=== PATIENT | male | born 1955 | race Caucasian/White ===

== ENCOUNTER 2020-06-02 14:42 | Emergency (ER) | payer OTHER, SELFPAY ==
[2020-06-02 15:36] VITALS: BP 141/82; PULSE 79; RESP 18; TEMP 37.2; O2SAT 98; BMI 33.6
--- NOTE | 2020-06-02 17:12 | XR_ITS ---
EXAMINATION: 1. RADIOGRAPHS LEFT SHOULDER 2. RADIOGRAPHS LEFT HUMERUS CLINICAL INFORMATION: Pain after fall COMPARISON: None TECHNIQUE: 3 views of the left shoulder and 2 views of left humerus were obtained. FINDINGS: No fracture of the left humerus. The humeral head demonstrates good articulation with the glenoid fossa. Small osteophyte of the humeral head/neck junction. Mild hypertrophy changes of the acromioclavicular joint. Visualized ribs and lung parenchyma are unremarkable. IMPRESSION: Mild degenerative changes of the left shoulder.
--- NOTE | 2020-06-02 17:12 | CT_ITS ---
EXAMINATION: CT HEAD WITHOUT CONTRAST CT CERVICAL SPINE WITHOUT CONTRAST CLINICAL INFORMATION: Status post fall. Head injury. Neck injury. COMPARISON: CT head from 03/22/2017. TECHNIQUE: Contiguous axial imaging was performed from the skull base to vertex without intravenous administration of contrast. Contiguous axial imaging was performed from the upper chest through the skull base without intravenous administration of contrast. Coronal and sagittal reformats were obtained at the acquisition workstation. This CT examination was performed using dose optimization techniques as appropriate, variously including the following: *Automated exposure control. *Adjustment of mA and/or kV according to patient size (this includes techniques or standardized protocols for targeted exams where dose is matched to indication/reason for exam; i.e. extremities or head). *Use of iterative reconstruction technique. DLP: 1390 mGy-cm FINDINGS: Head: There is no evidence of acute intracranial hemorrhage or edematous territorial infarction. Scattered hypoattenuation in the periventricular and deep white matter are consistent with mild to moderate microangiopathy. Wilhelm-white matter differentiation is preserved. Proportional prominence of the ventricles and sulcal spaces. No evidence for obstructive hydrocephalus. No abnormal mass effect or midline shift. No extra-axial fluid collections. No acute soft tissue or osseous abnormalities. Moderate mucosal thickening of the paranasal sinuses. The mastoid air cells and middle ear cavities are clear. Cervical Spine: The atlantooccipital and atlantoaxial articulations remain well aligned. Instrumented anterior fusion of C4-C5 with interbody device in place. Straightening of the normal cervical lordosis. Otherwise, there is anatomic alignment of the vertebral bodies and posterior elements. No evidence of acute fracture or subluxation. The vertebral body are maintained. Moderate degenerative disc disease at C5-C6 and C6-C7. Moderate multilevel facet and uncovertebral joint arthropathy with osseous encroachment on the C3-C4 and C4-C5 facets. There is no prevertebral soft tissue swelling. Fatty replacement of the parotid glands. Atrophy of the right submandibular gland. Subcentimeter nodules within the right thyroid lobe. No demonstrated cervical lymphadenopathy. The lung apices demonstrate no abnormalities. IMPRESSION: 1. No evidence of acute intracranial hemorrhage or edematous territorial infarction. 2. No evidence of acute fracture or traumatic subluxation of the cervical spine. 3. Mild to moderate underlying microangiopathy and generalized cerebral volume loss. Degenerative spondylosis arthropathy of the cervical spine.
--- NOTE | 2020-06-02 17:46 | ED.FALL ---
HPI - Fall General Chief Complaint: Fall Stated Complaint: fall Time Seen by Provider: 06/02/20 17:09 Source: patient Mode of arrival: ambulatory Limitations: no limitations History of Present Illness HPI Narrative: 65yoM c a PMHx of Asthma, DM, HTN and HLD presenting to the ED with complaints of left neck pain /shoulder pain / left upper arm pain after a mechanical fall on Monday after he woke up from bed and his leg got caught in the blanket. Denies LOC or being on blood thinner's. denies any additional complaints or concerns at this time. Related Data Previous Rx's Medication Instructions Recorded empagliflozin 25 mg tablet 25 mg PO DAILY 30 Days #30 tab 05/20/20 Allergies Allergy/AdvReac Type Severity Reaction Status Date / Time Penicillins Allergy Mild DIZZY/DIAPHORESIS, Verified 06/02/20 15:35 N/V penicillin V Allergy Unknown Unknown Verified 06/02/20 15:35 Review of Systems Review of Systems: Eyes: No Eye Pain, No Swelling, No Foreign Body Cardiovascular : No Chest Pain, No SOB, No Dyspnea on Exertion, No Orthopnea, No Edema, No Palpitations Gastrointestinal : No Nausea, No Vomiting, No Diarrhea, No Constipation, No abdominal Pain Musculoskeletal : No Myalgias, No Joint Swelling Skin : No Skin Lesions, No rash Neuro : No Weakness, No Numbness, No Paresthesias, No Loss of Consciousness, No Dizziness, No Headache Psych : No Anxiety/Panic, No Depression, No SI/HI/AH/VH, No Social Issues, Heme/Lymph: No Bruising, No Bleeding,No Lymphadenopathy Endocrine : No Polyuria, No Polydipsia, No Temperature Intolerance Yes all other systems are reviewed and are negative [facility] Past Medical History Attestation statement: The following information was validated with the patient. Medical History Asthma Cervical spine pain Diabetes High cholesterol HTN (hypertension) Social History Social History Alcohol intake: never Smoked in Last 30 Days: No Use of substances other than those prescribed or required for medical reasons: No Advance Directives: No Advance Directives Information Provided: No Physical Exam Vital Signs: Vital Signs: Vital Signs Temp Pulse Resp BP Pulse Ox 06/02/20 15:36 98.9 F 79 18 141/82 H 98 Body Mass Index 33.6 vital signs have been reviewed as normal and appeared to be correct. Blood pressure normal. Heart rate normal. Respiration rate normal. Temperature normal. Oxygen saturation normal. Appearance: Alert. Oriented X3. No acute distress. Head: Normal external exam. Normocephalic. Atraumatic. No Graf signs noted. No raccoon eyes noted Eyes: PERRLA. EOMI. Conjunctiva and sclera normal. Eyelids normal. ENT: EAC normal. TM's Normal. Pharynx normal. Uvula midline. Moist mucous membranes. No trismus noted. No drooling noted. No muffled voice noted. Neck: Normal inspection. Neck supple. FROM. No adenopathy. Thyroid Normal. No meningeal signs. No neck mass noted. Tender to palpation of bilateral paracervical musculature. No mid cervical tenderness step-offs or deformities noted. Patient neuro intact bilaterally and distally on all 4 extremities. Reflexes intact bilaterally and distally on all 4 extremities. Patient has full range of motion. No rashes/lesion / induration/ fluctuance or signs of infection noted. CVS: Normal heart rate and rhythm. Heart sound normal. No murmurs noted. Pulses normal throughout. Respiratory: No respiratory distress. Painless inspiration. Breath sounds normal. No wheezes/rales/rhonchi noted. Chest nontender. No accessory muscle usage noted or decreased air movement noted. Abdomen: Soft and nontender. Bowel sounds normal in all 4 quadrants. No distention noted. No organomegaly noted. No visible injury noted. Back: No CVA tenderness. Full range of motion noted. Skin: Skin warm and dry. Normal skin color. Normal skin turgor. No rashes/lesions/lacerations noted. Extremities: Left shoulder c TTP at AC joint c limited ROM due to pain For abduction/adduction/ external and internal rotation. No obvious deformities. No rashes/lesion / induration/fluctuance or signs infection noted. No lower extremity edema. All other Extremities exhibit normal range of motion and Extremities nontender. Neuro: Oriented X 3. No motor deficit. No sensory deficit. Reflexes normal. Course Course Course Narrative: 17:12PM 65yoM c a PMHx of Asthma, DM, HTN and HLD presenting to the ED with complaints of left neck pain /shoulder pain / left upper arm pain after a mechanical fall on Monday after he woke up from bed and his leg got caught in the blanket. Denies LOC or being on blood thinner's. denies any additional complaints or concerns at this time. - Plan: Xray of R shoulder/humerus and CT scan of brain/cervical spine. Then re-evaluate. Reevaluation(s) Reevaluation #1: CT scan of brain and cervical spine within normal limits no acute processes noted. Only chronic changes noted. Sign out to neck is DEVIKA at this time pending x-rays. Time: 18:08 MDM - Fall Medical Records Attestation: I reviewed the patient's medical records. Imaging Data CT scan - head: Attestation: I personally reviewed and interpreted this imaging study as follows: Radiologist's impression: IMPRESSION: 1. No evidence of acute intracranial hemorrhage or edematous territorial infarction. 2. No evidence of acute fracture or traumatic subluxation of the cervical spine. 3. Mild to moderate underlying microangiopathy and generalized cerebral volume loss. Degenerative spondylosis arthropathy of the cervical spine. Discharge Plan Discharge Prescriptions: No Action Jardiance 25 mg tablet 25 mg PO DAILY 30 Days Qty: 30 RF: 3
[2020-06-02] MEDS: oxyCODONE HCl Immed Release 5 MG TABLET PO (18:16)
[2020-06-02] MEDS: Cyclobenzaprine HCl 5 MG TABLET PO (18:16)
== END 2020-06-02 19:22 | disposition home or self-care (01) ==
PROVIDERS: Emergency Provider Emergency Medicine Emergency Medical Services; PCP Internal Medicine Geriatric Medicine
DX: S09.90XA Unspecified injury of head, initial encounter (principal); S16.1XXA Strain of muscle, fascia and tendon at neck level, initial encounter; W06.XXXA Fall from bed, initial encounter; E11.9 Type 2 diabetes mellitus without complications; I10 Essential (primary) hypertension; Y93.9 Activity, unspecified; Y92.013 Bedroom of single-family (private) house as the place of occurrence of the external cause; Y99.9 Unspecified external cause status; Z79.4 Long term (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 of insulin; Z79.899 Other long term (current) drug therapy
CPT/HCPCS: 70450; 72125; 73030; 73060; 99284

== ENCOUNTER → 2020-06-16 10:48 | Outpatient (BNVA) | payer OTHER, SELFPAY | PROVIDERS: PCP Internal Medicine Geriatric Medicine; Referring Provider Internal Medicine Geriatric Medicine; Visit Provider Internal Medicine Endocrinology, Diabetes & Metabolism | DX: E11.65 Type 2 diabetes mellitus with hyperglycemia (principal); E11.42 Type 2 diabetes mellitus with diabetic 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; E11.21 Type 2 diabetes mellitus with diabetic nephropathy; K21.9 Gastro-esophageal reflux disease without esophagitis; E66.9 Obesity, unspecified; E78.5 Hyperlipidemia, unspecified; D50.9 Iron deficiency anemia, unspecified; E78.00 Pure hypercholesterolemia, unspecified; I10 Essential (primary) hypertension; Z79.84 Long term (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 of oral hypoglycemic drugs | CPT/HCPCS: 99212 ==

== ENCOUNTER → 2020-06-18 13:23 | Outpatient (BNVA) | payer OTHER, SELFPAY | PROVIDERS: PCP Internal Medicine Geriatric Medicine; Referring Provider Internal Medicine Geriatric Medicine; Visit Provider Dietitian, Registered | DX: Z76.89 Persons encountering health services in other specified circumstances (principal) ==

== ENCOUNTER 2020-07-22 09:52 | Outpatient (REF) | payer OTHER, SELFPAY ==
[2020-07-22 11:34] LABS: Estimated Average Glucose 154 mg/dL
[2020-07-22 11:44] LABS: Alanine Aminotransferase 35 U/L (0-40); Albumin Level 4.4 g/dL (3.5-5.0); Alkaline Phosphatase 101 U/L (39-117); Anion Gap 19 (12-20); Aspartate Amino Transferase 23 U/L (5-37); Blood Urea Nitrogen 19 mg/dL (9-16); Calcium 8.9 mg/dL (8.4-10.2); Carbon Dioxide 23 mmol/L (22-29); Chloride 101 mmol/L (96-108); Cholesterol 157 mg/dL; Estimated Glomerular Filt Rate 47; Glucose Fasting 136 mg/dL (60-99); HDL Cholesterol 43 mg/dL; LDL Cholesterol Calculated 67 mg/dl; Potassium 4.7 mmol/l (3.3-5.1); Sodium 138 mmol/L (135-145); Total Protein 7.2 g/dL (6.5-8.0); Triglycerides 238 mg/dL
[2020-07-22 11:56] LABS: Vitamin B12 648 pg/mL (200-900)
[2020-07-22 11:59] LABS: Bilirubin Total 0.2 mg/dL (0.0-1.0)
[2020-07-22 12:16] LABS: Creatinine Urine 82.27 mg/dL; Microalbum/Creatinine Ratio Ur 8.5 ug/mg cr
[2020-07-23 07:02] LABS: LDL Cholesterol Direct 89 mg/dL (<100)
== END 2020-07-22 09:53 | disposition home or self-care (01) ==
LOC: HO.LAB 09:52
PROVIDERS: PCP Internal Medicine Geriatric Medicine; Visit Provider Internal Medicine Endocrinology, Diabetes & Metabolism
DX: E11.65 Type 2 diabetes mellitus with hyperglycemia (principal); E11.21 Type 2 diabetes mellitus with diabetic nephropathy
CPT/HCPCS: 80053; 80061; 82043; 82607; 83036; 83721

== ENCOUNTER → 2020-07-28 13:48 | Outpatient (BNVA) | payer OTHER, SELFPAY | PROVIDERS: PCP Internal Medicine Geriatric Medicine; Referring Provider Internal Medicine Geriatric Medicine; Visit Provider Dietitian, Registered | DX: Z76.89 Persons encountering health services in other specified circumstances (principal) ==

== ENCOUNTER → 2020-09-17 13:03 | Outpatient (BNVA) | payer OTHER, SELFPAY | PROVIDERS: PCP Internal Medicine Geriatric Medicine; Visit Provider Internal Medicine Endocrinology, Diabetes & Metabolism | DX: Z13.89 Encounter for screening for other disorder (principal) | CPT/HCPCS: Q3014 ==

== ENCOUNTER 2020-09-29 13:17 | Outpatient (REF) | payer OTHER, SELFPAY | END 2020-09-29 13:18 | disposition home or self-care (01) | LOC: HO.HAP 13:17 | PROVIDERS: Visit Provider Internal Medicine Geriatric Medicine | DX: Z13.89 Encounter for screening for other disorder (principal) ==

== ENCOUNTER 2020-10-12 14:01 | Outpatient (REF) | payer OTHER, SELFPAY | END 2020-10-12 14:02 | disposition home or self-care (01) | LOC: HO.HAP 14:01 | PROVIDERS: Visit Provider Internal Medicine Geriatric Medicine | DX: Z46.1 Encounter for fitting and adjustment of hearing aid (principal) | CPT/HCPCS: V5014; V5266 ==

== ENCOUNTER → 2020-10-27 13:27 | Outpatient (BNVA) | payer OTHER, SELFPAY | PROVIDERS: PCP Internal Medicine Geriatric Medicine; Visit Provider Dietitian, Registered ==

== ENCOUNTER 2020-10-28 10:58 | Outpatient (REF) | payer OTHER, SELFPAY ==
--- NOTE | 2020-10-28 14:46 | MHC.AU.AHA ---
Adult Audiological Evaluation Date of Visit: 10/28/20 Sanitarian Used: Israeli- By Video Reason for Appointment: History of hearing loss. Patient arrives to determine if there has been a change in hearing. Previous Hearing Test Results: At this clinic on 10/09/2019- Moderately-severe to profound sensorineural hearing loss bilaterally Ear History: Recent Ear Drainage: None Reported Recent Ear Pain: None Reported Family History of Hearing Loss?: Yes Recent Ear Infections: None Reported Medical History: Medical History: Type 2 Diabetes, Hypertension, Asthma, Osteoarthritis, Schizoaffective Disorder Hearing Instrument History- Right Ear: Facing Machine Operator: Phonak Model: Virto V50-312 Serial Number: [id number] Battery Size: 312 Dispensed By: [facility] Date of Fittin09/22/2015 Hearing Instrument History- Left Ear: Facing Machine Operator: Phonak Model: Virto V50-312 Serial Number: [id number] Battery Size: 312 Dispensed By: [facility] Date of Fittin09/22/2015 Otoscopy: Right Ear: Unremarkable Left Ear: Unremarkable Tympanometry: Tympanometry performed due to: To assess integrity of the middle ear system Right Ear: Hypercompliant Middle Ear System (Type Ad) Left Ear: Normal Middle Ear System (Type A) Hearing Evaluation: Transducer(s) Used: Insert Earphones Method: Conventional Audiometry Stimuli Used: Pure Tones Right Ear: Description of Hearing: Moderately-severe to profound sensorineural hearing loss Left Ear: Description of Hearing: Moderately-severe to profound sensorineural hearing loss Speech Recognition Threshold (SRT): Method Used: Recorded Lists Stimuli Used: Right Ear: 90 dBHL Left Ear: 80 dBHL Word Discrimination: Method: Recorded Lists Word Lists Used: Lista Bisil?bica (Israeli) Right Ear: 72% at 100 dBHL Left Ear: 80% at 100 dBHL Comparison: Compared to the most recent evaluation: Thresholds have decreased bilaterally. Recommendations: Audiological re-evaluation in one year. Hearing aid maintenance performed today. See Hearing Aid Evaluation report for more information. Diagnosis: Primary Diagnosis: H90.3 Bilateral Sensorineural Hearing Loss Secondary Diagnosis: Services Performed: Comprehensive Audiological Evaluation (CPT 42555), Tympanometry (CPT 62187) Signature: Student/Clinical Fellow: No I have reviewed/agreed with student/fellow documentation: N/A Provider: Georgi Roberson, [facility]3]-A
--- NOTE | 2020-10-28 14:48 | MHC.AU.HAS ---
Hearing Aid Evaluation Date of Visit: 10/28/20 Commercial Real Estate Sales Manager Used: Lithuanian- By Video Historical Information: Description of Hearing: Moderately-severe to profound sensorineural hearing loss bilaterally Current personal amplification information, if applicable: Phonak Virto V50-312 ITC, obtained 09/22/2015 Summary: Patient arrived for audiological evaluation (see separate note for details). Patient's hearing slightly decreased bilaterally. Hearing aid options were discussed. Patient would like to stay with the ITC style. He says if Bluetooth (wireless) compatibility will make the hearing aids too large, it is fine to go with the Non-Wireless version. We will try the Wireless version first, as only the Wireless comes in a UP power level. If patient feels it is too large, he may be able to get away with an SP power level (though there would be little room for adjusting up). Impressions were taken bilaterally without incident. Hearing Aid Prescription: Based on the individual?s shared listening needs, communication environments, dexterity, desire for connectivity, and personal preferences, the following prescription for amplification has been made: Right ear: Mexican Food Maker: Phonak Model: Virto M50-312 UP Battery Size: 312 Color: Sawyer Left ear: Mexican Food Maker: Phonak Model: Virto M50-312 UP Battery Size: 312 Color: Sawyer Action Taken/Action Needed: Earmold Impressions Taken Prior authorization to be requested Medical Clearance to be requested from PCP/ENT Hearing Fitting to be scheduled when materials arrive Comments: Request honing machine operator production for fitting. Primary Diagnosis: H90.3 Bilateral Sensorineural Hearing Loss Signature: Provider: Georgi Roberson, CCC-A
--- NOTE | 2020-10-28 15:27 | MHC.AU.MED ---
Medical Clearance for Hearing Instrumentation Date: 10/28/20 Patient Name: Alonzo Yuan Date of : 1955 Referring Provider: Chan Holley MD We have seen your patient on 10/28/20 and have determined that they are a candidate for amplification (See accompanying report). Specifically, they would benefit from: Hearing aid use in both ears There is a statute that addresses Medical Evaluation Requirements prior to fitting a patient with a hearing aid. According to [place] statute [facility] CMR:6.03(1), (a) General. Except as provided in 265 CMR 6.03(1)(b), a rand tacker shall not sell a hearing aid unless the prospective user has presented to the rand tacker a written statement signed by a licensed physician that states that the patient's hearing loss has been medically evaluated and the patient may be considered a candidate for a hearing aid. The medical evaluation must have taken place within the preceding six months. Please note: Due to the [place] Statute referenced above, we cannot accept a signature other than that of a licensed physician. BEACH LIFEGUARD and PA signatures cannot be accepted. I am in agreement with the above recommendation. There is no medical contraindication for hearing instrumentation. Physician Signature Date Physician Name (Printed)
== END 2020-10-28 10:59 | disposition home or self-care (01) ==
LOC: HO.SH 10:58
PROVIDERS: Visit Provider Internal Medicine Geriatric Medicine
DX: Z46.1 Encounter for fitting and adjustment of hearing aid (principal); H90.3 Sensorineural hearing loss, bilateral
CPT/HCPCS: 92557; 92567; 92591; V5275

== ENCOUNTER 2020-12-11 14:40 | Outpatient (REF) | payer OTHER, SELFPAY ==
--- NOTE | 2020-12-11 15:16 | MHC.AU.HFA ---
Hearing Instrument Fitting- Adult- Binaural Date of Visit: 12/11/20 Fern Gatherer Used: Romansh- In Person Hearing Instruments Dispensed: Right Ear: Stem Crusher: Phonak Model: Virto M70-312 UP Serial Number: [id number] Repair Warranty: 12/20/2023 Loss and Damage Warranty: 12/20/2023 Battery Size: 312 Color: Sawyer Type of Wax Guard: CeruStop Left Ear: Stem Crusher: Phonak Model: Virto M70-312 UP Serial Number: [id number] Repair Warranty: 12/20/2023 Loss and Damage Warranty: 12/20/2023 Battery Size: 312 Color: Sawyer Type of Wax Guard: CeruStop Summary of Fitting: Feedback healthcare consulting manager run. Verifit performed and levels adjusted. Patient felt 100% was too loud- lowered to 90% for comfort. Patient was pleased with the sound of the instruments and did not feel additional adjustments were necessary. Paired the hearing aids to his phone. Hearing aid care and use were discussed. Recommendations: Recommendations:Patient is an experienced hearing aid user. He will call if follow-up is needed. Diagnosis Code(s): Primary Diagnosis: H90.3 Bilateral Sensorineural Hearing Loss Signature: Provider: Georgi Roberson, JOSSELIN-A
== END 2020-12-11 14:41 | disposition home or self-care (01) ==
LOC: HO.HAP 14:40
PROVIDERS: Visit Provider Internal Medicine Geriatric Medicine
DX: Z46.1 Encounter for fitting and adjustment of hearing aid (principal); H90.3 Sensorineural hearing loss, bilateral
CPT/HCPCS: V5011; V5020; V5160; V5260; V5266

== ENCOUNTER → 2020-12-16 08:56 | Outpatient (BNVA) | payer OTHER, SELFPAY | PROVIDERS: PCP Internal Medicine Geriatric Medicine; Visit Provider Internal Medicine Endocrinology, Diabetes & Metabolism | CPT/HCPCS: Q3014 ==

== ENCOUNTER → 2021-03-09 13:56 | Outpatient (BNVA) | payer OTHER, SELFPAY | PROVIDERS: Visit Provider Nurse Practitioner | DX: Z13.89 Encounter for screening for other disorder (principal) | CPT/HCPCS: Q3014 ==

== ENCOUNTER 2021-03-22 10:45 | Outpatient (REF) | payer OTHER, SELFPAY | END 2021-03-22 10:46 | disposition home or self-care (01) | LOC: HO.HAP 10:45 | PROVIDERS: Visit Provider Internal Medicine Geriatric Medicine | DX: Z46.1 Encounter for fitting and adjustment of hearing aid (principal); H90.3 Sensorineural hearing loss, bilateral | CPT/HCPCS: V5266 ==

== ENCOUNTER → 2021-06-15 10:11 | Outpatient (BNVA) | payer OTHER, SELFPAY | PROVIDERS: PCP Internal Medicine Geriatric Medicine; Referring Provider Internal Medicine Geriatric Medicine; Visit Provider Nurse Practitioner Family | DX: G47.33 Obstructive sleep apnea (adult) (pediatric) (principal) | CPT/HCPCS: Q3014 ==

== ENCOUNTER 2021-06-22 | Outpatient (REF) | payer OTHER, SELFPAY | END 2021-06-22 00:01 | disposition home or self-care (01) | LOC: CF | PROVIDERS: Visit Provider Urology | DX: E11.69 Type 2 diabetes mellitus with other specified complication (principal); E11.42 Type 2 diabetes mellitus with diabetic 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; R32 Unspecified urinary incontinence; R39.12 Poor urinary stream; N13.8 Other obstructive and reflux uropathy; N40.1 Benign prostatic hyperplasia with lower urinary tract symptoms; N52.1 Erectile dysfunction due to diseases classified elsewhere | CPT/HCPCS: 99202 ==

== ENCOUNTER 2021-06-22 13:37 | Outpatient (REF) | payer OTHER, SELFPAY | END 2021-06-22 13:38 | disposition home or self-care (01) | LOC: HO.HAP 13:37 | PROVIDERS: Visit Provider Internal Medicine Geriatric Medicine | DX: Z46.1 Encounter for fitting and adjustment of hearing aid (principal); H90.3 Sensorineural hearing loss, bilateral | CPT/HCPCS: 99202; V5266 ==

== ENCOUNTER → 2021-06-29 10:41 | Outpatient (BNVA) | payer OTHER, SELFPAY | PROVIDERS: PCP Internal Medicine Geriatric Medicine; Visit Provider Nurse Practitioner Gerontology | DX: E11.65 Type 2 diabetes mellitus with hyperglycemia (principal); E11.42 Type 2 diabetes mellitus with diabetic 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; E11.21 Type 2 diabetes mellitus with diabetic nephropathy; E78.00 Pure hypercholesterolemia, unspecified; E66.9 Obesity, unspecified; I10 Essential (primary) hypertension; Z79.4 Long term (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 of insulin | CPT/HCPCS: 82947; 83036; 99212 ==

== ENCOUNTER → 2021-07-13 11:57 | Outpatient (BNVA) | payer OTHER, SELFPAY | PROVIDERS: PCP Internal Medicine Geriatric Medicine; Visit Provider Dietitian, Registered | DX: E11.42 Type 2 diabetes mellitus with diabetic 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 (principal); E66.9 Obesity, unspecified; Z87.891 Personal history of nicotine dependence | CPT/HCPCS: 97803 ==

== ENCOUNTER → 2021-09-06 15:27 | Outpatient (BNVA) | payer OTHER, SELFPAY | PROVIDERS: PCP Internal Medicine Geriatric Medicine; Referring Provider Internal Medicine Geriatric Medicine; Visit Provider Nurse Practitioner | DX: K21.9 Gastro-esophageal reflux disease without esophagitis (principal); K59.00 Constipation, unspecified | CPT/HCPCS: 99212 ==

== ENCOUNTER → 2021-09-16 11:09 | Outpatient (BNVA) | payer OTHER, SELFPAY | PROVIDERS: PCP Internal Medicine Geriatric Medicine; Visit Provider Dietitian, Registered | DX: E66.9 Obesity, unspecified (principal); E11.42 Type 2 diabetes mellitus with diabetic 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; Z71.3 Dietary counseling and surveillance | CPT/HCPCS: 97803 ==

== ENCOUNTER → 2021-10-12 09:37 | Outpatient (BNVA) | payer OTHER, SELFPAY | PROVIDERS: PCP Internal Medicine Geriatric Medicine; Referring Provider Internal Medicine Geriatric Medicine; Visit Provider Nurse Practitioner | DX: K21.9 Gastro-esophageal reflux disease without esophagitis (principal); K59.00 Constipation, unspecified | CPT/HCPCS: 99212 ==

== ENCOUNTER → 2021-11-16 11:18 | Outpatient (BNVA) | payer OTHER, SELFPAY | PROVIDERS: PCP Internal Medicine Geriatric Medicine; Referring Provider Internal Medicine Geriatric Medicine; Visit Provider Nurse Practitioner Family | DX: G47.33 Obstructive sleep apnea (adult) (pediatric) (principal) | CPT/HCPCS: 99212 ==

== ENCOUNTER → 2021-12-23 09:57 | Outpatient (BNVA) | payer OTHER, SELFPAY | PROVIDERS: PCP Internal Medicine Geriatric Medicine; Referring Provider Internal Medicine Geriatric Medicine; Visit Provider Nurse Practitioner | DX: K21.9 Gastro-esophageal reflux disease without esophagitis (principal); K59.04 Chronic idiopathic constipation; R10.10 Upper abdominal pain, unspecified | CPT/HCPCS: 99212 ==

== ENCOUNTER → 2022-01-20 10:16 | Outpatient (BNVA) | payer OTHER, SELFPAY | PROVIDERS: PCP Internal Medicine Geriatric Medicine; Visit Provider Nurse Practitioner | DX: K59.04 Chronic idiopathic constipation (principal); K21.9 Gastro-esophageal reflux disease without esophagitis | CPT/HCPCS: 99212 ==

== ENCOUNTER → 2022-02-24 08:45 | Outpatient (BNVA) | payer OTHER, SELFPAY | PROVIDERS: PCP Internal Medicine Geriatric Medicine; Visit Provider Urology | DX: N40.1 Benign prostatic hyperplasia with lower urinary tract symptoms (principal); N13.8 Other obstructive and reflux uropathy; R35.0 Frequency of micturition; R39.15 Urgency of urination; R39.12 Poor urinary stream; E11.69 Type 2 diabetes mellitus with other specified complication; N52.1 Erectile dysfunction due to diseases classified elsewhere; Z79.899 Other long term (current) drug therapy | CPT/HCPCS: 51798; 99212 ==

== ENCOUNTER → 2022-06-23 12:51 | Outpatient (BNVA) | payer OTHER, SELFPAY | PROVIDERS: PCP Internal Medicine Geriatric Medicine; Visit Provider Urology | DX: R39.12 Poor urinary stream (principal); E11.69 Type 2 diabetes mellitus with other specified complication; N52.1 Erectile dysfunction due to diseases classified elsewhere | CPT/HCPCS: 51798; 99212 ==

== ENCOUNTER → 2022-07-28 10:17 | Outpatient (BNVA) | payer OTHER, SELFPAY | PROVIDERS: PCP Internal Medicine Geriatric Medicine; Visit Provider Nurse Practitioner | DX: Z01.818 Encounter for other preprocedural examination (principal); K59.04 Chronic idiopathic constipation; K21.9 Gastro-esophageal reflux disease without esophagitis; E11.65 Type 2 diabetes mellitus with hyperglycemia; Z79.899 Other long term (current) drug therapy | CPT/HCPCS: 99212 ==

== ENCOUNTER → 2022-12-01 10:13 | Outpatient (BNVA) | payer OTHER, SELFPAY | PROVIDERS: PCP Internal Medicine Geriatric Medicine; Visit Provider Nurse Practitioner | DX: K59.04 Chronic idiopathic constipation (principal); R63.4 Abnormal weight loss; R11.2 Nausea with vomiting, unspecified | CPT/HCPCS: 99212 ==

== ENCOUNTER 2022-12-12 12:16 | Day surgery (SDC) | payer OTHER, SELFPAY ==
--- NOTE | 2022-12-09 12:09 | P.CONAN_ITS ---
Documented by User: Noelle Strickland NP 12/09/22 12:10 HPI - Anesthesia Eval Consult details Narrative: 67yo M for Colonoscopy PMFSH Active Problems Active Problems: All Active Problems (Updated 12/01/22 @ 10:57 by BROOKLYN Lara) Weight loss, abnormal (Acute) Nausea and vomiting (Acute) Pre-op examination (Acute) Chronic idiopathic constipation (Acute) Weak urinary stream (Acute) Urinary urgency (Acute) Erectile dysfunction associated with type 2 diabetes mellitus (Acute) Moderate obstructive sleep apnea (Acute) Upper abdominal pain (Acute) GERD (gastroesophageal reflux disease) (Acute) Obesity (BMI 30-39.9) (Acute) Diabetes type 2, uncontrolled (Acute) Diabetic nephropathy associated with type 2 diabetes mellitus (Acute) Diabetic 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 associated with type 2 diabetes mellitus (Acute) 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 of 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 (Acute) Asthma (Acute) Cervical spine pain (Acute) Diabetes (Acute) High cholesterol (Acute) HTN (hypertension) (Acute) Past Medical History Medical History Asthma Cervical spine pain Constipation Diabetes Diabetes type 2, uncontrolled Diabetic nephropathy associated with type 2 diabetes mellitus Diabetic 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 associated with type 2 diabetes mellitus GERD (gastroesophageal reflux disease) High cholesterol HTN (hypertension) skilled nursing (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 of insulin Obesity (BMI 30-39.9) Family History Family History Father Heart disease Mother Arthritis Diabetes Surgical History Surgical History History of back surgery Hx of colonoscopy Hx of esophagogastroduodenoscopy Hx of hand surgery Social History Social History Household Members: Spouse Alcohol intake: never Patient Tobacco Use Status: Former Tobacco user Use of substances other than those prescribed or required for medical reasons: No Are you DNR?: No Advance Directives: No Advance Directives Information Provided: Yes Recently lost weight without trying: Yes How much weight loss: 14-23 pounds Nutrition Risks: No Nutritional Risk Current occupational status: retired and disabled Meds Allergies Allergy/AdvReac Type Severity Reaction Status Date / Time Penicillins Allergy Mild DIZZY/DIAPHORESIS, Verified 12/01/22 10:21 N/V penicillin V Allergy Unknown Unknown Verified 12/01/22 10:21 Home Medications Medication Instructions Recorded Confirmed Last Taken Type aspirin 81 mg tablet,delayed 81 mg PO DAILY 06/16/20 06/23/22 Unknown History release bupropion HCl 150 mg tablet,12 hr 150 mg PO BID 06/16/20 06/23/22 Unknown History sustained-release lisinopril 10 1 tab PO DAILY 06/16/20 06/23/22 Unknown History mg-hydrochlorothiazide 12.5 mg tablet albuterol sulfate 2.5 mg/3 mL mg inhalation 12/16/20 06/23/22 Unknown History (0.083 %) solution for nebulization albuterol sulfate 90 mcg/actuation 0 mcg inhalation 12/16/20 06/23/22 Unknown History aerosol inhaler fluoxetine 20 mg capsule 60 mg PO QAM 12/16/20 06/23/22 Unknown History fluticasone 250 mcg-salmeterol 50 1 ea inhalation BID 12/16/20 06/23/22 Unknown History mcg/dose blistr powdr for inhalation naproxen 500 mg tablet 500 mg PO BID 12/16/20 06/23/22 Unknown History tramadol 37.5 mg-acetaminophen 325 1 - 2 tab PO TID 06/29/21 06/23/22 Unknown History mg tablet ziprasidone HCl 40 mg capsule 40 mg PO 06/29/21 06/23/22 Unknown History amitriptyline 50 mg tablet 50 mg PO BEDTIME 02/24/22 06/23/22 Unknown History clonazepam 0.5 mg tablet 0.5 mg PO DAILY PRN 02/24/22 06/23/22 Unknown History metformin 500 mg tablet 500 mg PO BID 06/20/22 06/23/22 Unknown History econazole 1 % topical cream appl topical BID 07/28/22 Unknown History ketorolac 0.5 % eye drops 1 drp ophthalmic (eye) TID 07/28/22 Unknown History tamsulosin 0.4 mg capsule 0.4 mg PO QPM 07/28/22 Unknown History dulaglutide 0.75 mg/0.5 mL mg subcut 12/01/22 Unknown History subcutaneous pen injector (Trulicity) insulin glargine 100 unit/mL (3 20 unit subcut QPM 12/01/22 Unknown History mL) subcutaneous pen (Lantus Solostar U-100 Insulin) tolterodine 2 mg capsule,extended 2 mg PO DAILY 12/01/22 Unknown History release 24 hr Exam Exam Date and Time: December 09, 2022 120 Assessment and Plan Assessment Anesthesia Assessment: Chart Reviewed Documented by User: Federico Alvarez MD 12/12/22 16:27 HPI - Anesthesia Eval Consult details Narrative: 67yo M for Colonoscopy no CP , uses walker to walk [facility] to back pain with radiation to b/l LE . neck pain s/p surgery PMFSH Past Medical History Medical History Asthma Cervical spine pain Constipation Diabetes Diabetes type 2, uncontrolled Diabetic nephropathy associated with type 2 diabetes mellitus Diabetic 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 associated with type 2 diabetes mellitus GERD (gastroesophageal reflux disease) High cholesterol HTN (hypertension) skilled nursing (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 of insulin Obesity (BMI 30-39.9) Functional capacity: uses cane/walker Family History Family History Father Heart disease Mother Arthritis Diabetes Family history of problems with anesthesia: No Surgical History Surgical History History of back surgery Hx of colonoscopy Hx of esophagogastroduodenoscopy Hx of hand surgery History of Problems with Anesthesia: No Social History Social History Household Members: Spouse Alcohol intake: never Patient Tobacco Use Status: Former Tobacco user Use of substances other than those prescribed or required for medical reasons: No Are you DNR?: No Advance Directives: No Advance Directives Information Provided: Yes Recently lost weight without trying: Yes How much weight loss: 14-23 pounds Nutrition Risks: No Nutritional Risk Current occupational status: retired and disabled Meds Allergies Allergy/AdvReac Type Severity Reaction Status Date / Time Penicillins Allergy Mild DIZZY/DIAPHORESIS, Verified 12/01/22 10:21 N/V penicillin V Allergy Unknown Unknown Verified 12/01/22 10:21 Home Medications Medication Instructions Recorded Confirmed Last Taken Type aspirin 81 mg tablet,delayed 81 mg PO DAILY 06/16/20 06/23/22 Unknown History release bupropion HCl 150 mg tablet,12 hr 150 mg PO BID 06/16/20 06/23/22 Unknown History sustained-release lisinopril 10 1 tab PO DAILY 06/16/20 06/23/22 Unknown History mg-hydrochlorothiazide 12.5 mg tablet albuterol sulfate 2.5 mg/3 mL mg inhalation 12/16/20 06/23/22 Unknown History (0.083 %) solution for nebulization albuterol sulfate 90 mcg/actuation 0 mcg inhalation 12/16/20 06/23/22 Unknown History aerosol inhaler fluoxetine 20 mg capsule 60 mg PO QAM 12/16/20 06/23/22 Unknown History fluticasone 250 mcg-salmeterol 50 1 ea inhalation BID 12/16/20 06/23/22 Unknown History mcg/dose blistr powdr for inhalation naproxen 500 mg tablet 500 mg PO BID 12/16/20 06/23/22 Unknown History tramadol 37.5 mg-acetaminophen 325 1 - 2 tab PO TID 06/29/21 06/23/22 Unknown History mg tablet ziprasidone HCl 40 mg capsule 40 mg PO 06/29/21 06/23/22 Unknown History amitriptyline 50 mg tablet 50 mg PO BEDTIME 02/24/22 06/23/22 Unknown History clonazepam 0.5 mg tablet 0.5 mg PO DAILY PRN 02/24/22 06/23/22 Unknown History metformin 500 mg tablet 500 mg PO BID 06/20/22 06/23/22 Unknown History econazole 1 % topical cream appl topical BID 07/28/22 Unknown History ketorolac 0.5 % eye drops 1 drp ophthalmic (eye) TID 07/28/22 Unknown History tamsulosin 0.4 mg capsule 0.4 mg PO QPM 07/28/22 Unknown History dulaglutide 0.75 mg/0.5 mL mg subcut 12/01/22 Unknown History subcutaneous pen injector (Trulicity) insulin glargine 100 unit/mL (3 20 unit subcut QPM 12/01/22 Unknown History mL) subcutaneous pen (Lantus Solostar U-100 Insulin) tolterodine 2 mg capsule,extended 2 mg PO DAILY 12/01/22 Unknown History release 24 hr Exam Airway Mallampati Class: IV Partial: Upper Loose/Missing/Broken Teeth: Yes Assessment and Plan Final Anesthetic Review Family History of Problems with Anesthesia: No History of Problems with Anesthesia: No Procedure Risk: Intermediate Anesthetic Plan Anesthetic Plan: Agree w/ Assess. and Plan Documented by User: Lona Nieto MD 12/12/22 14:46 [facility] Active Problems Active Problems: All Active Problems (Updated 12/12/22 @ 14:00 by Lona Nieto MD) Weight loss, abnormal (Acute) Nausea and vomiting (Acute) Pre-op examination (Acute) Chronic idiopathic constipation (Acute) Weak urinary stream (Acute) Urinary urgency (Acute) Erectile dysfunction associated with type 2 diabetes mellitus (Acute) Moderate obstructive sleep apnea (Acute) Upper abdominal pain (Acute) GERD (gastroesophageal reflux disease) (Acute) Obesity (BMI 30-39.9) (Acute) Diabetes type 2, uncontrolled (Acute) Diabetic nephropathy associated with type 2 diabetes mellitus (Acute) Diabetic 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 associated with type 2 diabetes mellitus (Acute) skilled nursing (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 of insulin (Acute) Asthma (Acute). Inhaler prn Cervical spine pain (Acute) Diabetes (Acute) High cholesterol (Acute) HTN (hypertension) (Acute) Past Medical History Medical History Asthma Cervical spine pain Constipation Diabetes Diabetes type 2, uncontrolled Diabetic nephropathy associated with type 2 diabetes mellitus Diabetic 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 associated with type 2 diabetes mellitus GERD (gastroesophageal reflux disease) High cholesterol HTN (hypertension) 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 of insulin Obesity (BMI 30-39.9) Family History Family History Father Heart disease Mother Arthritis Diabetes Surgical History Surgical History History of back surgery Hx of colonoscopy Hx of esophagogastroduodenoscopy Hx of hand surgery Social History Social History Household Members: Spouse Alcohol intake: never Patient Tobacco Use Status: Former Tobacco user Use of substances other than those prescribed or required for medical reasons: No Are you DNR?: No Advance Directives: No Advance Directives Information Provided: Yes Recently lost weight without trying: Yes How much weight loss: 14-23 pounds Nutrition Risks: No Nutritional Risk Current occupational status: retired and disabled Meds Allergies Allergy/AdvReac Type Severity Reaction Status Date / Time Penicillins Allergy Mild DIZZY/DIAPHORESIS, Verified 12/01/22 10:21 N/V penicillin V Allergy Unknown Unknown Verified 12/01/22 10:21 Home Medications Medication Instructions Recorded Confirmed Last Taken Type aspirin 81 mg tablet,delayed 81 mg PO DAILY 06/16/20 06/23/22 Unknown History release bupropion HCl 150 mg tablet,12 hr 150 mg PO BID 06/16/20 06/23/22 Unknown History sustained-release lisinopril 10 1 tab PO DAILY 06/16/20 06/23/22 Unknown History mg-hydrochlorothiazide 12.5 mg tablet albuterol sulfate 2.5 mg/3 mL mg inhalation 12/16/20 06/23/22 Unknown History (0.083 %) solution for nebulization albuterol sulfate 90 mcg/actuation 0 mcg inhalation 12/16/20 06/23/22 Unknown History aerosol inhaler fluoxetine 20 mg capsule 60 mg PO QAM 12/16/20 06/23/22 Unknown History fluticasone 250 mcg-salmeterol 50 1 ea inhalation BID 12/16/20 06/23/22 Unknown History mcg/dose blistr powdr for inhalation naproxen 500 mg tablet 500 mg PO BID 12/16/20 06/23/22 Unknown History tramadol 37.5 mg-acetaminophen 325 1 - 2 tab PO TID 06/29/21 06/23/22 Unknown History mg tablet ziprasidone HCl 40 mg capsule 40 mg PO 06/29/21 06/23/22 Unknown History amitriptyline 50 mg tablet 50 mg PO BEDTIME 02/24/22 06/23/22 Unknown History clonazepam 0.5 mg tablet 0.5 mg PO DAILY PRN 02/24/22 06/23/22 Unknown History metformin 500 mg tablet 500 mg PO BID 06/20/22 06/23/22 Unknown History econazole 1 % topical cream appl topical BID 07/28/22 Unknown History ketorolac 0.5 % eye drops 1 drp ophthalmic (eye) TID 07/28/22 Unknown History tamsulosin 0.4 mg capsule 0.4 mg PO QPM 07/28/22 Unknown History dulaglutide 0.75 mg/0.5 mL mg subcut 12/01/22 Unknown History subcutaneous pen injector (Trulicity) insulin glargine 100 unit/mL (3 20 unit subcut QPM 12/01/22 Unknown History mL) subcutaneous pen (Lantus Solostar U-100 Insulin) tolterodine 2 mg capsule,extended 2 mg PO DAILY 12/01/22 Unknown History release 24 hr Exam Height,Weight and Vital Signs: Height 5 ft 4 in Weight 79.379 kg Vital Signs Temp Pulse Resp BP Pulse Ox O2 Del Method 12/12/22 12:51 97.5 F 92 16 112/64 98 Room Air Airway TM Dist: >3cm Neck ROM: Full Heart: RRR Lungs: CTAB Assessment and Plan Assessment Anesthesia Assessment: Anesthesia Plan Discussed Final Anesthetic Review NPO: Yes ASA Class: III Final Preanesthetic Review: No Changes in Pt Med Stat, Meds/Allgs Chart Reviewed, Consent Obtained/Reviewed and Anes Risks/Benef Reviewed Patient Risk: Intermediate Procedure Risk: Low Assessment/Block/Sedation in SS: Assess/Block/Sedation-SS Anesthetic Plan Anesthetic Plan: MAC: Disposition: Standard PACU
[2022-12-12 12:51] VITALS: BP 112/64; PULSE 92; RESP 16; TEMP 36.4; O2SAT 98
[2022-12-12] MEDS: Lactated Ringers 1,000 ML 100 ML IVCONT (12:59)
--- NOTE | 2022-12-12 14:43 | W.PM.OPN ---
Operative Note Operative Note Date of Service: 12/12/22 Narrative: COLONOSCOPY TILL CECUM WITH BIOPSIES AND SNARE POLYPECTOMY Pre-op diagnosis: COLON CANCER SCREENING, CHRONIC CONSTIPATION Post-op diagnosis:? COLON POLYP, DIVERTICULOSIS, HEMORRHOIDS Endoscopist:? Mary Phillip MD Anesthesia:?MAC Consent: Indications for the procedure and potential complications of bleeding, perforation, reaction to medications and missed diagnosis were discussed with the patient and informed consent was obtained. Instrument: Olympus PCF H 190 L variable stiffness pediatric colonoscope Monitoring: Vital signs and clinical assessment, intermittent blood pressure monitoring, continuous EKG monitoring, Pulse oximetry and Carbon Dioxide monitoring were done throughout the procedure. Please see anesthesia flowsheet. Colon withdrawl time was 17 minutes. Procedure: The patient was placed in the left lateral decubitis position and pre-procedure medications were administered. After a digital rectal examination of the ano-rectum, the video colonoscope was inserted into the rectum and advanced through the colon to the cecum. The colonoscope was slowly withdrawn in a retrograde panoramic fashion and the colon mucosa was carefully examined including a retroflexed view of the rectum. Findings and interventions are described below. Procedure Difficulty: Without difficulty - colon was long and tortuous with some loop formation Findings: Terminal Ileum: Not evaluated Cecum: Normal Ascending Colon: Normal Transverse Colon: A 10 mm sessile polyp removed partially with a cold snare and remaining polyp was removed with a cold biopsy Descending Colon: Normal Sigmoid Colon: Moderate diverticulosis Rectum: Normal Ano-rectum: Small internal hemorrhoids Colon preparation: Good after some irrigation Impression and Post Procedure Diagnosis: Colonoscopy Findings: One medium sized polyps removed Moderate diverticulosis seen in the sigmoid colon Small hemorrhoids on retroflexed exam. Plan: Await pathology results Patient has an appointment on 01/04/23 in the [facility] with Petra Holley NP. Repeat Colonoscopy interval based on path results - in 5 years if polyps are adenomatous and 10 years if polyps are hyperplastic. Above findings were reviewed with the patient and colon polyps and diverticulosis handouts were given in the discharge area
[2022-12-12 14:46] VITALS: BP 93/58; PULSE 85; RESP 20; TEMP 36.2; O2SAT 95
[2022-12-12 15:02] VITALS: BP 109/61; PULSE 80; RESP 20; O2SAT 100
[2022-12-12 15:17] VITALS: BP 109/66; PULSE 78; RESP 20; TEMP 36.2; O2SAT 99
== END 2022-12-12 16:03 | disposition home or self-care (01) ==
PROVIDERS: PCP Internal Medicine Geriatric Medicine; Visit Provider Internal Medicine Gastroenterology
PROC: 0DJD8ZZ Inspection of Lower Intestinal Tract, Via Natural or Artificial Opening Endoscopic (ICD-10-PCS; CPT 45378; principal; 2022-12-12 12:20)
DX: Z12.11 Encounter for screening for malignant neoplasm of colon (principal); D12.3 Benign neoplasm of transverse colon; K57.30 Diverticulosis of large intestine without perforation or abscess without bleeding; K56.2 Volvulus; K64.8 Other hemorrhoids; R63.4 Abnormal weight loss; K59.04 Chronic idiopathic constipation; K21.9 Gastro-esophageal reflux disease without esophagitis; E11.9 Type 2 diabetes mellitus without complications; J45.909 Unspecified asthma, uncomplicated; I10 Essential (primary) hypertension; Z79.4 Long term (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 of insulin
CPT/HCPCS: 45385; 88305

== ENCOUNTER 2022-12-30 11:40 | Outpatient (REF) | payer OTHER, SELFPAY ==
[2022-12-30 11:54] LABS: MANUAL DIFF FLAG NO
[2022-12-30 12:07] LABS: Basophils Absolute Auto 0.1 X10*3/uL (0.0-0.2); Basophils Percent Auto 0.6 % (0-2); Eosinophils Absolute Auto 0.4 X10*3/uL (0.0-0.4); Eosinophils Percent Auto 4.8 % (0-4); Hematocrit 40.4 % (42.0-52.0); Hemoglobin 12.8 g/dl (14.0-18.0); Imm Gran Abs Auto 0.03 X10*3/uL (0.00-0.03); Imm Gran Pct Auto 0.3 % (0.0-0.4); Lymphocytes Absolute Auto 1.7 X10*3/uL (1.2-4.9); Lymphocytes Percent Auto 19.8 % (20-40); Mean Corpuscular HGB Conc 31.7 g/dl (31.0-36.0); Mean Corpuscular Hemoglobin 25.3 pg (27.0-33.0); Mean Corpuscular Volume 79.8 fL (80.0-98.0); Mean Platelet Volume 9.5 fL (9.4-12.4); Monocytes Absolute Auto 0.6 X10*3/uL (0.1-1.2); Monocytes Percent Auto 6.7 % (2-11); Neutrophils Percent Auto 67.8 % (45-73); Platelet Count 349 X10*3/uL (160-400); Red Blood Count 5.06 X10*6/uL (4.60-5.80); Red Cell Distribution Width 15.9 % (11.0-16.0); White Blood Count 8.8 X10*3/uL (4.8-10.8)
[2022-12-30 12:55] LABS: Alanine Aminotransferase 26 U/L (0-40); Albumin Level 4.4 g/dL (3.5-5.0); Alkaline Phosphatase 119 U/L (39-117); Anion Gap 12 (12-20); Aspartate Amino Transferase 17 U/L (5-37); Bilirubin Total 0.3 mg/dL (0.0-1.0); Blood Urea Nitrogen 20 mg/dL (9-16); Calcium 9.6 mg/dL (8.4-10.2); Carbon Dioxide 26 mmol/L (22-29); Chloride 104 mmol/L (96-108); Estimated Glomerular Filt Rate 58; Glucose Random 176 mg/dL (60-115); Potassium 4.2 mmol/L (3.3-5.1); Sodium 138 mmol/L (135-145); Total Protein 7.2 g/dL (6.5-8.0)
[2022-12-30 13:16] LABS: Prostate Specific Antigen 0.36 ng/mL (<0.05-4.0)
[2023-01-05 13:14] LABS: Testosterone, Total 363 ng/dL (250-1100)
== END 2022-12-30 11:41 | disposition home or self-care (01) ==
LOC: HO.LAB 11:40
PROVIDERS: Nurse Practitioner; Urology; PCP Internal Medicine Medical Oncology; Visit Provider Internal Medicine Medical Oncology
DX: Z01.818 Encounter for other preprocedural examination (principal); E11.69 Type 2 diabetes mellitus with other specified complication; N52.1 Erectile dysfunction due to diseases classified elsewhere; Z12.5 Encounter for screening for malignant neoplasm of prostate
CPT/HCPCS: 36415; 80053; 84153; 84403; 85025

== ENCOUNTER → 2023-01-06 11:44 | Outpatient (BNVA) | payer OTHER, SELFPAY | PROVIDERS: PCP Internal Medicine Geriatric Medicine; Visit Provider Nurse Practitioner | DX: K59.04 Chronic idiopathic constipation (principal); K21.9 Gastro-esophageal reflux disease without esophagitis; R11.2 Nausea with vomiting, unspecified; R63.4 Abnormal weight loss | CPT/HCPCS: 99212 ==

== ENCOUNTER → 2023-01-31 08:24 | Outpatient (REF) | payer OTHER, SELFPAY ==
--- NOTE | ~2023-01-31 | NM_ITS ---
EXAMINATION: NM RADIONUCLIDE SOLID FOOD GASTRIC EMPTYING 4-HOUR STUDY CLINICAL INFORMATION: Nausea and vomiting, unspecified. COMPARISON: None available. TECHNIQUE: A standard meal consisting of 4 oz of Egg Beaters brand tagged with 637 microcuries Tc-99m Sulfur Colloid, 8 oz water and 2 slices of toast with jelly was administered orally to the patient. Images were obtained using a dual head gamma camera in the anterior and posterior projections over of the stomach immediately post ingestion and at hourly intervals up to 4 hours post ingestion. The anterior and posterior counts at each time interval were averaged using the geometric mean and expressed as percentage of the immediate post ingestion counts. FINDINGS: There is good visualization of activity in the stomach immediately post ingestion. As the study progresses, there is good clearance of activity from the stomach and visualization of progressively increasing small bowel activity. By the end of the study, there is almost no retention noted in the stomach. Retention in the stomach at each time interval was: 1 hour 61% (normal 37%-90%) 2 hours 21% (normal 30%-60%) 3 hours 6% 4 hours 2% (normal 0%-10%) OK/OK gastric emptying study IMPRESSION: Normal 4-hour solid food gastric emptying study.
== END ==
LOC: HO.NUCMED 08:24
PROVIDERS: PCP Internal Medicine Geriatric Medicine; Visit Provider Nurse Practitioner
DX: R11.2 Nausea with vomiting, unspecified (principal); R63.4 Abnormal weight loss
CPT/HCPCS: 78264; A9541

== ENCOUNTER → 2023-02-01 11:20 | Outpatient (BNVA) | payer OTHER, SELFPAY | PROVIDERS: PCP Internal Medicine Geriatric Medicine; Visit Provider Urology | DX: E11.69 Type 2 diabetes mellitus with other specified complication (principal); N52.1 Erectile dysfunction due to diseases classified elsewhere | CPT/HCPCS: 51798; 99212 ==

== ENCOUNTER → 2023-02-03 12:23 | Outpatient (BNVA) | payer OTHER, SELFPAY | PROVIDERS: Visit Provider Nurse Practitioner | DX: K59.04 Chronic idiopathic constipation (principal); K21.9 Gastro-esophageal reflux disease without esophagitis; R11.2 Nausea with vomiting, unspecified; R63.4 Abnormal weight loss | CPT/HCPCS: 99212 ==

== ENCOUNTER 2023-02-28 19:39 | Outpatient (REF) | payer OTHER, SELFPAY ==
[2023-02-28 20:53] LABS: Influenza A PCR NEGATIVE (Negative); Influenza B PCR NEGATIVE (Negative); Resp Syncy Virus RNA Qual PCR NEGATIVE (Negative); SARS COV2 PCR INHOUSE NEGATIVE (Negative)
== END 2023-02-28 19:40 | disposition home or self-care (01) ==
LOC: HO.LNP 19:39
PROVIDERS: Visit Provider Registered Nurse
DX: R52 Pain, unspecified (principal); Z20.822 Contact with and (suspected) exposure to COVID-19
CPT/HCPCS: 0241U; 87070

== ENCOUNTER 2023-07-05 09:07 | Outpatient (REF) | payer OTHER, SELFPAY ==
[2023-07-05 12:22] LABS: Cholesterol 145 mg/dL (<200); HDL Cholesterol 43 mg/dL (>40); LDL Cholesterol Calculated 69 mg/dL (<100); Triglycerides 167 mg/dL (<150)
[2023-07-05 12:33] LABS: Creatinine Urine 78.43 mg/dL; Microalbum/Creatinine Ratio Ur 7.6 ug/mg cr (<30)
[2023-07-05 12:39] LABS: Prostate Specific Antigen 0.42 ng/mL (<0.05-4.0)
[2023-07-11 13:19] LABS: Testosterone, Free 39.7 pg/mL (35.0-155.0); Testosterone, Total 258 ng/dL (250-1100)
== END 2023-07-05 09:08 | disposition home or self-care (01) ==
LOC: HO.HHCL 09:07
PROVIDERS: PCP Internal Medicine Geriatric Medicine; Visit Provider Urology
DX: Z12.5 Encounter for screening for malignant neoplasm of prostate (principal); E11.65 Type 2 diabetes mellitus with hyperglycemia; M54.50 Low back pain, unspecified; G89.29 Other chronic pain; R39.15 Urgency of urination; N52.1 Erectile dysfunction due to diseases classified elsewhere; Z79.4 Long term (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 of insulin
CPT/HCPCS: 36415; 80061; 82043; 82570; 84153; 84402; 84403

== ENCOUNTER 2023-07-23 10:15 | Emergency (ER) | payer OTHER, SELFPAY ==
--- NOTE | ~2023-07-23 | XR_ITS ---
EXAMINATION: XR HIP, RIGHT CLINICAL INFORMATION: Fall. Pain. COMPARISON: None available. TECHNIQUE: Two views of the right hip and one view of the pelvis. FINDINGS: Bone alignment is normal. No fracture or dislocation. Normal hip joints. Normal pelvis. Degenerative changes of the lower lumbar spine. Atherosclerotic disease. XR/XR hip RT w PEL1V IMPRESSION: No fracture or dislocation. Degenerative changes of the lower lumbar spine.
[2023-07-23 10:52] VITALS: BP 114/60; PULSE 99; RESP 16; TEMP 36.4; O2SAT 95; BMI 32.8
--- NOTE | 2023-07-23 10:56 | ED.LOWEXIN ---
HPI - Extremity Injury (Lower) General Chief Complaint: General Medical Stated Complaint: R leg pain Time Seen by Provider: 07/23/23 11:50 Source: patient and marble coper Mode of arrival: ambulatory Limitations: language barrier History of Present Illness HPI Narrative: Patient is a 68-year-old Citizen [place]-speaking male with history of T2DM, GERD, HTN, high cholesterol, asthma presenting to the emergency department with complaint of right hip pain since Monday. Patient states that he is ambulating with his walker on Monday when his right knee gave out, causing him to fall on to his right knee. He denies head strike or loss of consciousness. Reports he has had ongoing right hip pain since that time. Has taken tramadol and naproxen with little relief. Denies any numbness or tingling. MD complaint: hip injury Injury: Right: hip Place: home Severity: severe Relieving factors: nothing Exacerbating factors: movement and palpation Context: fall Other symptoms: none Treatments prior to arrival: NSAIDS Related Data Home Medications Medication Instructions Recorded Confirmed aspirin 81 mg tablet,delayed 81 mg PO DAILY 06/16/20 02/01/23 release bupropion HCl 150 mg tablet,12 hr 150 mg PO BID 06/16/20 02/01/23 sustained-release lisinopril 10 1 tab PO DAILY 06/16/20 02/01/23 mg-hydrochlorothiazide 12.5 mg tablet albuterol sulfate 2.5 mg/3 mL mg inhalation 12/16/20 02/01/23 (0.083 %) solution for nebulization albuterol sulfate 90 mcg/actuation 0 mcg inhalation 12/16/20 02/01/23 aerosol inhaler fluoxetine 20 mg capsule 60 mg PO QAM 12/16/20 02/01/23 fluticasone 250 mcg-salmeterol 50 1 ea inhalation BID 12/16/20 02/01/23 mcg/dose blistr powdr for inhalation naproxen 500 mg tablet 500 mg PO BID 12/16/20 02/01/23 tramadol 37.5 mg-acetaminophen 325 1 - 2 tab PO TID 06/29/21 02/01/23 mg tablet ziprasidone HCl 40 mg capsule 40 mg PO 06/29/21 02/01/23 amitriptyline 50 mg tablet 50 mg PO BEDTIME 02/24/22 02/01/23 clonazepam 0.5 mg tablet 0.5 mg PO DAILY PRN 02/24/22 02/01/23 metformin 500 mg tablet 500 mg PO BID 06/20/22 02/01/23 econazole 1 % topical cream appl topical BID 07/28/22 02/01/23 ketorolac 0.5 % eye drops 1 drp ophthalmic (eye) TID 07/28/22 02/01/23 tamsulosin 0.4 mg capsule 0.4 mg PO QPM 07/28/22 02/01/23 dulaglutide 0.75 mg/0.5 mL mg subcut 12/01/22 02/01/23 subcutaneous pen injector (Trulicity) insulin glargine 100 unit/mL (3 20 unit subcut QPM 12/01/22 02/01/23 mL) subcutaneous pen (Lantus Solostar U-100 Insulin) Previous Rx's Medication Instructions Recorded cyclobenzaprine 10 mg tablet 10 mg PO TID PRN muscle spasm #14 06/02/20 tabs aluminum-mag hydroxide-simethicone 5 ml PO QID PRN constipation 07/17/20 400 mg-400 mg-40 mg/5 mL oral susp #3,000 mL (Mylanta Maximum Strength) lancets 33 gauge #120 ea 12/16/20 FreeStyle Lite Strips (blood sugar 1 strip miscellaneous .3 times a 11/01/21 diagnostic) day for diabetes mellitus 30 days #100 ea pen needle, diabetic 32 gauge x #150 ea 12/10/21 empagliflozin 25 mg tablet 25 mg PO DAILY 90 days #90 tabs 12/15/21 (Jardiance) pravastatin 80 mg tablet 80 mg PO BEDTIME 90 days #90 tabs 12/15/21 cholecalciferol (vitamin D3) 25 25 mcg PO QAM #90 caps 12/16/21 mcg (1,000 unit) capsule (Vitamin D3) alcohol swabs 1 pad topical QID 30 days #200 ea 01/18/22 lancets 33 gauge (TRUEplus Lancets) #120 ea 05/16/22 cimetidine 300 mg tablet 600 mg (2 x 300 mg) PO BEDTIME #60 12/01/22 tabs linaclotide 145 mcg capsule 145 mcg PO QAM #30 caps 01/06/23 (Linzess) metoclopramide HCl 5 mg tablet 5 mg PO QIDACHS #120 tabs 01/06/23 (Reglan) tadalafil 10 mg tablet 10 mg PO DAILY protate obstuction 02/01/23 90 days #90 tabs tadalafil 20 mg tablet 20 mg PO ONCE PRN sexual activity 02/01/23 30 days #30 tabs magnesium oxide 500 mg tablet 500 mg PO QPM #30 tabs 02/09/23 terazosin 5 mg capsule 5 mg PO BEDTIME 90 days #90 caps 02/20/23 omeprazole 40 mg capsule,delayed 40 mg PO DAILY #90 caps 07/17/23 release lidocaine 5 % topical patch 1 patch topical DAILY #15 ea 07/23/23 Allergies Allergy/AdvReac Type Severity Reaction Status Date / Time Penicillins Allergy Mild DIZZY/DIAPHORESIS, Verified 07/23/23 10:58 N/V penicillin V Allergy Unknown Unknown Verified 07/23/23 10:58 Review of Systems Review of Systems: As per HPI. 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 Obesity (BMI 30-39.9) Surgical History History of back surgery Hx of colonoscopy Hx of esophagogastroduodenoscopy Hx of hand surgery Family History Family History Father Heart disease Mother Arthritis Diabetes Social History Social History Household Members: Spouse Alcohol intake: never Patient Tobacco Use Status: Former Tobacco user Advance Directives: Yes Advance Directives Information Provided: Yes Advance Directives on File: No Current occupational status: retired and disabled Physical Exam Vital Signs: Vital Signs: Last Vital Signs Temp 97.6 F 07/23/23 10:52 Pulse 99 07/23/23 10:52 Resp 16 07/23/23 10:52 BP 114/60 07/23/23 10:52 Pulse Ox 95 07/23/23 10:52 O2 Del Method Room Air 07/23/23 10:52 BMI result Body Mass Index 32.8 Vital signs have been reviewed and appear to be correct. Blood pressure normal. Heart rate normal. Respiratory rate normal. Temperature normal. Oxygen saturation normal. Const: General: cooperative, healthy appearing and no acute distress Orientation/consciousness: oriented to person, oriented to place, oriented to time and patient oriented x3 Limitations: no limitations HEENT: Head: Yes normocephalic and Yes atraumatic Ears: external ears normal General nose exam: Normal external nose present Face and sinus: Yes face symmetric Mouth: oropharynx normal and moist mucous membranes Throat: Yes uvula midline Eyes: Pupils: Equal, round and reactive pupils present Neck: Neck: Yes normal visual inspection and Yes supple Resp: Effort & Inspection: normal respiratory effort and able to speak in complete sentences Auscultation: clear to auscultation bilaterally Cardio: Rate: regular rate Rhythm: regular rhythm Heart sounds: S1 normal heart sound present and S2 normal heart sound present GI: Palpation (GI): Soft to palpation and nontender Auscultation: normoactive bowel sounds : General: Yes no CVA tenderness Back/Spine/Pelvis: Back: no CVA tenderness Skin: General skin exam: elasticity normal and turgor normal Neuro: General: oriented to person, oriented to place, oriented to time, patient oriented x3, moves all extremities, no focal motor deficits and CN's II-XI intact bilaterally Cranial nerves: Yes Equal, round and reactive pupils present Cognition (Neuro): normal cognition Extrem: General: Yes full ROM, Yes no pedal edema and Yes no calf tenderness Right lower extremity: hip/thigh Details: normal to inspection, tenderness Location: of the hip Location: laterally and normal ROM; no ecchymosis and no crepitus and foot Details: vascular exam Details: dorsalis pedis pulse present and posterior tibial pulse present Psych: Mental Status: mental status grossly normal Affect: normal affect Thought process: Normal thought process present Course Course Course Narrative: This is a rapid medical exam. Deferred additional HPI, ROS, PE to primary provider. 68 yo male with history of DM, asthma, chronic back pain here with right hip pain after a mechanical fall 3 days ago. NO head strike or LOC. Will obtain x-rays VSS Medical Decision Making Medical Decision Making MDM Narrative: Patient is a 68-year-old Citizen [place]-speaking male with history of T2DM, GERD, HTN, high cholesterol, asthma presenting to the emergency department with complaint of right hip pain since Monday. On exam patient is awake, A+Ox3, VS WNL, afebrile, normal neurological exam without focal deficits, physical exam findings as above. Given reported symptoms and physical exam findings, initial differential includes right hip strain, sprain, fracture. X-ray notable for no acute fracture. My interpretation is in agreement with the radiologist's interpretation. Feel patient is stable for discharge home as he is able to ambulate. Will prescribe topical lidocaine patches and advised patient to continue taking his tramadol and naproxen as he has been doing at home. Apply ice for 10-15 mins at a time several times daily. Instructed patient to follow-up with primary care provider this week. Return precautions discussed at bedside. Patient verbalized understanding of and agreement with plan. Differential Diagnosis Differential Diagnoses: The differential diagnosis associated with the presentation includes As per MDM. Independent Interpretation I performed an independent interpretation of an: Plain X-Ray Interpretation: No evidence of acute fracture Radiology Impression Discussion of test interpretation with radiology: I have reviewed the radiologist's reading. External Record Review External record reviewed: Inpatient record, Office record and Outpatient record Prescription Management I considered prescription management with: Pain Medication Discharge Plan Discharge Clinical Impression: Strain of right hip Patient Disposition: Home, Self-Care Instructions: Muscle Strain (DC) Additional Instructions: Usted fue evaluado hoy en el departamento de emergencias por dolor en la cadera derecha. Julieta radiograf?as no mostraron ninguna evidencia de fractura. Contin?e usando Ultram y naproxeno. Le recetan parches de lidoca?na t?pica que puede usar hasta por 12 horas en un per?odo de 24 horas. Tambi?n puede aplicar hielo en el ?julieta afectada magdiel 10 a 15 minutos seguidos varias veces al d?a, teniendo cuidado de no aplicar hielo directamente sobre la piel. Juan un seguimiento con camara proveedor de atenci?n primaria esta semana. Regrese al departamento de emergencias si presenta un dolor que empeora, dificultad para caminar, fiebre, nueva debilidad, entumecimiento, hormigueo o cualquier otro s?ntoma preocupante. Prescriptions: New lidocaine 5 % adhesive patch,medicated 1 patch topical DAILY Qty: 15 0RF Rx Instructions: leave on most painful area for up to 12 hrs No Action FreeStyle Lite Strips Strip 1 strip miscellaneous .3 times a day 30 Days Qty: 100 10RF (DME) pen needle, diabetic 32 gauge x 5/32 needle See Rx Instructions .ROUTE QID Qty: 150 10RF Rx Instructions: 5 times a day Jardiance 25 mg tablet 25 mg PO DAILY 90 Days Qty: 90 3RF pravastatin 80 mg tablet 80 mg PO BEDTIME 90 Days Qty: 90 4RF cholecalciferol (vitamin D3) [Vitamin D3] 25 mcg (1,000 unit) capsule 25 mcg PO QAM Qty: 90 0RF Rx Instructions: Please do labs prior to next visit alcohol swabs Pads, Medicated 1 pad topical QID 30 Days Qty: 200 5RF (DME) lancets [TRUEplus Lancets] 33 gauge misc See Rx Instructions .Route Qty: 120 3RF Rx Instructions: As directed four times a day magnesium oxide 500 mg tablet 500 mg PO QPM Qty: 30 6RF terazosin 5 mg capsule 5 mg PO BEDTIME 90 Days Qty: 90 1RF omeprazole 40 mg capsule,delayed release(DR/EC) 40 mg PO DAILY Qty: 90 0RF cyclobenzaprine 10 mg tablet 10 mg PO TID PRN (Reason: muscle spasm) Qty: 14 0RF aspirin 81 mg tablet,delayed release (DR/EC) 81 mg PO DAILY bupropion HCl 150 mg tablet sustained-release 12 hr 150 mg PO BID lisinopril-hydrochlorothiazide 10-12.5 mg tablet 1 tab PO DAILY albuterol sulfate 2.5 mg /3 mL (0.083 %) solution for nebulization inhalation albuterol sulfate 90 mcg/actuation HFA aerosol inhaler 0 mcg inhalation naproxen 500 mg tablet 500 mg PO BID fluticasone propion-salmeterol 250-50 mcg/dose blister with device 1 ea inhalation BID fluoxetine 20 mg capsule 60 mg PO QAM (DME) lancets 33 gauge misc See Rx Instructions Not Applicable QID Qty: 120 5RF Rx Instructions: 4 times a day tramadol-acetaminophen 37.5-325 mg tablet 1 - 2 tab PO TID ziprasidone HCl 40 mg capsule 40 mg PO alum-mag hydroxide-simeth [Mylanta Maximum Strength] 400-400-40 mg/5 mL suspension 5 ml PO QID PRN (Reason: constipation) Qty: 3000 6RF ketorolac 0.5 % drops 1 drp ophthalmic (eye) TID tamsulosin 0.4 mg capsule 0.4 mg PO QPM econazole 1 % cream topical BID amitriptyline 50 mg tablet 50 mg PO BEDTIME clonazepam 0.5 mg tablet 0.5 mg PO DAILY PRN metformin 500 mg tablet 500 mg PO BID Trulicity 0.75 mg/0.5 mL pen injector subcut Lantus Solostar U-100 Insulin 100 unit/mL (3 mL) insulin pen 20 unit subcut QPM cimetidine 300 mg tablet 600 mg PO BEDTIME Qty: 60 6RF Linzess 145 mcg capsule 145 mcg PO QAM Qty: 30 6RF metoclopramide HCl [Reglan] 5 mg tablet 5 mg PO QIDACHS Qty: 120 6RF Rx Instructions: provider aware of possible interactions and is monitoring tadalafil 20 mg tablet 20 mg PO ONCE PRN (Reason: sexual activity) 30 Days Qty: 30 0RF Rx Instructions: On demand medication take 60 minutes before intended activity tadalafil 10 mg tablet 10 mg PO DAILY 90 Days Qty: 90 0RF Rx Instructions: daily tablet Print Language: Citizen [place]
== END 2023-07-23 15:39 | disposition home or self-care (01) ==
PROVIDERS: Emergency Provider Emergency Medicine Emergency Medical Services; PCP Internal Medicine Geriatric Medicine
DX: S76.011A Strain of muscle, fascia and tendon of right hip, initial encounter (principal); W18.39XA Other fall on same level, initial encounter; Y93.9 Activity, unspecified; Y92.9 Unspecified place or not applicable; Y99.9 Unspecified external cause status
CPT/HCPCS: 73502; 99282; 99283

== ENCOUNTER 2023-07-28 11:36 | Outpatient (AMB) | payer OTHER, SELFPAY ==
--- NOTE | 2023-07-28 11:42 | A.OFFVIS_ITS ---
Intake Intake Visit Reasons: follow up/ PSA/ Testo(set) Intake Note: Patient is Present for Follow Up Urology Medication: Tadalafil, Terazosin, Antibiotic Allergies: Penicillin Blood Thinners: Aspirin Allergies Penicillins Allergy (Mild, Verified 07/28/23 11:44) DIZZY/DIAPHORESIS, N/V penicillin V Allergy (Unknown, Verified 07/28/23 11:44) Unknown HPI HPI Comments History of Present Illness Details Alonzo is a pleasant male. He is seen for the following urologic conditions - lower urinary tract symptoms - erectile dysfunction Occitan translation provided in office by qualified medical office receptionist assistant Follow-up for daily tadalafil with 20 mg on demand Good response for bladder emptying And sufficient erections Lower urinary tract symptoms Persistent urgency and frequency Weakness of stream Nocturia x2 Consistent with diabetic cystopathy - diabetic nephropathy Concurrent sleep apnea with diabetes Trial of alpha-alicia with overactive bladder medication - tamsulosin and low- dose tolterodine Erectile dysfunction secondary to diabetes Minimal activity Good biochemical response to 10 mg daily tadalafil T 258 F 40 Concurrent diagnosis includes sleep apnea, insulin-dependent diabetes, dyslipidemia Medications include amitriptyline, clonazepam, Trulicity, Jardiance, metformin, pravastatin PFSH Medical History Asthma Cervical spine pain Constipation Diabetes Diabetes type 2, uncontrolled Diabetic nephropathy associated with type 2 diabetes mellitus Diabetic 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 associated with type 2 diabetes mellitus GERD (gastroesophageal reflux disease) High cholesterol 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 (hypertension) 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 Obesity (BMI 30-39.9) Surgical History History of back surgery Hx of colonoscopy Hx of esophagogastroduodenoscopy Hx of hand surgery Family History Father Heart disease Mother Arthritis Diabetes Social History Household Members: Spouse Alcohol intake: never Patient Tobacco Use Status: Former Tobacco user Current occupational status: retired and disabled Review of Systems Const Denies chills and Denies fever(s) Card Reports no additional complaints and Denies syncope Resp Denies cough GI Denies abdominal pain and Denies heartburn Reports as per HPI and Denies change in libido Neuro Denies syncope Psych Denies change in libido Endo Denies change in libido Physical Exam Const General: cooperative, healthy appearing, comfortable and no acute distress Orientation/consciousness: patient oriented x3 HEENT Face and sinus: Yes normal facial exam Mouth: moist mucous membranes Neck Neck: Yes normal visual inspection, Yes full ROM and Yes trachea midline Chest Chest palpation & inspection: normal inspection of the chest Resp Effort & Inspection: normal respiratory effort, able to speak in complete sentences and no respiratory distress GI Inspection: Yes normal to inspection Back/Spine/Pelvis Cervical Spine: normal cervical lordosis Thoracic/Lumbar Spine: thoracic and lumbar spine normal to inspection Skin General skin exam: no rashes or lesions noted Neuro General: patient oriented x3, gait normal, tone normal and moves all extremities Extrem General: Yes normal to inspection and Yes capillary refill normal Assessment & Plan Assessment & Plan (1) Erectile dysfunction associated with type 2 diabetes mellitus: Code(s): E11.69 - Type 2 diabetes mellitus with other specified complication; N52.1 - Erectile dysfunction due to diseases classified elsewhere (2) Weak urinary stream: Code(s): R39.12 - Poor urinary stream Plan Six month follow-up Medications: Refilled tadalafil On demand medication take 60 minutes before intended activity 20 mg PO ONCE PRN 30 tabs 0RF sexual activity 30 days E11.69 - Type 2 diabetes mellitus with other specified complication, N52.1 - Erectile dysfunction due to diseases classified elsewhere tadalafil daily tablet 10 mg PO DAILY 90 tabs 1RF protate obstuction 90 days E11.69 - Type 2 diabetes mellitus with other specified complication, N52.1 - Erectile dysfunction due to diseases classified elsewhere Patient Instructions: Imaging studies, laboratory and physical exam results were discussed and reviewed in detail. No major barriers to patient understanding were identified. An opportunity to ask questions regarding the treatment plan was provided. All questions were answered. The patient expressed understanding and agreement with the above treatment plan. The patient is aware they should contact our office by phone for worsening of their current condition or the appearance of new urologic symptoms. Compliance is encouraged with any medications and followup testing that is ordered. It is a privilege to participate in the urologic care of your patient. If you have any questions or concerns regarding treatment for the above conditions, or other urologic issues, please do not hesitate to contact me. The office telephone contact is [phone]. This note is constructed using voice recognition software. While every effort has been made to ensure accuracy energy conservation engineer errors may have been included. Yours sincerely, Dr Francisco J Ham MD, [facility] - Urology Providers of Expert, Compassionate Care for the Genitourinary System Coding Level of Care Code Est Pt Level 3 (45640) Diagnoses Erectile dysfunction associated with type 2 diabetes mellitus E11.69; N52.1 Weak urinary stream R39.12
== END 2023-07-28 12:01 | disposition home or self-care (01) ==
PROVIDERS: PCP Internal Medicine Geriatric Medicine; Visit Provider Urology
DX: E11.69 Type 2 diabetes mellitus with other specified complication (principal); N52.1 Erectile dysfunction due to diseases classified elsewhere; R39.12 Poor urinary stream
CPT/HCPCS: 99213

== ENCOUNTER → 2023-07-28 11:36 | Outpatient (BNVA) | payer OTHER, SELFPAY | PROVIDERS: PCP Internal Medicine Geriatric Medicine; Visit Provider Urology | DX: E11.69 Type 2 diabetes mellitus with other specified complication (principal); N52.1 Erectile dysfunction due to diseases classified elsewhere; R39.12 Poor urinary stream | CPT/HCPCS: 99212 ==

== ENCOUNTER 2023-08-17 09:57 | Outpatient (AMB) | payer OTHER, SELFPAY ==
--- NOTE | 2023-08-17 10:00 | MHC.OFFVIS ---
Intake Vital Signs 08/17/23 10:01 Height 5 ft 2 in Weight 175 lb 14.862 oz BMI 32.2 BP 105/56 L Blood Pressure Location Lt brachial Position Sitting Pulse 88 Intake Visit Reasons: Follow up GERD Intake Note: Alonzo presents in office today in follow up of GERD. CC: Patient reports doing well and denies having GI concerns today. Power Plant Supervisor Required: Yes Power Plant Supervisor Language: Chiropractic Teacher Name: [id number] Fly Accompanied by: Self / Same As Patient Allergies Penicillins Allergy (Mild, Verified 07/28/23 11:44) DIZZY/DIAPHORESIS, N/V penicillin V Allergy (Unknown, Verified 07/28/23 11:44) Unknown HPI Follow up GERD HPI Details Assessment & Plan (1) Chronic idiopathic constipation: Code(s): K59.04 - Chronic idiopathic constipation Plan: German #Jono He says that he now is moving his bowels well and consistently on the higher dose of the Linzess. The 145 micro g dose is much better for him. He also is continuing to do well with his nausea on the metoclopramide 5 mg 4 times a day and his omeprazole. At this point he is quite satisfied with his GI regimen. We reviewed the gastric emptying study which was normal but the patient for got to stop taking his Reglan for the study. ROV 3 mos (2) Nausea and vomiting: Code(s): R11.2 - Nausea with vomiting, unspecified (3) Weight loss, abnormal: Code(s): R63.4 - Abnormal weight loss Plan: Weight was 206 lb in 2021 any went down to 174 lb and now seems to be stable. (4) GERD (gastroesophageal reflux disease): Code(s): K21.9 - Gastro-esophageal reflux disease without esophagitis Medications: Discontinued linaclotide Dis continued Reason: Doctor's Order 72 mcg PO QAM 30 caps 3RF K59.04 - Chronic i diopathic constipa tion GASTRIC EMPTYING STUDY 01/31/23 FINDINGS: There is good visualization of activity in the stomach immediately post ingestion. As the study progresses, there is good clearance of activity from the stomach and visualization of progressively increasing small bowel activity. By the end of the study, there is almost no retention noted in the stomach. Retention in the stomach at each time interval was: 1 hour 61% (normal 37%-90%) 2 hours 21% (normal 30%-60%) 3 hours 6% 4 hours 2% (normal 0%-10%) NM/NM gastric emptying study IMPRESSION: Normal 4-hour solid food gastric emptying study. TODAY'S VISIT German #[id number] He continues to do well. He will occasionally have nausea but no vomiting. He continues on his Reglan, and his Linzess and omeprazole. He is also on Trulicity which was started about a year ago but they have been regularly increasing the dose and this could be contributing both to his transient nausea and to his transient episodes of weight loss. He is down about 4 lb. Since the last visit but this is also consistent with a prior weight and he states he goes back and forth in a 5 lb range. He has never gotten as high as he was in the past which was over 200 lb which is likely benefiting his diabetes anyway. He remains satisfied with his GI regimen. Return office visit in 6 months. [facility] Medical History Constipation Obesity (BMI 30-39.9) Diabetes type 2, uncontrolled Diabetic nephropathy associated with type 2 diabetes mellitus Diabetic 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 associated with type 2 diabetes mellitus residential (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 of insulin GERD (gastroesophageal reflux disease) Cervical spine pain HTN (hypertension) Diabetes High cholesterol Asthma Surgical History Hx of hand surgery History of back surgery Hx of esophagogastroduodenoscopy Hx of colonoscopy Family History Father Heart disease Mother Arthritis Diabetes Social History Household Members: Spouse Alcohol intake: never Patient Tobacco Use Status: Former Tobacco user Current occupational status: retired and disabled Review of Systems Const Denies fatigue, Denies fever(s), Denies night sweats, Denies poor appetite and Reports weight loss Eyes Details: glasses Reports requires corrective lenses ENT Reports Normal hearing present, Denies dental pain, Denies dysphagia, Denies hearing loss, Denies mouth pain, Denies odynophagia, Denies throat swelling, Denies tongue swelling and Reports other (Dentition adequate) Card Reports no additional complaints Resp Reports no additional complaints GI Denies abdominal pain, Denies melena, Denies bloating, Denies hematochezia, Reports constipation, Denies GI cramping, Denies dysphagia, Denies excessive flatus, Denies early satiety, Reports heartburn, Denies diarrhea, Reports nausea, Denies odynophagia, Denies vomiting and Denies hematemesis Skin/Breast Denies pruritus, Denies lesions, Denies rash and Denies jaundice Neuro Reports Normal hearing present and Denies Abnormal speech present Endo Denies fatigue Aller/Immun Denies throat swelling and Denies tongue swelling Physical Exam Vital Signs: Last Vital Signs Pulse 88 08/17/23 10:01 BP 105/56 L 08/17/23 10:01 BMI result Body Mass Index 32.2 Const General: cooperative, no acute distress, well developed and well groomed Nutritional Appearance: well nourished and obese Orientation/consciousness: oriented to person, oriented to place and oriented to time Limitations: language barrier HEENT Head: Yes normocephalic and Yes atraumatic Eyes General: appearance normal, both eyes and all related structures Pupils: Equal, round and reactive pupils present Neck Neck: Yes normal visual inspection and Yes no lymphadenopathy Thyroid: Thyroid normal Resp Effort & Inspection: normal respiratory effort and able to speak in complete sentences Auscultation: clear to auscultation bilaterally Cardio Rate: regular rate Rhythm: regular rhythm Heart sounds: Normal, physiologic split S2 sound present Peripheral pulses: radial pulses present and posterior tibial pulses present GI Inspection: No distended, No Abdominal panniculus present and Yes obesity Palpation (GI): Soft to palpation, nontender, no guarding, not rigid and No hepatosplenomegaly present Percussion: Yes normal to percussion Auscultation: normal bowel sounds Rectal Exam - Male: Yes deferred Skin General skin exam: no rashes or lesions noted, turgor normal, skin not dry, no jaundice, No spider nevi and no striae Rashes: no rashes Nails: normal Neuro General: oriented to person, oriented to place and oriented to time Cranial nerves: Yes Equal, round and reactive pupils present and Yes Normal hearing present Speech: No Abnormal speech present Extrem General: Yes normal to inspection, No clubbing, No cyanosis and No edema Psych Appearance: grossly normal and well kempt Mental Status: mental status grossly normal Speech and movement: Normal speech and movement present Affect: normal affect Attitude: cooperative Thought process: Normal thought process present and not confabulating Thought content: Normal thought content present Insight: Fair insight present (Psych) Judgement: Fair judgement present (Psych) Assessment & Plan Assessment & Plan (1) Chronic idiopathic constipation: Code(s): K59.04 - Chronic idiopathic constipation (2) GERD (gastroesophageal reflux disease): Code(s): K21.9 - Gastro-esophageal reflux disease without esophagitis (3) Nausea and vomiting: Code(s): R11.2 - Nausea with vomiting, unspecified (4) Weight loss, abnormal: Code(s): R63.4 - Abnormal weight loss Plan German #[id number] He continues to do well. He will occasionally have nausea but no vomiting. He continues on his Reglan, and his Linzess and omeprazole. He is also on Trulicity which was started about a year ago but they have been regularly increasing the dose and this could be contributing both to his transient nausea and to his transient episodes of weight loss. He is down about 4 lb. Since the last visit but this is also consistent with a prior weight and he states he goes back and forth in a 5 lb range. He has never gotten as high as he was in the past which was over 200 lb which is likely benefiting his diabetes anyway. He remains satisfied with his GI regimen. Return office visit in 6 months. Medications: Refilled omeprazole 40 mg PO DAILY 90 caps 1RF K21.9 - Gastro-esophageal reflux disease without esophagitis, R11.2 - Nausea with vomiting, unspecified linaclotide (Linzess) 145 mcg PO QAM 30 caps 6RF K59.04 - Chronic idiopathic constipation cimetidine 600 mg (2 x 300 mg) PO BEDTIME 60 tabs 6RF K21.9 - Gastro-esophageal reflux disease without esophagitis metoclopramide HCl 5 mg PO Q4-6H 120 tabs 6RF R11.2 - Nausea with vomiting, unspecified Coding Level of Care Code Est Pt Level 3 (69390) Diagnoses Chronic idiopathic constipation K59.04 GERD (gastroesophageal reflux disease) K21.9 Nausea and vomiting R11.2 Weight loss, abnormal R63.4
[2023-08-17 10:01] VITALS: BP 105/56; PULSE 88; BMI 32.2
== END 2023-08-17 10:30 | disposition home or self-care (01) ==
PROVIDERS: PCP Internal Medicine Geriatric Medicine; Visit Provider Nurse Practitioner
DX: K59.04 Chronic idiopathic constipation (principal); K21.9 Gastro-esophageal reflux disease without esophagitis; R11.2 Nausea with vomiting, unspecified; R63.4 Abnormal weight loss
CPT/HCPCS: 99213

== ENCOUNTER → 2023-08-17 09:57 | Outpatient (BNVA) | payer OTHER, SELFPAY | PROVIDERS: PCP Internal Medicine Geriatric Medicine; Visit Provider Nurse Practitioner | DX: K59.04 Chronic idiopathic constipation (principal); K21.9 Gastro-esophageal reflux disease without esophagitis; R11.2 Nausea with vomiting, unspecified; R63.4 Abnormal weight loss | CPT/HCPCS: 99212 ==

== ENCOUNTER 2023-10-11 10:49 | Outpatient (REF) | payer OTHER, SELFPAY ==
[2023-10-11 12:28] LABS: Anion Gap 12 (12-20); Blood Urea Nitrogen 12 mg/dL (9-16); Carbon Dioxide 28 mmol/L (22-29); Chloride 98 mmol/L (96-108); Estimated Glomerular Filt Rate > 60; Glucose Random 153 mg/dL (60-115); Sodium 134 mmol/L (135-145); T4 Thyroxine 5.7 ug/dL (4.5-12.0); Thyroid Stimulating Hormone 1.24 uIU/mL (0.32-4.0); Vitamin D 25-OH Total 26.7 ng/mL (>30)
[2023-10-11 15:22] LABS: Folate 13.4 ng/mL (> or = 4.0); Vitamin B12 390 pg/mL (200-900)
== END 2023-10-11 10:50 | disposition home or self-care (01) ==
LOC: HO.LAB 10:49
PROVIDERS: PCP Internal Medicine Geriatric Medicine; Visit Provider Psychiatry & Neurology Neurology
DX: G31.84 Mild cognitive impairment of uncertain or unknown etiology (principal)
CPT/HCPCS: 36415; 80048; 82306; 82607; 82746; 84436; 84443

== ENCOUNTER 2023-11-09 11:31 | Outpatient (REF) | payer OTHER, SELFPAY ==
[2023-11-09 13:19] LABS: MANUAL DIFF FLAG NO
[2023-11-09 13:27] LABS: Basophils Absolute Auto 0.1 X10*3/uL (0.0-0.2); Basophils Percent Auto 1.2 % (0-2); Eosinophils Absolute Auto 0.5 X10*3/uL (0.0-0.4); Eosinophils Percent Auto 5.4 % (0-4); Hemoglobin 13.4 g/dl (14.0-18.0); Imm Gran Abs Auto 0.04 X10*3/uL (0.00-0.03); Imm Gran Pct Auto 0.5 % (0.0-0.4); Lymphocytes Absolute Auto 2.1 X10*3/uL (1.2-4.9); Mean Corpuscular HGB Conc 32.7 g/dl (31.0-36.0); Mean Corpuscular Hemoglobin 26.9 pg (27.0-33.0); Mean Corpuscular Volume 82.2 fL (80.0-98.0); Mean Platelet Volume 9.9 fL (9.4-12.4); Monocytes Absolute Auto 0.7 X10*3/uL (0.1-1.2); Monocytes Percent Auto 8.7 % (2-11); Neutrophils Percent Auto 59.2 % (45-73); Platelet Count 341 X10*3/uL (160-400); Red Blood Count 4.99 X10*6/uL (4.60-5.80); Red Cell Distribution Width 14.5 % (11.0-16.0); White Blood Count 8.5 X10*3/uL (4.8-10.8)
[2023-11-09 13:48] LABS: Alanine Aminotransferase 25 U/L (0-40); Albumin Level 4.5 g/dL (3.5-5.0); Alkaline Phosphatase 102 U/L (39-117); Anion Gap 14 (12-20); Aspartate Amino Transferase 18 U/L (5-37); Bilirubin Total 0.3 mg/dL (0.0-1.0); Blood Urea Nitrogen 14 mg/dL (9-16); Calcium 9.5 mg/dL (8.4-10.2); Carbon Dioxide 26 mmol/L (22-29); Chloride 100 mmol/L (96-108); Estimated Glomerular Filt Rate > 60; Glucose Random 98 mg/dL (60-115); Potassium 4.1 mmol/L (3.3-5.1); Sodium 136 mmol/L (135-145); Total Protein 7.8 g/dL (6.5-8.0)
[2023-11-09 14:37] LABS: Creatinine Urine 47.61 mg/dL; Microalbum/Creatinine Ratio Ur 25.2 ug/mg cr (<30)
== END 2023-11-09 11:32 | disposition home or self-care (01) ==
LOC: HO.HHCL 11:31
PROVIDERS: Visit Provider Internal Medicine Geriatric Medicine
DX: E11.65 Type 2 diabetes mellitus with hyperglycemia (principal); Z79.4 Long term (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 of insulin
CPT/HCPCS: 36415; 80053; 82043; 82570; 85025

== ENCOUNTER 2023-11-14 09:07 | Outpatient (REF) | payer OTHER, SELFPAY ==
--- NOTE | ~2023-11-14 | CT_ITS ---
EXAMINATION: CT HEAD WITHOUT CONTRAST CLINICAL INFORMATION: Mild cognitive impairment. COMPARISON: CT head from 06/02/2020. TECHNIQUE: Contiguous axial imaging was performed from the skull base to vertex without intravenous administration of contrast. This CT examination was performed using dose optimization techniques as appropriate, variously including the following: *Automated exposure control. *Adjustment of mA and/or kV according to patient size (this includes techniques or standardized protocols for targeted exams where dose is matched to indication/reason for exam; i.e. extremities or head). *Use of iterative reconstruction technique. DLP: 826 mGy-cm FINDINGS: There is no evidence of acute intracranial hemorrhage or edematous territorial infarction. Wilhelm-white matter differentiation is preserved. A few foci of hypoattenuation in the periventricular and deep white matter are consistent with mild to moderate microangiopathy. The ventricles are normal in morphology and size. No evidence for obstructive hydrocephalus. Small arachnoid cyst in the anterior aspect of the right middle cranial fossa, measuring 3.2 x 1.6 cm. No additional abnormal mass effect or midline shift. No extra-axial fluid collections. No acute soft tissue or osseous abnormalities. Moderate mucosal thickening of the paranasal sinuses. The mastoid air cells and middle ear cavities are clear. Bilateral lens extractions. CT/CT head/brain wo IV con IMPRESSION: 1. No evidence of acute intracranial hemorrhage or edematous territorial infarction. 2. Mild to moderate underlying microangiopathy.
== END 2023-11-14 09:08 | disposition home or self-care (01) ==
LOC: HO.CT 09:07
PROVIDERS: PCP Internal Medicine Geriatric Medicine; Visit Provider Psychiatry & Neurology Neurology
DX: G31.84 Mild cognitive impairment of uncertain or unknown etiology (principal)
CPT/HCPCS: 70450

== ENCOUNTER 2024-01-30 10:59 | Outpatient (AMB) | payer OTHER, SELFPAY ==
--- NOTE | 2024-01-30 10:59 | A.OFFVIS_ITS ---
Intake Visit Reasons: 6m follow up Intake Note: Patient is Present today via phone for Follow Up Urology Medication: Tadalafil, Terazosin, Antibiotic Allergies: Penicillin Blood Thinners: Aspirin Pharmacy: [facility] Fire Ranger Required: Yes Fire Ranger Language: Irish Accompanied by: Self / Same As Patient Allergies Penicillins Allergy (Mild, Verified 03/28/24 10:48) DIZZY/DIAPHORESIS, N/V penicillin V Allergy (Unknown, Verified 03/28/24 10:48) Unknown HPI Comments Details: Alonzo is a pleasant male. He is seen for the following urologic conditions - lower urinary tract symptoms - erectile dysfunction Telemedicine Evaluation 15 min Consultation [employer] Candice Video attempted Irish translation provided in office by qualified medical file clerk Follow-up for daily tadalafil with 20 mg on demand Good response for bladder emptying And sufficient erections Lower urinary tract symptoms Persistent urgency and frequency Weakness of stream Nocturia x2 Consistent with diabetic cystopathy - diabetic nephropathy Concurrent sleep apnea with diabetes Trial of alpha-alicia with overactive bladder medication - tamsulosin and low- dose tolterodine Erectile dysfunction secondary to diabetes Minimal activity Good biochemical response to 10 mg daily tadalafil T 258 F 40 Concurrent diagnosis includes sleep apnea, insulin-dependent diabetes, dyslipidemia Medications include amitriptyline, clonazepam, Trulicity, Jardiance, metformin, pravastatin [facility] Medical History (Updated 03/28/24 @ 15:26 by BROOKLYN Lara) Weight loss, abnormal Nausea and vomiting Constipation Obesity (BMI 30-39.9) Diabetes type 2, uncontrolled Diabetic nephropathy associated with type 2 diabetes mellitus Diabetic 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 associated with type 2 diabetes mellitus 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 GERD (gastroesophageal reflux disease) Cervical spine pain HTN (hypertension) Diabetes High cholesterol Asthma Surgical History Hx of hand surgery History of back surgery Hx of esophagogastroduodenoscopy Hx of colonoscopy Family History Father Heart disease Mother Arthritis Diabetes Social History Household Members: Spouse Alcohol intake: never Patient Tobacco Use Status: Former Tobacco user Current occupational status: retired and disabled Review of Systems Const All systems reviewed & are unremarkable except as noted in HPI and below Reports no additional complaints Resp Reports no additional complaints GI Reports no additional complaints Reports as per HPI Musc Reports no additional complaints Physical Exam Telemedicine evaluation Appropriate responses Regular breathing rate and rhythm HEENT Head: Yes normal to inspection Ears: hearing grossly normal bilaterally Eyes General: appearance normal, both eyes and all related structures Neck Neck: Yes normal visual inspection Chest Chest palpation & inspection: normal inspection of the chest Resp Effort & Inspection: normal respiratory effort and able to speak in complete sentences Telehealth Telehealth Location of provider rendering services: practice address Location of patient: address on file Patient Identification confirmed using: Name, : Yes Telehealth method: voice only Patient verbally consented to treatment: Yes Patient verbally consented to billing insurance company: Yes Patient informed of any privacy concerns related to visit: Yes Assessment & Plan Assessment & Plan (1) Weak urinary stream: Code(s): R39.12 - Poor urinary stream Category: Medical (2) Urinary urgency: Code(s): R39.15 - Urgency of urination Category: Medical (3) Erectile dysfunction associated with type 2 diabetes mellitus: Code(s): E11.69 - Type 2 diabetes mellitus with other specified complication; N52.1 - Erectile dysfunction due to diseases classified elsewhere Category: Medical Plan Six-month follow-up Patient Instructions: Imaging studies, laboratory and physical exam results were discussed and reviewed in detail. No major barriers to patient understanding were identified. An opportunity to ask questions regarding the treatment plan was provided. All questions were answered. The patient expressed understanding and agreement with the above treatment plan. The patient is aware they should contact our office by phone for worsening of their current condition or the appearance of new urologic symptoms. Compliance is encouraged with any medications and followup testing that is ordered. It is a privilege to participate in the urologic care of your patient. If you have any questions or concerns regarding treatment for the above conditions, or other urologic issues, please do not hesitate to contact me. The office telephone contact is [phone]. This note is constructed using voice recognition software. While every effort has been made to ensure accuracy windows server engineer errors may have been included. Yours sincerely, Dr Francisco J Ham MD, [facility] - Urology Providers of Expert, Compassionate Care for the Genitourinary System Coding Level of Care Code Tele Est Pt Level 3 (24725) Diagnoses Weak urinary stream R39.12 Urinary urgency R39.15 Erectile dysfunction associated with type 2 diabetes mellitus E11.69; N52.1
== END 2024-01-30 13:00 | disposition left against medical advice (07) ==
LOC: HO.HUSH 10:59
PROVIDERS: PCP Internal Medicine Geriatric Medicine; Visit Provider Urology
DX: R39.12 Poor urinary stream (principal); R39.15 Urgency of urination; E11.69 Type 2 diabetes mellitus with other specified complication; N52.1 Erectile dysfunction due to diseases classified elsewhere
CPT/HCPCS: 99442

== ENCOUNTER → 2024-01-30 10:59 | Outpatient (BNVA) | payer OTHER, SELFPAY | PROVIDERS: PCP Internal Medicine Geriatric Medicine; Visit Provider Urology ==

== ENCOUNTER 2024-02-29 08:46 | Outpatient (REF) | payer OTHER, SELFPAY ==
--- NOTE | ~2024-02-29 | FL_ITS ---
EXAMINATION: XR FLUOROSCOPY UPPER GI WITH AIR CLINICAL INFORMATION: Dysphagia COMPARISON: None TECHNIQUE: Fluoroscopic air contrast upper GI examination was performed utilizing standard techniques with thin and thick barium and effervescent granules. Numerous spot images were obtained. FINDINGS: Status post ACDF at the C4-C5. No obvious complication. There is bony fusion through the C4-C5 interspace. Lateral cine images of the oropharynx and hypopharynx demonstrate normal swallow mechanism with normal epiglottic inversion and soft palate elevation. No tracheal penetration, glottic or subglottic aspiration identified. No nasopharyngeal reflux present. Hypopharyngeal structures appear normal without evidence of mass or diverticulum. Mild cricopharyngeal achalasia is present. Dual and single contrast images of the esophagus demonstrate normal caliber, contour, and mucosal pattern. No evidence of stricture, mass, or ulcerations identified. Esophageal peristalsis is mildly disorganized. A small type I hiatal hernia is present. Gastroesophageal reflux is seen up the thoracic inlet. Dual contrast and single contrast images of the stomach demonstrated a normal contour. There are multiple foci of contrast pooling in the fundus and body the stomach that may represent small superficial ulcers. No masses are seen. Contrast freely passed into the gastric antrum and duodenal bulb without delay. Single and air-contrast images of the duodenal bulb demonstrate no abnormality. The duodenal sweep has a normal appearance, course, and mucosal fold appearance. The imaged proximal jejunum has a normal fold pattern and caliber. FLUOROSCOPY TIME: 3 minutes 41 second Number of Spot Images: 11 Number of Cine: 14 DOSE AREA PRODUCT: 2731 uGy-m2 (microgray-meter squared) FL/FL barium swallow IMPRESSION: 1. Mild cricopharyngeal achalasia 2. Moderate type I hiatal hernia 3. Significant gastroesophageal reflux 4. Multiple foci of contrast pooling in the fundus and body the stomach that may represent small superficial aphthous ulcers. 5. Mildly disorganized esophageal peristalsis. This procedure was performed by Serge Martin PA-C, and supervised by Dr. Nielson
== END 2024-02-29 08:47 | disposition home or self-care (01) ==
LOC: HO.XRAY 08:46
PROVIDERS: Visit Provider Internal Medicine
DX: R13.19 Other dysphagia (principal)
CPT/HCPCS: 74220

== ENCOUNTER → 2024-02-29 08:47 | Outpatient (BNV) | payer OTHER, SELFPAY | PROVIDERS: Visit Provider Physician Assistant Surgical | DX: R13.19 Other dysphagia (principal) | CPT/HCPCS: 74246 ==

== ENCOUNTER 2024-03-07 13:47 | Outpatient (AMB) | payer OTHER, SELFPAY ==
--- NOTE | 2024-03-07 13:48 | A.OFFVIS_ITS ---
Intake Visit Reasons: 6m follow up Intake Note: Patient is Present for Telephone Follow Up For Urology Med: Tadalafil, Terazosin,Tamsulosin Antibiotic Allergy: Pencillins Blood Thinner:Aspirin Patient is on Trulicity,Jardiance Hot Tar Roofer Required: Yes Hot Tar Roofer Language: Cook Islander Allergies Penicillins Allergy (Mild, Verified 03/07/24 13:49) DIZZY/DIAPHORESIS, N/V penicillin V Allergy (Unknown, Verified 03/07/24 13:49) Unknown Medication List - Last Reconciled 03/07/24 by Francisco J Ham MD albuterol sulfate mg inhalation albuterol sulfate 90 mcg/actuation 2 inhalations inhalation Q6-8H PRN alcohol swabs 1 pad topical QID 30 days amitriptyline 50 mg PO BEDTIME aspirin 81 mg PO DAILY bupropion HCl SR 150 mg PO BID cholecalciferol (vitamin D3) (Vitamin D3) 25 mcg PO QAM cimetidine 600 mg (2 x 300 mg) PO BEDTIME clonazepam 0.5 mg PO DAILY PRN cyclobenzaprine 10 mg PO TID PRN dulaglutide (Trulicity) mg subcut econazole 1% appl topical BID empagliflozin (Jardiance) 25 mg PO DAILY 90 days fluoxetine 60 mg PO QAM fluticasone propion-salmeterol 250-50 mcg/dose 1 ea inhalation BID FreeStyle Lite Strips (blood sugar diagnostic) 1 strip miscellaneous .3 times a day 30 days NS insulin glargine (Lantus Solostar U-100 Insulin) 20 units subcut QPM ketorolac 0.5% 1 drp ophthalmic (eye) TID lancets 4 times a day lancets (TRUEplus Lancets) As directed four times a day lidocaine 5% 1 patch topical DAILY linaclotide (Linzess) 145 mcg PO QAM lisinopril-hydrochlorothiazide 10-12.5 mg 1 tab PO DAILY magnesium oxide 500 mg PO QPM metformin 500 mg PO BID metoclopramide HCl 5 mg PO Q4-6H naproxen 500 mg PO BID omeprazole 40 mg PO DAILY pen needle, diabetic 5 times a day pravastatin 80 mg PO BEDTIME 90 days tadalafil 10 mg PO DAILY 90 days tadalafil 20 mg PO ONCE PRN 30 days terazosin 5 mg PO BEDTIME 90 days tramadol-acetaminophen 37.5-325 mg 1 - 2 tabs PO TID ziprasidone HCl 40 mg PO HPI Comments Details: Alonzo is a pleasant male. He is seen for the following urologic conditions - lower urinary tract symptoms - erectile dysfunction Telemedicine Evaluation 15 min Consultation [employer] Candice Video attempted Cook Islander translation provided by qualified medical hospital sales 6m f/u - daily tadalafil with 20 mg on demand Lower urinary tract symptoms Persistent urgency and frequency Weakness of stream Nocturia x2 Consistent with diabetic cystopathy - diabetic nephropathy Concurrent sleep apnea with diabetes Prior medication - alpha-alicia with overactive bladder medication - tamsulosin and low-dose tolterodine Erectile dysfunction secondary to diabetes Minimal activity Good biochemical response to 10 mg daily tadalafil T 258 F 40 Concurrent diagnosis includes sleep apnea, insulin-dependent diabetes, dyslipidemia Medications include amitriptyline, clonazepam, Trulicity, Jardiance, metformin, pravastatin PFSH Medical History Constipation Obesity (BMI 30-39.9) Diabetes type 2, uncontrolled Diabetic nephropathy associated with type 2 diabetes mellitus Diabetic 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 associated with type 2 diabetes mellitus 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 GERD (gastroesophageal reflux disease) Cervical spine pain HTN (hypertension) Diabetes High cholesterol Asthma Surgical History Hx of hand surgery History of back surgery Hx of esophagogastroduodenoscopy Hx of colonoscopy Family History Father Heart disease Mother Arthritis Diabetes Social History Household Members: Spouse Alcohol intake: never Patient Tobacco Use Status: Former Tobacco user Current occupational status: retired and disabled Telehealth Telehealth Telehealth Platform: [employer] Location of provider rendering services: practice address Location of patient: address on file Patient Identification confirmed using: Name, : Yes Telehealth method: video Patient verbally consented to treatment: Yes Patient verbally consented to billing insurance company: Yes Patient informed of any privacy concerns related to visit: Yes Minutes spent on Phone/Video with Pt.: 15 Assessment & Plan Assessment & Plan (1) Urinary urgency: Code(s): R39.15 - Urgency of urination Category: Medical (2) Erectile dysfunction associated with type 2 diabetes mellitus: Code(s): E11.69 - Type 2 diabetes mellitus with other specified complication; N52.1 - Erectile dysfunction due to diseases classified elsewhere Category: Medical Plan Six-month follow-up office Medications: Refilled tadalafil daily tablet 10 mg PO DAILY 90 days 90 tabs 1RF protate obstuction E11.69 - Type 2 diabetes mellitus with other specified complication, N52.1 - Erectile dysfunction due to diseases classified elsewhere tadalafil On demand medication take 60 minutes before intended activity 20 mg PO ONCE 30 days PRN 30 tabs 0RF sexual activity E11.69 - Type 2 diabetes mellitus with other specified complication, N52.1 - Erectile dysfunction due to diseases classified elsewhere Patient Instructions: Imaging studies, laboratory and physical exam results were discussed and reviewed in detail. No major barriers to patient understanding were identified. An opportunity to ask questions regarding the treatment plan was provided. All questions were answered. The patient expressed understanding and agreement with the above treatment plan. The patient is aware they should contact our office by phone for worsening of their current condition or the appearance of new urologic symptoms. Compliance is encouraged with any medications and followup testing that is ordered. It is a privilege to participate in the urologic care of your patient. If you have any questions or concerns regarding treatment for the above conditions, or other urologic issues, please do not hesitate to contact me. The office telephone contact is [phone]. This note is constructed using voice recognition software. While every effort has been made to ensure accuracy bandsaw operator errors may have been included. Yours sincerely, Dr Francisco J Ham MD, [facility] - Urology Providers of Expert, Compassionate Care for the Genitourinary System Coding Level of Care Code Tele Est Pt Level 3 (69536) Diagnoses Urinary urgency R39.15 Erectile dysfunction associated with type 2 diabetes mellitus E11.69; N52.1
== END 2024-03-07 14:14 | disposition home or self-care (01) ==
LOC: HO.HUSH 13:47
PROVIDERS: Visit Provider Urology
DX: R39.15 Urgency of urination (principal); E11.69 Type 2 diabetes mellitus with other specified complication; N52.1 Erectile dysfunction due to diseases classified elsewhere
CPT/HCPCS: 99213

== ENCOUNTER → 2024-03-07 13:47 | Outpatient (BNVA) | payer OTHER, SELFPAY | PROVIDERS: Visit Provider Urology ==

== ENCOUNTER 2024-03-28 10:33 | Outpatient (AMB) | payer OTHER, SELFPAY ==
[2024-03-28 10:43] VITALS: BMI 31.5
--- NOTE | 2024-03-28 10:43 | A.OFFVIS_ITS ---
Vital Signs 03/28/24 10:43 Height 5 ft 2 in Weight 172 lb 6.424 oz BMI 31.5 Intake Visit Reasons: Follow Up GERD Intake Note: Alonzo presents to in office today in follow up of GERD and dysphagia. CC: Patient c/o chocking with solids. He had a barium swallow done last month and he was advised to come in to request an EGD. Patient was also told that he has a hiatal hernia. He c/o abdominal pain and dark stools. 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 He will occasionally have nausea but no vomiting. He continues on his Reglan, and his Linzess and omeprazole. He is also on Trulicity which was started about a year ago but they have been regularly increasing the dose and this could be contributing both to his transient nausea and to his transient episodes of weight loss. He is down about 4 lb. Since the last visit but this is also consistent with a prior weight and he states he goes back and forth in a 5 lb range. He has never gotten as high as he was in the past which was over 200 lb which is likely benefiting his diabetes anyway. He remains satisfied with his GI regimen. Return office visit in 6 months. Medications: Refilled omeprazole 40 mg PO DAILY 90 caps 1RF K21.9 - Gastro-esophageal reflux disease without esophagitis, R11.2 - Nausea with vomiting, unspecified linaclotide (Linzess) 145 mcg PO QAM 30 caps 6RF K59.04 - Chronic idiopathic constipation cimetidine 600 mg (2 x 300 mg) PO BEDTIME 60 tabs 6RF K21.9 - Gastro-esophageal reflux disease without esophagitis metoclopramide HCl 5 mg PO Q4-6H 120 tabs 6RF R11.2 - Nausea with vomiting, unspecified BARIUM SWALLOW 03/04/24 FINDINGS: Status post ACDF at the C4-C5. No obvious complication. There is bony fusion through the C4-C5 interspace. Lateral cine images of the oropharynx and hypopharynx demonstrate normal swallow mechanism with normal epiglottic inversion and soft palate elevation. No tracheal penetration, glottic or subglottic aspiration identified. No nasopharyngeal reflux present. Hypopharyngeal structures appear normal without evidence of mass or diverticulum. Mild cricopharyngeal achalasia is present. Dual and single contrast images of the esophagus demonstrate normal caliber, contour, and mucosal pattern. No evidence of stricture, mass, or ulcerations identified. Esophageal peristalsis is mildly disorganized. A small type I hiatal hernia is present. Gastroesophageal reflux is seen up the thoracic inlet. Dual contrast and single contrast images of the stomach demonstrated a normal contour. There are multiple foci of contrast pooling in the fundus and body the stomach that may represent small superficial ulcers. No masses are seen. Contrast freely passed into the gastric antrum and duodenal bulb without delay. Single and air-contrast images of the duodenal bulb demonstrate no abnormality. The duodenal sweep has a normal appearance, course, and mucosal fold appearance. The imaged proximal jejunum has a normal fold pattern and caliber. FLUOROSCOPY TIME: 3 minutes 41 second Number of Spot Images: 11 Number of Cine: 14 DOSE AREA PRODUCT: 2731 uGy-m2 (microgray-meter squared) FL/FL barium swallow IMPRESSION: 1. Mild cricopharyngeal achalasia 2. Moderate type I hiatal hernia 3. Significant gastroesophageal reflux 4. Multiple foci of contrast pooling in the fundus and body the stomach that may represent small superficial aphthous ulcers. 5. Mildly disorganized esophageal peristalsis. TODAY'S VISIT [place] #Nicole Kristofer He is here with a female family member who is helpful. They say he is not doing well, he has been losing weight and choking with eating. He saw his PCP and the recommended EGD. He had a barium swallow. This started about 2 mos ago. Both food and liquids get stuck around the sternal notch or just below. With further discussion seems that he has not been getting his Reglan or his and it is likely that this exacerbated his reflux and heartburn and may have caused some scarring of the esophagus. I list at all the medications he should be taking and it seems they changed the pharmacy several times and they are all going to different places. We got them all to the same pharmacy that they wish she use and I have resend. Hopefully this will give him some relief but will also of course get an endoscopy to see if he needs be dilated. Currently, he should be on omeprazole in the morning, cimetidine at night, Linzess, and Reglan. He has ZEV and asthma well controlled and denies any cardiac problems. There are no prior problems with anesthesia or sedation. There are no infectious disease problems. Return office visit in 6 weeks to evaluate his response to having all these. [facility] Medical History (Updated 03/28/24 @ 15:26 by BROOKLYN Lara) Weight loss, abnormal Nausea and vomiting Constipation Obesity (BMI 30-39.9) Diabetes type 2, uncontrolled Diabetic nephropathy associated with type 2 diabetes mellitus Diabetic 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 associated with type 2 diabetes mellitus correction (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 of insulin GERD (gastroesophageal reflux disease) Cervical spine pain HTN (hypertension) Diabetes High cholesterol Asthma Surgical History Hx of hand surgery History of back surgery Hx of esophagogastroduodenoscopy Hx of colonoscopy Family History Father Heart disease Mother Arthritis Diabetes Social History Household Members: Spouse Alcohol intake: never Patient Tobacco Use Status: Former Tobacco user Current occupational status: retired and disabled Review of Systems Const Denies fatigue, Denies fever(s), Denies night sweats, Reports poor appetite and Reports weight loss Eyes Details: glasses Reports requires corrective lenses ENT Reports Normal hearing present, Denies dental pain, Reports dysphagia, Denies hearing loss, Denies mouth pain, Denies odynophagia, Denies throat swelling, Denies tongue swelling and Reports other (Dentition adequate) Card Reports no additional complaints Resp Reports no additional complaints GI Details: Denies abdominal pain, Denies melena, Denies bloating, Denies hematochezia, Reports constipation, Denies GI cramping, Reports dysphagia, Denies excessive flatus, Denies early satiety, Reports heartburn, Denies diarrhea, Reports nausea, Denies odynophagia, Denies vomiting and Denies hematemesis Skin/Breast Denies pruritus, Denies lesions, Denies rash and Denies jaundice Neuro Reports Normal hearing present and Denies Abnormal speech present Endo Denies fatigue Aller/Immun Denies throat swelling and Denies tongue swelling Physical Exam Vital Signs: BMI result Body Mass Index 31.5 Const General: cooperative, no acute distress, well developed and well groomed Nutritional Appearance: well nourished and obese Orientation/consciousness: oriented to person, oriented to place and oriented to time Limitations: language barrier HEENT Head: Yes normocephalic and Yes atraumatic Eyes General: appearance normal, both eyes and all related structures Pupils: Equal, round and reactive pupils present Neck Neck: Yes normal visual inspection and Yes no lymphadenopathy Thyroid: Thyroid normal Resp Effort & Inspection: normal respiratory effort and able to speak in complete sentences Auscultation: clear to auscultation bilaterally Cardio Rate: regular rate Rhythm: regular rhythm Heart sounds: Normal, physiologic split S2 sound present Peripheral pulses: radial pulses present and posterior tibial pulses present GI Inspection: No distended, No Abdominal panniculus present and Yes obesity Palpation (GI): Soft to palpation, nontender, no guarding, not rigid and No hepatosplenomegaly present Percussion: Yes normal to percussion Auscultation: normal bowel sounds Rectal Exam - Male: Yes deferred Skin General skin exam: no rashes or lesions noted, turgor normal, skin not dry, no jaundice, No spider nevi and no striae Rashes: no rashes Nails: normal Neuro General: oriented to person, oriented to place and oriented to time Cranial nerves: Yes Equal, round and reactive pupils present and Yes Normal hearing present Speech: No Abnormal speech present Extrem General: Yes normal to inspection, No clubbing, No cyanosis and No edema Psych Appearance: grossly normal and well kempt Mental Status: mental status grossly normal Speech and movement: Normal speech and movement present Affect: normal affect Attitude: cooperative Thought process: Normal thought process present and not confabulating Thought content: Normal thought content present Insight: Limited insight present (Psych) Judgement: Limited judgement present (Psych) Results Reviewed Results Reviewed: BARIUM SWALLOW 03/04/24 FINDINGS: Status post ACDF at the C4-C5. No obvious complication. There is bony fusion through the C4-C5 interspace. Lateral cine images of the oropharynx and hypopharynx demonstrate normal swallow mechanism with normal epiglottic inversion and soft palate elevation. No tracheal penetration, glottic or subglottic aspiration identified. No nasopharyngeal reflux present. Hypopharyngeal structures appear normal without evidence of mass or diverticulum. Mild cricopharyngeal achalasia is present. Dual and single contrast images of the esophagus demonstrate normal caliber, contour, and mucosal pattern. No evidence of stricture, mass, or ulcerations identified. Esophageal peristalsis is mildly disorganized. A small type I hiatal hernia is present. Gastroesophageal reflux is seen up the thoracic inlet. Dual contrast and single contrast images of the stomach demonstrated a normal contour. There are multiple foci of contrast pooling in the fundus and body the stomach that may represent small superficial ulcers. No masses are seen. Contrast freely passed into the gastric antrum and duodenal bulb without delay. Single and air-contrast images of the duodenal bulb demonstrate no abnormality. The duodenal sweep has a normal appearance, course, and mucosal fold appearance. The imaged proximal jejunum has a normal fold pattern and caliber. FLUOROSCOPY TIME: 3 minutes 41 second Number of Spot Images: 11 Number of Cine: 14 DOSE AREA PRODUCT: 2731 uGy-m2 (microgray-meter squared) FL/FL barium swallow IMPRESSION: 1. Mild cricopharyngeal achalasia 2. Moderate type I hiatal hernia 3. Significant gastroesophageal reflux 4. Multiple foci of contrast pooling in the fundus and body the stomach that may represent small superficial aphthous ulcers. 5. Mildly disorganized esophageal peristalsis Assessment & Plan Assessment & Plan (1) Dysphagia: Code(s): R13.10 - Dysphagia, unspecified Category: Medical (2) Chronic idiopathic constipation: Code(s): K59.04 - Chronic idiopathic constipation Category: Medical (3) Pre-op examination: Code(s): Z01.818 - Encounter for other preprocedural examination Category: Medical (4) GERD (gastroesophageal reflux disease): Code(s): K21.9 - Gastro-esophageal reflux disease without esophagitis Category: Medical Plan [place] #Nicole Miner He is here with a female family member who is helpful. They say he is not doing well, he has been losing weight and choking with eating. He saw his PCP and the recommended EGD. He had a barium swallow. This started about 2 mos ago. Both food and liquids get stuck around the sternal notch or just below. With further discussion seems that he has not been getting his Reglan or his and it is likely that this exacerbated his reflux and heartburn and may have caused some scarring of the esophagus. I list at all the medications he should be taking and it seems they changed the pharmacy several times and they are all going to different places. We got them all to the same pharmacy that they wish she use and I have resend. Hopefully this will give him some relief but will also of course get an endoscopy to see if he needs be dilated. Currently, he should be on omeprazole in the morning, cimetidine at night, Linzess, and Reglan. He has ZEV and asthma well controlled and denies any cardiac problems. There are no prior problems with anesthesia or sedation. There are no infectious disease problems. Return office visit in 6 weeks to evaluate his response to having all these. Orders: Orders EGD - GI Use Only Today R13.10 - Dysphagia, unspecified Medications: Refilled magnesium oxide 500 mg PO QPM 30 tabs 6RF E11.65 - Type 2 diabetes mellitus with hyperglycemia cimetidine 600 mg (2 x 300 mg) PO BEDTIME 60 tabs 6RF K21.9 - Gastro-esophageal reflux disease without esophagitis linaclotide (Linzess) 145 mcg PO QAM 30 caps 6RF K59.04 - Chronic idiopathic constipation metoclopramide HCl 5 mg PO Q4-6H 120 tabs 6RF R11.2 - Nausea with vomiting, unspecified omeprazole 40 mg PO DAILY 90 caps 1RF K21.9 - Gastro-esophageal reflux disease without esophagitis, R11.2 - Nausea with vomiting, unspecified Coding Level of Care Code Est Pt Level 4 (55686) Diagnoses Dysphagia R13.10 Chronic idiopathic constipation K59.04 Pre-op examination Z01.818 GERD (gastroesophageal reflux disease) K21.9 Time Spent (min) 32
== END 2024-03-28 11:11 | disposition home or self-care (01) ==
PROVIDERS: Visit Provider Nurse Practitioner
DX: R13.10 Dysphagia, unspecified (principal); K59.04 Chronic idiopathic constipation; Z01.818 Encounter for other preprocedural examination; K21.9 Gastro-esophageal reflux disease without esophagitis
CPT/HCPCS: 99214

== ENCOUNTER → 2024-03-28 10:33 | Outpatient (BNVA) | payer OTHER, SELFPAY | PROVIDERS: Visit Provider Nurse Practitioner | DX: K21.9 Gastro-esophageal reflux disease without esophagitis (principal); R13.10 Dysphagia, unspecified; K59.04 Chronic idiopathic constipation | CPT/HCPCS: 99212 ==

== ENCOUNTER 2024-07-08 09:07 | Outpatient (REF) | payer OTHER, SELFPAY ==
[2024-07-08 09:50] LABS: Appearance Urine Clear; Color Urine Yellow; Glucose Urine UA >=1000 mg/dL (Negative); Leukocyte Esterase Urine Negative (Negative); Nitrite Urine Negative (Negative); PH 7.5 (5.0-9.0); Specific Gravity - Urine 1.025 (1.005-1.025); UMIC TRIGGER UA YES; Urine Blood Negative (Negative); Urine Ketones Negative (Negative); Urine Protein Negative (Neg-Trace)
[2024-07-08 09:55] LABS: Bacteria Urine None Seen (None Seen); Hyaline Casts Urine 0-2 /LPF (0-2); RBC Urine 0-2 /HPF (0-2); Squamous Epithelial Cell Urine 0-2 /HPF (0-2); WBC Urine 0-5 /HPF (0-5)
== END 2024-07-08 09:08 | disposition home or self-care (01) ==
LOC: HO.LAB 09:07
PROVIDERS: PCP Internal Medicine Geriatric Medicine; Visit Provider Urology
DX: R39.12 Poor urinary stream (principal); R39.15 Urgency of urination
CPT/HCPCS: 81001; 87086

== ENCOUNTER 2024-08-08 08:41 | Day surgery (SDC) | payer OTHER, SELFPAY ==
[2024-08-05 16:38] VITALS: BMI 31.5
[2024-08-08 09:11] VITALS: BP 123/66; PULSE 81; RESP 16; TEMP 36.8; O2SAT 98
--- NOTE | 2024-08-08 09:30 | HO.ANESPROP2 ---
HPI - Anesthesia Eval Consult details Narrative: 69 yo M presenting for EGD with dilation PMFSH Active Problems Active Problems: All Active Problems Dysphagia (Acute) Pre-op examination (Acute) Chronic idiopathic constipation (Acute) Weak urinary stream (Acute) Urinary urgency (Acute) Erectile dysfunction associated with type 2 diabetes mellitus (Acute) Moderate obstructive sleep apnea (Acute) Upper abdominal pain (Acute) GERD (gastroesophageal reflux disease) (Acute) Obesity (BMI 30-39.9) (Acute) Diabetes type 2, uncontrolled (Acute) Diabetic nephropathy associated with type 2 diabetes mellitus (Acute) Diabetic 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 associated with type 2 diabetes mellitus (Acute) senior care (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 of insulin (Acute) Asthma (Acute) Cervical spine pain (Acute) Diabetes (Acute) High cholesterol (Acute) HTN (hypertension) (Acute) Past Medical History Medical History (Updated 03/28/24 @ 15:26 by BROOKLYN Lara) Weight loss, abnormal Nausea and vomiting Constipation Obesity (BMI 30-39.9) Diabetes type 2, uncontrolled Diabetic nephropathy associated with type 2 diabetes mellitus Diabetic 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 associated with type 2 diabetes mellitus 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 GERD (gastroesophageal reflux disease) Cervical spine pain HTN (hypertension) Diabetes High cholesterol Asthma Family History Family History Father Heart disease Mother Arthritis Diabetes Family history of problems with anesthesia: No Surgical History Surgical History Hx of hand surgery History of back surgery Hx of esophagogastroduodenoscopy Hx of colonoscopy History of Problems with Anesthesia: No Social History Social History Household Members: Spouse Alcohol intake: never Patient Tobacco Use Status: Former Tobacco user Use of substances other than those prescribed or required for medical reasons: No Are you DNR?: No Advance Directives: No Advance Directives Information Provided: Yes Current occupational status: retired and disabled Meds Allergies Allergy/AdvReac Type Severity Reaction Status Date / Time Penicillins Allergy Mild DIZZY/DIAPHORESIS, Verified 03/28/24 10:48 N/V penicillin V Allergy Unknown Unknown Verified 03/28/24 10:48 Active Medications: Current Medications Lactated Ringer's (Lr) 1,000 mls @ 50 mls/hr IVCONT .Q20H MARIA G Home Medications ?Medication ?Instructions ?Recorded ?Confirmed ?Last Taken ?Type aspirin 81 mg tablet,delayed 81 mg PO DAILY 06/16/20 03/07/24 Unknown History release bupropion HCl 150 mg tablet,12 hr 150 mg PO BID 06/16/20 03/07/24 Unknown History sustained-release lisinopril 10 1 tab PO DAILY 06/16/20 03/07/24 Unknown History mg-hydrochlorothiazide 12.5 mg tablet albuterol sulfate 2.5 mg/3 mL mg inhalation 12/16/20 03/07/24 Unknown History (0.083 %) solution for nebulization fluoxetine 20 mg capsule 60 mg PO QAM 12/16/20 03/07/24 Unknown History fluticasone 250 mcg-salmeterol 50 1 ea inhalation BID 12/16/20 03/07/24 Unknown History mcg/dose blistr powdr for inhalation naproxen 500 mg tablet 500 mg PO BID 12/16/20 03/07/24 Unknown History tramadol 37.5 mg-acetaminophen 325 1 - 2 tab PO TID 06/29/21 03/07/24 Unknown History mg tablet ziprasidone HCl 40 mg capsule 40 mg PO 06/29/21 03/07/24 Unknown History amitriptyline 50 mg tablet 50 mg PO BEDTIME 02/24/22 03/07/24 Unknown History clonazepam 0.5 mg tablet 0.5 mg PO DAILY PRN 02/24/22 03/07/24 Unknown History econazole 1 % topical cream appl topical BID 07/28/22 03/07/24 Unknown History ketorolac 0.5 % eye drops 1 drp ophthalmic (eye) TID 07/28/22 03/07/24 Unknown History insulin glargine 100 unit/mL (3 20 unit subcut QPM 12/01/22 03/07/24 Unknown History mL) subcutaneous pen (Lantus Solostar U-100 Insulin) albuterol sulfate 90 mcg/actuation 2 inh inhalation Q6-8H PRN 08/17/23 03/07/24 Unknown History aerosol inhaler donepezil 10 mg tablet 10 mg PO DAILY 03/28/24 Unknown History dulaglutide 1.5 mg/0.5 mL mg subcut 03/28/24 Unknown History subcutaneous pen injector (Trulicity) dulaglutide 3 mg/0.5 mL 3 mg subcut QWEEK 03/28/24 Unknown History subcutaneous pen injector (Trulicity) empagliflozin 12.5 mg-metformin tab PO 03/28/24 Unknown History 500 mg tablet (Synjardy) Exam Exam Date and Time: 08/08/24 0930 Height,Weight and Vital Signs: Height 5 ft 2 in Weight 78.199 kg Last Vital Signs Temp 98.2 F 08/08/24 09:11 Pulse 81 08/08/24 09:11 Resp 16 08/08/24 09:11 BP 123/66 08/08/24 09:11 Pulse Ox 98 08/08/24 09:11 O2 Del Method Room Air 08/08/24 09:11 Airway Mallampati Class: II TM Dist: >3cm Neck ROM: Full Partial: Upper Heart: S1S2 Lungs: CTAB Assessment and Plan Assessment Anesthesia Assessment: Anesthesia Plan Discussed and Chart Reviewed Final Anesthetic Review Family History of Problems with Anesthesia: No History of Problems with Anesthesia: No NPO: Yes ASA Class: III Final Preanesthetic Review: No Changes in Pt Med Stat, Meds/Allgs Chart Reviewed, Consent Obtained/Reviewed (school bus driver/custodian at bedside for translation) and Anes Risks/Benef Reviewed Patient Risk: Intermediate Procedure Risk: Low Anesthetic Plan Anesthetic Plan: MAC: and Agree w/ Assess. and Plan Disposition: Standard PACU
[2024-08-08] MEDS: Lactated Ringers 1,000 ML 50 ML IVCONT (09:31)
--- NOTE | 2024-08-08 09:33 | MHC.SHP ---
Pre-Procedural Eval Section A - 24 Hr Update-Section A only Date of Service: 08/08/24 Section B - Complete if H&P > 30 days Chief Complaint: Dysphagia, Relevant Family History (Specify if Yes): No Relevant Social History: None Present Medications: see Short Stay Collaborative assessment Medical History: Significant History (Asthma Cervical spine pain Constipation Diabetes Diabetes type 2, uncontrolled Diabetic nephropathy associated with type 2 diabetes mellitus Diabetic 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 associated with type 2 diabetes mellitus GERD (gastroesophageal reflux disease) High cholesterol HTN (hypertension) senior living (current)) History of Previous Operations: Relevant previous surgery/procedure and date(s) (History of back surgery Hx of colonoscopy Hx of esophagogastroduodenoscopy Hx of hand surgery) Allergies: Allergies Allergy/AdvReac Type Severity Reaction Status Date / Time Penicillins Allergy Mild DIZZY/DIAPHORESIS, Verified 03/28/24 10:48 N/V penicillin V Allergy Unknown Unknown Verified 03/28/24 10:48 Review of Systems Sugical H&P ROS: Negative: Constitution, Cardiovascular, Respiratory, Neurological, Psychiatric, Hem-Onc, Allergic/Immunologic, Gastrointestinal, Genitourinary, Musculoskeletal, Integumentary, Endocrine and Eyes/Ears/Nose/Throat Exam Surgical H&P Exam: Normal: HEENT, Normal: Heart, Normal: Lungs, Normal: Extremities, Normal: Abdomen, Normal: Skin and Normal: Neurological Plan Diagnosis/Plan: Unchanged I have reviewed the history and physical and performed a pertinent physical examination on my patient. No changes have occurred unless specified. Time Spent With Patient Time: Total time managing care of this patient today ____ minutes.
[2024-08-08 09:36] LABS: Glucose, Whole Blood 171 mg/dL (60-115)
--- NOTE | 2024-08-08 09:49 | W.PM.OPN ---
Operative Note Operative Note Date of Service: 08/08/24 Narrative: Procedure Description: EGD Indication: dysphagia Anesthesia: MAC FLEXIBLE TRANSORAL UPPER GASTROINTESTINAL ENDOSCOPY UPPER ENDOSCOPY Consent: Indications for the procedure and potential complications of bleeding, perforation, reaction to medications and missed diagnosis were discussed with the patient and informed consent was obtained. Instrument: Olympus GIF H 190 J mid size upper endoscope Monitoring: Vital signs and clinical assessment, continuous EKG monitoring, Pulse oximetry, Carbon Dioxide monitoring and blood pressure monitoring were done throughout the procedure. Procedure: The patient was placed in the left lateral decubitis position and pre-procedure medications were administered and a bite block was placed. The endoscope was inserted into the mouth and advanced under direct vision to the third part of duodenum. A careful inspection was made as the upper endoscope was withdrawn including a retroflexed examination of the proximal stomach; Findings and interventions are described below. Findings: Larynx:normal Esophagus: GE junction at 38 cm, diaphragm hiatus at 83 cm, normal mucosa- bx taken from distal and proximal esophagus, balloon dilation to 20 mm at UES and LES, no tears seen Stomach: patchy erythema and few erosions, possible metaplasia at the pyloric outlet . Biopsies were obtained. Grade 2 flap valve on retroflexed examination of the cardia. Duodenum: Normal bulb and descending duodenum, Intervention: Biopsies as noted above, balloon dilation Impression/Findings: gastritis PLAN: if h pylori pos then treat GERD precautions
[2024-08-08 09:51] VITALS: BP 118/63; PULSE 90; RESP 24; TEMP 36.3; O2SAT 97
[2024-08-08 10:04] VITALS: BP 114/63; PULSE 87; RESP 20; O2SAT 98
[2024-08-08 10:17] VITALS: BP 111/66; PULSE 74; RESP 20; TEMP 36.2; O2SAT 98
== END 2024-08-08 10:44 | disposition home or self-care (01) ==
PROVIDERS: PCP Internal Medicine Geriatric Medicine; Visit Provider Internal Medicine Gastroenterology
PROC: 0DJ08ZZ Inspection of Upper Intestinal Tract, Via Natural or Artificial Opening Endoscopic (ICD-10-PCS; CPT 43235; principal; 2024-08-08 10:50)
DX: K29.70 Gastritis, unspecified, without bleeding (principal); K21.9 Gastro-esophageal reflux disease without esophagitis; R13.10 Dysphagia, unspecified; E11.9 Type 2 diabetes mellitus without complications; I10 Essential (primary) hypertension; E78.00 Pure hypercholesterolemia, unspecified; J45.909 Unspecified asthma, uncomplicated; K59.04 Chronic idiopathic constipation; G47.33 Obstructive sleep apnea (adult) (pediatric); Z99.89 Dependence on other enabling machines and devices; Z79.4 Long term (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 of insulin; Z87.891 Personal history of nicotine dependence
CPT/HCPCS: 43249; 43239; 82947; 88305; 88313; 88342; C1726; J2003; J2704

== ENCOUNTER → 2024-08-08 08:41 | Outpatient (BNV) | payer OTHER, SELFPAY | PROVIDERS: PCP Internal Medicine Geriatric Medicine; Visit Provider Internal Medicine Gastroenterology | DX: R13.10 Dysphagia, unspecified (principal); K29.70 Gastritis, unspecified, without bleeding | CPT/HCPCS: 43239; 43249 ==

== ENCOUNTER 2024-08-27 09:08 | Outpatient (AMB) | payer OTHER, SELFPAY ==
[2024-08-27 09:10] VITALS: BP 126/62; PULSE 93; BMI 31.4
--- NOTE | 2024-08-27 09:10 | A.OFFVIS_ITS ---
Vital Signs 08/27/24 09:10 Height 5 ft 2 in Weight 171 lb 8.314 oz BMI 31.4 BP 126/62 Blood Pressure Location Lt brachial Position Sitting Pulse 93 Intake Visit Reasons: s/P EGD Intake Note: Patient in office today in follow up s/p EGD. CC: Patient c/o stomach pain and nausea sometimes. He states that he is not chocking as much but he is eating foods that are not too hard. Patient states that he would like to know about the ulcers he had. Pitching Coach Required: Yes Pitching Coach Language: Grain Trimmer Services: Pitching Coach Present (Beverley, Language Director Of Financial Planning) Pitching Coach Name: Beverley LIT Allergies Penicillins Allergy (Mild, Verified 08/27/24 09:20) DIZZY/DIAPHORESIS, N/V penicillin V Allergy (Unknown, Verified 08/27/24 09:20) Unknown HPI HPI s/P EGD: Details: Assessment & Plan (1) Dysphagia: Code(s): R13.10 - Dysphagia, unspecified Category: Medical (2) Chronic idiopathic constipation: Code(s): K59.04 - Chronic idiopathic constipation Category: Medical (3) Pre-op examination: Code(s): Z01.818 - Encounter for other preprocedural examination Category: Medical (4) GERD (gastroesophageal reflux disease): Code(s): K21.9 - Gastro-esophageal reflux disease without esophagitis Category: Medical Plan [place] #Nicole Live He is here with a female family member who is helpful. They say he is not doing well, he has been losing weight and choking with e ating. He saw his PCP and the recommended EGD. He had a barium swallow. This started about 2 mos ago. Both food and liquids get stuck around the sternal notch or just below. With further discussion seems that he has not been getting his Reglan or his and it is likely that this exacerbated his reflux and heartburn and may have caused some scarring of the esophagus. I list at all the medications he should be taking and it seems they changed the pharmacy several times and they are all going to different places. We got them all to the same pharmacy that they wish she use and I have resend. Hopefully this will give him some relief but will also of course get an endoscopy to see if he needs be dilated. Currently, he should be on omeprazole in the morning, cimetidine at night, Linzess, and Reglan. He has ZEV and asthma well controlled and denies any cardiac problems. There are no prior problems with anesthesia or sedation. There are no infectious disease problems. Return office visit in 6 weeks to evaluate his response to having all these. Orders: Orders EGD - GI Use Only Today R13.10 - Dysphagia, unspecified Medications: Refilled magnesium oxide 500 mg PO QPM 30 tabs 6RF E11.65 - Type 2 diabetes mellitus with hyperglycemia cimetidine 600 mg (2 x 300 mg) PO BEDTIME 60 tabs 6RF K21.9 - Gastro-esophageal reflux disease without esophagitis linaclotide (Linzess) 145 mcg PO QAM 30 caps 6RF K59.04 - Chronic idiopathic constipation metoclopramide HCl 5 mg PO Q4-6H 120 tabs 6RF R11.2 - Nausea with vomiting, unspecified omeprazole 40 mg PO DAILY 90 caps 1RF K21.9 - Gastro-esophageal reflux disease without esophagitis, R11.2 - Nausea with vomiting, unspecified EGD 08/08/24 Findings: Larynx:normal Esophagus: GE junction at 38 cm, diaphragm hiatus at 83 cm, normal mucosa- bx taken from distal and proximal esophagus, balloon dilation to 20 mm at UES and LES, no tears seen Stomach: patchy erythema and few erosions, possible metaplasia at the pyloric outlet . Biopsies were obtained. Grade 2 flap valve on retroflexed examination of the cardia. Duodenum: Normal bulb and descending duodenum, Intervention: Biopsies as noted above, balloon dilation Impression/Findings: gastritis PLAN: if h pylori pos then treat GERD precautions BISOPSY Received: 08/08/24 Diagnosis A. Stomach, biopsy: Gastric body mucosa with mild reactive changes and focal minimal chronic inactive gastritis, and gastric antral mucosa with moderate reactive changes and focal minimal chronic gastritis with active erosion; negative for H. pylori, intestinal metaplasia and dysplasia. B. Esophagus, distal, biopsy: Squamocolumnar mucosa with focal minimal chronic inactive inflammation; negative for intestinal metaplasia and dysplasia. C. Esophagus, proximal, biopsy: Squamous mucosa with no specific change; no columnar mucosa present TODAYS VISIT [place]ian #V His dysphagia has improved with the dilation. The pain and the stomach is still there he has better and worse days. I am going to increase him to omeprazole 40 mg twice a day which he really needs for the erosive gastritis. I am uncertain if he was only on once a day related to insurance limitations but will find out and I did let him know to call me if he does not receive an adequate supply. I do not want to put him on sucralfate just now because of his severe constipation. However this is something we can consider going forward. He continues on omeprazole in the morning, cimetidine at night, Linzess, magnesi um and Reglan. His constipation appears to be well controlled. Return office visit in 6 weeks to evaluate his response to b.i.d. dosing. [facility] Medical History Weight loss, abnormal Nausea and vomiting Constipation Obesity (BMI 30-39.9) Diabetes type 2, uncontrolled Diabetic nephropathy associated with type 2 diabetes mellitus Diabetic 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 associated with type 2 diabetes mellitus longterm (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 of insulin GERD (gastroesophageal reflux disease) Cervical spine pain HTN (hypertension) Diabetes High cholesterol Asthma Surgical History Hx of hand surgery History of back surgery Hx of esophagogastroduodenoscopy Hx of colonoscopy Family History Father Heart disease Mother Arthritis Diabetes Social History Household Members: Spouse Alcohol intake: never Patient Tobacco Use Status: Former Tobacco user Current occupational status: retired and disabled Review of Systems Const Denies fatigue, Denies fever(s), Denies night sweats, Denies poor appetite and Denies weight loss Eyes Details: glasses Reports requires corrective lenses ENT Reports Normal hearing present, Denies dental pain, Denies dysphagia, Denies hearing loss, Denies mouth pain, Denies odynophagia, Denies throat swelling, Denies tongue swelling and Reports other (Dentition adequate) Card Reports no additional complaints Resp Reports no additional complaints GI Details: Reports abdominal pain, Denies melena, Denies bloating, Denies hematochezia, Reports constipation, Denies GI cramping, Denies dysphagia, Denies excessive flatus, Denies early satiety, Reports heartburn, Denies diarrhea, Reports nausea, Denies odynophagia, Denies vomiting and Denies hematemesis Musc Reports abnormal gait Skin/Breast Denies pruritus, Denies lesions, Denies rash and Denies jaundice Neuro Reports Normal hearing present, Denies Abnormal speech present and Reports abnormal gait Endo Denies fatigue Aller/Immun Denies throat swelling and Denies tongue swelling Physical Exam Vital Signs: Last Vital Signs Pulse 93 08/27/24 09:10 BP 126/62 08/27/24 09:10 BMI result Body Mass Index 31.4 Const General: cooperative, no acute distress, well developed and well groomed Nutritional Appearance: well nourished and obese Orientation/consciousness: oriented to person, oriented to place and oriented to time Limitations: language barrier and ambulation with walker HEENT Head: Yes normocephalic and Yes atraumatic Eyes General: appearance normal, both eyes and all related structures Pupils: Equal, round and reactive pupils present Neck Neck: Yes normal visual inspection and Yes no lymphadenopathy Thyroid: Thyroid normal Resp Effort & Inspection: normal respiratory effort and able to speak in complete sentences Auscultation: clear to auscultation bilaterally Cardio Rate: regular rate Rhythm: regular rhythm Heart sounds: Normal, physiologic split S2 sound present Peripheral pulses: radial pulses present and posterior tibial pulses present GI Inspection: No distended, No Abdominal panniculus present and Yes obesity Palpation (GI): Soft to palpation, Tenderness to palpation present (GI) in the epigastrum, no guarding, not rigid and No hepatosplenomegaly present Percussion: Yes normal to percussion Auscultation: normal bowel sounds Rectal Exam - Male: Yes deferred Skin General skin exam: no rashes or lesions noted, turgor normal, skin not dry, no jaundice, No spider nevi and no striae Rashes: no rashes Nails: normal Neuro General: oriented to person, oriented to place and oriented to time Cranial nerves: Yes Equal, round and reactive pupils present and Yes Normal hearing present Speech: No Abnormal speech present Extrem General: Yes normal to inspection, No clubbing, No cyanosis and No edema Psych Appearance: grossly normal and well kempt Mental Status: mental status grossly normal Speech and movement: Normal speech and movement present Affect: normal affect Attitude: cooperative Thought process: Normal thought process present and not confabulating Thought content: Normal thought content present Insight: Limited insight present (Psych) Judgement: Limited judgement present (Psych) Results Reviewed Results Reviewed: EGD 08/08/24 Findings: Larynx:normal Esophagus: GE junction at 38 cm, diaphragm hiatus at 83 cm, normal mucosa- bx taken from distal and proximal esophagus, balloon dilation to 20 mm at UES and LES, no tears seen Stomach: patchy erythema and few erosions, possible metaplasia at the pyloric outlet . Biopsies were obtained. Grade 2 flap valve on retroflexed examination of the cardia. Duodenum: Normal bulb and descending duodenum, Intervention: Biopsies as noted above, balloon dilation Impression/Findings: gastritis PLAN: if h pylori pos then treat GERD precautions BISOPSY Received: 08/08/24 Diagnosis A. Stomach, biopsy: Gastric body mucosa with mild reactive changes and focal minimal chronic inactive gastritis, and gastric antral mucosa with moderate reactive changes and focal minimal chronic gastritis with active erosion; negative for H. pylori, intestinal metaplasia and dysplasi a. B. Esophagus, distal, biopsy: Squamocolumnar mucosa with focal minimal chronic inactive inflammation; negative for intestinal metaplasia and dysplasia. C. Esophagus, proximal, biopsy: Squamous mucosa with no specific change; no columnar mucosa present Assessment & Plan Assessment & Plan (1) Erosive gastritis: Code(s): K29.60 - Other gastritis without bleeding Category: Medical (2) Upper abdominal pain: Code(s): R10.10 - Upper abdominal pain, unspecified Category: Medical (3) Dysphagia: Code(s): R13.10 - Dysphagia, unspecified Category: Medical (4) Chronic idiopathic constipation: Code(s): K59.04 - Chronic idiopathic constipation Category: Medical (5) GERD (gastroesophageal reflux disease): Code(s): K21.9 - Gastro-esophageal reflux disease without esophagitis Category: Medical Plan [place] #V His dysphagia has improved with the dilation. The pain and the stomach is still there he has better and worse days. I am going to increase him to omeprazole 40 mg twice a day which he really needs for the erosive gastritis. I am uncertain if he was only on once a day related to insurance limitations but will find out and I did let him know to call me if he does not receive an adequate supply. I do not want to put him on sucralfate just now because of his severe constipation. However this is something we can consider going forward. He continues on omeprazole in the morning, cimetidine at night, Linzess, magnesium and Reglan. His constipation appears to be well controlled. Return office visit in 6 weeks to evaluate his response to b.i.d. dosing. Medications: Changed From magnesium oxide 500 mg PO QPM 30 tabs 6RF E11.65 - Type 2 diabetes mellitus with hyperglycemia To magnesium oxide 500 mg PO QPM 90 tabs 1RF 90 days E11.65 - Type 2 diabetes mellitus with hyperglycemia From omeprazole 40 mg PO DAILY 90 days 90 caps 1RF K29.60 - Other gastritis without bleeding, R11.2 - Nausea with vomiting, unspecified To omeprazole 40 mg PO BID 180 caps 1RF 90 days K29.60 - Other gastritis without bleeding, R11.2 - Nausea with vomiting, unspecified From metoclopramide HCl 5 mg PO Q4-6H 120 tabs 6RF R11.2 - Nausea with vomiting, unspecified To metoclopramide HCl 5 mg PO QID 360 tabs 1RF R11.2 - Nausea with vomiting, unspecified From linaclotide (Linzess) 145 mcg PO QAM 30 caps 6RF K59.04 - Chronic idiopathic constipation To linaclotide (Linzess) 145 mcg PO QAM 90 caps 1RF 90 days K59.04 - Chronic idiopathic constipation Coding Level of Care Code Est Pt Level 3 (86446) Diagnoses Erosive gastritis K29.60 Upper abdominal pain R10.10 Dysphagia R13.10 Chronic idiopathic constipation K59.04 GERD (gastroesophageal reflux disease) K21.9
== END 2024-08-27 10:06 | disposition home or self-care (01) ==
PROVIDERS: Visit Provider Nurse Practitioner
DX: K29.60 Other gastritis without bleeding (principal); R10.10 Upper abdominal pain, unspecified; R13.10 Dysphagia, unspecified; K59.04 Chronic idiopathic constipation; K21.9 Gastro-esophageal reflux disease without esophagitis
CPT/HCPCS: 99213

== ENCOUNTER → 2024-08-27 09:08 | Outpatient (BNVA) | payer OTHER, SELFPAY | PROVIDERS: Visit Provider Nurse Practitioner | DX: K29.60 Other gastritis without bleeding (principal); K59.04 Chronic idiopathic constipation; K21.9 Gastro-esophageal reflux disease without esophagitis; R10.10 Upper abdominal pain, unspecified; R13.10 Dysphagia, unspecified | CPT/HCPCS: 99212 ==

== ENCOUNTER 2024-09-04 10:03 | Outpatient (AMB) | payer OTHER, SELFPAY ==
--- NOTE | 2024-09-04 10:31 | MHC.OFFVIS ---
Intake Visit Reasons: 6M PVR Follow Up Intake Note: Patient is present for 6M PVR F/U Urology Medication:NONE Antibiotic Allergy:PENICILLINS Blood Thinner:ASPIRIN TODAY'S PVR:24ML'S Hot [place] Man Required: No Allergies Penicillins Allergy (Mild, Verified 09/04/24 10:32) DIZZY/DIAPHORESIS, N/V penicillin V Allergy (Unknown, Verified 09/04/24 10:32) Unknown HPI Comments Details: Alonzo is a pleasant male. He is seen for the following urologic conditions - lower urinary tract symptoms - erectile dysfunction Pashto translation provided by qualified medical front desk specialist 6m f/u - daily tadalafil with 20 mg on demand Lower urinary tract symptoms Persistent urgency and frequency Weakness of stream Nocturia x2 Consistent with diabetic cystopathy - diabetic nephropathy Concurrent sleep apnea with diabetes Prior medication - alpha-alicia with overactive bladder medication - tamsulosin and low-dose tolterodine Erectile dysfunction secondary to diabetes Minimal activity Good biochemical response to 10 mg daily tadalafil T 258 F 40 Concurrent diagnosis includes sleep apnea, insulin-dependent diabetes, dyslipidemia Medications include amitriptyline, clonazepam, Trulicity, Jardiance, metformin, pravastatin PFSH Medical History Weight loss, abnormal Nausea and vomiting Constipation Obesity (BMI 30-39.9) Diabetes type 2, uncontrolled Diabetic nephropathy associated with type 2 diabetes mellitus Diabetic 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 associated with type 2 diabetes mellitus intermediate designer (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 of insulin GERD (gastroesophageal reflux disease) Cervical spine pain HTN (hypertension) Diabetes High cholesterol Asthma Surgical History Hx of hand surgery History of back surgery Hx of esophagogastroduodenoscopy Hx of colonoscopy Family History Father Heart disease Mother Arthritis Diabetes Social History Household Members: Spouse Alcohol intake: never Patient Tobacco Use Status: Former Tobacco user Current occupational status: retired and disabled Office Procedures Post Void Residual Post Residual Void Post Void Residual (PVR): 24 [id number] Void Residual by ultrasound Results AMB Urinalysis, Automated UA Leukoctes 0 Ramesh/uL Last Edit by WILFRED Kelley on 09/04/24 10:45 UA Nitrite Negative Last Edit by Maura Poon [facility] on 09/04/24 10:45 UA Urobilinogen 0.2 mg/dL Last Edit by Maur[facility] on 09/04/24 10:45 UA Protein 0 mg/dL Last Edit by Maura Poon [facility] on 09/04/24 10:45 UA pH 5.5 Last Edit by Maura Poon, [facility] on 09/04/24 10:45 UA Blood 0 Romaine/uL Last Edit by Maura Poon, [facility] on 09/04/24 10:45 UA Specific [place] 1.015 Last Edit by Maura Poon [facility] on 09/04/24 10:45 UA Ketone Negative Last Edit by Maura Poon [facility] on 09/04/24 10:45 UA Bilirubin 0 mg/dL Last Edit by Maura Poon [facility] on 09/04/24 10:45 UA Glucose 1000 mg/dL Last Edit by Maura Poon [facility] on 09/04/24 10:45 Results Reviewed Results Reviewed: Laboratory Last Values Urine pH (Auto) 5.5 09/04/24 10:44 Specific [place] (Auto) 1.015 09/04/24 10:44 Urine Protein (Auto) 0 mg/dL 09/04/24 10:44 Glucose (UA)(Auto) 1000 mg/dL 09/04/24 10:44 Urine Ketones (Auto) Negative 09/04/24 10:44 Urine Blood (Auto) 0 Romaine/uL 09/04/24 10:44 Urine Nitrite (Auto) Negative 09/04/24 10:44 Urine Bilirubin (Auto) 0 mg/dL 09/04/24 10:44 Urine Urobilinogen (Auto) 0.2 mg/dL 09/04/24 10:44 Leukocyte Esterase (Auto) 0 Ramesh/uL 09/04/24 10:44 Assessment & Plan Assessment & Plan Orders: Orders AMB Urinalysis Automated Today Z13.9 - Encounter for screening, unspecified Coding CPT Codes Post Residual Void - PVR CPT Code: 56810-[id number] Void Residual by ultrasound ([id number])
--- OUTSIDE RECORDS SUMMARY | 2024-09-04 11:00 | XMS_ITS | Encounter Summary ---
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 (HCC) (Primary Dx);Pain in toes of both feet;Ingrowing right great toenail;Arthritis of both feet;Dermatophytosis, nail Encounter Details Date Type Department Care Team (Late st Contact Info) Description 08/19/2024 9:30 AM EST Office Visit Orthopedic Surgery - [place] [phone] [phone] Gene Blankenship DPM [address] [address] Controlled type 2 diabetes with neuropathy (CMS/HCC) (Primary Dx); Pain in toes of both feet; Ingrown right big toenail; Arthritis of both feet; Dermatophytosis, nail Social History Tobacco Use Types Packs/Day Years Used Date Smoking Tobacco: Never Assessed Sex and Gender Information Value Date Recorded Sex Assigned at Not on file Gender Identity Not on file Sexual Orientation Not on file documented as of this encounter Last Filed Vital Signs Vital Sign Reading Time Taken Comments Blood Pressure - - Pulse - - Temperature - - Respiratory Rate - - Oxygen Saturation - - Inhaled Oxygen Concentration - - Weight 78.5 kg (173 lb) 08/19/2024 9:38 AM EST Height 157.5 cm (5' 2.01 ) 08/19/2024 9:38 AM ES T Body Mass Index 31.63 08/19/2024 9:38 AM EST documented in this encounter Progress Notes * Gene Blankenship DPM - 08/19/2024 9:30 AM EST Referring MD: Javed Last PCP visit: 06/05/2024 IDENTIFIER: @TITLE@ Kwabena Batista is a 69 y.o. year old male who presents for consultation. CC: Bilateral foot pain HPI: Returns for multiple forefoot deformities bilateral feet Patient states that they have been diabetic for the past few years and has continued tingling numbness to the feet bilaterally Denies any history of ulceration, or infection. His nails are thickened and misshapened. Patient had return of pain to the right great toenail at the medial border Patient is wearing good supportive shoes at this time. Patient reports mild calluses that are becoming bothersome. Patient with minimal other pedal complaints at this time. Patient's FBS this AM was 145 Recent A1C is %. 7.0 ROS: GENERAL: Pt denies nausea, fever, vomiting, chills, or shortness of breath. Pt in NAD. CARDIOLOGY: pt denies chest pain, palpitations LUNGS: pt denies shortness of breath MUSCULOSKELETAL: See HPI, otherwise no joint pain or swelling, back pain, or muscle pain. SKIN: see HPI, otherwise no lesions, rash or itching NEURO: No persistent headache, weakness or numbness The remainder of the review of systems is noncontributory PAST MEDICAL HISTORY: There is no problem list on file for this patient. SOCIAL HISTORY: Social History Tobacco Use Smoking status: Not on file Smokeless tobacco: Not on file Substance Use Topics Alcohol use: Not on file ACTIVE MEDICATIONS: Outpatient Medications Marked as Taking for the 08/19/24 encounter (Office Visit) with Gene Blankenship DPM Medication Sig Dispense Refill Mounjaro 2.5 mg/0.5 mL injection Inject 0.5 mL (2.5 mg total) under the skin. pravastatin (PRAVACHOL) 80 mg tablet Take 1 tablet (80 mg total) by mouth daily. sulfamethoxazole-trimethoprim (BACTRIM DS,SEPTRA DS) 800-160 mg per tablet Take 1 tablet by mouth 2(two) times a day. for 5 days tadalafiL (CIALIS) 10 mg tablet TAKE ONE TABLET BY MOUTH EVERY DAY FOR PROSTATE OBSTRUCTION tadalafiL (CIALIS) 20 mg tablet TAKE ONE TABLET BY MOUTH EVERY DAY NEEDED 60 MINUTES BEFORE INTENDED ACTIVITY terazosin (HYTRIN) 5 mg capsule Take 1 capsule (5 mg total) by mouth. at bedtime tirzepatide (Mounjaro) 5 mg/0.5 mL injection Inject 0.5 mL (5 mg total) under the skin. ALLERGIES: @ALL@ PHYSICAL EXAM: Height 1.575 m (62.01 ), weight 78.5 kg (173 lb). PODIATRIC EXAMINATION: GENERAL: Patient appears well nourished, with NAD. VASCULAR: Dorsalis pedis pulses are 2/4 bilaterally and Posterior tibial pulses are 2/4 bilaterally. Capillary filling time within normal limits the digits. No pallor on elevation or rubor on dependency. Positive hair growth. No varicosities. Denies rest pain or claudication pain. NEUROLOGICAL: Sharp/dull sensation intact, protective sensation intact on [place]. Multiple peripheral neuropathies bilateral lower extremity ORTHOPEDIC: Good muscle strength 5/5 of all flexors and extensors. Dorsi flexion of ankle ,10 degrees, plantar flexion WNL. No muscle atrophy. Palpable arthritic changes to the feet bilaterally. Continued rigid contracture of digits 2 through 5. Flexible flatfoot deformity bilaterally. DERMATOLOGICAL:.No masses or skin lesions noted. Normal skin temperature, normal skin turgor. Nailsare elongated dystrophic discolored x 10 with subungual debris. Return of ingrowth of the nail to the right medial hallux BIOMECHANICS: STJ ROM wnl, MTJ ROM wnl, 1st MPJ ROM wnl. IMPRESSION: 1. Controlled type 2 diabetes with neuropathy (CMS/HCC) 2. Pain in toes of both feet 3. Ingrown right big toenail 4. Arthritis of both feet 5. Dermatophytosis, nail PLAN: Pt was seen and examined, history reviewed. Patient was educated on importance of keeping close and tight glucose control in order to limit chances for nonhealing wounds and amputations in the future Patient educated that his arthritic changes and the flareups that will occur from time to time to the midfoot. Patient instructed to wear more supportive shoe in order to limit strain to the midtarsal joint Patient was reeducated on the importance of using offloading pads to the sulcus area of the hammered digits bilaterally in order to limit preulcerative lesions Patient with symptoms of ingrowing toenail without infection Patients conditioned explained, both conservatively and surgically. Patient opted for conservative treatment. Site irrigated and cleansed today. Nail debridement performed to nails 1-5 bilateral as nails were described to be causing pain and difficulty for walking while in shoegear at their previous length. They were debrided in thickness andlength, with no incident. Clinical evidence of mycosis is documented which required active treatment. Patient expressed immediate relief. Patient is to RTC in 9 weeks Gene Blankenship DPM documented in this encounter Plan of Treatment Upcoming Encounters Date Type Department Care Team (Late st Contact Info) Description 10/21/2024 9:00 AM EDT Office Visit Orthopedic Surgery - [place] [address] [phone] Gene Blankenship DPM [address] [address] documented as of this encounter Visit Diagnoses Diagnosis Controlled type 2 diabetes with neuropathy (CMS/HCC)- Primary Type II or unspecified type diabetes mellitus with neurological manifestations, not stated as uncontrolled Pain in toes of both feet Ingrown right big toenail Ingrowing nail Arthritis of both feet Dermatophytosis, nail Dermatophytosis of nail documented in this encounter Historical Medications * This list may reflect changes made after this encounter. Medication Sig Dispensed Refills Start Date End Date pravastatin (PRAVACHOL) 80 mg tablet Take 1 tablet (80 mg total) by mouth daily. 12/07/2023 sulfamethoxazole-trimet hoprim (BACTRIM DS,SEPTRA DS) 800-160 mg per tablet Take 1 tablet by mouth 2 (two) times a day. for 5 days 07/10/2024 tadalafiL (CIALIS) 10 mg tablet TAKE ONE TABLET BY MOUTH EVERY DAY FOR PROSTATE OBSTRUCTION 02/09/2024 tadalafiL (CIALIS) 20 mg tablet TAKE ONE TABLET BY MOUTH EVERY DAY NEEDED 60 MINUTES BEFORE INTENDED ACTIVITY 02/09/2024 terazosin (HYTRIN) 5 mg capsule Take 1 capsule (5 mg total) by mouth. at bedtime 11/02/2023 Mounjaro 2.5 mg/0.5 mL injection Inject 0.5 mL (2.5 mg total) under the skin. 07/23/2024 tirzepatide (Mounjaro) 5 mg/0.5 mL injection Inject 0.5 mL (5 mg total) under the skin. 07/23/2024 traMADol-acetaminophen (ULTRACET) 37.5-325 mg per tablet TAKE 1 TO 2 TABLETS BY MOUTH THREE TIMES DAILY NEEDED added in this encounter Care Teams Yarn Finisher Relationship Specialty Start Date End Date Name, MD Chan [address] [place], [place] PCP - General Internal Medicine 06/25/19 documented as of this encounter
--- OUTSIDE RECORDS SUMMARY | 2024-09-04 11:00 | XMS_ITS | Clinical Summary ---
Author Organization 175 [facility] Address [address] [place] [address] Phone Care Team Providers Care Warp Knitter Helper Name Role Phone Name, Chan TOLLIVER Primary Care Provider [phone] Allergies No known active allergies Medications Medication Sig Dispensed Refills Start Date End Date Status traMADol-acetaminoph en (ULTRACET) 37.5-325 mg per tablet TAKE 1 TO 2 TABLETS BY MOUTH THREE TIMES DAILY NEEDED Active tirzepatide (Mounjaro) 5 mg/0.5 mL injection Inject 0.5 mL (5 mg total) under the skin. 07/23/2024 Active Mounjaro 2.5 mg/0.5 mL injection Inject 0.5 mL (2.5 mg total) under the skin. 07/23/2024 Active terazosin (HYTRIN) 5 mg capsule Take 1 capsule (5 mg total) by mouth. at bedtime 11/02/2023 Active tadalafiL (CIALIS) 20 mg tablet TAKE ONE TABLET BY MOUTH EVERY DAY NEEDED 60 MINUTES BEFORE INTENDED ACTIVITY 02/09/2024 Active tadalafiL (CIALIS) 10 mg tablet TAKE ONE TABLET BY MOUTH EVERY DAY FOR PROSTATE OBSTRUCTION 02/09/2024 Active sulfamethoxazole-tri methoprim (BACTRIM DS,SEPTRA DS) 800-160 mg per tablet Take 1 tablet by mouth 2 (two) times a day. for 5 days 07/10/2024 Active pravastatin (PRAVACHOL) 80 mg tablet Take 1 tablet (80 mg total) by mouth daily. 12/07/2023 Active Encounters Date Type Department Care Team Description 08/19/2024 9:30 AM EST Office Visit Orthopedic Surgery [facility] [address] [facility] [address] [place] [address] Gene Blankenship DPM Controlled type 2 diabetes with neuropathy (CMS/HCC) (Primary Dx); Pain in toes of both feet; Ingrown right big toenail; Arthritis of both feet; Dermatophytosis, nail from Last 3 Months Social History Tobacco Use Types Packs/Day Years Used Date Smoking Tobacco: Never Assessed Sex and Gender Information Value Date Recorded Sex Assigned at Not on file Gender Identity Not on file Sexual Orientation Not on file Last Filed Vital Signs Vital Sign Reading Time Taken Comments Blood Pressure - - Pulse - - Temperature - - Respiratory Rate - - Oxygen Saturation - - Inhaled Oxygen Concentration - - Weight 78.5 kg (173 lb) 08/19/2024 9:38 AM EST Height 157.5 cm (5' 2.01 ) 08/19/2024 9:38 AM ES T Body Mass Index 31.63 08/19/2024 9:38 AM EST Plan of Treatment Upcoming Encounters Date Type Department Care Team ([facility] st Contact Info) Description 10/21/2024 9:00 AM EDT Office Visit Orthopedic Surgery - [place] [address] [phone] Gene Blankenship, MILAN [address] [address] Health Maintenance Due Date Last Done Comments Diabetes: Annual Foot Exam 1966 Diabetes: Annual Retina Eye Exam 1966 Zoster Vaccines (1 of 2) 2006 RSV Immunization Patients 60+ Years Old (1 - Risk 60-74 years 1-dose series) 2016 Abdominal Aortic Aneurysm (AAA) Screen 03/12/2024 Colorectal Cancer Screening: Colonoscopy 03/12/2024 Falls Risk Assessment 03/12/2024 Social Influencers of Health Screening 03/12/2024 COVID-19 Vaccine ( season) 2024 Influenza Vaccine (#1) 2024 , 04/29/2020, 05/07/2019, Additional history exists Depression Screening 11/08/2024 11/09/2023 Diabetes: Annual Urine Albumin-Creatinine Ratio (uACR) 11/08/2024 11/09/2023 Diabetes: Annual GFR (Glomerular Filtration Rate) 11/08/2024 11/09/2023 Hypertension/CHF/CAD Annual BMP Blood Test 11/08/2024 11/09/2023 Diabetes: Blood Sugar Control Test (HGBA1C) 12/18/2024 06/20/2024, 07/22/2020 DTaP,Tdap,and Td Vaccines (4 - Td or Tdap) 12/09/2025 12/10/2015, 07/11/2012, 09/11/2006 Cholesterol Screening (Lipid Panel) 07/05/2028 07/05/2023, 07/05/2023 Hepatitis C Screening Completed 04/05/2022 Pneumococcal Vaccine: 65+ Years Completed 07/11/2023, 03/03/2004 HIB Vaccines Aged Out No longer eligi ble based on patient's age to complete this topic HPV Vaccines Aged Out No longer eligi ble based on patient's age to complete this topic Hepatitis A Vaccines Aged Out No long er eligible based on patient's age to complete this topic Hepatitis B Vaccines Aged Out No long er eligible based on patient's age to complete this topic IPV Vaccines Aged Out No longer eligi ble based on patient's age to complete this topic MMR Vaccines Aged Out No longer eligi ble based on patient's age to complete this topic Meningococcal ACWY Vaccine Aged Out N o longer eligible based on patient's age to complete this topic RSV Immunization Patients Under 20 months Aged Out No longer eligible based on patient's age to complete this topic Varicella Vaccines Aged Out No longer eligible based on patient's age to complete this topic Procedures Procedure Name Priority Date/Time Associated Diagnosis Comments URINE ALBUMIN CREATININE RATIO Routine 11/09/2023 ANNUAL BMP BLOOD TEST Routine 11/09/2023 LIPID PANEL Routine 07/05/2023 HEPATITIS C SCREENING Routine 04/05/2022 HEMOGLOBIN A1C Routine 07/22/2020 from Last 3 Months or Most Recently Relevant to Health Maintenance Results * Urine Albumin Creatinine Ratio (11/09/2023) Urine Albumin Creatinine Ratio abstracted Historical Provider MD TOMMY MARTEL E * Annual BMP Blood Test (11/09/2023) Pathologist [facility] Annual BMP Blood Test abstracted Historical Provider MD TOMMY Bartlett Lipid panel (07/05/2023) [facility] LDL/HDL Ratio 0 Comment:no interpretation, a bstracted Triglycerides 0 mg/dL Comment:no interpretation, a bstracted Cholesterol 0 mg/dL Comment:no interpretation, a bstracted HDL 0 mg/dL Comment:no interpretation, a bstracted LDL Cholesterol 0 mg/dL Comment:no interpretation, a bstracted Blood Venous blood specimen / Unknown Historical Provider LAB BLOOD ORDERAB LES * Hepatitis C Screening (04/05/2022) [facility] Hepatitis C Screening abstracted Historical Provider MD TOMMY Bartlett Hemoglobin A1c (07/22/2020) [facility] Hemoglobin A1C 0.0 % Comment:no interpretation, a bstracted Blood Venous blood specimen / Unknown Historical Provider LAB BLOOD ORDERAB LES from Last 3 Months or Most Recently Relevant to Health Maintenance Care Teams Warp Knitter Helper Relationship Specialty Start Date End Date Name, MD Chan [address] [place], [place] PCP - General Internal Medicine 06/25/19
--- OUTSIDE RECORDS SUMMARY | 2024-09-04 11:01 | XMS_ITS | Encounter Summary ---
Author Organization [employer] Address [address] [place] [address] Care Team Providers Care Electrician Helper Automotive Name Role Phone Name, Chan TOLLIVER Primary Care Provider [phone] Naya Malone PharmD Unavailable [phone] Reason for Visit * Reason Comments Med Refill Encounter Details Date Type Department Care Team (Late st Contact Info) Description 08/12/2024 Refill [facility] [address] [place], [place] [phone] Name, MD Chan [address] [place], [place] [phone] Diabetic 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 associated with type 2 diabetes mellitus (CMS/HCC) Social History Tobacco Use Types Packs/Day Years Used Date Smoking Tobacco: Former Cigarettes Passive Smoke Exposure: Never Smokeless Tobacco: Former Alcohol Use Standard Drinks/Week Comments Never 0 (1 standard drink = 0.6 oz pur e alcohol) Alcohol Answer Date Recorded Frequency of Alcohol Consumption Not on file 03/13/2024 Average Number of Drinks Not on file 024 Frequency of Binge Drinking Not on file 02/13 Score 0 03/13/2024 Depression Answer Date Recorded Patient Health Questionnaire-9 Score 0 11/09/2023 Patient Health Questionnaire-9 Score 0 11/09/2023 Last PHQ-9: Questionnaire Data Not on file 0 11/09/2023 Housing Stability Answer Date Recorded What is your housing situation today? I have sabine ko 03/13/[address] you li ve. Do you have problems with any of the following? None of the above 03/13/2024 Food Insecurity Answer Date Recorded Within the past 12 months, y ou worried that your food would run out before you got money to buy more: Never True 03/13/2024 Within the past 12 months,th e food you bought just didn't last and you didn't have enough money to get more: Never True Transportation Answer Date Recorded In the past 12 months, has l ack of transportation kept you from medical appts, meetings, work or from getting things needed for daily living? No 03/13/2024 Utilities Answer Date Recorded In the past 12 months, has t he electric, gas, oil or water company threatened to shut off services in your home? No 03/13/2024 Depression Answer Date Recorded Patient Health Questionnaire-2 Score 0 11/09/2023 Internet Access Answer Date Recorded Internet Access Q1 No 04/12/2024 Internet Access Q2 I do not want or need it 03/16 Sex and Gender Information Value Date Recorded Sex Assigned at Male 06/13/2022 10:17 AM EDT Legal Sex Male 10:17 AM EDT Gender Identity Male 06/13/2022 10:17 AM EDT Sexual Orientation Straight 06/13/2022 10 :17 AM EDT documented as of this encounter Plan of Treatment Upcoming Encounters Date Type Department Care Team (Late st Contact Info) Description 09/06/2024 10:30 AM EST Medication Management [address] [address] Naya Malone PharmD [address] [place] [address] 10/22/2024 10:00 AM EDT Office Visit [facility] [address] [place] [phone] Name, MD Chan [address] [place] [address] documented as of this encounter Goals Goal Patient Goal Type Associated Problems Recent Progress Patient-Stated? Author Work on dietary modification. Diet No Naya Malone, PharmD Note: - Drink less soda, juice, and other sugary beverages Patient will adhere to medication regimen General On track( 023 11:22 AM EST) No Naya Malone PharmD Hemoglobin A1c < 7 Result Component 7.8( 4 10:58 AM EST) No Naya Malone PharmD Record your blood sugar as directed Result Component On track( 023 11:22 AM EST) No Naya Malone PharmD Note: Use CGM, ensuring sensor is scanned at least once every 8 hours to capture 24H data. Check BG manually, as directed. documented as of this encounter Visit Diagnoses Diagnosis Diabetic 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 associated with type 2 diabetes mellitus ([facility]) documented in this encounter Additional Health Concerns Assessment Noted Time PHQ-9 Depression Total Score: 0 11/09/19 24 11:08 AM EDT documented as of this encounter Care Teams Electrician Helper Automotive Relationship Specialty Start Date End Date Name, MD Chan [address] [place] [address] PCP - General Family Medicine 08/01/16 Naya Malone PharmD [address] [place] [address] Pharmacist Internal Medicine 02/17/23 documented as of this encounter
--- OUTSIDE RECORDS SUMMARY | 2024-09-04 11:01 | XMS_ITS | Encounter Summary ---
Author Organization [employer] Address [address] [place] [address] Care Team Providers Care Well Flow Operator Name Role Phone Name, Chan TOLLIVER Primary Care Provider [phone] Naya Malone PharmD Unavailable [phone] Encounter Details Date Type Department Care Team (Late st Contact Info) Description 01/12/2024 Telephone [facility] [address] [place] [address] Priya Felix, BRANT Social History Tobacco Use Types Packs/Day Years Used Date Smoking Tobacco: Former Cigarettes Passive Smoke Exposure: Never Smokeless Tobacco: Former Alcohol Use Standard Drinks/Week Comments Never 0 (1 standard drink = 0.6 oz pur e alcohol) Depression Answer Date Recorded Patient Health Questionnaire-9 Score 0 11/09/2023 Patient Health Questionnaire-9 Score 0 11/09/2023 Last PHQ-9: Questionnaire Data Not on file 0 11/09/2023 Housing Stability Answer Date Recorded What is your housing situation today? I have sabine ko 05/29/[address] you li ve. Do you have problems with any of the following? None of the above 05/29/2023 Food Insecurity Answer Date Recorded Within the past 12 months, y ou worried that your food would run out before you got money to buy more: Never True 05/29/2023 Within the past 12 months,th e food you bought just didn't last and you didn't have enough money to get more: Never True Transportation Answer Date Recorded In the past 12 months, has l ack of transportation kept you from medical appts, meetings, work or from getting things needed for daily living? No 05/29/2023 Utilities Answer Date Recorded In the past 12 months, has t he electric, gas, oil or water company threatened to shut off services in your home? No 05/29/2023 Depression Answer Date Recorded Patient Health Questionnaire-2 Score 0 11/09/2023 Sex and Gender Information Value Date Recorded Sex Assigned at Male 06/13/2022 10:17 AM EDT Legal Sex Male 10:17 AM EDT Gender Identity Male 06/13/2022 10:17 AM EDT Sexual Orientation Straight 06/13/2022 10 :17 AM EDT documented as of this encounter Miscellaneous Notes * Telephone Encounter - Tammi Ramos - 01/12/2024 11:47 AM EDT [facility]ally lab called to let u know there making adjustment and will deliver today or Monday . documented in this encounter Plan of Treatment Upcoming Encounters Date Type Department Care Team (Late st Contact Info) Description 09/06/2024 10:30 AM EST Medication Management [facility] [address] [place] [phone] Naya Malone PharmD [address] [place] [address] 10/22/2024 10:00 AM EDT Office Visit [facility] [address] [place] [phone] Name, MD Chan [address] [place] [phone] documented as of this encounter Goals Goal Patient Goal Type Associated Problems Recent Progress Patient-Stated? Author Work on dietary modification. Diet No Naya Malone PharmD Note: - Drink less soda, juice, and other sugary beverages Patient will adhere to medication regimen General On track( 023 11:22 AM EST) No Naya Malone, PharmSophie Hemoglobin A1c < 7 Result Component 7.8(11/07/202 4 10:58 AM EST) No Naya Malone PharmD Record your blood sugar as directed Result Component On track( 023 11:22 AM EST) No Naya Malone PharmD Note: Use CGM, ensuring sensor is scanned at least once every 8 hours to capture 24H data. Check BG manually, as directed. documented as of this encounter Visit Diagnoses Not on filedocumented in this encounter Additional Health Concerns Assessment Noted Time PHQ-9 Depression Total Score: 0 11/09/19 24 11:08 AM EDT documented as of this encounter Care Teams Well Flow Operator Relationship Specialty Start Date End Date Name, MD Chan [address] [place] [address] PCP - General Family Medicine 08/01/16 Naya Malone PharmD [address] [place] [address] Pharmacist Internal Medicine 02/17/23 documented as of this encounter
--- OUTSIDE RECORDS SUMMARY | 2024-09-04 11:01 | XMS_ITS | Encounter Summary ---
Author Organization [employer] Address [address] [facility] [address] [place] [address] Care Team Providers Care Mft Name Role Phone Name, Chan TOLLIVER Primary Care Provider PuNaya anna PharmD Unavailable [phone] Reason for Visit * Reason Comments Med Refill Encounter Details Date Type Department Care Team (Late st Contact Info) Description 08/14/[address] [facility] MEDICINE [address] [place], [place] [phone] Puia, Naya, PharmD [address] [place], [place] [phone] Type 2 diabetes mellitus with hyperglycemia, with long-term current use of insulin ([facility]) Social History Tobacco Use Types Packs/Day Years [...] is your housing situation today? I have asbine ko 03/13/[address] you [...] encounter Miscellaneous Notes * Telephone Encounter - Naya Malone PharmD - 08/15/2024 9:50 AM EST Continue per CDTM plan 07/2024. Renal function adequate at that time. Has upcoming CDTM 08/2024. documented in this encounter Plan of Treatment Upcoming Encounters Date Type Department Care Team (Late st Contact Info) Description 09/06/2024 10:30 AM EST Medication Management [facility] MEDICINE [address] [place] [phone] Naya Malone PharmD [address] [place] [address] 10/22/2024 10:00 AM EDT Office Visit [facility] [address] [place] [phone] Name, MD Chan [address] [place] [address] documented as of this encounter Goals Goal Patient Goal Type Associated Problems Recent Progress Patient-Stated? Author Work on dietary modification. Diet No Naya Malone, PharmD Note: - Drink less soda, juice, and other sugary beverages Patient will adhere to medication regimen General On track( 023 11:22 AM EST) No Naya Malone, PharmD Hemoglobin A1c < 7 Result Component 7.8( 4 10:58 AM EST) No Naya Malone, PharmD Record your blood sugar as directed Result Component On track( 023 11:22 AM EST) No Naya Malone, PharmD Note: Use CGM, ensuring sensor is scanned at least once every 8 hours to capture 24H data. Check BG manually, as directed. documented as of this encounter Visit Diagnoses Diagnosis Type 2 diabetes mellitus with hyperglycemia, with long-term current use of insulin ([facility]) documented in this encounter Additional Health Concerns Assessment Noted Time PHQ-9 Depression Total Score: 0 11/09/19 24 11:08 AM EDT documented as of this encounter Care Teams Mft Relationship Specialty Start Date End Date [place], [place] [address] PCP - General Family Medicine 08/01/16 Naya Malone, PharmD [address] [place] [address] Pharmacist Internal Medicine 02/17/23 documented as of this encounter
--- OUTSIDE RECORDS SUMMARY | 2024-09-04 11:01 | XMS_ITS | Encounter Summary ---
Author Organization [employer] Address [address] [facility] [place] [address] Care Team Providers Care Merchandise Execution Leader Name Role Phone Name, Chan TOLLIVER Primary Care Provider [phone] Naya Malone PharmD Unavailable [phone] Reason for Visit * Reason Comments Med Refill Encounter Details Date Type Department Care Team (Late st Contact Info) Description 08/22/2022 Refill [facility] MEDICINE [address] [place], [place] [phone] Name, MD Chan [address] [place], [place] [phone] Diabetic 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 associated with type 2 diabetes mellitus (CMS/HCC) (Primary Dx) Social History Tobacco Use Types Packs/Day Years Used Date Smoking Tobacco: Former Cigarettes Smokeless Tobacco: Former Depression Answer Date Recorded Patient Health Questionnaire-9 Score 24 07/26/2022 Depression Answer Date Recorded Patient Health Questionnaire-2 Score 6 07/26/2022 Sex and Gender Information Value Date Recorded Sex Assigned at Male 06/13/2022 10:17 AM EDT Legal Sex Male 10:17 AM EDT Gender Identity Male 06/13/2022 10:17 AM EDT Sexual Orientation Straight 06/13/2022 10 :17 AM EDT COVID-19 Exposure Response Date Recorded In the last 10 days, have carlos morrison been in contact with someone who was confirmed or suspected to have Coronavirus/COVID-19? No / Unsure 07/26/2022 9:49 AM EST documented as of this encounter Plan of Treatment Upcoming Encounters Date Type Department Care Team (Late st Contact Info) Description 09/06/2024 10:30 AM EST Medication Management [facility] MEDICINE [address] [place] [phone] Naya Malone PharmD [address] [place] [address] 10/22/2024 10:00 AM EDT Office Visit [facility] MEDICINE [address] [place] [phone] Name, MD Chan [address] [place] [address] documented as of this encounter Visit Diagnoses Diagnosis Diabetic 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 associated with type 2 diabetes mellitus (CMS/HCC)- Primary documented in this encounter Additional Health Concerns Assessment Noted Time PHQ-9 Depression Total Score: 24 12/2 022 10:06 AM EST documented as of this encounter Care Teams Merchandise Execution Leader Relationship Specialty Start Date End Date NameChan MD [address] [place] [address] PCP - General Family Medicine 08/01/16 Naya Malone PharmD [address] [place] [address] Pharmacist Internal Medicine 02/17/23 documented as of this encounter
--- OUTSIDE RECORDS SUMMARY | 2024-09-04 11:01 | XMS_ITS | Encounter Summary ---
Author Organization [employer] Address [address] [facility] [address] [place] [address] Care Team Providers Care Hydrogen Cell Tender Name Role Phone Name, Chan TOLLIVER Primary Care Provider [phone] Naya Malone PharmD Unavailable Reason for Visit * Reason Comments Med Refill Encounter Details Date Type Department Care Team (Late st Contact Info) Description 08/14/2024 Refill [facility] MEDICINE [address] [place], [place] [phone] Name, MD Chan [address] [place], [place] [phone] Asthma, unspecified asthma severity, unspecified whether complicated, unspecified whether persistent Social History Tobacco Use Types Packs/Day Years [...] Description 09/06/2024 10:30 AM EST Medication Management [address] [phone] Naya Malone, PharmD [address] [place] [address] 10/22/2024 10:00 AM EDT Office Visit [address] [address] Name, MD Chan [address] [place] [address] documented as of this encounter Goals Goal [...] as of this encounter Visit Diagnoses Diagnosis Asthma, unspecified asthma severity, unspecified whether complicated, unspecified whether persistent documented in this encounter Additional Health Concerns Assessment Noted Time PHQ-9 Depression Total Score: 0 11/09/19 24 11:08 AM EDT documented as of this encounter Care Teams Hydrogen Cell Tender Relationship Specialty Start Date End Date Name, MD Chan [address] [place] [address] PCP - General Family Medicine 08/01/16 Naya Malone PharmD [address] [place] [address] Pharmacist Internal Medicine 02/17/23 documented as of this encounter
--- OUTSIDE RECORDS SUMMARY | 2024-09-04 11:01 | XMS_ITS | Encounter Summary ---
Author Organization [employer] Address [address] [facility] [address] [place] [address] Care Team Providers Care Car Greaser Name Role Phone Name, Chan TOLLIVER Primary Care Provider [phone] Naya Malone PharmD Unavailable Encounter Details Date Type Department Care Team (Late st Contact Info) Description 01/12/2023 Abstract [facility] MEDICINE [address] [place], [place] [phone] Name, MD Chan [address] [place] [address] Social History Tobacco Use Types Packs/Day Years [...] suspected to have Coronavirus/COVID-19? No / Unsure 01/02/2023 10:10 AM EDT documented as of this encounter Plan of Treatment Upcoming Encounters Date Type Department Care Team (Late st Contact Info) Description 09/06/2024 10:30 AM EST Medication Management [facility] [place] [place] [address] Naya Malone [place] [address] 10/22/2024 10:00 AM EDT Office Visit [facility] [address] [place] [phone] Name, MD [place] [address] documented as of this encounter Visit Diagnoses Not on filedocumented in this encounter Additional Health Concerns Assessment Noted Time PHQ-9 Depression Total Score: 24 022 10:06 AM EST documented as of this encounter Care Teams Car Greaser Relationship Specialty Start Date End Date Name, MD Chan [address] [place] [phone] PCP - General Family Medicine 08/01/16 Naya Malone PharmD [address] [place] [address] Pharmacist Internal Medicine 02/17/23 documented as of this encounter
--- OUTSIDE RECORDS SUMMARY | 2024-09-04 11:01 | XMS_ITS | Encounter Summary ---
Author Organization [employer] Address [address] [facility] 7t [place] [address] Care Team Providers Care Family Living Educator Name Role Phone Name, Chan TOLLIVER Primary Care Provider [phone] Naya Malone PharmD Unavailable Encounter Details Date Type Department Care Team (Latest Contact Info) Description 03/05/2019 Abstract [facility] Dental, Provider, DDS Social History Tobacco Use Types Packs/Day Years [...] Description 09/06/2024 10:30 AM EST Medication Management [facility] [address] [place] [phone] Naya Malone, PharmD [address] [place] [address] 10/22/2024 10:00 AM EDT Office Visit [facility] [address] [place] [address] [phone] Name, MD Chan [address] [place] [phone] documented as of this encounter Visit Diagnoses Not on filedocumented in this encounter Care Teams Family Living Educator Relationship Specialty Start Date End Date Name, MD Chan [address] [place] [address] PCP - General Family Medicine 08/01/16 Naya Malone PharmD [address] [place] [address] Pharmacist Internal Medicine 02/17/23 documented as of this encounter
--- OUTSIDE RECORDS SUMMARY | 2024-09-04 11:01 | XMS_ITS | Clinical Summary ---
Author Organization [employer] Address [address] [place] [address] Care Team Providers Care Rotoprinter Name Role Phone Name, Chan TOLLIVER Primary Care Provider [phone] Naya Malone PharmD Unavailable [phone] Allergies Active Allergy Reactions Criticality Noted Date Comments Penicillin G 03/12/2024 Other Reaction(s): Unknown Penicillin V Unknown 10/13/2010 Penicillins Low 12/01/2022 Other reaction(s): DIZZY/DIAPHORESIS, N/V Medications albuterol 108 (90 Base) MCG/ACT inhaler Inhale 2 puffs every 4 (four) hours. 019 Active buPROPion SR (Wellbutrin SR) 150 MG 12 hr tablet Take 1 tablet by mouth every 12 (twelve) hours. Active clonazePAM (KlonoPIN) 0.5 MG tablet Take 1 tablet by mouth in the morning. 016 Active FLUoxetine (PROzac) 20 MG capsule Take 2 capsules by mouth 1 (one) time each day. Active traMADol-acetamin ophen (UltraCET) 37.5-325 MG tablet Take 1 tablet by mouth if needed in the morning, at noon, and at bedtime. Active magnesium oxide 500 MG tablet Take 1 tablet by mouth at bedtime. 022 Active cimetidine (Tagamet) 300 MG tablet Take 2 tablets by mouth at bedtime. 023 Active Linzess 145 MCG capsule TOME 1 C PSULA POR V A ORAL CADA MA YAIMA 023 Active metoclopramide (Reglan) 5 MG tablet Take 1 tablet by mouth 4 times daily. Before meals & bedtime 023 Active glucagon (Baqsimi Two Pack) 3 MG/DOSE nasal powderIndications :Type 2 diabetes mellitus with hyperglycemia, with long-term current use of insulin (CMS/[facility]) Administer 3 mg via 1 device into the nostril for hypoglycemia with loss of consciousness. If no response after 15 minutes administer an additional dose via 2nd device into other nostril. 2 each 1 023 Active Continuous Blood Gluc Inside Sales Coordinator (FreeStyle Mata 2 Henning) deviceIndications :Type 2 diabetes mellitus with hyperglycemia, with long-term current use of insulin (CMS/HCC) USE DIRECTED EVERY 8 HOURS DIRECTED 1 each 023 Active omeprazole (PriLOSEC) [address] lindy JULIEN TODOS LOS D 023 Active insulin glargine (Lantus SoloStar) 100 UNIT/ML penIndications:Ty pe 2 diabetes mellitus with hyperglycemia, with long-term current use of insulin (CMS/[facility]) Inject 28 Units under the skin at bedtime. 15 mL 5 024 Active pravastatin (Pravachol) 80 MG tabletIndications :Type 2 diabetes mellitus with hyperglycemia, with long-term current use of insulin (CMS/[facility]) Take 1 tablet (80 mg) by mouth Once per day. 90 tablet 3 024 Active Alcohol Swabs (SM Alcohol Prep) 70 % padsIndications:T ype 2 diabetes mellitus with hyperglycemia, with long-term current use of insulin (CMS/HCC) Use up to four times daily as directed 100 each 11 024 Active insulin pen needle (Pentips) 32G x 4 mm miscIndications:T ype 2 diabetes mellitus with hyperglycemia, with long-term current use of insulin ([facility]) USE 1 DAILY FOR INSULIN INJECTION 100 each 3 024 Active Continuous Glucose Sensor (FreeStyle Mata 2 Sensor) miscIndications:T ype 2 diabetes mellitus with hyperglycemia, with long-term current use of insulin (CMS/HCC) APPLY DIRECTED EVERY 14 DAYS 2 each 024 Active glucose blood (FreeStyle Precision Anthony Test) test stripIndications: Type 2 diabetes mellitus with hyperglycemia, with long-term current use of insulin ([facility]) Use to test blood sugar up to 3 times daily, as directed 100 each Active TRUEplus Lancets 33G miscIndications:T ype 2 diabetes mellitus with diabetic 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 ([facility]) Use to test blood sugar up to 3 times daily as directed 100 each Active econazole nitrate 1 % cream APPLY TO AFFECTED AREA(S) AND SURROUNDING AREA(S) TWICE DAILY IN THE MORNING AND EVENING 85 g 5 Active donepezil (Aricept) 10 MG tablet Take 10 mg by mouth at bedtime. Active tadalafil (Cialis) 10 MG tablet TAKE ONE TABLET BY MOUTH EVERY DAY FOR PROSTATE OBSTRUCTION Active amitriptyline (Elavil) 50 MG tabletIndications :Diabetic 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 associated with type 2 diabetes mellitus ([facility]) TAKE 1 TABLET BY MOUTH AT BEDTIME 30 tablet 3 024 Active lisinopril-hydroC HLOROthiazide 10-12.5 MG tabletIndications :Essential hypertension TAKE 1 TABLET BY MOUTH EVERY MORNING 90 tablet 1 Active Tirzepatide (Mounjaro) 2.5 MG/0.5ML solution auto-injectorIndi cations:Type 2 diabetes mellitus with hyperglycemia, with long-term current use of insulin ([facility]) Inject 2.5 mg under the skin 1 (one) time per week. 2 mL 024 Active Tirzepatide (Mounjaro) 5 MG/0.5ML solution auto-injectorIndi cations:Type 2 diabetes mellitus with hyperglycemia, with long-term current use of insulin ([facility]) Inject 5 mg under the skin 1 (one) time per week. 2 mL 11 024 Active Aspirin Low Dose 81 MG EC tabletIndications :Diabetic 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 associated with type 2 diabetes mellitus ([facility]) TAKE 1 TABLET BY MOUTH EVERY MORNING 90 tablet 1 024 Active Synjardy 12.5-500 MGIndications:Typ e 2 diabetes mellitus with hyperglycemia, with long-term current use of insulin ([facility]) TAKE 1 TABLET BY MOUTH TWICE DAILY IN THE MORNING AND IN THE EVENING WITH MEALS 60 tablet 11 025 Active Fluticasone-Salme terol 250-50 MCG/ACT aerosol powderIndications :Asthma, unspecified asthma severity, unspecified whether complicated, unspecified whether persistent INHALE 1 PUFF BY MOUTH TWICE DAILY IN THE MORNING AND IN THE EVENING RINSE MOUTH AFTER USING. 60 each 5 025 Active empagliflozin-met FORMIN (Synjardy) 12.5-500 MGIndications:Typ e 2 diabetes mellitus with hyperglycemia, with long-term current use of insulin ([facility]) Take 1 tablet by mouth with breakfast and with evening meal. 60 tablet 11 024 2024 Discontinued Fluticasone-Salme terol 250-50 MCG/ACT aerosol powderIndications :Asthma, unspecified asthma severity, unspecified whether complicated, unspecified whether persistent INHALE 1 PUFF BY MOUTH TWICE DAILY IN THE MORNING AND IN THE EVENING RINSE MOUTH AFTER USING. 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 05/11/2023 Uncontrolled type 2 diabetes mellitus 05/11/2023 Diabetic 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 asso ciated with type 2 diabetes mellitus 05/11/2023 Erectile dysfunction associa lukas with type 2 diabetes mellitus ([facility]/HCC) 05/11/2023 Obesity (BMI 30-39.9) 05/11/2023 Bilateral hearing loss 07/16/2022 Trigger ring finger of left hand 07/16/2022 Family history of lupus erythematosus 07/16/2022 Chronic neck pain 11/19/2018 Moderate obstructive sleep apnea 09/01/2017 Anemia 11/14/2016 Chronic low back pain 08/01/2016 Diabetic 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 08/01/2016 Essential hypertension 08/01/2016 Osteoarthritis of knee 08/01/2016 Asthma 03/19/2012 Degeneration of cervical intervertebral disc 01/2012 Dyslipidemia 02/16/2012 Resolved Problems Problem Noted Date Diagnosed Date Resolved Date Nausea and vomiting 05/11/2023 05/11/20 23 Pre-op examination 05/11/2023 Upper abdominal pain 05/11/2023 023 Urinary urgency 05/11/2023 07/12/2023 Weak urinary stream 05/11/2023 07/12/20 23 Weight loss, abnormal 05/11/20232022 Cervical spine pain 05/11/2023 05/11/20 23 HTN (hypertension) 05/11/2023 3 Diabetes 05/11/2023 05/11/2023 COVID-19 07/16/2022 05/11/2023 History of skin disorder 07/16/2022 Knee pain 11/19/2018 05/11/2023 Snoring 07/20/2017 05/11/2023 Morning headache 07/20/2017 05/11/2023 Erectile disorder due to med ical condition in male patient 11/23/2016 05/11/2023 Iron deficiency anemia 11/21/201605/11 Schizoaffective disorder 08/01/2016 Obesity 03/19/2012 05/11/2023 Type 2 diabetes mellitus 02/16/2012 Hypertension 02/16/2012 05/11/2023 Encounters Date Type Department Care Team Description 08/15/2024 Telephone [facility] [address] [place] [address] Jarad Burt [place] Puma recalls 08/14/2024 Refill [facility] [address] [place], [place] [phone] Name, MD Chan Asthma, unspecified asthma severity, unspecified whether complicated, unspecified whether persistent 08/14/2024 Refill [facility] [address] [place], [place] [phone] Naya Malone, Gabriela Type 2 diabetes mellitus with hyperglycemia, with long-term current use of insulin ([facility]) 08/12/2024 Refill [facility] [address] [place] [address] Chan Holley MD Diabetic 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 associated with type 2 diabetes mellitus ([facility]) 08/08/2024 Orders Only GENERIC EXTERNAL DATA DEPARTMENT Provider, Generic External Data 07/22/2024 Refill [facility] [address] [place] [phone] Kelly Martines MD Diabetic 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 associated with type 2 diabetes mellitus ([facility]); Essential hypertension 07/22/2024 Refill [facility] [address] [place] [address] Chan Holley MD Essential hypertension 07/08/2024 Orders Only GENERIC EXTERNAL DATA DEPARTMENT Provider, Generic External Data 06/25/2024 Refill [facility] [address] [place] [phone] Chan Holley MD Diabetic 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 associated with type 2 diabetes mellitus ([facility]) 06/10/2024 Telephone [facility] [address] [place] [phone] Jarad Burt [place] Durable Medical Equipment 06/05/2024 10:30 AM EDT Office Visit [address] [phone] Chan Holley MD Type 2 diabetes mellitus with hyperglycemia, with long-term current use of insulin ([facility]) (Primary Dx); Memory problem; Achalasia; Vaccination refused by patient 06/05/2024 Travel from Last 3 Months Immunizations Name Administration Dates Next Due Hep B, adult 04/07/2023(Deferred: Patient Ref used) Influenza High-dose Quadriva lent Preservative Free 05/27/2021 Influenza injectable quadriv alent IIV4 with preservative 06/12/2018,07/20/2017 Influenza injectable quadriv alent preservative free 04/29/2020,05/07/2019,08/01/2016 Influenza, IIV3, injectable 09/03/2015,1 08/19/2013,06/08/2011,04/14,05/08/2009,06/10/2008,06/27/2006 ,09/06/2005,08/09/2004 Influenza, Split (incl. arti fied surface antigen) 09/11/2015,07/11/2012 Pfizer Covid-19 Vaccine 12+ 02/17/2023(Deferred: Patient Refused) Pneumococcal Conjugate PCV 20 07/11/2023 Pneumococcal Polysaccharide PPSV23 03/03/2004 RSV Bivalent 09/07/2023(Deferred: Patient Ref used) TD (adult), 2 Lf tetanus tox oid, preservative free, adsorbed 09/11/2006 Td (adult), 5 Lf tetanus tox oid, preservative free, adsorbed 12/10/2015 Tdap 07/11/2012 Family History Medical History Relation Name Comments Lupus Sister Relation Name Status Comments Sister Social History Tobacco Use Types Packs/Day Years Used Date Smoking Tobacco: Former Cigarettes Passive Smoke Exposure: Never Smokeless Tobacco: Former Tobacco Cessation:Counseling Given: Not Answered Alcohol Use Standard Drinks/Week Comments Never 0 [...] Orientation Straight 06/13/2022 10 :17 AM EDT Last Filed Vital Signs Vital Sign Reading Time Taken Comments Blood Pressure 127/70 06/05/2024 10:34 AM EDT Pulse 93 06/05/2024 10:34 AM EDT Temperature 36.3 ??C (97.3 ??F) 03/13/2024 9:42 AM ED T Respiratory Rate 14 06/05/2024 10:34 AM EDT Oxygen Saturation 99% 06/05/2024 10:34 AM EDT Inhaled Oxygen Concentration - - Weight 78.7 kg (173 lb 9.6 oz) 06/05/2024 10:34 AM EDT Height 160 cm (5' 3 ) 06/05/2024 10:34 AM EDT Body Mass Index 30.75 06/05/2024 10:34 AM EDT Plan of Treatment Upcoming Encounters Date Type Department Care Team (Late st Contact Info) Description 09/06/2024 10:30 AM EST Medication Management [facility] [address] [place] [phone] Naya Malone, PharmD [address] [place] [phone] 10/22/2024 10:00 AM EDT Office Visit [facility] [address] [place] [phone] Name, MD Chan [address] [place] [phone] Health Maintenance Due Date Last Done Comments CT Colonography 1955 FIT DNA/Cologuard 1955 FIT 1955 FOBT 1955 Sigmoidoscopy 1955 Zoster Vaccines (1 of 2) 2006 RSV Patients and Patients Aged 60 years or older (1 - Risk 60-74 years 1-dose series) 2016 Dental Prophylaxis 05/24/2023 11/21/2022 COVID-19 Vaccine (1 - season) 2024 Influenza Vaccine (#1) 2024 , 04/29/2020, 05/07/2019, Additional history exists Dental Oral Exam 04/27/2024 10/25/2023, 11/21/2022 Lipid Panel 07/05/2024 07/05/2023, 06/0 02/2022, 07/22/2020, Additional history exists Diabetes: Foot Exam 07/11/2024 07/11/2023, 07/11/2023, 07/11/2023, Additional history exists Diabetes: Hemoglobin A1C 09/20/2024 024, 03/13/2024, 12/07/2023, Additional history exists Dental X-Ray: Bitewings 10/25/2024 10/25/2023, 11/21 Depression Screening 11/08/2024 11/09/2023, 11/09/19 24 Alcohol/Substance Use Screening 03/13/2025 03/13/2024 SDOH Screening 03/13/2025 03/13/2024 Tobacco Screening 06/05/2025 06/05/2024 Eye Exam 09/18/2025 09/18/2023, 02/0 12/2023, 09/18/2023, Additional history exists DTaP/Tdap/Td Vaccines (3 - Td or Tdap) 12/09/2025 12/10/2015, 07/11/2012, 09/11/2006 Colonoscopy 12/12/2025 12/12/2022 Colorectal Cancer Screening 12/12/2025 Dental X-Ray: Full Mouth 10/25/2026 10/25/2023, 11/12 Hepatitis C Screening Completed 04/05/2022 Pneumococcal Vaccine: [...] patient's age to complete this topic Meningococcal Vaccine Aged Out No colby ana lilia eligible based on patient's age to complete this topic RSV under 20 months Aged Out No longe r eligible based on patient's age to complete this topic Rotavirus Vaccines Aged Out No longer eligible based on patient's age to complete this topic Goals Goal Patient Goal Type Associated Problems Recent Progress Patient-Stated? Author Work on dietary modification. Diet No Naya Malone PharmD Note: - Drink less soda, juice, and other sugary beverages Patient will adhere to medication regimen General On track( 023 11:22 AM EST) No Naya Malone PharmD Hemoglobin A1c < 7 Result Component 7.8( 10:58 AM EST) No Naya Malone PharmD Record your blood sugar as directed Result Component On track( 023 11:22 AM EST) No Naya Malone PharmD Note: Use CGM, ensuring sensor is scanned at least once every 8 hours to capture 24H data. Check BG manually, as directed. Procedures Procedure Name Priority Date/Time Associated Diagnosis Comments HEMATOXYLIN AND EOSIN STAIN Routine 08/08/2024 9:45 AM EST GLUCOSE, WHOLE BLOOD Routine 08/08/2024 9:28 AM EST URINALYSIS, COMPLETE Routine 07/08/2024 9:27 AM EST CULTURE, URINE, ROUTINE Routine 07/08/2024 9:27 AM EST POCT GLYCATED HEMOGLOBIN, TOTAL Routine 06/20/2024 10:58 AM EST Type 2 diabetes mellitus with hyperglycemia, with long-term current use of insulin ([facility]) POCT GLUCOSE Routine 06/05/2024 10:37 AM EDT Type 2 diabetes mellitus with hyperglycemia, with long-term current use of insulin (CMS/HCC) DIAGNOSTIC - DIAGNOSTIC IMAGING - INTRAORAL - COMPREHENSIVE SERIES OF RADIOGRAPHIC IMAGES Routine 10/25/2023 1:00 PM EDT PERIODIC ORAL EVALUATION - ESTABLISHED PATIENT Routine 10/25/2023 1:00 PM EDT LIPID PANEL, STANDARD Routine 07/05/2023 9:12 AM EST Type 2 diabetes mellitus with hyperglycemia, with long-term current use of insulin (CMS/HCC) Chronic low back pain, unspecified back pain laterality, unspecified whether sciatica present HM COLONOSCOPY Routine 12/12/2022 PROPHYLAXIS - ADULT Routine 11/21/2022 1 1:00 AM EDT ZZZ HISTORICAL HEPATITIS C AB W/REFL TO HCV RNA, QN, PCR Routine 04/05/2022 10:35 AM EDT from Last 3 Months or Most Recently Relevant to Health Maintenance Results * Hematoxylin and Eosin Stain (08/08/2024 9:45 AM EST) 08/08/2024 9:45 AM EST 08/08/2024 10:45 AM EST [facility] - 08/12/2024 12:47 PM EST ----- ------- Name: Alonzo Dotson ?Age/Sex: 69/M ? : 1955 Unit#: [id number] ?? Attend Dr: Abhay Andrade MD ?Re08/08/24 ?Status: DEP SDC ? Location: HO.SSS ?Disch: ? ----- ------- SPEC : [id number] ? RECD: 08/08/24 ? STATUS: ??SOUT ? REQ NUM: [id number] ? GREG: 08/08/24 ? SUBM DR: Abhay Andrdae MD ? ENTERED: ??08/08/24 ?SP TYPE: Surgical ? OTHR DR: Chan Holley MD ? ORDERED: ??HE Stain/9, Gross Micro L4/3, IHC, Special st. 2/2, H. pylori, AB/PAS/2 ? Diagnosis ?? A. ??Stomach, biopsy: ??Gastric body mucosa with mild reactive changes and focal minimal ?? chronic inactive gastritis, and gastric antral mucosa with moderate reactive changes and ?? focal minimal chronic gastritis with active erosion; negative for H. pylori, intestinal ?? metaplasia and dysplasia. ? B. ??Esophagus, distal, biopsy: ??Squamocolumnar mucosa with focal minimal chronic inactive ?? inflammation; negative for intestinal metaplasia and dysplasia. ? C. ??Esophagus, proximal, biopsy: ??Squamous mucosa with no specific change; no columnar ?? mucosa present. ?Clinical History Pre-Op Dx: ??Dysphagia Post-Op Dx: Gastritis ?Microscopic Description Microscopic sections reviewed. ??Immunostain for H. pylori on A is negative. ??AB/PAS on A and B are negative for intestinal metaplasia. ??Controls stain appropriately. ? Material Received ?? A. Stomach bx's ?? B. Distal esophagus bx's ?? C. Proximal esophagus bx's ? Gross Description Received in 3 parts. A. ??Received in formalin labeled ?stomach biopsies? are 5 fragments of translucent, cameron- white soft tissue measuring 0.2-0.3 cm in greatest dimension which are wrapped in lens paper and entirely submitted for microscopic examination, 5 pieces in cassette A. B. Received in formalin labeled ?distal esophagus biopsies? are 2 fragments of translucent, cameron-white soft tissue measuring 0.3 and 0.3 cm in greatest dimension which are wrapped in lens paper and entirely submitted for microscopic examination, 2 pieces in cassette B. C. Received in formalin labeled ?proximal esophagus biopsies? are 2 fragments of translucent, white soft tissue measuring 0.2 and 0.3 cm in greatest dimension which are wrapped in lens paper and entirely submitted for microscopic examination, 2 pieces in ? CONTINUED ON NEXT PAGE ----- ------- Name: Alonzo Dotson ?Age/Sex: 69/M ? : 1955 Unit#: [id number] ?? Attend Dr: Abhay Andrade MD ?Re08/08/24 ?Status: DEP SDC ? Location: HO.SSS ?Disch: ? ----- ------- SPEC : [id number] ? RECD: 08/08/24 ? STATUS: ??SOUT ? REQ NUM: [id number] ? GREG: 08/08/24 ? SUBM DR: Abhay Andrade MD ? ENTERED: ??08/08/24 ?SP TYPE: Surgical ? OTHR DR: Chan Holley MD ? ORDERED: ??HE Stain/9, Gross Micro L4/3, IHC, Special st. 2/2, H. pylori, AB/PAS/2 ? Gross Description ?(Continued) cassette [facility] Special studies ordered and performed: Immunostain for H. pylori on A1; AB/PAS stains on A1 and B1. Copies To: ?? Abhay Andrade MD ?? [facility] ?? [address] ?? [place] [address] ?? [phone] ?? Betzaida Holleyas MD ?? [address] ?? [place] [address] ?? [phone] ----- ------- Signed (signature on file) Kandi [place] 08/12/24 1247 ? ----- ------- ? END OF REPORT ? us Generic External Data Provider LAB BLOOD ORDERAB LES Final Result Performing Organization Address [facility] de Phone Number [facility] [address] [place] [place] [address] [phone] * (ABNORMAL) Glucose, Whole Blood (08/08/2024 9:28 AM EST) [facility] Glucose, Whole Blood 171(H) 60 - 115 mg/dL [facility] Comment:METER #: [id number] 08/08/2024 9:28 AM EST 08/08/2024 9:35 AM EST us Generic External Data Provider LAB BLOOD ORDERAB LES Final Result [facility] [address] [place] [phone] * (ABNORMAL) Urinalysis Complete (07/08/2024 9:27 AM EST) Color Urine Yellow [facility] Appearance Urine Clear [facility] PH 7.5 5.0 - 9.0 [facility] Glucose Urine UA >=1000(A) Negative mg/dL [facility] Urine Blood Negative Negative [facility] Specific [place] - Urine 1.025 1.005 - 1.025 [facility] Urine Protein Negative Neg-Trace mg/dL [facility] Urine Ketones Negative Negative mg/dL [facility] Nitrite Urine Negative Negative [facility] Leukocyte Esterase Urine Negative Negative [facility] RBC Urine 0-2 0 - 2 /HPF [facility] Urine WBC 0-5 0 - 5 /HPF [facility] Urine Squamous Epithelial Cell 0-2 0 - 2 /HPF [facility] Urine Bacteria None Seen None Seen [facility] Hyaline Casts, Urine 0-2 0 - 2 /LPF [facility] 07/08/2024 9:27 AM EST 07/08/2024 9:43 AM EST us Generic External Data Provider LAB URINE ORDERAB LES Final Result Performing Organization Address [facility]/State/[facility] Co de Phone Number [facility] [address] [place] [phone] * Culture, Urine, Routine (07/08/2024 9:27 AM EST) Urine Urine specimen obtained by clean catch procedure / Unknown 07/08/2024 9:27 AM EST 07/08/2024 9:43 AM EST Comment:UACC Narrative [facility] - 07/09/2024 7:29 AM EST Urine Culture Report Result Urine Culture 50,000 to 100,000 cfu/ml Urine Culture Mixed bacterial cinthya characteristic of Urine Culture urogenital contamination. Specimen Source: Urine clean catch us Generic External Data Provider LAB MICROBIOLOGY - GENERAL ORDERABLES Final Result [facility] [address] [place] [address] [phone] * (ABNORMAL) POCT HGB A1C (06/20/2024 10:58 AM EST) Hemoglobin A1C 7.8(A) 4.0 - 6.0 % QC Media Lot # [id number] Blood 06/20/2024 10:5 8 AM EST us Chan Name POINT OF CARE TEST ENTER/EDIT OR DERABLES Final Result * POCT Glucose (06/05/2024 10:37 AM EDT) Glucose Blood, POC 181 60 - 200 mg/dL QC Media Lot # [id number] Lot# Expiration Date Blood Capillary blood specimen / Unknown 06/05/2024 10:37 AM EDT us Chan Name POINT OF CARE TEST ENTER/EDIT OR DERABLES Final Result * (ABNORMAL) Lipid Panel, Standard (07/05/2023 9:12 AM EST) Triglycerides 167(H) <150 mg/dL [facility] Comment:Desirable Triglyceri de: less than 150 mg/dLBorderline High Triglyceride 150-199 mg/dLHigh Triglyceride: 200-499 mg/dLVery High Triglyceride: greater than or equal to 5OO mg/dL Cholesterol 145 <200 mg/dL [facility] Comment:Desirable Cholestero l: less than 200 mg/dLBorderline High Cholesterol: 200-239 mg/dLHigh Cholesterol: greater than 239 mg/dL LDL Cholesterol Calculated 69 <100 mg/dL [facility] Comment:Desirable LDL: less than 100 mg/dLNear Optimal/Above Optimal LDL: 110- 129 mg/dLBorderline High LDL: 130-159 mg/dLHigh LDL: 160-189 mg/dLVery High LDL: greater than or equal to 190 mg/dL HDL Cholesterol 43 >40 mg/dL [facility] Comment:Desirable HDL: great er than 40 mg/dL Note: This HDL assay may give artificially low results in patients with liver disease. Blood Venous blood specimen / Unknown 07/05/2023 9:12 AM EST 07/05/2023 11:59 AM EST Chan Holley MD LAB BLOOD ORDERABLES Final Resul t [facility] [address] [place] [address] [phone] * (ABNORMAL) Colonoscopy (12/12/2022) Colonoscopy Abnormal( A) Normal Comment:Repeat in 3 yrs Historical Provider HEALTH MAINTENANCE Final Result * HEPATITIS C AB W/REFL TO HCV RNA, QN, PCR (04/05/2022 10:35 AM EDT) HEPATITIS C ANTIBODY NON-REACT [facility] NON-REACT [facility] INDEX 0.04 <1.00 [facility] Comment: ?? HCV antibody was non-reactive. There is no laboratory ?? evidence of HCV infection. ?? In most cases, no further action is required. However, if recent HCV exposure is suspected, a test for HCV RNA (test code 63852) is suggested. ?? For additional information please refer to http://education.Computerlogy/faq/UHQ17j8 (This link is being provided for informational/ educational purposes only.) ?? 04/05/2022 10:3 5 AM EDT Vaishali LANGLEY HISTORICAL/NON ORDERABLE LABS Final Result [facility] [address] [place] [address], from Last 3 Months or Most Recently Relevant to Health Maintenance Insurance [facility] - [facility] Care Teams Rotoprinter Relationship Specialty Start Date End Date Name, MD Chan [address] [place] [phone] PCP - General Family Medicine 08/01/16 Naya Malone, ElverD [address] [place] [phone] Pharmacist Internal Medicine 02/17/23
--- OUTSIDE RECORDS SUMMARY | 2024-09-04 11:01 | XMS_ITS | Encounter Summary ---
Author Organization [employer] Address [address] [place] [address] Care Team Providers Care Eradicator Name Role Phone Name, Chan TOLLIVER Primary Care Provider [phone] Naya Malone PharmD Unavailable Reason for Visit * Reason Comments Med Refill Encounter Details Date Type Department Care Team ([facility] st Contact Info) Description 09/02/2023 Refill [facility] [address] [place], [place] [phone] Name, MD Chan [address] [place], [place] [phone] Asthma, unspecified asthma severity, unspecified whether complicated, unspecified whether persistent Social History Tobacco Use Types Packs/Day Years Used Date Smoking Tobacco: Former Cigarettes Passive Smoke Exposure: Never Smokeless Tobacco: Former Alcohol Use Standard Drinks/Week Comments Never 0 (1 standard drink = 0.6 oz pur e alcohol) Depression Answer Date Recorded Patient Health Questionnaire-9 Score 24 07/26/2022 Housing Stability Answer Date Recorded What is [...] Description 09/06/2024 10:30 AM EST Medication Management [facility] [address] [place] [phone] PuiaGriffinNaya, PharmD [address] [place] [address] 10/22/2024 10:00 AM EDT Office Visit [facility] [address] [place] [phone] Name, MD Chan [address] [place] [address] documented as of this encounter Goals Goal Patient Goal Type Associated Problems Recent Progress Patient-Stated? Author Patient will adhere to medication regimen General On track( 023 11:22 AM EST) No Puia, Naya, PharmD Hemoglobin A1c < 7 Result Component 7.8( 4 10:58 AM EST) No Puia, Naya, PharmD Record your blood sugar as directed Result Component On track( 023 11:22 AM EST) No Puia, Naay, PharmD Note: Use CGM, ensuring sensor is [...] documented as of this encounter Care Teams Eradicator Relationship Specialty Start Date End Date Name, MD Chan [address] [place] [address] PCP - General Family Medicine 08/01/16 Naya Malone PharmD [address] [place] [address] Pharmacist Internal Medicine 02/17/23 documented as of this encounter
--- OUTSIDE RECORDS SUMMARY | 2024-09-04 11:01 | XMS_ITS | Encounter Summary ---
Author Organization [employer] Address [address] [place] [address] Care Team Providers Care General Practitioner Name Role Phone Name, Chan TOLLIVER Primary Care Provider [phone] Naya Malone PharmD Unavailable Reason for Visit * Reason Comments Med Refill Encounter Details Date Type Department Care Team (Late st Contact Info) Description 02/17/2023 Refill [facility] [address] [place], [place] [phone] Name, MD Chan [address] [place], [place] [phone] Type 2 diabetes mellitus with hyperglycemia, with long-term current use of insulin ([facility]) Social History Tobacco Use Types Packs/Day Years [...] Recorded In the last 10 days, have yo tamiko been in contact with someone who was confirmed or suspected to have Coronavirus/COVID-19? No / Unsure 02/16/2023 8:27 AM EDT documented as of this encounter Plan of Treatment Upcoming Encounters Date Type Department Care Team (Late st Contact Info) Description 09/06/2024 10:30 AM EST Medication Management [facility] [place] [address] Naya Malone PharmD [address] [place] [address] 10/22/2024 10:00 AM EDT Office Visit [facility] [place], [place] [phone] Name, MD Chan [place], [place] [phone] documented as of this encounter Goals Goal Patient Goal Type Associated Problems Recent Progress Patient-Stated? Author Hemoglobin A1c < 7 Result Component 7.8( [...] hyperglycemia, with long-term current use of insulin ([facility]) documented in this encounter Additional Health Concerns Assessment Noted Time PHQ-9 Depression Total Score: 24 022 10:06 AM EST documented as of this encounter Care Teams General Practitioner Relationship Specialty Start Date End Date Name, MD Chan [place], [place] [phone] PCP - General Family Medicine 08/01/16 Naya [place] [address] Pharmacist Internal Medicine 02/17/23 documented as of this encounter
--- OUTSIDE RECORDS SUMMARY | 2024-09-04 11:01 | XMS_ITS | Encounter Summary ---
Author Organization [email or web address] Address [address] [place] [address] Care Team Providers Care Branch Office Administrator Name Role Phone Name, Chan TOLLIVER Primary Care Provider [phone] Naya Malone PharmD Unavailable [phone] Reason for Visit * Reason Onset Date Comments Puma recalls 08/15/2024 Encounter Details Date Type Department Care Team (Late st Contact Info) Description 08/15/2024 Telephone [facility] [address] [place], [place] [phone] Jarad Burt MA Aug recalls Social History Tobacco Use Types Packs/Day Years [...] encounter Miscellaneous Notes * Telephone Encounter - Jarad Burt [place] - 08/15/2024 1:48 PM EST T/C placed to pt. Scheduled recall. Pt agrees with plan. Reminder letter sent . documented in this encounter Plan of Treatment Upcoming Encounters Date Type Department Care Team (Late st Contact Info) Description 09/06/2024 10:30 AM EST Medication Management [facility] [address] [place] [phone] Naya Malone, PharmD [address] [place] [address] 10/22/2024 10:00 AM EDT Office Visit [facility] [address] [place] [phone] Name, MD Chan [address] [place] [address] documented as of this encounter Goals Goal [...] documented as of this encounter Care Teams Branch Office Administrator Relationship Specialty Start Date End Date Name, MD Chan [address] [place] [address] PCP - General Family Medicine 08/01/16 Naya Malone PharmD [address] [place] [address] Pharmacist Internal Medicine 02/17/23 documented as of this encounter
--- OUTSIDE RECORDS SUMMARY | 2024-09-04 11:01 | XMS_ITS | Encounter Summary ---
Author Organization [employer] Address [address] [facility] [facility] 7[address] [place] [address] Care Team Providers Care Smearer Name Role Phone Name, Chan TOLLIVER Primary Care Provider [phone] Naya Malone PharmD Unavailable Encounter Details Date Type Department Care Team (Latest Contact Info) Description 03/24/2021 Abstract [facility] CONVERSIONS Dental, Provider, DDS Social History [...] Description 09/06/2024 10:30 AM EST Medication Management [facility] [address] [place] [phone] Naya Malone, PharmD [address] [place] [address] 10/22/2024 10:00 AM EDT Office Visit [facility] [address] [place] [address] [phone] Name, MD Chan [address] [place] [address] documented as of this encounter Visit Diagnoses Not on filedocumented in this encounter Care Teams Smearer Relationship Specialty Start Date End Date Name, MD Chan [address] [place] [address] PCP - General Family Medicine 08/01/16 Naya Malone, Gabriela [address] [place] [address] Pharmacist Internal Medicine 02/17/23 documented as of this encounter
--- OUTSIDE RECORDS SUMMARY | 2024-09-04 11:01 | XMS_ITS | Encounter Summary ---
Author Organization [employer] Address [address] [place] [address] Care Team Providers Care Aerial Crop Duster Name Role Phone Name, Chan TOLLIVER Primary Care Provider [phone] Naya Malone PharmD Unavailable [phone] Encounter Details Date Type Department Care Team ([facility] st Contact Info) Description 08/08/2024 Orders Only GENERIC EXTERNAL DATA DEPARTMENT Provider, Generic External Data Social History Tobacco Use Types Packs/Day Years [...] Description 09/06/2024 10:30 AM EST Medication Management [facility] [address] [place] [phone] Naya Malone, PharmD [address] [place] [address] 10/22/2024 10:00 AM EDT Office Visit [address] [address] Name, MD Chan [address] [place] [address] documented as of this encounter Goals Goal Patient Goal Type Associated Problems Recent Progress Patient-Stated? Author Work on dietary modification. Diet No Naya Malone, PharmD Note: - Drink less soda, juice, and other sugary beverages Patient will adhere to medication regimen General On track( 023 11:22 AM EST) No Naya Malone, PharmD Hemoglobin A1c < 7 Result Component 7.8( 10:58 AM EST) No Puia, Naya, PharmD Record your blood sugar as directed Result Component On track( 023 11:22 AM EST) No Naya Malone PharmD Note: Use CGM, ensuring sensor is scanned at least once every 8 hours to capture 24H data. Check BG manually, as directed. documented as of this encounter Procedures Procedure Name Priority Date/Time Associated Diagnosis Comments HEMATOXYLIN AND EOSIN STAIN Routine 08/08/2024 9:45 AM EST GLUCOSE, WHOLE BLOOD Routine 08/08/2024 9:28 AM EST documented in this encounter Results * Hematoxylin and Eosin Stain (08/08/2024 9:45 AM EST) 08/08/2024 9:45 AM EST 08/08/2024 10:45 AM EST [facility] - 08/12/2024 12:47 PM EST ----- ------- Name: Alonzo Dotson ?Age/Sex: 69/M ? : 1955 Unit#: [id number] ?? Attend Dr: Abhay Andrade MD ?Re08/08/24 ?Status: DEP SDC ? Location: HO.SSS ?Disch: ? ----- ------- SPEC : [id number] ? RECD: 08/08/24 ? STATUS: ??SOUT ? REQ NUM: [id number] ? GREG: 08/08/24 ? SUBM DR: Abhay [...] Dotson ?Age/Sex: 69/M ? : 1955 Unit#: [id number] ?? Attend Dr: Abhay Andrade MD ?Re08/08/24 ?Status: DEP SDC ? Location: HO.SSS ?Disch: ? ----- ------- SPEC : [id number] ? RECD: 08/08/24 ? STATUS: ??SOUT ? REQ NUM: [id number] ? GREG: 08/08/24 ? SUBM DR: Abhay Andrade MD ? ENTERED: ??08/08/24 ?SP TYPE: Surgical ? OTHR DR: Chan Holley MD ? ORDERED: ??HE Stain/9, Gross Micro L4/3, IHC, Special st. 2/2, H. pylori, AB/PAS/2 ? Gross Description ?(Continued) cassette [facility] Special studies ordered and performed: Immunostain for H. pylori on A1; AB/PAS stains on A1 and B1. Copies To: ?? Abhay Andrade MD ?? [facility] ?? [address] ?? [place] [address] ?? [phone] ?? Chan Holley MD ?? [address] [place] ?? [place] [address] ?? [phone] ----- ------- Signed (signature on file) Kandi Arnulfo 08/12/24 1247 ? ----- ------- ? END OF REPORT ? Generic External Data Provider LAB BLOOD ORDERAB LES Final Result Performing Organization Address [facility] Co de Phone Number [facility] [address] [place] [address] [phone] * (ABNORMAL) Glucose, Whole Blood (08/08/2024 9:28 AM EST) [facility] Glucose, Whole Blood 171(H) 60 - 115 mg/dL [facility] Comment:METER #: [id number] 08/08/2024 9:28 AM EST 08/08/2024 9:35 AM EST Generic External Data Provider LAB BLOOD ORDERAB LES Final Result Performing Organization Address [facility] de Phone Number [facility] [address] [place], [place] [phone] documented in this encounter Visit Diagnoses Not on filedocumented in this encounter Additional Health Concerns Assessment Noted Time PHQ-9 Depression Total Score: 0 11/09/19 24 11:08 AM EDT documented as of this encounter Care Teams Aerial Crop Duster Relationship Specialty Start Date End Date Name, MD Chan [address] [place] [address] PCP - General Family Medicine 08/01/16 Naya Malone PharmD [address] [place] [address] Pharmacist Internal Medicine 02/17/23 documented as of this encounter
== END 2024-09-04 11:32 | disposition home or self-care (01) ==
PROVIDERS: Visit Provider Urology
DX: Z13.9 Encounter for screening, unspecified (principal)

== ENCOUNTER → 2024-09-04 10:03 | Outpatient (BNVA) | payer OTHER, SELFPAY | PROVIDERS: Visit Provider Urology | DX: E11.69 Type 2 diabetes mellitus with other specified complication (principal); N52.1 Erectile dysfunction due to diseases classified elsewhere; R39.15 Urgency of urination; R35.0 Frequency of micturition; R39.12 Poor urinary stream; R35.1 Nocturia | CPT/HCPCS: 51798; 81003; 99212 ==

== ENCOUNTER 2024-11-06 08:24 | Outpatient (REF) | payer OTHER, SELFPAY ==
[2024-11-06 11:31] LABS: Alanine Aminotransferase 26 U/L (0-40); Albumin Level 4.1 g/dL (3.5-5.0); Alkaline Phosphatase 109 U/L (39-117); Anion Gap 12 (12-20); Aspartate Amino Transferase 25 U/L (5-37); Bilirubin Total 0.2 mg/dL (0.0-1.0); Blood Urea Nitrogen 18 mg/dL (9-16); Calcium 9.2 mg/dL (8.4-10.2); Carbon Dioxide 27 mmol/L (22-29); Chloride 103 mmol/L (96-108); Cholesterol 174 mg/dL (<200); Estimated Glomerular Filt Rate > 60; Glucose Random 132 mg/dL (60-115); HDL Cholesterol 47 mg/dL (>40); LDL Cholesterol Calculated 90 mg/dL (<100); Potassium 4.2 mmol/L (3.3-5.1); Sodium 138 mmol/L (135-145); Triglycerides 189 mg/dL (<150)
[2024-11-06 11:55] LABS: Creatinine Urine 67.03 mg/dL; Microalbum/Creatinine Ratio Ur 38.7 ug/mg cr (<30)
== END 2024-11-06 08:25 | disposition home or self-care (01) ==
LOC: HO.HHCL 08:24
PROVIDERS: Visit Provider Internal Medicine Geriatric Medicine
DX: E11.65 Type 2 diabetes mellitus with hyperglycemia (principal); Z79.4 Long term (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 of insulin
CPT/HCPCS: 36415; 80053; 80061; 82043; 82570

== ENCOUNTER 2024-12-06 11:20 | Outpatient (AMB) | payer OTHER, SELFPAY ==
--- NOTE | 2024-12-06 11:27 | A.OFFVIS_ITS ---
Vital Signs 12/06/24 11:35 Height 5 ft 2 in Weight 174 lb 2.643 oz BMI 31.9 BP 110/69 Blood Pressure Location Rt brachial Position Sitting Intake Visit Reasons: Follow up abd pain Intake Note: Alonzo returns to in office follow up of abdominal pain. CC: Patient reports doing pretty good and now has abdominal pain only some times. Per patient he is taking Linzess every day but sometimes has to wait up to 2 days to have a BM. Denies other GI symptoms or concerns. Fence Installer Foreman Required: Yes Allergies Penicillins Allergy (Mild, Verified 12/06/24 11:39) DIZZY/DIAPHORESIS, N/V penicillin V Allergy (Unknown, Verified 12/06/24 11:39) Unknown HPI HPI Follow up abd pain: Details: Assessment & Plan (1) Erosive gastritis: Code(s): K29.60 - Other gastritis without bleeding Category: Medical (2) Upper abdominal pain: Code(s): R10.10 - Upper abdominal pain, unspecified Category: Medical (3) Dysphagia: Code(s): R13.10 - Dysphagia, unspecified Category: Medical (4) Chronic idiopathic constipation: Code(s): K59.04 - Chronic idiopathic constipation Category: Medical (5) GERD (gastroesophageal reflux disease): Code(s): K21.9 - Gastro-esophageal reflux disease without esophagitis Category: Medical Plan [place]ian #V His dysphagia has improved with the dilation. The pain and the stomach is still there he has better and worse days. I am going to increase him to omeprazole 40 mg twice a day which he really needs for the erosive gastritis. I am uncertain if he was only on once a day related to insurance limitations but will find out and I did let him know to call me if he does not receive an adequate supply. I do not want to put him on sucralfate just now because of his severe constipation. However this is something we can consider going forward. He continues on omeprazole in the morning, cimetidine at night, Linzess, magnesium and Reglan. His constipation appears to be well controlled. Return office visit in 6 weeks to evaluate his response to b.i.d. dosing. Medications: Changed From magnesium oxide 500 mg PO QPM 30 tabs 6RF E11.65 - Type 2 diabetes mellitus with hyperglycemia To magnesium oxide 500 mg PO QPM 90 tabs 1RF 90 days E11.65 - Type 2 diabetes mellitus with hyperglycemia From omeprazole 40 mg PO DAILY 90 days 90 caps 1RF K29.60 - Other gastritis without bleeding, R11.2 - Nausea with vomiting, unspecified To omeprazole 40 mg PO BID 180 caps 1RF 90 days K29.60 - Other gastritis without bleeding, R11.2 - Nausea with vomiting, unspecified From metoclopramide HCl 5 mg PO Q4-6H 120 tabs 6RF R11.2 - Nausea with vomiting, unspecified To metoclopramide HCl 5 mg PO QID 360 tabs 1RF R11.2 - Nausea with vomiting, unspecified From linaclotide (Linzess) 145 mcg PO QAM 30 caps 6RF K59.04 - Chronic idiopathic constipation To linaclotide (Linzess) 145 mcg PO QAM 90 caps 1RF 90 days K59.04 - Chronic idiopathic constipation TODAY'S VISIT [place]udian #prior He is here today with a female family member who is supportive. He confirms that he received the omperazole bid and this has resolved his stomach complaints. He is also doing well moving his bowels on his current regimen. He continues on omeprazole in the morning, cimetidine at night, Linzess, magnesium and Reglan. He was recently switched from Trulicity to Mounjaro, but he seems to be tolerating it. ROV 6 mos. 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 of insulin GERD (gastroesophageal reflux disease) Cervical spine pain HTN (hypertension) High cholesterol Asthma Surgical History Hx of hand surgery History of back surgery Hx of esophagogastroduodenoscopy Hx of colonoscopy Family History Father Heart disease Mother Arthritis Diabetes Social History Household Members: Spouse Alcohol intake: never Patient Tobacco Use Status: Former Tobacco user Current occupational status: retired and disabled Review of Systems Const Denies fatigue, Denies fever(s), Denies night sweats, Denies poor appetite and Denies weight loss Eyes Details: glasses Reports requires corrective lenses ENT Reports Normal hearing present, Denies dental pain, Denies dysphagia, Denies hearing loss, Denies mouth pain, Denies odynophagia, Denies throat swelling, Denies tongue swelling and Reports other (Dentition adequate) Card Reports no additional complaints Resp Reports no additional complaints GI Details: Denies abdominal pain, Denies melena, Reports bloating, Denies hematochezia, Reports constipation, Denies GI cramping, Denies dysphagia, Denies excessive flatus, Denies early satiety, Reports heartburn, Denies diarrhea, Denies nausea, Denies odynophagia, Denies vomiting and Denies hematemesis Skin/Breast Denies pruritus, Denies lesions, Denies rash and Denies jaundice Neuro Reports Normal hearing present and Denies Abnormal speech present Endo Denies fatigue Aller/Immun Denies throat swelling and Denies tongue swelling Physical Exam Vital Signs: Last Vital Signs BP 110/69 12/06/24 11:35 BMI result Body Mass Index 31.9 Const General: cooperative, no acute distress, well developed and well groomed Nutritional Appearance: well nourished and obese Orientation/consciousness: oriented to person, oriented to place and oriented to time Limitations: language barrier and ambulation with walker HEENT Head: Yes normocephalic and Yes atraumatic Eyes General: appearance normal, both eyes and all related structures Pupils: Equal, round and reactive pupils present Neck Neck: Yes normal visual inspection and Yes no lymphadenopathy Thyroid: Thyroid normal Resp Effort & Inspection: normal respiratory effort and able to speak in complete sentences Auscultation: clear to auscultation bilaterally Cardio Rate: regular rate Rhythm: regular rhythm Heart sounds: Normal, physiologic split S2 sound present Peripheral pulses: radial pulses present and posterior tibial pulses present GI Inspection: No distended, No Abdominal panniculus present and Yes obesity Palpation (GI): Soft to palpation, nontender, no guarding, not rigid and No hepatosplenomegaly present Percussion: Yes normal to percussion Auscultation: normal bowel sounds Rectal Exam - Male: Yes deferred Skin General skin exam: no rashes or lesions noted, turgor normal, skin not dry, no jaundice, No spider nevi and no striae Rashes: no rashes Nails: normal Neuro General: oriented to person, oriented to place and oriented to time Cranial nerves: Yes Equal, round and reactive pupils present and Yes Normal hearing present Speech: No Abnormal speech present Extrem General: Yes normal to inspection, No clubbing, No cyanosis and No edema Psych Appearance: grossly normal and well kempt Mental Status: mental status grossly normal Speech and movement: Normal speech and movement present Affect: normal affect Attitude: cooperative Thought process: Normal thought process present and not confabulating Thought content: Normal thought content present Insight: Limited insight present (Psych) Judgement: Limited judgement present (Psych) Assessment & Plan Assessment & Plan (1) Erosive gastritis: Code(s): K29.60 - Other gastritis without bleeding Category: Medical (2) Dysphagia: Code(s): R13.10 - Dysphagia, unspecified Category: Medical (3) Chronic idiopathic constipation: Code(s): K59.04 - Chronic idiopathic constipation Category: Medical (4) GERD (gastroesophageal reflux disease): Code(s): K21.9 - Gastro-esophageal reflux disease without esophagitis Category: Medical Plan [place]ian #prior He is here today with a female family member who is supportive. He confirms that he received the omperazole bid and this has resolved his stomach complaints. He is also doing well moving his bowels on his current regimen. He continues on omeprazole in the morning, cimetidine at night, Linzess, magnesium and Reglan. He was recently switched from Trulicity to Mounjaro, but he seems to be tolerating it. ROV 6 mos. Medications: Refilled cimetidine 600 mg (2 x 300 mg) PO BEDTIME 180 tabs 2RF K21.9 - Gastro- esophageal reflux disease without esophagitis omeprazole 40 mg PO BID 180 caps 1RF 90 days K29.60 - Other gastritis without bleeding, R11.2 - Nausea with vomiting, unspecified linaclotide (Linzess) 145 mcg PO QAM 90 caps 1RF 90 days K59.04 - Chronic idiopathic constipation magnesium oxide 500 mg PO QPM 90 tabs 1RF 90 days E11.65 - Type 2 diabetes mellitus with hyperglycemia metoclopramide HCl 5 mg PO QID 360 tabs 1RF R11.2 - Nausea with vomiting, unspecified Coding Level of Care Code Est Pt Level 3 (88129) Diagnoses Erosive gastritis K29.60 Dysphagia R13.10 Chronic idiopathic constipation K59.04 GERD (gastroesophageal reflux disease) K21.9
[2024-12-06 11:35] VITALS: BP 110/69; BMI 31.9
--- OUTSIDE RECORDS SUMMARY | 2024-12-06 12:16 | XMS_ITS | Encounter Summary ---
Author Organization [employer] Address [address] [facility] [address] 7t [place] [address] Care Team Providers Care Accounting Manager Assistant Controller Name Role Phone Name, Chan TOLLIVER Primary Care Provider [phone] Naya Malone PharmD Unavailable [phone] Encounter Details Date Type Department Care Team (Late st Contact Info) Description 01/12/2024 Telephone [facility] ADULT DENTAL [address] [place] [address] Priya Felix, BRANT Social History Tobacco Use [...] Care Team (Late st Contact Info) Description 12/31/2024 10:30 AM EDT Medication Management [facility] MEDICINE [address] [place] [address] Naya Malone PharmD [address] [place] [address] 01/16/2025 11:15 AM EDT Office Visit [facility] MEDICINE [address] [place] [address] Name, MD Chan [address] [place] [address] documented as of this encounter Goals Goal Patient Goal Type Associated Problems Recent Progress Patient-Stated? Author Work on dietary modification. Diet No Naya Malone PharmD Note: - Drink less soda, juice, and other sugary beverages Patient will adhere to medication regimen General On track( 023 11:22 AM EST) No Naya Malone, PharmSophie Hemoglobin A1c < 7 Result Component 7.3( 5 9:56 AM EDT) No Naya Malone PharmD Record your blood [...] documented as of this encounter Care Teams Accounting Manager Assistant Controller Relationship Specialty Start Date End Date Name, MD Chan 230 [place] [address] PCP - General Family Medicine 08/01/16 Naya Malone PharmD 230 [place] [address] Pharmacist Internal Medicine 02/17/23 [facility] 11/08/24 documented as of this encounter
--- OUTSIDE RECORDS SUMMARY | 2024-12-06 12:16 | XMS_ITS | Encounter Summary ---
Author Organization [employer] Address 75 [facility] 7t [place] [address] Care Team Providers Care Ceramics Test Engineer Name Role Phone Name, Chan TOLLIVER Primary Care Provider [phone] Naya Malone PharmD Unavailable [phone] Encounter Details Date Type Department Care Team (Latest Contact Info) Description 03/24/2021 Abstract [facility] CONVERSIONS Dental, Provider, DDS Social History Tobacco [...] Description 12/31/2024 10:30 AM EDT Medication Management [facility] MEDICINE [address] [place] [address] Naya Malone, PharmD 230 [place] [address] 01/16/2025 11:15 AM EDT Office Visit [facility] MEDICINE [address] [place] [address] [phone] Name, MD Chan [address] [place] [address] documented as of this encounter Visit Diagnoses Not on filedocumented in this encounter Care Teams Ceramics Test Engineer Relationship Specialty Start Date End Date Name, MD Chan 230 [place] [address] PCP - General Family Medicine 08/01/16 Naya Malone, Gabriela 230 [place] [address] Pharmacist Internal Medicine 02/17/23 [facility] 11/08/24 documented as of this encounter
--- OUTSIDE RECORDS SUMMARY | 2024-12-06 12:16 | XMS_ITS | Encounter Summary ---
Author Organization [employer] Address [address] [facility] [facility] [address] 7[address] [place] [address] Care Team Providers Care Acid Filler Name Role Phone Name, Chan TOLLIVER Primary Care Provider [phone] Naya Malone PharmD Unavailable [phone] Reason for Visit * Reason Comments Med Refill Encounter Details Date Type Department Care Team ([facility] st Contact Info) Description 09/02/2023 Refill [facility] MEDICINE 230 [place], [place] [phone] Name, MD Chan 230 [place], [place] [phone] Asthma, unspecified asthma severity, unspecified whether complicated, [...] Description 12/31/2024 10:30 AM EDT Medication Management [facility] MEDICINE [address] [place] [address] Naya Malone, PharmD [address] [place] [address] 01/16/2025 11:15 AM EDT Office Visit [facility] MEDICINE [address] [place] [address] Name, MD Chan [address] [place] [address] documented as of this encounter Goals Goal Patient Goal Type Associated Problems Recent Progress Patient-Stated? Author Patient will adhere to medication regimen General On track( 023 11:22 AM EST) No Puia, Naya, PharmD Hemoglobin A1c < 7 Result Component 7.3( 9:56 AM EDT) No Puia, Nyaa, PharmD Record your blood sugar as directed Result Component On track( 023 11:22 AM EST) No Puia, Naya, PharmD Note: Use CGM, ensuring sensor is scanned at least once every 8 hours to capture 24H data. Check BG manually, as directed. documented as of this encounter Visit Diagnoses Diagnosis Asthma, unspecified asthma severity, unspecified whether complicated, unspecified whether persistent documented in this encounter Additional Health Concerns Assessment Noted Time PHQ-9 Depression Total Score: 24 07/26/ 022 10:06 AM EST documented as of this encounter Care Teams Acid Filler Relationship Specialty Start Date End Date Name, MD Chan 230 [place] [address] PCP - General Family Medicine 08/01/16 Naya Malone PharmD 230 [place] [address] Pharmacist Internal Medicine 02/17/23 [facility] 11/08/24 documented as of this encounter
--- OUTSIDE RECORDS SUMMARY | 2024-12-06 12:16 | XMS_ITS | Encounter Summary ---
Author Organization [employer] Address [address] [facility] [address] 7t [place] [address] Care Team Providers Care Demurrage Worker Name Role Phone Name, Chan TOLLIVER Primary Care Provider [phone] PuNaya anna PharmD Unavailable Reason for Visit * Reason Comments Med Refill Encounter Details Date Type Department Care Team (Late st Contact Info) Description 11/30/2024 Refill [facility] MEDICINE 230 [place], [place] [phone] Puia, Naya, PharmD 230 [place], [place] [phone] Type 2 diabetes mellitus with hyperglycemia, with long-term current use of insulin ([facility]) Social History Tobacco Use Types Packs/Day [...] Description 12/31/2024 10:30 AM EDT Medication Management [facility] MEDICINE [address] [place] [address] Naya Malone, PharmD [address] [place] [address] 01/16/2025 11:15 AM EDT Office Visit [facility] MEDICINE [address] [place] [address] Name, MD Chan [address] [place] [address] documented as of this encounter Goals Goal [...] hyperglycemia, with long-term current use of insulin ([facility]) documented in this encounter Additional Health Concerns Assessment Noted Time PHQ-9 Depression Total Score: 0 11/09/19 24 11:08 AM EDT documented as of this encounter Care Teams Demurrage Worker Relationship Specialty Start Date End Date Name, MD Chan [address] [place] [address] PCP - General Family Medicine 08/01/16 Naya Malone PharmD [address] [place] [address] Pharmacist Internal Medicine 02/17/23 [facility] 11/08/24 documented as of this encounter
--- OUTSIDE RECORDS SUMMARY | 2024-12-06 12:16 | XMS_ITS | Encounter Summary ---
Author Organization [employer] Address [address] [facility] [address] 7t [place] [address] Care Team Providers Care Electric Transfer Operator Name Role Phone Name, Chan TOLLIVER Primary Care Provider [phone] Naya Malone PharmD Unavailable Reason for Visit * Reason Comments Med Refill Encounter Details Date Type Department Care Team (Late st Contact Info) Description 02/17/2023 Refill [facility] MEDICINE 230 [place], [place] [phone] Name, MD Chan 230 [place], [place] [phone] Type 2 diabetes mellitus with hyperglycemia, with long-term current use of insulin ([facility]) Social History Tobacco Use Types Packs/Day Years [...] Description 12/31/2024 10:30 AM EDT Medication Management [facility] MEDICINE [address] [place] [address] [phone] Naya Malone PharmD [address] [place] [address] 01/16/2025 11:15 AM EDT Office Visit [facility] MEDICINE [address] [place] [address] [phone] Name, MD Chan [address] [place] [address] [phone] documented as of this encounter Goals Goal Patient Goal Type Associated Problems Recent Progress Patient-Stated? Author Hemoglobin A1c < 7 Result Component 7.3( 9:56 AM EDT) No Naya Malone PharmD [...] hyperglycemia, with long-term current use of insulin ([facility]) documented in this encounter Additional Health Concerns Assessment Noted Time PHQ-9 Depression Total Score: 24 022 10:06 AM EST documented as of this encounter Care Teams Electric Transfer Operator Relationship Specialty Start Date End Date Name, MD Chan [address] [place] [address] [phone] PCP - General Family Medicine 08/01/16 Naya Malone PharmD [address] [place] [address] [phone] Pharmacist Internal Medicine 02/17/23 [facility] 11/08/24 documented as of this encounter
--- OUTSIDE RECORDS SUMMARY | 2024-12-06 12:16 | XMS_ITS | Encounter Summary ---
Author Organization [employer] Address [address] [facility] [address] 7t [place] [address] Care Team Providers Care Accounting Generalist Name Role Phone Name, Chan TOLLIVER Primary Care Provider [phone] Naya Malone PharmD Unavailable [phone] Reason for Visit * Reason Comments Med Refill Encounter Details Date Type Department Care Team (Late st Contact Info) Description 12/05/2024 Refill [facility] MEDICINE 230 [place], [place] [phone] Name, MD Chan [address] [place], [place] [phone] Social History Tobacco Use Types Packs/Day Years [...] the past 12 months, has t he [employer] gas, oil or water iogyn threatened to shut off services in your [...] 12/31/2024 10:30 AM EDT Medication Management [facility] MEDICINE [address] [place] [phone] Naya Malone, PharmD [address] [place] [address] 01/16/2025 11:15 AM EDT Office Visit [facility] MEDICINE [address] [place] [address] Name, MD Chan [address] [place] [address] documented as of this encounter Goals Goal [...] as of this encounter Care Teams Accounting Generalist Relationship Specialty Start Date End Date Name, MD Chan [address] [place] [address] PCP - General Family Medicine 08/01/16 Naya Malone PharmD [address] [place] [address] Pharmacist Internal Medicine 02/17/23 [facility] 11/08/24 documented as of this encounter
--- OUTSIDE RECORDS SUMMARY | 2024-12-06 12:16 | XMS_ITS | Encounter Summary ---
Author Organization [employer] Address [address] [facility] [address] 7t [place] [address] Care Team Providers Care Electric Motor Analyst Name Role Phone Name, Chan TOLLIVER Primary Care Provider Naya Malone PharmD Unavailable Reason for Visit * Reason Comments Med Refill Encounter Details Date Type Department Care Team (Late st Contact Info) Description 08/22/2022 Refill [facility] MEDICINE 230 [place], [place] [phone] Name, MD Chan 230 [place], [place] [phone] Diabetic 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 associated with type 2 diabetes [...] Description 12/31/2024 10:30 AM EDT Medication Management [facility] MEDICINE [address] [place] [address] Naya Malone PharmD [address] [place] [address] 01/16/2025 11:15 AM EDT Office Visit [facility] MEDICINE [address] [place] [address] 98476 Name, MD Chan [address] [place] [address] documented as of this encounter Visit Diagnoses Diagnosis Diabetic 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 associated with type 2 diabetes mellitus ([facility])- Primary documented in this encounter Additional Health Concerns Assessment Noted Time PHQ-9 Depression Total Score: 24 12/2 022 10:06 AM EST documented as of this encounter Care Teams Electric Motor Analyst Relationship Specialty Start Date End Date NameChan MD [address] [place] [address] PCP - General Family Medicine 08/01/16 Naya Malone PharmD [address] [place] [address] Pharmacist Internal Medicine 02/17/23 [facility] 11/08/24 documented as of this encounter
--- OUTSIDE RECORDS SUMMARY | 2024-12-06 12:16 | XMS_ITS | Encounter Summary ---
Author Organization [employer] Address [address] [facility] 7t [place] [address] Care Team Providers Care Transfer Knitter Name Role Phone Name, Chan TOLLIVER Primary Care Provider [phone] Naya Malone PharmD Unavailable Encounter Details Date Type Department Care Team (Latest Contact Info) Description 03/05/[address] [facility] CONVERSIONS Dental, Provider, DDS Social History [...] Description 12/31/2024 10:30 AM EDT Medication Management [facility] MEDICINE [address] [place] [address] [phone] Naya Malone, PharmD 230 [place] [address] 01/16/2025 11:15 AM EDT Office Visit [facility] MEDICINE [address] [place] [address] [phone] Name, MD Chan [address] [place] [address] documented as of this encounter Visit Diagnoses Not on filedocumented in this encounter Care Teams Transfer Knitter Relationship Specialty Start Date End Date Name, MD Chan [address] [place] [address] PCP - General Family Medicine 08/01/16 Naya Malone PharmD 230 [place] [address] Pharmacist Internal Medicine 02/17/23 [facility] 11/08/24 documented as of this encounter
--- OUTSIDE RECORDS SUMMARY | 2024-12-06 12:16 | XMS_ITS | Clinical Summary ---
Author Organization [facility] Address 175 [place] [address] Phone Care Team Providers Care Land Acquisition Manager Name Role Phone Name, Chan TOLLIVER Primary Care Provider [phone] Allergies No known active allergies Medications traMADol-acetam inophen (ULTRACET) 37.5-325 mg per tablet TAKE 1 TO 2 TABLETS BY MOUTH THREE TIMES DAILY NEEDED Active tirzepatide (Mounjaro) 5 mg/0.5 mL injection Inject 0.5 mL (5 mg total) under the skin. 4 Active Mounjaro 2.5 mg/0.5 mL injection Inject 0.5 mL (2.5 mg total) under the skin. 4 Active terazosin (HYTRIN) 5 mg capsule Take 1 capsule (5 mg total) by mouth. at bedtime 4 Active tadalafiL (CIALIS) 20 mg tablet TAKE ONE TABLET BY MOUTH EVERY DAY NEEDED 60 MINUTES BEFORE INTENDED ACTIVITY 4 Active tadalafiL (CIALIS) 10 mg tablet TAKE ONE TABLET BY MOUTH EVERY DAY FOR PROSTATE OBSTRUCTION 4 Active sulfamethoxazol e-trimethoprim (BACTRIM DS,SEPTRA DS) 800-160 mg per tablet Take 1 tablet by mouth 2 (two) times a day. for 5 days 4 Active pravastatin (PRAVACHOL) 80 mg tablet Take 1 tablet (80 mg total) by mouth daily. 4 Active Encounters Date Type Department Care Team Description 10/21/2024 9:00 AM EDT Office Visit Orthopedic Surgery [facility] [address] [facility] [address] [place] [address] Gene Blankenship DPM Controlled type 2 diabetes with neuropathy ([facility] V24, [facility] V28) (Primary Dx); Pain in toes of both feet; Ingrown right big toenail; Hammertoes of both feet; Dermatophytosis, nail from Last 3 Months Social History Tobacco Use Types Packs/Day Years Used Date Smoking Tobacco: Never Assessed Sex and Gender Information Value Date Recorded Sex Assigned at Not on file Legal Sex Male 9:04 AM EST Gender Identity Not on file Sexual Orientation Not on file Last Filed Vital Signs Vital Sign Reading Time Taken Comments Blood Pressure - - Pulse - - Temperature - - Respiratory Rate - - Oxygen Saturation - - Inhaled Oxygen Concentration - - Weight 78.5 kg (173 lb) 10/21/2024 9:33 AM EDT Height 157.5 cm (5' 2.01 ) 10/21/2024 9:33 AM ED T Body Mass Index 31.63 10/21/2024 9:33 AM EDT Plan of Treatment Upcoming Encounters Date Type Department Care Team (Late st Contact Info) Description 12/23/2024 9:30 AM EDT Office Visit Orthopedic Surgery - [place] [phone] [address] Gene Blankenship DPM [address] [address] Health Maintenance Due Date Last Done Comments Diabetes: Annual Foot Exam 1966 Diabetes: Annual Retina Eye Exam 1966 Zoster Vaccines (1 of 2) 2006 RSV Immunization Adult Patients (1 - Risk 60-74 years 1-dose series) 2016 Abdominal Aortic Aneurysm (AAA) Screen 03/12/2024 Colorectal Cancer Screening: Colonoscopy 03/12/2024 Falls Risk Assessment 03/12/2024 Medicare Annual Wellness Visit 03/12/2024 Social Influencers of Health Screening 03/12/2024 COVID-19 Vaccine ( season) 2024 Depression Screening 11/08/2024 11/09/2023 Diabetes: Annual Urine Albumin-Creatinine Ratio (uACR) 11/08/2024 11/09/2023 Diabetes: Annual GFR (Glomerular Filtration Rate) 11/08/2024 11/09/2023 Hypertension/CHF/CAD Annual BMP Blood Test 11/08/2024 11/09/2023 Diabetes: Blood Sugar Control Test (HGBA1C) 03/31/2025 10/01/2024, 06/20/2024, 07/22/2020 Influenza Vaccine (Season Ended) 2025 05/27/2021, 04/29/2020, 05/07/2019, Additional history exists DTaP,Tdap,and Td Vaccines (4 - Td or Tdap) 12/09/2025 12/10/2015, 07/11/2012, 09/11/2006 Cholesterol Screening (Lipid Panel) 07/05/2028 07/05/2023, 07/05/2023 Hepatitis C Screening Completed 04/05/2022 Pneumococcal Vaccine: 50+ Years Completed 07/11/2023, 03/03/2004 HIB Vaccines Aged [...] patient's age to complete this topic Meningococcal B Vaccine Aged Out No l onger eligible based on patient's age to complete this topic RSV Immunization Patients Under 20 months Aged Out No longer eligible based on patient's age to complete this topic Varicella Vaccines Aged Out No longer eligible based on patient's age to complete this topic Procedures Procedure Name Priority Date/Time Associated Diagnosis Comments HM URINE ALBUMIN CREATININE RATIO Routine 11/09/2023 ANNUAL BMP BLOOD TEST Routine 11/09/2023 LIPID PANEL Routine 07/05/2023 HEPATITIS C SCREENING Routine 04/05/2022 HEMOGLOBIN A1C Routine 07/22/2020 from Last 3 Months or Most Recently Relevant to Health Maintenance Results * Urine Albumin Creatinine Ratio (11/09/2023) Pathologist [facility] Urine Albumin Creatinine Ratio abstracted Result [facility] Provider HEALTH MAINTENANCE Final Result * Annual BMP Blood Test (11/09/2023) [facility] Annual BMP Blood Test abstracted Result [facility] Provider HEALTH MAINTENANCE Final Result * Lipid panel (07/05/2023) [facility] LDL/HDL Ratio 0 Comment:no interpretation, a bstracted Triglycerides 0 mg/dL Comment:no interpretation, a bstracted Cholesterol 0 mg/dL Comment:no interpretation, a bstracted HDL 0 mg/dL Comment:no interpretation, a bstracted LDL Cholesterol 0 mg/dL Comment:no interpretation, a bstracted Blood Venous blood specimen / Unknown Result [facility] Provider LAB BLOOD ORDERABLES Sue l Result * Hepatitis C Screening (04/05/2022) [facility] Hepatitis C Screening abstracted Result [facility] Provider HEALTH [facility] Final Result * Hemoglobin A1c (07/22/2020) [facility] Hemoglobin A1C 0.0 % Comment:no interpretation, a bstracted Blood Venous blood specimen / Unknown Result [facility] Provider LAB BLOOD ORDERABLES Sue l Result from Last 3 Months or Most Recently Relevant to Health Maintenance Insurance [facility] MEDICARE Member Subscriber Plan / Payer (Ef fective 2024-Present) Name:Alonzo Dotson Relation to Subscriber:Self Name:Alonzo Dotson Payer ID:[id number] Group ID:[id number] Type:Not on file Address: [facility] [address] [id number] Care Teams Land Acquisition Manager Relationship Specialty Start Date End Date Name, MD Chan [address] [place], [place] PCP - General Internal Medicine 06/25/19
--- OUTSIDE RECORDS SUMMARY | 2024-12-06 12:16 | XMS_ITS | Encounter Summary ---
Author Organization [employer] Address [address] [facility] [address] 7t [place] [address] Care Team Providers Care Oil Well Fishing Tool Technician Name Role Phone Name, Chan TOLLIVER Primary Care Provider [phone] Naya Malone PharmD Unavailable [phone] Encounter Details Date Type Department Care Team (Late st Contact Info) Description 01/12/2023 Abstract [facility] MEDICINE [address] [place], [place] [phone] Name, MD Chan [address] [place] [address] Social History Tobacco Use Types Packs/Day Years [...] Description 12/31/2024 10:30 AM EDT Medication Management [facility] [place] [address] Naya Malone PharmD [place], [place] 01/16/2025 11:15 AM EDT Office Visit [facility] [place] [address] [place], [place] [address] documented as of this encounter Visit Diagnoses Not on filedocumented in this encounter Additional Health Concerns Assessment Noted Time PHQ-9 Depression Total Score: 24 022 10:06 AM EST documented as of this encounter Care Teams Oil Well Fishing Tool Technician Relationship Specialty Start Date End Date Name, MD Chan [address] [place] [address] PCP - General Family Medicine 08/01/16 Naya Malone PharmD [address] [place] [address] Pharmacist Internal Medicine 02/17/23 [facility] 11/08/24 documented as of this encounter
--- OUTSIDE RECORDS SUMMARY | 2024-12-06 12:16 | XMS_ITS | Clinical Summary ---
Author Organization [employer] Address [address] [facility] 7t [place] [address] Care Team Providers Care Motor Winder Name Role Phone Name, Chan TOLLIVER Primary Care Provider [phone] Naya Malone PharmD Unavailable [phone] Allergies Active Allergy Reactions Criticality Noted Date Comments Penicillin G 03/12/2024 Other Reaction(s): Unknown Penicillin V Unknown 10/13/2010 Penicillins Low 12/01/2022 Other reaction(s): DIZZY/DIAPHORESIS, N/V Medications buPROPion SR (Wellbutrin SR) 150 MG 12 [...] morning, at noon, and at bedtime. Active cimetidine (Tagamet) 300 MG tablet Take [...] hyperglycemia, with long-term current use of insulin ([facility]) Administer 3 mg via 1 device into the nostril for hypoglycemia with loss of consciousness. If no response after 15 minutes administer an additional dose via 2nd device into other nostril. 2 each 1 023 Active Continuous Blood Gluc Field Pipe Lines Supervisor (FreeStyle Mata 2 Dixon) deviceIndications :Type 2 diabetes mellitus with hyperglycemia, with long-term current use of insulin ([facility]) USE DIRECTED EVERY 8 HOURS DIRECTED 1 each 023 Active omeprazole (PriLOSEC) [address] capsule Take 40 mg by mouth before breakfast and before evening meal. 023 Active pravastatin (Pravachol) 80 MG tabletIndications :Type 2 diabetes mellitus with hyperglycemia, with long-term current use of insulin ([facility]) Take 1 tablet (80 mg) by mouth Once per day. 90 tablet 3 Active insulin pen needle (Pentips) 32G x 4 mm miscIndications:T ype 2 diabetes mellitus with hyperglycemia, with long-term current use of insulin ([facility]) USE 1 DAILY FOR INSULIN INJECTION 100 each 3 Active Continuous Glucose Sensor (FreeStyle Mata 2 Sensor) miscIndications:T ype 2 diabetes mellitus with hyperglycemia, with long-term current use of insulin ([facility]) APPLY DIRECTED EVERY 14 DAYS 2 each Active glucose blood (FreeStyle Precision Anthony Test) test stripIndications: Type 2 diabetes mellitus with hyperglycemia, with long-term current use of insulin ([facility]) Use to test blood sugar up to 3 times daily, as directed 100 each Active TRUEplus Lancets 33G miscIndications:T ype 2 diabetes mellitus with diabetic 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 ([facility]) Use to test blood sugar up to 3 times daily as directed 100 each Active donepezil (Aricept) 10 MG tablet Take 10 mg by mouth at bedtime. Active lisinopril-hydroC HLOROthiazide 10-12.5 MG tabletIndications :Essential hypertension TAKE 1 TABLET BY MOUTH EVERY MORNING 90 tablet 1 Active Aspirin Low Dose 81 MG EC tabletIndications :Diabetic 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 associated with type 2 diabetes mellitus ([facility]) TAKE 1 TABLET BY MOUTH EVERY MORNING 90 tablet 1 024 Active Synjardy 12.5-500 MGIndications:Typ e 2 diabetes mellitus with hyperglycemia, with long-term current use of insulin ([facility]) TAKE 1 TABLET BY MOUTH TWICE DAILY IN THE MORNING AND IN THE EVENING WITH MEALS 60 tablet 025 Active Fluticasone-Salme terol 250-50 MCG/ACT aerosol powderIndications :Asthma, unspecified asthma severity, unspecified whether complicated, unspecified whether persistent INHALE 1 PUFF BY MOUTH TWICE DAILY IN THE MORNING AND IN THE EVENING RINSE MOUTH AFTER USING. 60 each 025 Active magnesium oxide 500 MG tablet Take 1 tablet by mouth at bedtime. 025 Active Tirzepatide (Mounjaro) 5 MG/0.5ML solution auto-injectorIndi cations:Type 2 diabetes mellitus with hyperglycemia, with long-term current use of insulin ([facility]) Inject 5 mg under the skin 1 (one) time per week. 2 mL 025 Active insulin glargine (Lantus SoloStar) 100 UNIT/ML penIndications:Ty pe 2 diabetes mellitus with hyperglycemia, with long-term current use of insulin ([facility]) Inject 28 Units under the skin at bedtime. 15 mL 025 Active albuterol 108 (90 Base) MCG/ACT inhalerIndication s:Type 2 diabetes mellitus with diabetic 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, with long-term current use of insulin ([facility]) Inhale 2 puffs every 4 (four) hours. 18 g 025 Active amitriptyline (Elavil) 50 MG tabletIndications :Diabetic 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 associated with type 2 diabetes mellitus ([facility]) TAKE 1 TABLET BY MOUTH AT BEDTIME 30 tablet 3 025 Active Alcohol Swabs (Alcohol Prep) 70 % padsIndications:T ype 2 diabetes mellitus with hyperglycemia, with long-term current use of insulin ([facility]) USE UP TO FOUR TIMES DAILY DIRECTED 100 each 025 Active econazole nitrate 1 % cream APPLY TO AFFECTED AREA(S) AND SURROUNDING AREA(S) TWICE DAILY IN THE MORNING AND EVENING 85 g 5 025 Active Alcohol Swabs (SM Alcohol Prep) 70 % padsIndications:T ype 2 diabetes mellitus with hyperglycemia, with long-term current use of insulin ([facility]) Use up to four times daily as directed 100 each 11 024 2024 Discontinued econazole nitrate 1 % cream APPLY TO AFFECTED AREA(S) AND SURROUNDING AREA(S) TWICE DAILY IN THE MORNING AND EVENING 85 g 5 024 2024 Discontinued Active Problems Problem Noted Date Diagnosed Date Esophageal reflux 03/12/2024 Rectal bleeding 03/05/2024 Chronic idiopathic constipation 05/11/2023 Diabetic nephropathy associa lukas with type 2 diabetes mellitus 05/11/2023 GERD (gastroesophageal reflux disease) 3 High cholesterol 05/11/2023 correction (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 of insulin 05/11/2023 Uncontrolled type 2 diabetes mellitus 05/11/2023 Diabetic 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 asso ciated with type 2 diabetes mellitus 05/11/2023 Erectile dysfunction associa lukas with type 2 diabetes mellitus 05/11/2023 Obesity (BMI 30-39.9) 05/11/2023 Bilateral hearing [...] vomiting 05/11/2023 05/11/20 23 Pre-op examination 05/11/2023 3 Upper abdominal pain 05/11/2023 023 Urinary urgency [...] Encounters Date Type Department Care Team Description 12/05/2024 Refill [facility] [address] [facility] [place] [address] NameChan MD 11/30/2024 Refill [facility] [address] [facility] [place] [address] Naya Malone PharmD Type 2 diabetes mellitus with hyperglycemia, with long-term current use of insulin ([facility]) 11/06/2024 Refill [facility] [address] [facility] [place] [address] Chan Holley MD Diabetic 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 associated with type 2 diabetes mellitus ([facility]) 10/22/2024 10:00 AM EDT Office Visit [facility] [address] [facility] [place] [address] NameChan MD Type 2 diabetes mellitus with diabetic 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, with long-term current use of insulin ([facility]) (Primary Dx); Essential hypertension 09/28/2024 Refill [facility] [address] [facility] [place] [phone] Naya Malone PharmD Type 2 diabetes mellitus with hyperglycemia, with long-term current use of insulin ([facility]) from Last 3 Months Immunizations Name Administration [...] Sign Reading Time Taken Comments Blood Pressure 127/71 10/22/2024 9:53 AM EDT Pulse 87 10/22/2024 9:53 AM EDT Temperature 36.2 ??C (97.1 ??F) 10/22/2024 9:53 AM ED T Respiratory Rate 18 10/22/2024 9:53 AM EDT Oxygen Saturation 99% 10/22/2024 9:53 AM EDT Inhaled Oxygen Concentration - - Weight 78.1 kg (172 lb 3.2 oz) 10/22/2024 9:53 A M EDT Height 160 cm (5' 3 ) 06/05/2024 10:34 AM EDT Body Mass Index 30.5 06/05/2024 10:34 AM EDT Plan of Treatment Upcoming Encounters Date Type Department Care Team (Late st Contact Info) Description 12/31/2024 10:30 AM EDT Medication Management [facility] [address] [place] [address] Naya Malone, PharmD [address] [place] [address] 01/16/2025 11:15 AM EDT Office Visit [facility] [address] [facility] [place] [address] Name, [place] [address] Health Maintenance Due Date Last Done Comments CT Colonography 1956 FIT DNA/Cologuard 1955 FIT 1956 FOBT 1955 Sigmoidoscopy 1955 Zoster Vaccines (1 of 2) 2006 RSV Patients and Patients Aged 60 years or older (1 - Risk 60-74 years 1-dose series) 2016 Dental Prophylaxis 05/24/2023 11/21/2022 COVID-19 Vaccine ( season) 2024 Influenza Vaccine (#1) 2024 , 04/29/2020, 05/07/2019, Additional history exists Dental Oral Exam 04/27/2024 10/25/2023, 11/21/2022 Diabetes: Foot Exam 07/11/2024 07/11/2023, 07/11/2023, 07/11/2023, Additional history exists Dental X-Ray: Bitewings 10/25/2024 10/25/2023, 11/21 Depression Screening 11/08/2024 11/09/2023, 11/09/19 Diabetes: Hemoglobin A1C 01/22/2025 025, 10/01/2024, 06/20/2024, Additional history exists Alcohol/Substance Use Screening 03/13/2025 03/13/2024 SDOH Screening 03/13/2025 03/13/2024 Tobacco Screening 06/05/2025 06/05/2024 Eye Exam 09/18/2025 09/18/2023, 12/2023, 09/18/2023, Additional history exists Lipid Panel 11/06/2025 11/06/2024, 06/15, 01/18/2022, Additional history exists DTaP/Tdap/Td Vaccines (3 - [...] Component 7.3( 9:56 AM EDT) No Naya Malone, PharmD Record your blood sugar as directed Result Component On track( 023 11:22 AM EST) No Naya Malone, PharmD Note: Use CGM, ensuring sensor is scanned at least once every 8 hours to capture 24H data. Check BG manually, as directed. Procedures Procedure Name Priority Date/Time Associated Diagnosis Comments ALBUMIN, RANDOM URINE W/CREATININE Routine 11/06/2024 8:30 AM EDT Type 2 diabetes mellitus with diabetic 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, with long-term current use of insulin ([facility]) LIPID PANEL, STANDARD Routine 11/06/2024 8:30 AM EDT Type 2 diabetes mellitus with diabetic 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, with long-term current use of insulin (CMS/HCC) COMPREHENSIVE METABOLIC PANEL Routine 11/06/2024 8:30 AM EDT Type 2 diabetes mellitus with diabetic 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, with long-term current use of insulin (CMS/HCC) POCT GLYCATED HEMOGLOBIN, TOTAL Routine 10/22/2024 9:56 AM EDT Type 2 diabetes mellitus with diabetic 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, with long-term current use of insulin (CMS/HCC) POCT GLUCOSE Routine 10/22/2024 9:54 AM EDT Type 2 diabetes mellitus with diabetic 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, with long-term current use of insulin (CMS/[facility]) POCT GLYCATED HEMOGLOBIN, TOTAL Routine 10/01/2024 9:59 AM EST Type 2 diabetes mellitus with hyperglycemia, with long-term current use of insulin (CMS/[facility]) INTRAORAL - COMPLETE SERIES OF RADIOGRAPHIC IMAGES Routine 10/25/2023 1:00 PM EDT PERIODIC ORAL EVALUATION - ESTABLISHED PATIENT Routine 10/25/2023 1:00 PM EDT HM COLONOSCOPY Routine 12/12/2022 PROPHYLAXIS - ADULT Routine 11/21/2022 1 1:00 AM EDT ZZZ HISTORICAL HEPATITIS C AB W/REFL TO HCV RNA, QN, PCR Routine 04/05/2022 10:35 AM EDT from Last 3 Months or Most Recently Relevant to Health Maintenance Results * (ABNORMAL) Albumin, Random Urine W/Creatinine (11/06/2024 8:30 AM EDT) Creatinine, Urine 67.03 mg/dL [facility] Microalbumin Urine 26.0 mg/L [facility] Microalbum Creatinine Ratio Ur 38.7(H) <30 ug/mg cr [facility] Comment:Albumin/Creatinine R atio Reference Ranges: Normal: < 30 ug/mg creatinine Microalbuminuria: 30 - 300 ug/mg creatinineClinical Albuminuria: > 300 ug/mg creatinine Urine (Urine, Random) 11/06/2024 8:30 AM EDT 11/06/2024 11:09 AM EDT us Chan Holley MD LAB URINE ORDERABLES Final Resul t Performing Organization Address [facility] de Phone Number [facility] [address] [place] [phone] * (ABNORMAL) Lipid Panel, Standard (11/06/2024 8:30 AM EDT) Triglycerides 189(H) <150 mg/dL [facility] Comment:Desirable Triglyceri de: less than 150 mg/dLBorderline High Triglyceride 150-199 mg/dLHigh Triglyceride: 200-499 mg/dLVery High Triglyceride: greater than or equal to 5OO mg/dL Cholesterol 174 <200 mg/dL [facility] Comment:Desirable Cholestero l: less than 200 mg/dLBorderline High Cholesterol: 200-239 mg/dLHigh Cholesterol: greater than 239 mg/dL LDL Cholesterol Calculated 90 <100 mg/dL [facility] Comment:Desirable LDL: less than 100 mg/dLNear Optimal/Above Optimal LDL: 110- 129 mg/dLBorderline High LDL: 130-159 mg/dLHigh LDL: 160-189 mg/dLVery High LDL: greater than or equal to 190 mg/dL HDL Cholesterol 47 >40 mg/dL [facility] Comment:Desirable HDL: great er than 40 mg/dL Note: This HDL assay may give artificially low results in patients with liver disease. Blood Venous blood specimen / Unknown 11/06/2024 8:30 AM EDT 11/06/2024 11:05 AM EDT us Chan Holley MD LAB BLOOD ORDERABLES Final Resul t Performing Organization Address [facility] Co de Phone Number [facility] [address] [place] [phone] * (ABNORMAL) Comprehensive Metabolic Panel (11/06/2024 8:30 AM EDT) Pathologist [facility] Sodium 138 135 - 145 mmol/L [facility] Potassium 4.2 3.3 - 5.1 mmol/L [facility] Chloride 103 96 - 108 mmol/L [facility] Carbon Dioxide 27 22 - 29 mmol/L [facility] Anion Gap 12 12 - 20 [facility] Urea Nitrogen (BUN) 18(H) 9 - 16 mg/dL [facility] Creatinine, Serum 1.05 0.5 - 1.4 mg/dL [facility] Estimated Glomerular Filt Rate >60 [facility] Comment:Chronic Kidney Disea se: Estimated GFR < 60 mL/min/1.36z3Wgyaia Kidney Disease: Estimated GFR < 15 mL/min/1.73m2 Glucose 132(H) 60 - 115 mg/dL [facility] Calcium 9.2 8.4 - 10.2 mg/dL [facility] Bilirubin, Total 0.2 0.0 - 1.0 mg/dL [facility] Aspartate Amino Transferase 25 5 - 37 U/L [facility] Alanine Aminotransferase 26 0 - 40 U/L [facility] Total Protein 7.0 6.5 - 8.0 g/dL [facility] Albumin Level 4.1 3.5 - 5.0 g/dL [facility] Alkaline Phosphatase 109 39 - 117 U/L [facility] Blood Venous blood specimen / Unknown 11/06/2024 8:30 AM EDT 11/06/2024 11:05 AM EDT us Chan Name MD LAB BLOOD ORDERABLES Final Resul t [facility] [address] [place] [phone] * (ABNORMAL) POCT HGB A1C (10/22/2024 9:56 AM EDT) Only the most recent of2 resultswithin the time period is included. Hemoglobin A1C 7.3(A) 4.0 - 6.0 % QC Media Lot # [id number] Lot# Expiration Date Blood 10/22/2024 9:56 AM EDT Chan Holley MD POINT OF CARE TEST ENTER/EDIT OR DERABLES Final Result * POCT Glucose (10/22/2024 9:54 AM EDT) Pathologist [facility] Glucose Blood, POC 197 60 - 200 mg/dL QC Media Lot # [id number] Lot# Expiration Date Blood Capillary blood specimen / Unknown 10/22/2024 9:54 AM EDT Result [facility] Chan Holley MD POINT OF CARE TEST ENTER/EDIT OR DERABLES Final Result * (ABNORMAL) Hm Colonoscopy (12/12/2022) Pathologist [facility] Colonoscopy Abnormal( A) Normal Comment:Repeat in 3 yrs Historical Provider HEALTH MAINTENANCE Final Result * HEPATITIS C AB W/REFL TO HCV RNA, QN, PCR (04/05/2022 10:35 AM EDT) [facility] HEPATITIS C ANTIBODY NON-REACT ELEONORA NON-REACT ELEONORA [facility] INDEX 0.04 <1.00 [facility] Comment: ?? HCV antibody was non-reactive. There is no laboratory ?? evidence of HCV infection. ?? In most cases, no further action is required. However, if recent HCV exposure is suspected, a test for HCV RNA (test code 76997) is suggested. ?? For additional information please refer to http://education.[employer]/faq/GNO66v6 (This link is being provided for informational/ educational purposes only.) ?? 04/05/2022 10:3 5 AM EDT Vaishali Nieves WIRE THREADER HISTORICAL/NON ORDERABLE LABS Final Result [facility] [address] [place] [address], from Last 3 Months or Most Recently Relevant to Health Maintenance Insurance [facility] [place] [address] , [place] [address] Care Teams Motor Winder Relationship Specialty Start Date End Date Name, MD Chan [address] [place] [address] PCP - General Family Medicine 08/01/16 Naya Malone, ElverD [address] [place] [address] Pharmacist Internal Medicine 02/17/23 [facility] 11/08/24
== END 2024-12-06 12:02 | disposition home or self-care (01) ==
PROVIDERS: PCP Internal Medicine Geriatric Medicine; Visit Provider Nurse Practitioner
DX: K29.60 Other gastritis without bleeding (principal); R13.10 Dysphagia, unspecified; K59.04 Chronic idiopathic constipation; K21.9 Gastro-esophageal reflux disease without esophagitis
CPT/HCPCS: 99213

== ENCOUNTER → 2024-12-06 11:20 | Outpatient (BNVA) | payer OTHER, SELFPAY | PROVIDERS: Visit Provider Nurse Practitioner | DX: K29.60 Other gastritis without bleeding (principal); K21.9 Gastro-esophageal reflux disease without esophagitis; K59.04 Chronic idiopathic constipation; R13.10 Dysphagia, unspecified | CPT/HCPCS: 99212 ==

== ENCOUNTER 2025-03-05 10:00 | Outpatient (AMB) | payer OTHER, SELFPAY ==
--- OUTSIDE RECORDS SUMMARY | 2025-03-05 10:50 | XMS_ITS | Encounter Summary ---
Author Organization [employer] Address [address] [facility] [address] [place] [address] Care Team Providers Care Crew Boss Name Role Phone Name, Chan TOLLIVER Primary Care Provider [phone] Naya Malone PharmD Unavailable [phone] Encounter Details Date Type Department Care Team (Late st Contact Info) Description 01/12/2023 Abstract [facility] [address] [place], [place] [phone] Name, MD Chan [address] [place] [address] Social History Tobacco Use Types Packs/Day Years [...] Care Team (Late st Contact Info) Description 04/02/2025 10:00 AM EDT Office Visit [facility] [address] [place], [place] [phone] Anival, Mary, OD [address] [place] [address] 04/09/2025 10:30 AM EDT Medication Management [facility] [address] [place] [address] Naya Malone PharmD [address] [place] [address] documented as of this encounter Visit Diagnoses Not on filedocumented in this encounter Additional Health Concerns Assessment Noted Time PHQ-9 Depression Total Score: 24 07/26/ 022 10:06 AM EST documented as of this encounter Care Teams Crew Boss Relationship Specialty Start Date End Date Name, MD Chan [address] [place] [phone] PCP - General Family Medicine 08/01/16 Naya Malone PharmD [address] [place] [phone] Pharmacist Internal Medicine 02/17/23 [facility] 11/08/24 documented as of this encounter
--- OUTSIDE RECORDS SUMMARY | 2025-03-05 10:50 | XMS_ITS | Patient Health Record ---
Author Organization [facility] Address [address] [place] [address] Support Name Relationship Address Phone ALONSO LATHAM Emergency Contact [address] [place] [phone] TARI HARDWICK Guarantor Unknown Care Team Providers Care Correctional Officer Captain Name Role Phone Leny Diallo Primary Care Provider UnavailAlvin Elmore Jr Unavailable Allergies Allergen (clinical drug ingredient) Drug/Non Drug Allergy documented on EMR Reaction Allergy Type Onset Date Status Penicillin Unknown Drug Allergy Active Reason For Referral No Information Medications Medication SIG (Take, Route, Frequency, Duration) Notes Start Date End Date Status Lantus 100iu Active HumaLOG 100iu Active Albuterol 0.083% Act rosa Econazole Nitrate 1% Active Lisinopril 10-12.5mg Active Ranitidine HCl 150mg Active Senna Laxative 8-6mg Active Pravastatin Sodium 80mg Active metFORMIN HCl 500mg Active Butalbital-Acetaminophen 50-325-40mg Active Aspirin EC 81mg Acti ve ProAir HFA 90mcg Act rosa Omeprazole 20mg Acti ve Gabapentin 600mg Act rosa Advair Diskus 250/50 Active Anusol-HC 25 MG 1 suppository Rectal Once a day for 14 day(s) 06/20/2013 08/14/2024 Active Cyclobenzaprine HCl 10mg Active Colyte with Flavor Packs 240 GM As directed Orally Over the specified time. for 1 day(s) 06/20/2013 08/14/2024 Active traMADol HCl 50mg Ac tive FLUoxetine HCl 20mg Active Ziprasidone HCl 60mg Active diphenhydrAMINE HCl 50mg Active Perphenazine 4mg Act rosa clonazePAM 0.5mg Act rosa buPROPion HCl 150mg Active Problems Problem Type SNOMED Code ICD Code Onset Dates Problem Status W/U Status Risk Notes Problem Esophageal reflux (807970713) Esophageal reflux (530.81) Active confirmed Problem Rectal bleeding (569.3) Active confirmed Plan Of Treatment Future Test Test Name Order Date UPPER GI ENDOSCOPY 06/20/2013 COLONOSCOPY 06/20/2013 Insurance Providers Payer Name Payer Address Payer Phone Subscriber Number Group Number Insured Name Patient Relationship to Insured Coverage Start Date Coverage End Date MEDICARE OF [place] [address] [place] [address] [phone] [id number] TARI HERNANDEZ Self - patient is the insured MEDICAID OF [facility] [address] [place] [address] [id number] TARI HERNANDEZ Self - patient is the insured Medical (General) History Medical History History ICD Code type II diabetes asthma hypertension schizophrenia/depression elevated cholesterol esophageal reflux
--- OUTSIDE RECORDS SUMMARY | 2025-03-05 10:50 | XMS_ITS | Clinical Summary ---
Author Organization 175 [facility] Address [address] [place] [address] Phone Care Team Providers Care Stars Specialist Name Role Phone Name, Chan TOLLIVER Primary Care Provider [phone] Allergies No known active allergies Medications traMADol-acetam [...] Encounters Date Type Department Care Team Description 12/23/2024 9:30 AM EDT Office Visit Orthopedic Surgery [facility] [address] [facility] [address] [place] [address] Gene Blankenship DPM Controlled type 2 diabetes with neuropathy ([facility] V24, [facility] V28) (Primary Dx); Pain in toes of [...] - - Weight 78.5 kg (173 lb) 12/23/2024 9:28 AM EDT Height 157.5 cm (5' 2.01 ) 12/23/2024 9:28 AM ED T Body Mass Index 31.63 12/23/2024 9:28 AM EDT Plan of Treatment Upcoming Encounters Date Type Department Care Team (Late st Contact Info) Description 03/19/2025 10:30 AM EDT Office Visit Orthopedic Surgery - [place] [id number] [address] Gene Blankenship DPM [address] [address] Health Maintenance Due Date Last Done Comments [...] of Health Screening 03/12/2024 COVID-19 Vaccine ( - season) 2024 Depression Screening 08/14/2024 Diabetes: Annual Urine Albumin-Creatinine Ratio (uACR) 11/08/2024 11/09/2023 Influenza Vaccine (#1) 2025 1, 04/29/2020, 05/07/2019, Additional history exists Diabetes: Blood Sugar Control Test (HGBA1C) 2025 10/22/2024, 10/01/2024, 06/20/2024, Additional history exists Diabetes: Annual GFR (Glomerular Filtration Rate) 11/06/2025 11/06/2024, 11/09/2023 Hypertension/CHF/CAD Annual BMP Blood Test 11/06/2025 11/06/2024, 11/09/2023 DTaP,Tdap,and Td Vaccines (4 - Td or Tdap) 12/09/2025 12/10/2015, 07/11/2012, 09/11/2006 Cholesterol Screening (Lipid Panel) 11/06/2029 11/06/2024, 07/05/2023, 07/05/2023 Hepatitis C Screening Completed 04/05/2022 [...] TEST Routine 11/09/2023 LIPID PANEL Routine 07/05/2023 HM HEPATITIS C SCREENING Routine 04/05/2022 HEMOGLOBIN A1C Routine 07/22/2020 from Last 3 Months or Most Recently Relevant to Health Maintenance Results * Urine Albumin Creatinine Ratio (11/09/2023) Pathologist [facility] Urine Albumin Creatinine Ratio abstracted Result [facility] HEALTH MAINTENANCE Final Result * Annual BMP Blood Test (11/09/2023) [facility] Annual BMP Blood Test abstracted Result [facility] HEALTH MAINTENANCE Final Result * Lipid panel (07/05/2023) [facility] LDL/HDL Ratio 0 Comment:no interpretation, a bstracted Triglycerides 0 mg/dL Comment:no interpretation, a bstracted Cholesterol 0 mg/dL Comment:no interpretation, a bstracted HDL 0 mg/dL Comment:no interpretation, a bstracted LDL Cholesterol 0 mg/dL Comment:no interpretation, a bstracted Blood Venous blood specimen / Unknown Result [facility] Provider LAB BLOOD ORDERABLES Sue l Result * Hepatitis C Screening (04/05/2022) [facility] Hepatitis C Screening abstracted Result [facility] HEALTH MAINTENANCE Final Result * Hemoglobin A1c (07/22/2020) [facility] Hemoglobin A1C 0.0 % Comment:no interpretation, a bstracted Blood Venous blood specimen / Unknown Result [facility] Provider LAB BLOOD ORDERABLES Sue l Result from Last 3 Months or Most Recently Relevant to Health Maintenance Insurance [employer] MEDICARE Member Subscriber Plan / Payer (Ef fective 2024-Present) Name:ALONZO DOTSON Relation to Subscriber:Self Name:Alonzo Dotson Payer ID:[id number] Group ID:[id number] Type:Not on file Address: [place] [address] [address] [address] Care Teams Stars Specialist Relationship Specialty Start Date End Date Name, MD Chan [address] [place], [place] PCP - General Internal Medicine 06/25/19
[2025-03-05 11:19] VITALS: BMI 31.8
--- NOTE | 2025-03-05 11:19 | A.OFFVIS_ITS ---
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 Patient has a history of left ring finger trigger release. Patient reports locking and catching has been going on for about 1 month with no improvement. He reports he has pain when he does heavy lifting and making a full close fist. Patient would like to discuss treatment options. 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 He states the locking has been present for approximately a month and once it locks he has a difficult time opening up the hand. He does have a history of type 2 diabetes. Unsure of what his current A1c is. 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 GERD (gastroesophageal reflux disease) Cervical spine pain HTN (hypertension) High cholesterol Asthma Surgical History Hx of hand surgery History of back surgery Hx of esophagogastroduodenoscopy Hx of colonoscopy Family History Father Heart disease Mother Arthritis Diabetes Social History Household Members: Spouse Alcohol intake: never Patient Tobacco Use Status: Former Tobacco user Current occupational status: retired and disabled Review of Systems Const All systems reviewed & are unremarkable except as noted in HPI and below Physical Exam Vital Signs: BMI result Body Mass Index 31.8 Const General: cooperative, healthy appearing and no acute distress Orientation/consciousness: patient oriented x3 HEENT Head: Yes normocephalic and Yes atraumatic Eyes EOM: EOMs intact bilaterally Resp Effort & Inspection: normal respiratory effort and able to speak in complete sentences Cardio Jugular venous distension: no JVD Peripheral pulses: Peripheral pulses 2+ throughout Skin General skin exam: turgor normal Rashes: no rashes Neuro General: patient oriented x3 Extrem Other: Evaluation of Left Upper Extremity: The patient is alert, oriented, and in no acute distress Neuro: Median, Ulnar, Radial nerves motor and sensory intact and sensation is normal to the tips of all digits Vascular: Cap refill brisk ROM: He can make a fist and extend all his digits Visible & palpable locking & catching of the middle finger Tender over the middle finger a1 maureen Skin: No lacerations or abrasions. General: No Ecchymosis. No Erythema or evidence of infection. Psych Appearance: grossly normal Affect: normal affect Attitude: cooperative Assessment & Plan Assessment & Plan (1) Trigger finger, left middle finger: Code(s): M65.332 - Trigger finger, left middle finger Category: Medical Plan We discussed options which include conservative vs operative treatment. Since the patient has been symptomatic for several months and it is impacting their daily life, the decision was made to undergo Trigger release. We discussed risk, benefits and alternatives. Risk including but not limited to infection, stiffness, ongoing trigger or catching. He does understand all this and would like to proceed with left middle finger trigger release with Dr Burnett. He will be booked accordingly. Coding Level of Care Code New Pt Level 4 (51617) Complex EM visit Add On G2211 Diagnoses Trigger finger, left middle finger M65.332
== END 2025-03-05 12:32 | disposition home or self-care (01) ==
PROVIDERS: PCP Internal Medicine Geriatric Medicine; Visit Provider Physician Assistant
DX: M65.332 Trigger finger, left middle finger (principal)
CPT/HCPCS: 99204; G2211

== ENCOUNTER → 2025-03-05 10:00 | Outpatient (BNVA) | payer OTHER, SELFPAY | PROVIDERS: PCP Internal Medicine Geriatric Medicine; Visit Provider Orthopaedic Surgery | DX: M65.332 Trigger finger, left middle finger (principal) | CPT/HCPCS: 99202 ==

== ENCOUNTER 2025-03-20 10:40 | Outpatient (AMB) | payer OTHER, SELFPAY ==
--- NOTE | 2025-03-20 10:47 | MHC.OFFVIS ---
Intake Visit Reasons: 6 month follow up/PVR Intake Note: Patient is present for 6M follow up Urology Medication: Tadalafil,Tamsulosin Antibiotic Allergy:PENICILLINS Blood Thinner:ASPIRIN TODAY'S PVR: 43MLS Laborer General Required: Yes Laborer General Language: Chilean Accompanied by: Spouse Allergies Penicillins Allergy (Mild, Verified 03/20/25 10:48) DIZZY/DIAPHORESIS, N/V penicillin V Allergy (Unknown, Verified 03/20/25 10:48) Unknown HPI Comments Details: Alonzo is a pleasant male. He is seen for the following urologic conditions - lower urinary tract symptoms - erectile dysfunction Chilean translation provided by qualified chief medical director 6m f/u - Progressive urinary weakness Adequate bladder emptying Switch from tamsulosin to terazosin Continue tadalafil Three-month follow-up uroflow Lower urinary tract symptoms Persistent urgency and frequency Weakness of stream Nocturia x2 Consistent with diabetic cystopathy - diabetic nephropathy Concurrent sleep apnea with diabetes Prior medication - alpha-alicia with overactive bladder medication - tamsulosin and low-dose tolterodine Erectile dysfunction secondary to diabetes Minimal activity Good biochemical response to 10 mg daily tadalafil T 258 F 40 Concurrent diagnosis includes sleep apnea, insulin-dependent diabetes, dyslipidemia Medications include amitriptyline, clonazepam, Trulicity, Jardiance, metformin, pravastatin PFSH Medical History Diabetes Upper abdominal pain Pre-op examination Weight loss, abnormal Nausea and vomiting Constipation Obesity (BMI 30-39.9) Diabetes type 2, uncontrolled Diabetic nephropathy associated with type 2 diabetes mellitus Diabetic 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 associated with type 2 diabetes 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 GERD (gastroesophageal reflux disease) Cervical spine pain HTN (hypertension) High cholesterol Asthma Surgical History Hx of hand surgery History of back surgery Hx of esophagogastroduodenoscopy Hx of colonoscopy Family History Father Heart disease Mother Arthritis Diabetes Social History Household Members: Spouse Alcohol intake: never Patient Tobacco Use Status: Former Tobacco user Current occupational status: retired and disabled Review of Systems Const Denies chills and Denies fever(s) Card Reports no additional complaints and Denies syncope Resp Denies cough GI Denies abdominal pain and Denies heartburn Reports as per HPI and Denies change in libido Neuro Denies syncope Psych Denies change in libido Endo Denies change in libido Physical Exam Const General: cooperative, healthy appearing, comfortable and no acute distress Orientation/consciousness: patient oriented x3 HEENT Face and sinus: Yes normal facial exam Mouth: moist mucous membranes Neck Neck: Yes normal visual inspection, Yes full ROM and Yes trachea midline Chest Chest palpation & inspection: normal inspection of the chest Resp Effort & Inspection: normal respiratory effort, able to speak in complete sentences and no respiratory distress GI Inspection: Yes normal to inspection Back/Spine/Pelvis Cervical Spine: normal cervical lordosis Thoracic/Lumbar Spine: thoracic and lumbar spine normal to inspection Skin General skin exam: no rashes or lesions noted Neuro General: patient oriented x3, gait normal, tone normal and moves all extremities Extrem General: Yes normal to inspection and Yes capillary refill normal Assessment & Plan Assessment & Plan (1) Weak urinary stream: Code(s): R39.12 - Poor urinary stream Category: Medical (2) Erectile dysfunction associated with type 2 diabetes mellitus: Code(s): E11.69 - Type 2 diabetes mellitus with other specified complication; N52.1 - Erectile dysfunction due to diseases classified elsewhere Category: Medical Plan Trial terazosin with tadalafil Three-month follow-up uroflow Medications: New terazosin 5 mg PO BEDTIME 30 caps 2RF 30 days R39.12 - Poor urinary stream tadalafil 5 mg PO DAILY 90 tabs 0RF 90 days R39.12 - Poor urinary stream Patient Instructions: This note is constructed using voice recognition software. While every effort has been made to ensure accuracy operational intelligence analyst errors may have been included. Imaging studies, laboratory and physical exam results were discussed and reviewed in detail. No major barriers to patient understanding were identified. An opportunity to ask questions regarding the treatment plan was provided. All questions were answered. The patient expressed understanding and agreement with the above treatment plan. The patient is aware they should contact our office by phone for worsening of their current condition or the appearance of new urologic symptoms. Compliance is encouraged with any medications and followup testing that is ordered. It is a privilege to participate in the urologic care of your patient. If you have any questions or concerns regarding treatment for the above conditions, or other urologic issues, please do not hesitate to contact me. The office telephone contact is [phone]. Sincerely, Dr Francisco J Ham MD, P[facility] - Urology Compassionate Specialist Care for the Genitourinary System Coding Level of Care Code Est Pt Level 4 (68244) Diagnoses Weak urinary stream R39.12 Erectile dysfunction associated with type 2 diabetes mellitus E11.69; N52.1
--- OUTSIDE RECORDS SUMMARY | 2025-03-20 11:21 | XMS_ITS | Encounter Summary ---
Author Organization [employer] Address [address] [place] [address] Care Team Providers Care Publications Production Supervisor Name Role Phone Name, Chan TOLLIVER Primary Care Provider [phone] Naya Malone PharmD Unavailable Encounter Details Date Type Department Care Team (Late st Contact Info) Description 01/12/2023 Abstract [facility] [address] [place], [place] [id number] Name, MD [address] [place] [address] Social History Tobacco Use Types Packs/Day Years [...] Description 04/02/2025 10:00 AM EDT Office Visit [facility] [address] [place], [place] [id number] Anival, Mary, OD [address] [place] [address] 04/09/2025 10:30 AM EDT Medication Management [facility] [address] [place] [address] Naya Malone PharmD [address] [place] [address] documented as of this encounter Visit Diagnoses Not on filedocumented in this encounter Additional Health Concerns Assessment Noted Time PHQ-9 Depression Total Score: 24 07/26/ 022 10:06 AM EST documented as of this encounter Care Teams Publications Production Supervisor Relationship Specialty Start Date End Date Name, MD Chan [address] [place] [id number] PCP - General Family Medicine 08/01/16 Naya Malone PharmD [address] [place] [address] [phone] Pharmacist Internal Medicine 02/17/23 [facility] 11/08/24 documented as of this encounter
--- OUTSIDE RECORDS SUMMARY | 2025-03-20 11:21 | XMS_ITS | Patient Health Record ---
Author Organization [facility] Address [address] [place] [address] Support Name Relationship Address Phone ALONSO LATHAM Emergency Contact [address] [place] [phone] TARI HARDWICK Guarantor Unknown Care Team Providers Care Radiology Scheduler Name Role Phone Leny Diallo Primary Care Provider UnavailAlvin Elmore Jr Unavailable [phone] Allergies Allergen (clinical drug ingredient) Drug/Non Drug [...] W/U Status Risk Notes Problem Esophageal reflux (065421388) Esophageal reflux (530.81) Active confirmed Problem Rectal bleeding (569.3) Active confirmed Plan Of Treatment Future Test Test Name Order Date UPPER GI ENDOSCOPY 06/20/2013 COLONOSCOPY 06/20/2013 Insurance Providers Payer Name Payer Address Payer Phone Subscriber Number Group Number Insured Name Patient Relationship to Insured Coverage Start Date Coverage End Date MEDICARE OF [place] [address] [place] [id number] TARI HERNANDEZ Self - patient is the insured MEDICAID OF [facility] [address] [place] [address] [id number] TARI HERNANDEZ Self - patient is the insured Medical (General) History Medical History History ICD Code type II diabetes asthma hypertension schizophrenia/depression elevated cholesterol esophageal reflux
== END 2025-03-20 11:55 | disposition home or self-care (01) ==
LOC: HO.HUSH 10:41
PROVIDERS: Visit Provider Urology
DX: R39.12 Poor urinary stream (principal); E11.69 Type 2 diabetes mellitus with other specified complication; N52.1 Erectile dysfunction due to diseases classified elsewhere; R39.15 Urgency of urination
CPT/HCPCS: 99214

== ENCOUNTER → 2025-03-20 10:40 | Outpatient (BNVA) | payer OTHER, SELFPAY | PROVIDERS: Visit Provider Urology | DX: E11.69 Type 2 diabetes mellitus with other specified complication (principal); N52.1 Erectile dysfunction due to diseases classified elsewhere; R39.12 Poor urinary stream | CPT/HCPCS: 51798; 81003; 99212 ==

== ENCOUNTER 2025-05-06 10:12 | Outpatient (AMB) | payer OTHER, SELFPAY ==
--- NOTE | 2025-05-06 11:29 | A.OFFVIS_ITS ---
Intake Visit Reasons: OV- Discuss left middle finger trigger release Sx Intake Note: Alonzo is a 70 year old right hand dominant man, Libyan speaking, who presents today with his daughter for a follow up visit for his trigger finger, left middle finger. At last visit on 03/05/25 with Latonia Jaramillo it was advised to follow up with hand surgeon Dr Shabnam Burnett to discuss further treatment. Patient reports a burning pain and describes it as fire in the left hand 3rd digit. He is unable to extend this finger without forcefully doing so and if he does he says it is extremely painful. He is interested in surgery. Hx of Type 2DM. A1c last was ~6 he states. Hx of trigger release on [address] in [place] in the left hand 4th digit. 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 He is here with his daughter. He complains of painful locking & catching of his left middle finger. he says his finger is stuck often and he has to forcefully extend it at times. He describes the pain as burning. He would like to proceed with surgery. He has a Hx of a left ring finger trigger release in [place]. He is a Diabetic and says his most recent HgA1 as ~6.0% [facility] Medical History (Updated 05/06/25 @ 11:58 by Luis Garcia) Diabetes Upper abdominal pain Pre-op examination Weight loss, abnormal Nausea and vomiting Constipation Obesity (BMI 30-39.9) Diabetes type 2, uncontrolled Diabetic nephropathy associated with type 2 diabetes mellitus Diabetic 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 associated with type 2 diabetes mellitus [facility] (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 of insulin GERD (gastroesophageal reflux disease) Cervical spine pain HTN (hypertension) High cholesterol Asthma Surgical History (Reviewed 03/05/25 @ 11:20 by Kayla Pandya [facility]) Hx of hand surgery History of back surgery Hx of esophagogastroduodenoscopy Hx of colonoscopy Family History Father Heart disease Mother Arthritis Diabetes Social History Household Members: Spouse Alcohol intake: never Patient Tobacco Use Status: Former Tobacco user Current occupational status: retired and disabled Review of Systems Const All systems reviewed & are unremarkable except as noted in HPI and below Physical Exam Const General: cooperative, healthy appearing and no acute distress Orientation/consciousness: patient oriented x3 HEENT Head: Yes normocephalic and Yes atraumatic Eyes EOM: EOMs intact bilaterally Resp Effort & Inspection: normal respiratory effort and able to speak in complete sentences Cardio Jugular venous distension: no JVD Skin General skin exam: turgor normal Rashes: no rashes Neuro General: patient oriented x3 Extrem Other: Evaluation of Left Upper Extremity: The patient is alert, oriented, and in no acute distress Neuro: Median, Ulnar, Radial nerves motor and sensory intact and sensation is normal to the tips of all digits Vascular: Cap refill brisk ROM: He can make a fist and extend all his digits except for his middle finger Middle finger is locked down in flexion and cannot be actively extended I carefully unlocked his finger today in clinic Tender over the middle finger a1 maureen Skin: No lacerations or abrasions. General: No Ecchymosis. No Erythema or evidence of infection. Psych Appearance: grossly normal Affect: normal affect Attitude: cooperative Assessment & Plan Assessment & Plan (1) Trigger finger, left middle finger: Code(s): M65.332 - Trigger finger, left middle finger Category: Medical (2) Diabetic 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 associated with type 2 diabetes mellitus: Code(s): E11.42 - Type 2 diabetes mellitus with diabetic 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 Category: Medical (3) Diabetes: Code(s): E11.9 - Type 2 diabetes mellitus without complications Category: Medical Plan Assessment & Plan: 1. Left middle finger trigger finger I educated him about this condition I discussed operative and non-operative treatment options The patient would like to proceed with surgery The risks and benefits of operative treatment were discussed with the patient and the patient wishes to proceed with surgery. These risks include, but are no t limited to risk of damage to blood vessels, nerves, tendons, infection, recurrence, incomplete relief of preoperative symptoms, persistent pain, possible need for further surgery and the risks associated with regional blocks and anesthesia. The plan is to take the patient to the operating room sometime in the next few weeks for the following procedures: 1. Left middle finger trigger release, under local All of the preoperative paperwork including the consent was reviewed today. All the patient's questions were answered. The patient understands that they will be contacted by our recruiting scheduler soon to schedule this procedure He would be nice if we can get him in in the next 2-3 weeks since his fingers getting stuck down so badly. He denies blood thinners, asthma, heart, lung, kidney issues He is a Diabetic. He says his most recent HgA1c was ~6.0%. They will need an updated HgA1c that is <8.1% in order to proceed with surgery, and they expressed understanding Scribed for Shabnam Burnett MD by Luis Garcia, director of medical review, on 05/06/25 at 12:00 PM, EST. Coding Level of Care Code Est Pt Level 4 (39324) Diagnoses Trigger finger, left middle finger M65.332 Diabetic 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 associated with type 2 diabetes mellitus E11.42 Diabetes E11.9
--- OUTSIDE RECORDS SUMMARY | 2025-05-06 12:23 | XMS_ITS | Encounter Summary ---
Author Organization [employer] Address [facility] [address] [place] [address] Care Team Providers Care Camp Counselor Name Role Phone Name, Chan TOLLIVER Primary Care Provider [phone] Naya Malone PharmD Unavailable [phone] Encounter Details Date Type Department Care Team (Latest Contact Info) Description 05/05/2025 Travel Social History Tobacco Use Types Packs/Day Years Used Date Smoking Tobacco: Former Cigarettes Passive Smoke Exposure: Past Smokeless Tobacco: Former Alcohol Use Standard Drinks/Week Comments Never 0 (1 standard drink = 0.6 oz pur e alcohol) Alcohol Answer Date Recorded Frequency of Alcohol Consumption Not on file 03/13/2024 Average Number of Drinks Not on file 024 Frequency of Binge Drinking Not on file 02/13 Score 0 03/13/2024 Depression Answer Date Recorded Patient Health Questionnaire-9 Score 23 01/16/2025 Patient Health Questionnaire-9 Score 23 01/16/2025 Last PHQ-9: Questionnaire Data Not on file 0 01/16/2025 Housing Stability Answer Date Recorded What is [...] Date Recorded Patient Health Questionnaire-2 Score 6 01/16/2025 Internet Access Answer Date Recorded Internet Access Q1 Yes 03/15/2025 Internet Access Q2 Not on file 03/15/2025 Sex and Gender Information Value Date Recorded Sex Assigned at Male 06/13/2022 10:17 AM EDT Legal Sex Male 10:17 AM EDT Gender Identity Male 06/13/2022 10:17 AM EDT Sexual Orientation Straight 06/13/2022 10 :17 AM EDT documented as of this encounter Plan of Treatment Upcoming Encounters Date Type Department Care Team (Late st Contact Info) Description 06/02/2025 11:00 AM EDT Office Visit [facility] MED[facility]INE [address] [place] [address] Name, MD Chan [address] [place] [address] documented as of this encounter Goals Goal Patient Goal Type Associated Problems Recent Progress Patient-Stated? Author Work on dietary modification. Diet No Naya Malone, PharmD Note: - Drink less soda, juice, and other sugary beverages Patient will adhere to medication regimen General On track( 023 11:22 AM EST) No Enrikeia, Naya, PharmD Hemoglobin A1c < 7 Result Component 8.2( 9:04 AM EDT) No Naya Malone, PharmD Record your blood sugar as directed Result Component On track( 023 11:22 AM EST) No Faisal Naya, PharmD Note: Use CGM, ensuring sensor is scanned at least once every 8 hours to capture 24H data. Check BG manually, as directed. documented as of this encounter Visit Diagnoses Not on filedocumented in this encounter Additional Health Concerns Assessment Noted Time PHQ-9 Depression Total Score: 23 025 1:39 PM EDT documented as of this encounter Care Teams Camp Counselor Relationship Specialty Start Date End Date Name, MD Chan [address] [place] [address] PCP - General Family Medicine 08/01/16 Naya Malone PharmD [address] [place] [address] Pharmacist Internal Medicine 02/17/23 [facility] 11/08/24 documented as of this encounter
--- OUTSIDE RECORDS SUMMARY | 2025-05-06 12:23 | XMS_ITS | Clinical Summary ---
Author Organization [address] [facility] Address [address] [place] [address] Phone Care Team Providers Care Woodworker Helper Name Role Phone Name, Chan TOLLIVER Primary Care Provider [phone] Allergies No known active allergies Medications traMADol-acetam [...] Encounters Date Type Department Care Team Description 03/19/2025 10:30 AM EDT Office Visit Orthopedic [facility] [address] [facility] [address] [place] [address] Gene Blankenship DPM Controlled type 2 diabetes with neuropathy ([facility] V24, [facility] V28) (Primary Dx); Pain in toes of [...] Care Team (Late st Contact Info) Description 06/19/2025 9:45 AM EST Office Visit Orthopedic Surgery - [place] [address] [address] Gene Blankenship DPM [address] [address] Health Maintenance Due Date Last Done Comments Diabetes: Annual Foot Exam 1966 Diabetes: Annual Retina Eye Exam 1966 Zoster Vaccines (1 of 2) 2006 RSV Immunization Adult Patients (1 - Risk 60-74 years 1-dose series) 2016 Abdominal Aortic Aneurysm (AAA) Screen 03/12/2024 Colorectal Cancer Screening: Colonoscopy 03/12/2024 Falls Risk Assessment 03/12/2024 Medicare Annual Wellness Visit 03/12/2024 Social Influencers of Health Screening 03/12/2024 Depression Screening 08/14/2024 Diabetes: Annual Urine Albumin-Creatinine Ratio (uACR) 11/08/2024 11/09/2023 COVID-19 Vaccine ( season) 2025 Influenza Vaccine (#1) 2025 , 04/29/2020, 05/07/2019, Additional history exists Diabetes: Blood Sugar Control Test (HGBA1C) 07/03/2025 12/31/2024, 10/22/2024, 10/01/2024, Additional history exists Diabetes: Annual GFR (Glomerular [...] * Urine Albumin Creatinine Ratio (11/09/2023) Pathologist [facility] Urine Albumin Creatinine Ratio abstracted Result [facility] Provider HEALTH MAINTENANCE Final Result * Annual BMP Blood Test (11/09/2023) [facility] Annual BMP Blood Test abstracted Result [facility] Provider HEALTH MAINTENANCE Final Result * Lipid panel (07/05/2023) [facility] LDL/HDL Ratio 0 Comment:no interpretation, a bstracted Triglycerides 0 mg/dL Comment:no interpretation, a bstracted Cholesterol 0 mg/dL Comment:no interpretation, a bstracted HDL 0 mg/dL Comment:no interpretation, a bstracted LDL Cholesterol 0 mg/dL Comment:no interpretation, a bstracted Blood Venous blood specimen / Unknown Result [facility] Provider LAB BLOOD ORDERABLES Sue l Result * Hepatitis C Screening (04/05/2022) [facility] Hepatitis C Screening abstracted Result [facility] Provider HEALTH [facility] Final Result * Hemoglobin A1c (07/22/2020) [facility] Hemoglobin A1C 0.0 % Comment:no interpretation, a bstracted Blood Venous blood specimen / Unknown Result [facility] Provider LAB BLOOD ORDERABLES Sue l Result from Last 3 Months or Most Recently Relevant to Health Maintenance Insurance [employer] MEDICARE Member Subscriber Plan / Payer (Ef fective 2024-Present) Name:ALONZO DOTSON Relation to Subscriber:Self Name:Alonzo Dotson Payer ID:[id number] Group ID:[id number] Type:Not on file Address: [place] [address] [address] [id number] Care Teams Woodworker Helper Relationship Specialty Start Date End Date Name, MD Chan [address] [place], [place] PCP - General Internal Medicine 06/25/19
--- OUTSIDE RECORDS SUMMARY | 2025-05-06 12:23 | XMS_ITS | Encounter Summary ---
Author Organization [employer] Address [address] [facility] [address] [place] [address] Care Team Providers Care Collection Specialist Name Role Phone Name, Chan TOLLIVER Primary Care Provider [phone] Naya Malone PharmD Unavailable Reason for Visit * Reason Comments Med Refill Encounter Details Date Type Department Care Team (Late st Contact Info) Description 02/17/[address] [facility] MEDICINE [address] [place], [place] [phone] Name, MD Chan [address] [place], [place] [phone] Type 2 diabetes mellitus with hyperglycemia, with long-term current use of insulin ([facility]) Social History Tobacco Use Types [...] In the last 10 days, have yo u been in contact with someone who was confirmed or suspected to have Coronavirus/COVID-19? No / Unsure 02/16/2023 8:27 AM EDT documented as of this encounter Plan of Treatment Upcoming Encounters Date Type Department Care Team (Late st Contact Info) Description 06/02/2025 11:00 AM EDT Office Visit [facility] [address] [facility] [place] [address] Name, MD Chan [address] [place] [address] documented as of this encounter Goals Goal Patient Goal Type Associated Problems Recent Progress Patient-Stated? Author Hemoglobin A1c < 7 Result Component 8.2( 9:04 AM EDT) No Naya Malone PharmD Record [...] current use of insulin ([facility]) documented in this encounter Additional Health Concerns Assessment Noted Time PHQ-9 Depression Total Score: 24 022 10:06 AM EST documented as of this encounter Care Teams Collection Specialist Relationship Specialty Start Date End Date Name, MD Chan [address] [place] [address] PCP - General Family Medicine 08/01/16 Naya Malone PharmD [address] [place] [address] Pharmacist Internal Medicine 02/17/23 [facility] 11/08/24 documented as of this encounter
--- OUTSIDE RECORDS SUMMARY | 2025-05-06 12:23 | XMS_ITS | Encounter Summary ---
Author Organization [employer] Address [address] [facility] [address] [place] [address] Care Team Providers Care Work Counselor Name Role Phone Name, Chan TOLLIVER Primary Care Provider [phone] Naya Malone PharmD Unavailable [phone] Reason for Visit * Reason Comments Med Refill Encounter Details Date Type Department Care Team (Late st Contact Info) Description 08/22/2022 Refill [facility] MED[facility]INE [address] [place], [place] [phone] Name, MD Chan [address] [place], [place] [phone] Diabetic 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 associated with type 2 diabetes [...] Description 06/02/2025 11:00 AM EDT Office Visit [facility] MEDICINE [address] [place] [address] Name, [place] [address] documented as of this encounter Visit Diagnoses Diagnosis Diabetic 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 associated with type 2 diabetes mellitus (CMS/HCC)- Primary documented in this encounter Additional Health Concerns Assessment Noted Time PHQ-9 Depression Total Score: 24 022 10:06 AM EST documented as of this encounter Care Teams Work Counselor Relationship Specialty Start Date End Date Name, [place] [address] PCP - General Family Medicine 08/01/16 Naya Malone PharmD [address] [place] [address] Pharmacist Internal Medicine 02/17/23 [facility] 11/08/24 documented as of this encounter
--- OUTSIDE RECORDS SUMMARY | 2025-05-06 12:23 | XMS_ITS | Encounter Summary ---
Author Organization [employer] Address [address] [facility] [address] [address] Care Team Providers Care Pressroom Supervisor Name Role Phone Name, Chan TOLLIVER Primary Care Provider Naya Malone PharmD Unavailable Encounter Details Date Type Department Care Team (Latest Contact Info) Description 03/24/2021 Abstract [facility] CONVERSIONS Dental, Provider, DDS Social History [...] Description 06/02/2025 11:00 AM EDT Office Visit [facility] MEDICINE [address] [place] [address] NameChan MD [address] [place] [address] documented as of this encounter Visit Diagnoses Not on filedocumented in this encounter Care Teams Pressroom Supervisor Relationship Specialty Start Date End Date Chan Holley MD [address] [place] [address] PCP - General Family Medicine 08/01/16 Naya Malone, PharmD [address] [place] [address] Pharmacist Internal Medicine 02/17/23 [facility] 11/08/24 documented as of this encounter
--- OUTSIDE RECORDS SUMMARY | 2025-05-06 12:23 | XMS_ITS | Encounter Summary ---
Author Organization [employer] Address [address] [facility] [address] [place] [address] Care Team Providers Care Supervisor [employer]rection Shop Name Role Phone Name, Chan TOLLIVER Primary Care Provider [phone] Naya Malone PharmD Unavailable [phone] Encounter Details Date Type Department Care Team (Late st Contact Info) Description 01/12/2024 Telephone [facility] [address] [place] [address] Priya Felix, BRANT Social History Tobacco Use [...] Description 06/02/2025 11:00 AM EDT Office Visit [facility] MED[facility] [address] [place] [address] Name, MD Chan [address] [place] [address] documented as of this encounter Goals Goal Patient Goal Type Associated Problems Recent Progress Patient-Stated? Author Work on dietary modification. Diet No Enrikeia, Naya, PharmD Note: - Drink less soda, juice, and other sugary beverages Patient will adhere to medication regimen General On track( 023 11:22 AM EST) No Enrikeia, Naya, PharmD Hemoglobin A1c < 7 Result Component 8.2( 9:04 AM EDT) No Pushoshana, Naya, PharmD Record your blood sugar as directed Result Component On track( 023 11:22 AM EST) No Faisal, Naya, PharmD Note: Use CGM, ensuring sensor is scanned at least once every 8 hours to capture 24H data. Check BG manually, as directed. documented as of this encounter Visit Diagnoses Not on filedocumented in this encounter Additional Health Concerns Assessment Noted Time PHQ-9 Depression Total Score: 0 11/09/19 24 11:08 AM EDT documented as of this encounter Care Teams Supervisor Erection Shop Relationship Specialty Start Date End Date Name, MD Chan [address] [place] [address] PCP - General Family Medicine 08/01/16 Naya Malone PharmD [address] [place] [address] Pharmacist Internal Medicine 02/17/23 [facility] 11/08/24 documented as of this encounter
--- OUTSIDE RECORDS SUMMARY | 2025-05-06 12:23 | XMS_ITS | Clinical Summary ---
Author Organization [employer] Address [address] [place] [address] Care Team Providers Care Assistant Oceanographer Name Role Phone Name, Chan TOLLIVER Primary Care Provider [phone] Naya Malone PharmD Unavailable [phone] Allergies Active Allergy Reactions Criticality Noted [...] daily. Before meals & bedtime 023 Active omeprazole (PriLOSEC) [address] capsule Take 40 mg by mouth before breakfast and before evening meal. 023 Active TRUEplus Lancets 33G miscIndications:T ype 2 diabetes mellitus with diabetic 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 (CMS/HCC) Use to test blood sugar up to 3 times daily as directed 100 each 024 Active donepezil (Aricept) 10 MG tablet Take 10 mg by mouth at bedtime. 024 Active Synjardy 12.5-500 MGIndications:Typ e 2 diabetes mellitus with hyperglycemia, with long-term current use of insulin (CMS/HCC) TAKE 1 TABLET BY MOUTH TWICE DAILY IN THE MORNING AND IN THE EVENING WITH MEALS 60 tablet 025 Active magnesium oxide 500 MG tablet Take 1 tablet by mouth at bedtime. 025 Active insulin glargine (Lantus SoloStar) 100 UNIT/ML penIndications:Ty pe 2 diabetes mellitus with hyperglycemia, with long-term current use of insulin (CMS/[facility]) Inject 28 Units under the skin at bedtime. 15 mL 025 Active albuterol 108 (90 Base) MCG/ACT inhalerIndication s:Type 2 diabetes mellitus with diabetic 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, with long-term current use of insulin (CMS/[facility]) Inhale 2 puffs every 4 (four) hours. 18 g 025 Active Alcohol Swabs (Alcohol Prep) 70 % padsIndications:T ype 2 diabetes mellitus with hyperglycemia, with long-term current use of insulin (CMS/HCC) USE UP TO FOUR TIMES DAILY DIRECTED 100 each 025 Active econazole nitrate 1 % cream APPLY TO AFFECTED AREA(S) AND SURROUNDING AREA(S) TWICE DAILY IN THE MORNING AND EVENING 85 g 025 Active cyclobenzaprine (Flexeril) 10 MG tablet Take 10 mg by mouth if needed at bedtime for muscle spasms. 025 Active gabapentin (Neurontin) 300 MG capsule Take 300 mg by mouth 2 times daily. 025 Active Continuous Glucose Anesthetic Assistant (FreeStyle Mata 3 Ceylon) deviceIndications :Type 2 diabetes mellitus with hyperglycemia, with long-term current use of insulin (CMS/HCC) 1 each Once per day. Use as directed for CGM 1 each 025 Active Continuous Glucose Sensor (FreeStyle Mata 3 Plus Sensor) miscIndications:T ype 2 diabetes mellitus with hyperglycemia, with long-term current use of insulin ([facility]) Apply 1 every 15 days as directed for CGM 2 each 025 Active glucose blood (FreeStyle Precision Anthony Test) test stripIndications: Type 2 diabetes mellitus with hyperglycemia, with long-term current use of insulin ([facility]) Use to test blood sugar up to 3 times daily, as directed 100 each 025 Active glucose 4 g chewable tabletIndications :Type 2 diabetes mellitus with hyperglycemia, with long-term current use of insulin ([facility]) Chew 4 tablets (16 g) if needed for low blood sugar. 40 tablet 025 2025 Active glucagon (Baqsimi Two Pack) 3 MG/DOSE nasal powderIndications :Type 2 diabetes mellitus with hyperglycemia, with long-term current use of insulin ([facility]) Administer 3 mg via 1 device into the nostril for hypoglycemia with loss of consciousness. If no response after 15 minutes administer an additional dose via 2nd device into other nostril. 2 each 025 Active pravastatin (Pravachol) 80 MG tabletIndications :Type 2 diabetes mellitus with hyperglycemia, with long-term current use of insulin ([facility]) TAKE 1 TABLET BY MOUTH EVERY MORNING 90 tablet 3 025 Active lisinopril-hydroC HLOROthiazide 10-12.5 MG tabletIndications :Essential hypertension TAKE 1 TABLET BY MOUTH EVERY MORNING 90 tablet 025 Active Aspirin Low Dose 81 MG EC tabletIndications :Diabetic 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 associated with type 2 diabetes mellitus ([facility]) TAKE 1 TABLET BY MOUTH EVERY MORNING 90 tablet 1 025 Active Fluticasone-Salme terol 250-50 MCG/ACT aerosol powderIndications :Asthma, unspecified asthma severity, unspecified whether complicated, unspecified whether persistent INHALE 1 PUFF BY MOUTH TWICE DAILY IN THE MORNING AND IN THE EVENING RINSE MOUTH AFTER USING. 60 each 025 Active amitriptyline (Elavil) 50 MG tabletIndications :Diabetic 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 associated with type 2 diabetes mellitus ([facility]) TAKE 1 TABLET BY MOUTH AT BEDTIME 30 tablet 025 Active BD Pen Needle Carmen Ultrafine 32G X 4 MM miscIndications:T ype 2 diabetes mellitus with hyperglycemia, with long-term current use of insulin (CMS/HCC) USE DIRECTED EVERY DAY FOR INSULIN INJECT 100 each 5 025 Active terazosin (Hytrin) 5 MG capsule TOME 1 C PSULA POR V A ORAL AL ACOSTARSE Active Tirzepatide (Mounjaro) 7.5 MG/0.5ML solution auto-injectorIndi cations:Type 2 diabetes mellitus with hyperglycemia, with long-term current use of insulin (CMS/HCC) Inject 7.5 mg under the skin 1 (one) time per week for 28 days. 2 mL 2 025 2024 Active insulin pen needle (Pentips) 32G x 4 mm miscIndications:T ype 2 diabetes mellitus with hyperglycemia, with long-term current use of insulin (CMS/HCC) USE 1 DAILY FOR INSULIN INJECTION 100 each 3 024 2024 Discontinued Tirzepatide (Mounjaro) 5 MG/0.5ML solution auto-injectorIndi cations:Type 2 diabetes mellitus with hyperglycemia, with long-term current use of insulin (CMS/HCC) Inject 5 mg under the skin 1 (one) time per week. 2 mL 11 025 2024 Discontinued Active Problems Problem Noted Date Diagnosed Date Type 2 diabetes mellitus wit h hyperglycemia, with long-term current use of insulin 04/11/2025 Assessment & Plan (04/11/2025 9:35 AM EDT): Pt with hyperglycemia, reviewed nutrition, encouraged hydration Will increase mounjaro 7.5 mg, though pt will administer 5 mg today, and adjust does next week If there are difficulties acquiring medication will revisit plan and adjust lantus dose. 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 05/11/2023 GERD (gastroesophageal reflux disease) High cholesterol 05/11/2023 long-term (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 of insulin 05/11/2023 Uncontrolled type [...] Encounters Date Type Department Care Team Description 05/05/2025 Travel 04/11/2025 9:00 AM EDT Office Visit [facility] [address] [place] [address] Nina Cardozo NP Type 2 diabetes mellitus with hyperglycemia, with long-term current use of insulin (CMS/[facility]) (Primary Dx) 04/11/2025 Travel 04/10/2025 Telephone [facility] [address] [place] [address] Jean Carlos Harrington MA CHARTPREP 04/10/2025 Telephone [facility] [address] [place] [address] Chan Holley MD Nurse Triage 04/09/2025 Telephone [facility] [address] [place] [address] Chan Holley MD 04/07/2025 Travel 04/07/2025 Refill [facility] [address] [place] [address] Naya Malone PharmD Type 2 diabetes mellitus with hyperglycemia, with long-term current use of insulin (CMS/HCC) 04/02/2025 10:00 AM EDT Office Visit [facility] [address] [place] [address] Anival, Mary, OD 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 diabetes mellitus (CMS/HCC) (Primary Dx); Asteroid hyalosis of left eye; Meibomian gland dysfunction (MGD) of upper and lower lids of both eyes; Pseudophakia of both eyes; Presbyopia of both eyes 04/02/2025 Travel 04/01/2025 Travel 03/21/2025 Telephone [facility] [address] [place] [address] Jarad Burt MA october recalls 03/05/2025 Refill [facility] [address] [place] [address] Naya Malone PharmD Type 2 diabetes mellitus with hyperglycemia, with long-term current use of insulin ([facility]) 02/28/2025 Refill [facility] [address] [place] [address] Letha Cooney MD Diabetic 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 associated with type 2 diabetes mellitus ([facility]) 02/28/2025 Refill [facility] [address] [place] [address] Chan Holley MD Asthma, unspecified asthma severity, unspecified whether complicated, unspecified whether persistent; Diabetic 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 associated with type 2 diabetes mellitus ([facility]) 02/03/2025 Refill [facility] [address] [place] [address] Chan Holley MD Diabetic 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 associated with type 2 diabetes mellitus ([facility]) from Last 3 Months Immunizations Immunization Administration Dates Next Due Hep B, adult [...] Passive Smoke Exposure: Past Smokeless Tobacco: Former Tobacco Cessation:Counseling Given: Not [...] Sign Reading Time Taken Comments Blood Pressure 132/74 04/11/2025 9:02 AM EDT Pulse 86 04/11/2025 9:02 AM EDT Temperature 36.6 C (97.9 F) 04/11/2025 9:02 AM EDT Respiratory Rate 12 04/11/2025 9:02 AM EDT Oxygen Saturation 98% 04/11/2025 9:02 AM EDT Inhaled Oxygen Concentration - - Weight 80.3 kg (177 lb 2 oz) 04/11/2025 9:02 AM EDT Height 161.4 cm (5' 3.54 ) 04/11/2025 9:02 AM ED T Body Mass Index 30.85 04/11/2025 9:02 AM EDT Plan of Treatment Upcoming Encounters Date Type Department Care Team (Late st Contact Info) Description 06/02/2025 11:00 AM EDT Office Visit [facility] [address] [place], [place] [phone] Name, MD Chan [address] [place] [address] Health Maintenance Due Date Last Done Comments CT Colonography 1956 FIT DNA/Cologuard 1956 FIT 1956 FOBT 1955 Sigmoidoscopy 1956 Zoster Vaccines (1 of 2) 2006 RSV Patients and Patients Aged 60 years or older (1 - Risk 60-74 years 1-dose series) 2016 Dental Prophylaxis 05/24/2023 11/21/2022 Dental Oral Exam 04/27/2024 10/25/2023, 11/21/2022 Diabetes: Foot Exam 07/11/2024 07/11/2023, 07/11/2023, 07/11/2023, Additional history exists Dental X-Ray: Bitewings 10/25/2024 10/25/2023, 11/21 COVID-19 Vaccine ( season) 2025 Influenza Vaccine (#1) 2025 , 04/29/2020, 05/07/2019, Additional history exists Diabetes: Hemoglobin A1C 07/12/2025 025, 12/31/2024, 10/22/2024, Additional history exists Depression Monitoring 07/18/2025 01/16/2025, 025 Lipid Panel 11/06/2025 11/06/2024, 06/15, 01/18/2022, Additional history exists DTaP/Tdap/Td Vaccines (3 - Td or Tdap) 12/09/2025 12/10/2015, 07/11/2012, 09/11/2006 Colonoscopy 12/12/2025 12/12/2022 Colorectal Cancer Screening 12/12/2025 Alcohol/Substance Use Screening 01/16/2026 01/16/2025 SDOH Screening 01/16/2026 01/16/2025 Eye Exam 04/02/2026 04/02/2025, 03/15, 04/02/2025, Additional history exists Tobacco Screening 04/23/2026 04/23/2025 Dental X-Ray: Full Mouth 10/25/2026 10/25/2023, 11/12 [...] Result Component 8.2( 9:04 AM EDT) No Puia, Naya, PharmD Record your blood sugar as directed Result Component On track( 023 11:22 AM EST) No Puia, Naya, PharmD Note: Use CGM, ensuring sensor is scanned at least once every 8 hours to capture 24H data. Check BG manually, as directed. Procedures Procedure Name Priority Date/Time Associated Diagnosis Comments POCT GLYCATED HEMOGLOBIN, TOTAL Routine 04/11/2025 9:04 AM EDT Type 2 diabetes mellitus with hyperglycemia, with long-term current use of insulin ([facility]) POCT GLUCOSE Routine 04/11/2025 9:04 AM EDT Type 2 diabetes mellitus with hyperglycemia, with long-term current use of insulin (CMS/[facility]) LIPID PANEL, STANDARD Routine 11/06/2024 8:30 AM EDT Type 2 diabetes mellitus with diabetic 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, with long-term current use of insulin ([facility]) INTRAORAL - COMPLETE SERIES OF RADIOGRAPHIC IMAGES [...] Relevant to Health Maintenance Results * (ABNORMAL) POCT HGB A1C (04/11/2025 9:04 AM EDT) Hemoglobin A1C 8.2(A) 4.0 - 5.7 % QC Media Lot # [id number] Lot# Expiration Date Blood 04/11/2025 9:04 AM EDT Nina Cardozo NP POINT OF CARE TEST ENTER/EDIT OR DERABLES Final Result * POCT Glucose (04/11/2025 9:04 AM EDT) Glucose Blood, POC 188 60 - 200 mg/dL QC Media Lot # [id number] Lot# Expiration Date [id number] Blood Capillary blood specimen / Unknown 04/11/2025 9:04 AM EDT Nina Cardozo SIGN PAINTER POINT OF CARE TEST ENTER/EDIT OR DERABLES Final Result * (ABNORMAL) Lipid Panel, Standard (11/06/2024 8:30 AM EDT) Triglycerides 189(H) <150 mg/dL [facility] Comment:Desirable Triglyceri de: less than 150 mg/dLBorderline High Triglyceride 150-199 mg/dLHigh Triglyceride: 200-499 mg/dLVery High Triglyceride: greater than or equal to 5OO mg/dL Cholesterol 174 <200 mg/dL [facility] Comment:Desirable Cholestero l: less than 200 mg/dLBorderline High Cholesterol: 200-239 mg/dLHigh Cholesterol: greater than 239 mg/dL LDL Cholesterol Calculated 90 <100 mg/dL [facility] Comment:Desirable LDL: less than 100 mg/dLNear Optimal/Above Optimal LDL: 110- 129 mg/dLBorderline High LDL: 130-159 mg/dLHigh LDL: 160-189 mg/dLVery High LDL: greater than or equal to 190 mg/dL HDL Cholesterol 47 >40 mg/dL [facility] Comment:Desirable HDL: great er than 40 mg/dL Note: This HDL assay may give artificially low results in patients with liver disease. Blood Venous blood specimen / Unknown 11/06/2024 8:30 AM EDT 11/06/2024 11:05 AM EDT Chan Holley MD LAB BLOOD ORDERABLES Final Resul t [facility] [address] [place] [address] [phone] * (ABNORMAL) Colonoscopy (12/12/2022) Colonoscopy Abnormal( A) Normal Comment:Repeat in 3 yrs Historical Provider MD HEALTH MAINTENANCE Final Result * HEPATITIS C AB W/REFL TO HCV RNA, QN, PCR (04/05/2022 10:35 AM EDT) HEPATITIS C ANTIBODY NON-REACT [facility] NON-REACT [facility] INDEX 0.04 <1.00 [facility] Comment: HCV antibody was non-reactive. There is no laboratory evidence of HCV infection. In most cases, no further action is required. However, if recent HCV exposure is suspected, a test for HCV RNA (test code 44867) is suggested. For additional information please refer to http://education.Dishcrawl/faq/XKR37y8 (This link is being provided for informational/ educational purposes only.) 04/05/2022 10:3 5 AM EDT Vaishali Nieves BR[facility] HISTORICAL/NON ORDERABLE LABS Final Result [facility] [address] from Last 3 Months or Most Recently Relevant to Health Maintenance Insurance [facility] [employer] OPTIONS (HMO D-SNP) [facility] - [facility] Care Teams Assistant Oceanographer Relationship Specialty Start Date End Date Name, MD Chan [address] [place] [address] PCP - General Family Medicine 08/01/16 Naya Malone, PharmD [address] [place] [address] Pharmacist Internal Medicine 02/17/23 [facility] 11/08/24
--- OUTSIDE RECORDS SUMMARY | 2025-05-06 12:23 | XMS_ITS | Encounter Summary ---
Author Organization [employer] Address [address] [place] [address] Care Team Providers Care Branch Retail Executive Name Role Phone Name, Chan TOLLIVER Primary Care Provider [phone] Naya Malone PharmD Unavailable Reason for Visit * Reason Comments Med Refill Encounter Details Date Type Department Care Team ([facility] st Contact Info) Description 09/02/2023 Refill [facility] [address] [place], [place] [phone] Name, MD Chan [address] [place], [place] [phone] Asthma, unspecified asthma severity, unspecified whether complicated, [...] Description 06/02/2025 11:00 AM EDT Office Visit [facility] [address] [place] [address] Name, MD Chan [address] [place] [address] documented as of this encounter Goals Goal Patient Goal Type Associated Problems Recent Progress Patient-Stated? Author Patient will adhere to medication regimen General On track( 023 11:22 AM EST) No PuiaNaya, PharmD Hemoglobin A1c < 7 Result Component 8.2( 9:04 AM EDT) No Aura Malonesa, PharmD Record your blood sugar as directed Result Component On track( 023 11:22 AM EST) No Enrikeia Naya, PharmD Note: Use CGM, ensuring sensor [...] as of this encounter Care Teams Branch Retail Executive Relationship Specialty Start Date End Date NameChan MD [address] [place] [address] PCP - General Family Medicine 08/01/16 Naya Malone PharmD [address] [place] [address] Pharmacist Internal Medicine 02/17/23 [facility] 11/08/24 documented as of this encounter
--- OUTSIDE RECORDS SUMMARY | 2025-05-06 12:23 | XMS_ITS | Encounter Summary ---
Author Organization [employer] Address [address] [place] [address] Care Team Providers Care Application Engineer Name Role Phone Name, Chan TOLLIVER Primary Care Provider Naya Malone PharmD Unavailable Encounter Details Date Type Department Care Team (Latest Contact Info) Description 03/05/2019 Abstract [facility] CONVERSIONS Dental, Provider, DDS Social [...] Description 06/02/2025 11:00 AM EDT Office Visit [facility] [address] [place] [address] NameChan MD [address] [place] [address] documented as of this encounter Visit Diagnoses Not on filedocumented in this encounter Care Teams Application Engineer Relationship Specialty Start Date End Date Chan Holley MD [address] [place] [address] PCP - General Family Medicine 08/01/16 Naya Malone, PharmD [address] [place] [address] Pharmacist Internal Medicine 02/17/23 [facility] 11/08/24 documented as of this encounter
--- OUTSIDE RECORDS SUMMARY | 2025-05-06 12:23 | XMS_ITS | Patient Health Record ---
Author Organization [facility] Address [address] [place] [address] Support Name Relationship Address Phone ALONSO LATHAM Emergency Contact [address] [place] [phone] TARI HARDWICK Guarantor Unknown Care Team Providers Care Route Vending Machine Servicer Name Role Phone Leny Diallo Primary Care [...] W/U Status Risk Notes Problem Esophageal reflux (330214617) Esophageal reflux (530.81) Active confirmed Problem Rectal bleeding (71426493) Rectal bleeding (569.3) Active confirmed Plan Of Treatment Future Test Test Name Order Date UPPER GI ENDOSCOPY 06/20/2013 COLONOSCOPY 06/20/2013 Insurance Providers Payer Name Payer Address Payer Phone Subscriber Number Group Number Insured Name Patient Relationship to Insured Coverage Start Date Coverage End Date MEDICARE OF [place] [address] [place] [address] [id number] TARI HERNANDEZ Self - patient is the insured MEDICAID OF [facility] [address] [place] [address] [id number] TARI HERNANDEZ Self - patient is the insured Medical (General) History Medical History History ICD Code type II diabetes asthma hypertension schizophrenia/depression elevated cholesterol esophageal reflux
--- OUTSIDE RECORDS SUMMARY | 2025-05-06 12:23 | XMS_ITS | Encounter Summary ---
Author Organization [employer] Address [address] [place] [address] Care Team Providers Care Direct Marketing Specialist Name Role Phone Name, Chan TOLLIVER Primary Care Provider [phone] Naya Malone PharmD Unavailable [phone] Encounter Details Date Type Department Care Team (Late st Contact Info) Description 01/12/2023 Abstract [facility] [address] [place], [place] [phone] Name, MD hCan [address] [place] [address] Social History Tobacco Use Types Packs/Day Years [...] Description 06/02/2025 11:00 AM EDT Office Visit [facility] [address] [facility] [place] [address] Name, [place] [address] documented as of this encounter Visit Diagnoses Not on filedocumented in this encounter Additional Health Concerns Assessment Noted Time PHQ-9 Depression Total Score: 24 022 10:06 AM EST documented as of this encounter Care Teams Direct Marketing Specialist Relationship Specialty Start Date End Date Name, MD Chan [place] [facility] [place] [address] PCP - General Family Medicine 08/01/16 [place] [address] Pharmacist Internal Medicine 02/17/23 [facility] 11/08/24 documented as of this encounter
== END 2025-05-06 12:36 | disposition home or self-care (01) ==
LOC: HO.HOS 10:13
PROVIDERS: Visit Provider Orthopaedic Surgery
DX: M65.332 Trigger finger, left middle finger (principal); E11.42 Type 2 diabetes mellitus with diabetic 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
CPT/HCPCS: 99214

== ENCOUNTER → 2025-05-06 10:12 | Outpatient (BNVA) | payer OTHER, SELFPAY | PROVIDERS: Visit Provider Orthopaedic Surgery | DX: M65.332 Trigger finger, left middle finger (principal); E11.42 Type 2 diabetes mellitus with diabetic 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 | CPT/HCPCS: 99212 ==

== ENCOUNTER 2025-05-19 08:30 | Day surgery (SDC) | payer OTHER, SELFPAY ==
--- OUTSIDE RECORDS SUMMARY | 2025-05-08 18:59 | XMS_ITS | Encounter Summary ---
Author Organization [employer] Address [address] [place] [address] Care Team Providers Care Maint Mechanic Name Role Phone Name, Chan TOLLIVER Primary Care Provider [phone] Naya Malone PharmD Unavailable [phone] Encounter Details Date Type Department Care [...] Description 06/02/2025 11:00 AM EDT Office Visit [facility] [address] [place] [address] Name, MD Chan [address] [place] [address] 06/16/2025 10:00 AM EST Medication Management [facility] [address] [place] [address] Naya Malone, PharmD [address] [place] [address] documented as of this encounter Goals Goal Patient Goal Type Associated Problems Recent Progress Patient-Stated? Author Work on dietary modification. Diet No Puia, Naya, PharmD Note: - Drink less soda, [...] documented as of this encounter Care Teams Maint Mechanic Relationship Specialty Start Date End Date Name, MD Chan [address] [place] [address] PCP - General Family Medicine 08/01/16 Naya Malone PharmD [address] [place] [address] Pharmacist Internal Medicine 02/17/23 [facility] 11/08/24 documented as of this encounter
--- OUTSIDE RECORDS SUMMARY | 2025-05-08 18:59 | XMS_ITS | Encounter Summary ---
Author Organization [employer] Address [address] [facility] [address] [place] [address] Care Team Providers Care Veterinary Physiologist Name Role Phone Name, Chan TOLLIVER Primary Care Provider [phone] Naya Malone PharmD Unavailable [phone] Encounter Details Date Type Department Care Team ([facility] st Contact Info) Description 05/06/2025 Telephone [facility] MEDICINE [address] [place], [place] [phone] Name, MD Chan [address] [place] [address] Social History Tobacco Use Types Packs/Day Years [...] the past 12 months, has t he [employer] gas, oil or water company threatened to [...] encounter Miscellaneous Notes * Telephone Encounter - Sandi Batista - 05/06/2025 1:20 PM EDT Pharmacy is requesting an updated CDTM referral with a diagnosis of diabetes. This is to replace existing referral which will before next appointment Please send at your earliest convenience. Thank you! documented in this encounter Plan of Treatment Upcoming Encounters Date Type Department Care Team (Late st Contact Info) Description 06/02/2025 11:00 AM EDT Office Visit [facility] MEDICINE [address] [place] [address] Name, MD Chan [address] [place] [address] 06/16/2025 10:00 AM EST Medication Management [facility] [address] [place] [address] Naya Malone, PharmD [address] [place] [address] documented as of this encounter Goals Goal Patient Goal Type Associated Problems Recent Progress Patient-Stated? Author Work on dietary modification. Diet No Naya Malone PharmD Note: - Drink less soda, juice, and other sugary beverages Patient will adhere to medication regimen General On track( 023 11:22 AM EST) No Naya Malone PharmD Hemoglobin A1c < 7 Result Component 8.2( 5 9:04 AM EDT) No Naya Malone PharmD [...] documented as of this encounter Care Teams Veterinary Physiologist Relationship Specialty Start Date End Date Name, MD Chan [address] [place] [address] PCP - General Family Medicine 08/01/16 Naya Malone PharmD [address] [place] [address] Pharmacist Internal Medicine 02/17/23 [facility] 11/08/24 documented as of this encounter
--- OUTSIDE RECORDS SUMMARY | 2025-05-08 18:59 | XMS_ITS | Clinical Summary ---
Author Organization [employer] Address [address] 7[address] [place] [address] Care Team Providers Care Gasoline Power Shovel Operator Name Role Phone Name, Chan TOLLIVER Primary Care Provider [phone] Naya Malone PharmD Unavailable [phone] Allergies Active Allergy Reactions Criticality Noted [...] hyperglycemia, with long-term current use of insulin (CMS/[facility]) Inject 28 Units under the skin at bedtime. 15 mL 025 Active albuterol 108 (90 Base) MCG/ACT inhalerIndication s:Type 2 diabetes mellitus with diabetic 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, with long-term current use of insulin (CMS/[facility]) Inhale 2 puffs every 4 (four) hours. [...] 2 times daily. 025 Active Continuous Glucose Boiler Helper (FreeStyle Mata 3 [place]) deviceIndications :Type 2 diabetes mellitus with hyperglycemia, with long-term current use of insulin (CMS/HCC) 1 each Once per day. Use as directed for CGM 1 each 025 Active Continuous Glucose Sensor (FreeStyle Mata 3 Plus Sensor) miscIndications:T ype 2 diabetes mellitus with hyperglycemia, with long-term current use of insulin ([facility]) Apply 1 every 15 days as directed for CGM 2 each 025 Active glucose blood (FreeStyle Precision Anthony Test) test stripIndications: Type 2 diabetes mellitus with hyperglycemia, with long-term current use of insulin ([facility]) Use to test blood sugar up to 3 times daily, as directed 100 each 025 Active glucose 4 g chewable tabletIndications :Type 2 diabetes mellitus with hyperglycemia, with long-term current use of insulin ([facility]) Chew 4 tablets (16 g) if needed for low blood sugar. 40 tablet 025 2025 Active glucagon (Baqsimi Two Pack) 3 MG/DOSE nasal powderIndications :Type 2 diabetes mellitus with hyperglycemia, with long-term current use of insulin ([facility]) Administer 3 mg via 1 device into the nostril for hypoglycemia with loss of consciousness. If no response after 15 minutes administer an additional dose via 2nd device into other nostril. 2 each 025 Active pravastatin (Pravachol) 80 MG tabletIndications :Type 2 diabetes mellitus with hyperglycemia, with long-term current use of insulin ([facility]) TAKE 1 TABLET BY MOUTH EVERY MORNING 90 tablet 3 025 Active lisinopril-hydroC HLOROthiazide 10-12.5 MG tabletIndications :Essential hypertension TAKE 1 TABLET BY MOUTH EVERY MORNING 90 tablet 025 Active Aspirin Low Dose 81 MG EC tabletIndications :Diabetic 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 associated with type 2 diabetes mellitus ([facility]) TAKE 1 TABLET BY MOUTH EVERY MORNING 90 tablet 1 025 Active Fluticasone-Salme terol 250-50 MCG/ACT aerosol powderIndications :Asthma, unspecified asthma severity, unspecified whether complicated, unspecified whether persistent INHALE 1 PUFF BY MOUTH TWICE DAILY IN THE MORNING AND IN THE EVENING RINSE MOUTH AFTER USING. 60 each 025 Active amitriptyline (Elavil) 50 MG tabletIndications :Diabetic 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 associated with type 2 diabetes mellitus ([facility]) TAKE 1 TABLET BY MOUTH AT BEDTIME 30 tablet 3 Active BD Pen Needle Carmen Ultrafine 32G X 4 MM miscIndications:T ype 2 diabetes mellitus with hyperglycemia, with long-term current use of insulin (CMS/HCC) USE DIRECTED EVERY DAY FOR INSULIN INJECT 100 each 5 Active terazosin (Hytrin) 5 MG capsule TOME 1 C PSULA POR V A ORAL AL ACOSTARSE Active Tirzepatide (Mounjaro) 7.5 MG/0.5ML solution auto-injectorIndi cations:Type 2 diabetes mellitus with hyperglycemia, with long-term current use of insulin (CMS/HCC) Inject 7.5 mg under the skin 1 (one) time per week for 28 days. 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 11/23/2016 05/11/2023 Iron deficiency anemia 11/21/201605/11 Schizoaffective disorder 08/01/2016 Obesity 03/19/2012 05/11/2023 Type 2 diabetes mellitus 02/16/2012 Hypertension 02/16/2012 05/11/2023 Encounters Date Type Department Care Team Description 05/06/2025 Telephone [facility] MEDICINE [address] [place] [address] NameChan MD 05/05/2025 Travel 04/11/2025 9:00 AM EDT Office Visit [facility] MEDICINE [address] [place] [address] Nina Cardozo NP Type 2 diabetes mellitus with hyperglycemia, with long-term current use of insulin (CMS/[facility]) (Primary Dx) 04/11/2025 Travel 04/10/2025 Telephone [facility] MEDICINE [address] [place] [address] Jean Carlos Harrington MA CHARTPREP 04/10/[address] [address] Chan Holley MD Nurse Triage 04/09/[address] [address] Chan Holley MD 04/07/2025 Travel 04/07/2025 Refill [facility] MEDICINE [address] [place] [address] Naya Malone PharmD Type 2 diabetes mellitus with hyperglycemia, with long-term current use of insulin (CMS/HCC) 04/02/2025 10:00 AM EDT Office Visit [facility] OPTOMETRY [address] [place] [address] Anival, Mary, OD 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 diabetes mellitus (CMS/HCC) (Primary Dx); Asteroid hyalosis of left eye; Meibomian gland dysfunction (MGD) of upper and lower lids of both eyes; Pseudophakia of both eyes; Presbyopia of both eyes 04/02/2025 Travel 04/01/2025 Travel 03/21/2025 Telephone [facility] MEDICINE [address] [place] [address] Jarad Burt MA october recalls 03/05/2025 Refill [facility] MEDICINE [address] [place] [address] Naya Malone PharmD Type 2 diabetes mellitus with hyperglycemia, with long-term current use of insulin (CMS/HCC) 02/28/2025 Refill [facility] MEDICINE [address] [place] [address] Letha Cooney MD Diabetic 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 associated with type 2 diabetes mellitus ([facility]) 02/28/2025 Refill [facility] MEDICINE [address] [place] [address] Name, MD Chan Asthma, unspecified asthma severity, unspecified whether complicated, unspecified whether persistent; Diabetic 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 associated with type 2 diabetes mellitus ([facility]) from Last 3 Months Immunizations Immunization Administration [...] Description 06/02/2025 11:00 AM EDT Office Visit [facility] MEDICINE [address] [place] [address] Name, MD Chan [address] [place] [address] 06/16/2025 10:00 AM EST Medication Management [address] [phone] Naya Malone, PharmD [address] [place] [address] Health Maintenance Due Date Last Done Comments [...] Result Component 8.2( 9:04 AM EDT) No Puia Naya, PharmD Record your blood sugar as directed Result Component On track( 023 11:22 AM EST) No Puia Naya, PharmD Note: Use CGM, ensuring sensor is scanned at least once every 8 hours to capture 24H data. Check BG manually, as directed. Procedures Procedure Name Priority Date/Time Associated Diagnosis Comments POCT GLYCATED HEMOGLOBIN, TOTAL Routine 04/11/2025 9:04 AM EDT Type 2 diabetes mellitus with hyperglycemia, with long-term current use of insulin (CMS/[facility]) POCT GLUCOSE Routine 04/11/2025 9:04 AM EDT Type 2 diabetes mellitus with hyperglycemia, with long-term current use of insulin (CMS/[facility]) LIPID PANEL, STANDARD Routine 11/06/2024 8:30 AM EDT Type 2 diabetes mellitus with diabetic 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, with long-term current use of insulin ([facility]) INTRAORAL - COMPLETE SERIES OF RADIOGRAPHIC IMAGES [...] Media Lot # [id number] Lot# Expiration Date 970 Blood Capillary blood specimen / Unknown 04/11/2025 9:04 AM EDT Nina Cardozo SIGNALS INTELLIGENCE SUPERINTENDENT POINT OF CARE TEST ENTER/EDIT OR DERABLES Final Result * (ABNORMAL) Lipid Panel, Standard (11/06/2024 8:30 AM EDT) Triglycerides 189(H) <150 mg/dL [facility] Comment:Desirable Triglyceri de: less than 150 mg/dLBorderline High Triglyceride 150-199 mg/dLHigh Triglyceride: 200-499 mg/dLVery High Triglyceride: greater than or equal to 5OO mg/dL Cholesterol 174 <200 mg/dL [facility] Comment:Desirable Cholestero l: less than 200 mg/dLBorderline High Cholesterol: 200-239 mg/dLHigh Cholesterol: greater than 239 mg/dL LDL Cholesterol Calculated 90 <100 mg/dL [facility] Comment:Desirable LDL: less than 100 mg/dLNear Optimal/Above Optimal LDL: 110- 129 mg/dLBorderline High LDL: 130-159 mg/dLHigh LDL: 160-189 mg/dLVery High LDL: greater than or equal to 190 mg/dL HDL Cholesterol 47 >40 mg/dL [facility] Comment:Desirable HDL: great er than 40 mg/dL Note: This HDL assay may give artificially low results in patients with liver disease. Blood Venous blood specimen / Unknown 11/06/2024 8:30 AM EDT 11/06/2024 11:05 AM EDT Chan Holley MD LAB BLOOD ORDERABLES Final Resul t [facility] [address] [place] [address] [phone] * (ABNORMAL) Colonoscopy (12/12/2022) Colonoscopy Abnormal( A) Normal Comment:Repeat in 3 yrs us Historical Provider MD HEALTH MAINTENANCE Final Result [...] a test for HCV RNA (test code 34549) is suggested. For additional information please refer to http://education.[employer]/faq/HGI78p4 (This link is being provided for informational/ educational purposes only.) 04/05/2022 10:3 5 AM EDT Vaishali LANGLEY HISTORICAL/NON ORDERABLE LABS Final Result [facility] [address] [place] [address], from Last 3 Months or Most Recently Relevant to Health Maintenance Insurance [facility] RETIREMENT OPTIONS (HMO D-SNP) SARAH HAGER [id number] [facility] Care Teams Gasoline Power Shovel Operator Relationship Specialty Start Date End Date Name, MD Chan [address] [place] [address] PCP - General Family Medicine 08/01/16 Naya Malone, ElverD [address] [place] [address] Pharmacist Internal Medicine 02/17/23 [facility] 11/08/24
--- OUTSIDE RECORDS SUMMARY | 2025-05-08 18:59 | XMS_ITS | Patient Health Record ---
Author Organization [facility] Address [address] [place] [address] Support Name Relationship Address Phone ALONSO LATHAM Emergency Contact [address] [place] [phone] TARI HARDWICK Guarantor Unknown Care Team Providers Care Slusher Operator Name Role Phone Leny Diallo Primary Care [...] W/U Status Risk Notes Problem Esophageal reflux (857293736) Esophageal reflux (530.81) Active confirmed Problem Rectal bleeding (54546746) Rectal bleeding (569.3) Active confirmed Plan Of Treatment Future Test Test Name Order Date UPPER GI ENDOSCOPY 06/20/2013 COLONOSCOPY 06/20/2013 Insurance Providers Payer Name Payer Address Payer Phone Subscriber Number Group Number Insured Name Patient Relationship to Insured Coverage Start Date Coverage End Date MEDICARE OF [place] [address] [place] [address] [id number] TARI HERNANDEZ Self - patient is the insured MEDICAID OF [facility] [address] [place] [address] [phone] [id number] TARI HERNANDEZ Self - patient is the insured Medical (General) History Medical History History ICD Code type II diabetes asthma hypertension schizophrenia/depression elevated cholesterol esophageal reflux
--- OUTSIDE RECORDS SUMMARY | 2025-05-08 18:59 | XMS_ITS | Encounter Summary ---
Author Organization [employer] [facility] Address [address] [place] [address] Care Team Providers Care Tear Down Matcher Name Role Phone Name, Chan TOLLIVER Primary Care Provider [phone] Naya Malone PharmD Unavailable [phone] Encounter Details Date Type Department Care Team (Latest Contact Info) Description 03/24/2021 Abstract [facility] CONVERSION[facility] Dental, Provider, DDS Social History Tobacco [...] Description 06/02/2025 11:00 AM EDT Office Visit [facility] MEDICINE [address] [place] [address] Name, MD Chan [address] [place] [address] 06/16/2025 10:00 AM EST Medication Management [facility] MEDICINE [address] [place] [address] [phone] Naya Malone, PharmD [address] [place] [address] documented as of this encounter Visit Diagnoses Not on filedocumented in this encounter Care Teams Tear Down Matcher Relationship Specialty Start Date End Date Name, MD Chan [address] [place] [address] PCP - General Family Medicine 08/01/16 Naya Malone PharmD [address] [place] [address] Pharmacist Internal Medicine 02/17/23 [facility] 11/08/24 documented as of this encounter
--- OUTSIDE RECORDS SUMMARY | 2025-05-08 18:59 | XMS_ITS | Encounter Summary ---
Author Organization [employer] Address [address] [facility] [address] 7[address] [place] [address] Care Team Providers Care Maintenance Superintendent Name Role Phone Name, Chan TOLLIVER Primary Care Provider [phone] Naya Malone PharmD Unavailable Reason for Visit * Reason Comments Med Refill Encounter Details Date Type Department Care Team (Late st Contact Info) Description 08/22/2022 Refill [facility] [address] [place], [place] [phone] Name, MD Chan [address] [place], [place] [phone] Diabetic 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 associated with type 2 diabetes [...] Description 06/02/2025 11:00 AM EDT Office Visit [facility] [address] [place] [address] Name, [place] [address] 06/16/2025 10:00 AM EST Medication Management [facility] [address] [place] [address] Naya Malone PharmD [address] [place] [address] documented as of this encounter Visit Diagnoses Diagnosis Diabetic 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 associated with type 2 diabetes mellitus (CMS/HCC)- Primary documented in this encounter Additional Health Concerns Assessment Noted Time PHQ-9 Depression Total Score: 24 12/2 022 10:06 AM EST documented as of this encounter Care Teams Maintenance Superintendent Relationship Specialty Start Date End Date Name, MD Chan [address] [place] [address] PCP - General Family Medicine 08/01/16 Naya Malone PharmD [address] [place] [address] Pharmacist Internal Medicine 02/17/23 [facility] 11/08/24 documented as of this encounter
--- OUTSIDE RECORDS SUMMARY | 2025-05-08 18:59 | XMS_ITS | Encounter Summary ---
Author Organization [employer] Address [address] [facility] [address] [place] [address] Care Team Providers Care Bandoleer Packer Name Role Phone Name, Chan TOLLIVER Primary Care Provider [phone] Naya Malone PharmD Unavailable [phone] Reason for Visit * Reason Comments Med Refill Encounter Details Date Type Department Care Team (Late st Contact Info) Description 02/17/2023 Refill [facility] MEDICINE [address] [place], [place] [phone] Name, MD Chan [address] [place], [place] [phone] Type 2 diabetes mellitus with hyperglycemia, with long-term current use of insulin ([facility]) Social History Tobacco Use Types Packs/Day [...] Description 06/02/2025 11:00 AM EDT Office Visit [facility] [place], [place] [phone] Name, MD Chan [place], [place] [phone] 06/16/2025 10:00 AM EST Medication Management [facility] MEDICINE [place], [place] [phone] Naya Malone PharmD [place], [place] [phone] documented as of this encounter Goals Goal [...] hyperglycemia, with long-term current use of insulin ([facility]) documented in this encounter Additional Health Concerns Assessment Noted Time PHQ-9 Depression Total Score: 24 022 10:06 AM EST documented as of this encounter Care Teams Bandoleer Packer Relationship Specialty Start Date End Date Name, MD Chan [place], [place] [phone] PCP - General Family Medicine 08/01/16 Naya Malone PharmD [place], [place] [phone] Pharmacist Internal Medicine 02/17/23 [facility] 11/08/24 documented as of this encounter
--- OUTSIDE RECORDS SUMMARY | 2025-05-08 18:59 | XMS_ITS | Encounter Summary ---
Author Organization [employer] Address [address] [facility] [address] [place] [address] Care Team Providers Care Microsoft Dynamics Ax Developer Name Role Phone Name, Chan TOLLIVER Primary Care Provider [phone] Naya Malone PharmD Unavailable Reason for Visit * Reason Comments Med Refill Encounter Details Date Type Department Care Team ([facility] st Contact Info) Description 09/02/[address] [facility] MEDICINE [address] [place], [place] [phone] Name, MD Chan [address] [place], [place] [phone] Asthma, unspecified asthma severity, unspecified whether complicated, [...] Description 06/02/2025 11:00 AM EDT Office [address] [facility] MEDICINE [address] [place] [address] Name, MD Chan [address] [place] [address] 06/16/2025 10:00 AM EST Medication Management [facility] MED[facility]INE [address] [place] [address] PuiaNaya, PharmD [address] [place] [address] documented as of this encounter Goals Goal [...] documented as of this encounter Care Teams Microsoft Dynamics Ax Developer Relationship Specialty Start Date End Date Name, MD Chan [address] [place] [address] PCP - General Family Medicine 08/01/16 Naya Malone PharmD [address] [place] [address] Pharmacist Internal Medicine 02/17/23 [facility] 11/08/24 documented as of this encounter
--- OUTSIDE RECORDS SUMMARY | 2025-05-08 18:59 | XMS_ITS | Encounter Summary ---
Author Organization [employer] Address [address] [facility] [address] [place] [address] Care Team Providers Care Shelf Drier Operator Name Role Phone Name, Chan TOLLIVER Primary Care Provider [phone] Nyaa Malone PharmD Unavailable [phone] Encounter Details Date Type Department Care Team (Late st Contact Info) Description 01/12/2023 Abstract [facility] MEDICINE [address] [place], [place] [phone] Name, MD Chan [address] [place] [address] Social History Tobacco Use Types Packs/Day Years [...] 11:00 AM EDT Office Visit [facility] [place] [address] Name, [place] [address] 06/16/2025 10:00 AM EST Medication Management [facility] [address] [place] [address] Naya Malone PharmD [address] [place] [address] documented as of this encounter Visit Diagnoses Not on filedocumented in this encounter Additional Health Concerns Assessment Noted Time PHQ-9 Depression Total Score: 24 022 10:06 AM EST documented as of this encounter Care Teams Shelf Drier Operator Relationship Specialty Start Date End Date Name, [place] [address] PCP - General Family Medicine 08/01/16 Naya Malone PharmD [address] [place] [address] [phone] Pharmacist Internal Medicine 02/17/23 [facility] 11/08/24 documented as of this encounter
--- OUTSIDE RECORDS SUMMARY | 2025-05-08 18:59 | XMS_ITS | Encounter Summary ---
Author Organization [employer] Address [address] [facility] [address] [place] [address] Care Team Providers Care Spot Billing Clerk Name Role Phone Name, Chan TOLLIVER Primary Care Provider [phone] Naya Malone PharmD Unavailable [phone] Encounter Details Date Type Department Care Team (Late st Contact Info) Description 01/12/2024 Telephone [facility] ADULT DENTAL [address] [place] [address] Priya Felix, BRANT Social History Tobacco Use [...] Description 06/02/2025 11:00 AM EDT Office Visit [facility] MEDICINE [address] [place] [address] Name, MD Chan [address] [place] [address] 06/16/2025 10:00 AM EST Medication Management [facility] MEDICINE [address] [place] [address] Naya Malone PharmD [address] [place] [address] documented as of this encounter Goals Goal Patient Goal Type Associated Problems Recent Progress Patient-Stated? Author Work on dietary modification. Diet No Naya Malone PharmD Note: - Drink less soda, juice, and other sugary beverages Patient will adhere to medication regimen General On track( 023 11:22 AM EST) No Naya Malone PharmD Hemoglobin A1c < 7 Result Component 8.2(08/29/202 5 9:04 AM EDT) No Naya Malone [...] documented as of this encounter Care Teams Spot Billing Clerk Relationship Specialty Start Date End Date Name, MD Chan [address] [place] [address] PCP - General Family Medicine 08/01/16 Naya Malone PharmD [address] [place] [address] Pharmacist Internal Medicine 02/17/23 [facility] 11/08/24 documented as of this encounter
--- OUTSIDE RECORDS SUMMARY | 2025-05-08 18:59 | XMS_ITS | Encounter Summary ---
Author Organization [facility] Address [address] [place] [address] Care Team Providers Care Licensed Clinician Name Role Phone Name, Chan TOLLIVER Primary Care Provider [phone] Naya Malone PharmD Unavailable Encounter Details Date Type Department Care Team (Latest Contact Info) Description 03/05/2019 Abstract [facility] CONVERSIONS Dental, Provider, DDS Social History [...] Description 06/02/2025 11:00 AM EDT Office Visit [facility] MEDICINE [address] [place] [phone] Name, MD Chan [address] [place] [phone] 06/16/2025 10:00 AM EST Medication Management [facility] MEDICINE [address] [place] [address] [phone] Naya Malone, PharmD [address] [place] [address] documented as of this encounter Visit Diagnoses Not on filedocumented in this encounter Care Teams Licensed Clinician Relationship Specialty Start Date End Date Name, MD Chan [address] [place] [address] PCP - General Family Medicine 08/01/16 Naya Malone PharmD [address] [place] [address] Pharmacist Internal Medicine 02/17/23 [facility] 11/08/24 documented as of this encounter
[2025-05-19 11:07] VITALS: BP 109/54; PULSE 87; RESP 14; TEMP 36.2; O2SAT 98; BMI 30.4
--- NOTE | 2025-05-19 11:36 | MHC.SHP ---
Pre-Procedural Eval Section A - 24 Hr Update-Section A only Date of Service: 05/19/25 The patient is an INPATIENT: No Changes since office visit: No Cold of Flu in the past 2 weeks, No New Medical Problems, No Changes in Medication and No Patient answered all questions The patient has been examined within 24 hours of the surgical procedure. The History & Physical has been completed within 30 days and I have reviewed it.: Yes Section B - Complete if H&P > 30 days Chief Complaint: Trigger finger, left middle finger Allergies: Allergies Allergy/AdvReac Type Severity Reaction Status Date / Time Penicillins Allergy Mild DIZZY/DIAPHORESIS, Verified 05/06/25 11:41 N/V penicillin V Allergy Unknown Unknown Verified 05/06/25 11:41 Plan Diagnosis/Plan: Unchanged I have reviewed the history and physical and performed a pertinent physical examination on my patient. No changes have occurred unless specified. Time Spent With Patient Time: Total time managing care of this patient today ____ minutes.
--- NOTE | 2025-05-19 11:37 | W.PM.OPN ---
Operative Note Operative Note Date of Service: 05/19/25 Narrative: Operative Note Preop diagnosis: 1. Left middle finger Trigger finger Postop diagnosis: Same Procedure: 1. Left middle finger A1 maureen release Surgeon: Shabnam Burnett MD Transit Survey Worker: None Anesthesia: local block using 1% lidocaine with epinephrine Findings: No locking or catching after A1 maureen release EBL: Less than 5 mL Tourniquet time: None Specimens: None Complications: None Disposition: Brought to recovery room in stable condition Plan: Follow-up for 10-14 days for wound check and suture removal Indications: The patient is 70 years old, with a left middle finger trigger finger that has been unresponsive to nonoperative management. The risks and benefits of operative treatment including but not limited to risk of damage to blood vessels, nerves, tendons, infection, persistent pain, persistent symptoms, recurrence or possible need for additional surgery were discussed with the patient and the patient wishes to proceed with surgery. Procedure: Once consent was obtained a local block was performed in the preop area using a combination of 1% lidocaine with epinephrine. The patient was then brought back to the operating suite and placed on the operative table in supine position. The left upper extremity was prepped and draped in a standard surgical fashion. Once assured that we had a good block, a 1.5 cm oblique incision was made centered over the A1 maureen of the left middle finger . The incision was made through the skin to the subcutaneous tissues using a #15 blade. Careful dissection was made down to the level of the A1 maureen using tenotomy scissors, with care being taken to protect the nearby neurovascular structures. A longitudinal incision was made in the A1 maureen 1st using a #15 blade, then using tenotomy scissors under direct visualization. The A1 maureen was noted to be thickened. Following our A1 maureen release, we no longer saw any locking or catching of the digit with flexion and extension. Once satisfied with our A1 maureen release the wound was copiously irrigated with normal saline and hemostasis was obtained with a brief period of local pressure. The skin edges were reapproximated with some 5.0 nylon suture material and a sterile dressing was applied. The patient appears to have tolerated the procedure well and with no complications. All digits were well vascularized at the conclusion of the case.
[2025-05-19 12:23] VITALS: BP 95/52; PULSE 71; RESP 16; O2SAT 98
== END 2025-05-19 13:09 | disposition home or self-care (01) ==
PROVIDERS: PCP Internal Medicine Geriatric Medicine; Visit Provider Orthopaedic Surgery
PROC: (CPT 26055; principal; 2025-05-19 12:20)
DX: M65.332 Trigger finger, left middle finger (principal); I10 Essential (primary) hypertension; E11.42 Type 2 diabetes mellitus with diabetic 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; E11.21 Type 2 diabetes mellitus with diabetic nephropathy; J45.909 Unspecified asthma, uncomplicated; Z79.4 Long term (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 of insulin; Z88.0 Allergy status to penicillin
CPT/HCPCS: 26055; J0165; J2003

== ENCOUNTER → 2025-05-19 08:30 | Outpatient (BNV) | payer OTHER, SELFPAY | PROVIDERS: PCP Internal Medicine Geriatric Medicine; Visit Provider Orthopaedic Surgery | DX: M65.332 Trigger finger, left middle finger (principal) | CPT/HCPCS: 26055 ==

== ENCOUNTER 2025-06-03 12:40 | Outpatient (AMB) | payer OTHER, SELFPAY ==
--- OUTSIDE RECORDS SUMMARY | 2025-06-02 11:00 | XMS_ITS | Encounter Summary ---
Author Organization [employer] Address [address] [place] [address] [address] [place] [address] Care Team Providers Care Oracle Programmer Name Role Phone Chan Holley MD Primary Care Provider [phone] Naya Malone PharmD Unavailable Reason for Referral * Consultation (Routine) - Authorized Specialty Diagnoses / Procedures Referred By Sam galo Referred To Contact Sleep Medicine Diagnoses ZEV on CPAP Chan Holley MD [address] [place] [phone] Phone: tel: fax: Sleep Medicine Service [address], [address] [place] [address] Phone: tel: fax: Referral ID Status Reason Start Date Expiration Date Visits Requested Visits Authorized [id number] Authorized Specialty Services Required 06/02/2026 1 1 Reason for Visit * Reason Comments Follow-up Encounter Details Date Type Department Care Team (Late st Contact Info) Description 06/02/2025 11:00 AM EDT Office Visit [facility] MEDICINE [address] [place] [address] [phone] Chan Holley MD [address] [place] [phone] Type 2 diabetes mellitus with hyperglycemia, with long-term current use of insulin (HCC) (Primary Dx); Hypoglycemia; ZEV on CPAP Social History Tobacco Use Types Packs/Day Years [...] Answer Date Recorded Patient Health Questionnaire-9 Score 19 06/02/2025 Patient Health Questionnaire-9 Score 19 06/02/2025 Last PHQ-9: Questionnaire Data Not on file 1 Housing Stability Answer Date Recorded What is [...] Date Recorded Patient Health Questionnaire-2 Score 6 06/02/2025 Internet Access Answer Date Recorded Internet Access Q1 Yes 03/15/2025 Internet Access Q2 Not on file 03/15/2025 Sex and Gender Information Value Date Recorded Sex Assigned at Male 06/13/2022 10:17 AM EDT Legal Sex Male 10:17 AM EDT Gender Identity Male 06/13/2022 10:17 AM EDT Sexual Orientation Straight 06/13/2022 10 :17 AM EDT documented as of this encounter Last Filed Vital Signs Vital Sign Reading Time Taken Comments Blood Pressure 130/76 06/02/2025 10:51 AM EDT Pulse 98 06/02/2025 10:51 AM EDT Temperature 36.8 C (98.3 F) 06/02/2025 10:51 AM EDT Respiratory Rate 24 06/02/2025 10:5 1 AM EDT Oxygen Saturation 98% 06/02/2025 10: 51 AM EDT Inhaled Oxygen Concentration - - Weight 81.6 kg (179 lb 12.8 oz) 025 10:51 AM EDT Height 160 cm (5' 3 ) 06/02/2025 10:51 AM EDT Body Mass Index 31.85 06/02/2025 10:51 AM EDT documented in this encounter Functional Status * Over the past 2 weeks, how often have you been bothered by any of the following problems? Question Answer Date of Assessment Author Patient Health Questionnaire -2 Score 6 06/02/2025 10:52 AM EDT Jean Carlos Harrington MA * Little interest or pleasure in doing things Answer Date of Assessment Author Nearly every day 06/02/2025 10:52 AM EDT Jean Carlos Harrington MA * Feeling down, depressed, or hopeless Answer Date of Assessment Author Nearly every day 06/02/2025 10:52 AM BLANCAT Jean Carlos Harrington MA * Trouble falling or staying asleep, or sleeping too much Answer Date of Assessment Author Nearly every day 06/02/2025 10:52 AM BALNCAT Jean Carlos Harrington MA * Feeling tired or having little energy Answer Date of Assessment Author Nearly every day 06/02/2025 10:52 AM BLANCAT Jean Carlos Harrington MA * Poor appetite or overeating Answer Date of Assessment Author More than half the days 06/02/2025 10:52 AM BLANCAT Jean Carlos Harrington MA * Feeling bad about yourself - or that you are a failure or have let yourself or your family down Answer Date of Assessment Author Not at all 06/02/2025 10:52 AM Jean Carlos Reilly MA * Trouble concentrating on things, such as reading the newspaper or watching television Answer Date of Assessment Author More than half the days 06/02/2025 10:52 AM Jean Carlos Reilly MA * Moving or speaking so slowly that other people could have noticed? Or the opposite - being so fidgety or restless that you have been moving around a lot more than usual. Answer Date of Assessment Author Nearly every day 06/02/2025 10:52 AM EDT Jean Carlos Harrington MA * Thoughts that you would be better off or hurting yourself in some way Answer Date of Assessment Author Not at all 06/02/2025 10:52 AM EDT Jean Carlos Harrington MA * Patient Health Questionnaire-9 Score Answer Date of Assessment Author 19 06/02/2025 10:52 AM BLANCAT Jean Carlos Harrington MA * How difficult have these problems made it for you to do your work, take care of things at home, or get along with other people? Answer Date of Assessment Author Extremely difficult 06/02/2025 10:52 AM EDT Jean Carlos Hale MA documented as of this encounter Progress Notes * Chan Holley MD - 06/02/2025 11:00 AM EDT Subjective Patient ID: Alonzo Batista is a 70 y.o. male who presents for Follow-up. Patient comes for a follow-up visit. He is accompanied by his daughter. There has been improvement of hemoglobin A1c compared to his previous visit after the dose of Mounjaro was increased. He deniesany side effects to the medication. He has CGM in place. The patient is also on insulin Lantus 20 units nightly and Synjardy 12.5/500. CGM has recorded episodes of hypoglycemia, the patient had 2 episodes in the past 2 weeks around 6:00 in the morning and after midnight. Blood sugar was in the high 60s. The patient does not recall having any symptoms. The patient admits to skipping meals. He often times a small dinner and does not eat before bedtime. Review of Systems Constitutional: Negative for chills, fatigue and fever. HENT: Negative for sore throat. Respiratory: Negative for cough, chest tightness and shortness of breath. Cardiovascular: Negative for chest pain, palpitations and leg swelling. Gastrointestinal: Negative for abdominal pain and blood in stool. Objective Vitals: 10/20/25 1051 BP: 130/76 BP Location: Left arm Patient Position: Sitting BP Cuff Size: Adult Pulse: 98 Resp: 24 Temp: 98.3 ??F (36.8 ??C) TempSrc: Oral SpO2: 98% Weight: 179 lb 12.8 oz (81.6 kg) Height: 5' 3 (1.6 m) Physical Exam Constitutional: Appearance: Normal appearance. Cardiovascular: Rate and Rhythm: Normal rate and regular rhythm. Pulmonary: Effort: Pulmonary effort is normal. No respiratory distress. Abdominal: Palpations: Abdomen is soft. Musculoskeletal: Right lower leg: No edema. Left lower leg: No edema. Neurological: Mental Status: He is alert. Assessment/Plan Diagnoses and all orders for this visit: Type 2 diabetes mellitus with hyperglycemia, with long-term current use of insulin ([facility]) Comments: I did not recommend any medication changes today. I reminded the patient to with 3 times a day and a bedtime snack to avoid episodes of overnight hypoglycemia. We discussed how to treat hypoglycemia at home. He is encouraged to keep his upcoming appointment with [facility]. Saw podiatry in February and had unremarkable foot exam. Patient refused any vaccination today. Orders: - POCT Glucose - POCT Hgb A1c Hypoglycemia ZEV on CPAP Comments: Patient tells me he has ZEV on CPAP. The patient has been having difficulties tolerating his CPAP machine that is now 5 years old and he thinks is malfunctioning. He requested referral for sleep medicine and I agreed. Orders: - Referral to Sleep Medicine; Future Future Appointments Date Time Provider Department Center 06/16/2025 10:00 AM Naya Malone PharmD MEDICINE [facility] documented in this encounter Plan of Treatment Upcoming Encounters Date Type Department Care Team (Late st Contact Info) Description 06/16/2025 10:00 AM EST Medication Management [facility] MEDICINE [address] [place] [phone] Naya Malone PharmD [address] [place] [phone] 09/03/2025 9:30 AM EST Office Visit [facility] MEDICINE [address] [place] [phone] Chan Holley MD [address] [place] [address] Scheduled Referrals Name Type Priority Associated Diagnoses Orde r Schedule Referral to Sleep Medicine Outpatient Referral Routine ZEV on CPAP Expected: 06/02/2025 (Approximate), Expires: 06/02/2026 documented as of this encounter Goals Goal Patient Goal Type Associated Problems Recent Progress Patient-Stated? Author Work on dietary modification. Diet No Naya Malone, PharmD Note: - Drink less soda, juice, and other sugary beverages Patient will adhere to medication regimen General On track( 023 11:22 AM EST) No Naya Malone, PharmD Hemoglobin A1c < 7 Result Component 7.5( 10:59 AM EDT) No Naya Malone, PharmD Record [...] Diagnosis Comments POCT GLYCATED HEMOGLOBIN, TOTAL Routine 06/02/2025 10:59 AM EDT Type 2 diabetes mellitus with hyperglycemia, with long-term current use of insulin (HCC) POCT GLUCOSE Routine 06/02/2025 10:56 AM EDT Type 2 diabetes mellitus with hyperglycemia, with long-term current use of insulin (HCC) documented in this encounter Results * (ABNORMAL) POCT Hgb A1c (06/02/2025 10:59 AM EDT) Hemoglobin A1C 7.5(A) 4.0 - 5.7 % QC Media Lot # [id number] Lot# Expiration Date 51, Blood 06/02/2025 10:5 9 AM EDT Chan Holley MD POINT OF CARE TEST ENTER/EDIT OR DERABLES Final Result * POCT Glucose (06/02/2025 10:56 AM EDT) Glucose Blood, POC 173 60 - 200 mg/dL QC Media Lot # [id number] Lot# Expiration Date 72 Blood Capillary blood specimen / Unknown 06/02/2025 10:56 AM EDT Chan Name POINT OF CARE TEST ENTER/EDIT OR DERABLES Final Result documented in this encounter Visit Diagnoses Diagnosis Type 2 diabetes mellitus with hyperglycemia, with long-term current use of insulin (HCC)- Primary Hypoglycemia Hypoglycemia, unspecified ZEV on CPAP documented in this encounter Additional Health Concerns Assessment Noted Time PHQ-9 Depression Total Score: 19 025 10:52 AM EDT documented as of this encounter Care Teams Oracle Programmer Relationship Specialty Start Date End Date Name, MD Chan [address] [place] [address] PCP - General Family Medicine 08/01/16 Naya Malone PharmD [address] [place] [address] Pharmacist Internal Medicine 02/17/23 [facility] 11/08/24 documented as of this encounter
--- NOTE | 2025-06-03 12:56 | A.OFFVIS_ITS ---
Vital Signs 06/03/25 12:57 Height 5 ft 4 in Weight 177 lb BMI 30.4 Intake Visit Reasons: PO-Lt MF Trigger Release 05/19/25 Intake Note: Alonzo 70 yr old male presents today for his P/O visit for his left middle finger trigger release done on 05/19/[address] Burnett. Sutures removed in office and steri strips applied. States locking has subsided and only has a little swelling. STates he is working on making a full close fist. Allergies Penicillins Allergy (Mild, Verified 06/03/25 13:05) DIZZY/DIAPHORESIS, N/V penicillin V Allergy (Unknown, Verified 06/03/25 13:05) Unknown HPI HPI PO-Lt MF Trigger Release 05/19/25: Details: Alonzo is a 70 year old right hand dominant Diabetic Togolese speaking man who returns S/P let middle finger trigger release, DOS: 05/19/25 He says he is doing well and he no longer has any locking or catching. He has some stiffness which he is working on. He has a Hx of a left ring finger trigger release in [place]. 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 GERD (gastroesophageal reflux disease) Cervical spine pain HTN (hypertension) High cholesterol Asthma Surgical History Hx of hand surgery History of back surgery Hx of esophagogastroduodenoscopy Hx of colonoscopy Family History Father Heart disease Mother Arthritis Diabetes Social History Household Members: Spouse Alcohol intake: never Comment: Counts correct Patient Tobacco Use Status: Former Tobacco user Current occupational status: retired and disabled Review of Systems Const All systems reviewed & are unremarkable except as noted in HPI and below Physical Exam Vital Signs: BMI result Body Mass Index 30.4 Const General: no acute distress and alert Orientation/consciousness: patient oriented x3 Neuro General: patient oriented x3 Extrem Other: The patient was alert oriented and in no acute distress The incision is healing well with no erythema drainage or evidence of infection. Sutures removed and Steri-Strips applied Mild middle finger PIP joint flexion contracture He was hesitant to move his finger after surgery With encouragement he can make a fist and extend all his digits No locking or catching Sensation is intact Cap refill is brisk Psych Appearance: grossly normal Affect: normal affect Attitude: cooperative Assessment & Plan Assessment & Plan (1) Trigger finger, left middle finger: Code(s): M65.332 - Trigger finger, left middle finger Category: Medical (2) Diabetic 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 associated with type 2 diabetes mellitus: Code(s): E11.42 - Type 2 diabetes mellitus with diabetic 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 Category: Medical (3) Diabetes: Code(s): E11.9 - Type 2 diabetes mellitus without complications Category: Medical Plan Assessment & Plan: 1. Left middle finger trigger finger, S/P release DOS: 05/19/25 The patient appears to be doing well post-operatively I educated him about the post-operative course I explained the signs and symptoms of infection I discussed activity modifications, he is to lift nothing heavier than a cellphone for the next 2 weeks. They should also avoid any heavy impact activities, falls, or sports activities for the next 2 weeks He will perform gentle ROM exercises at home He should avoid any underwater activities for the next 5 days He should gently massage about the incision site to reduce the risk of hypersensitivity He can follow up prn Scribed for Shabnam Burnett MD by Luis Garcia medical care administrator, on 06/03/25 at 1:25 PM, EST. Coding Level of Care Code Global (09593) Diagnoses Trigger finger, left middle finger M65.332 Diabetic 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 associated with type 2 diabetes mellitus E11.42 Diabetes E11.9
[2025-06-03 12:57] VITALS: BMI 30.4
--- OUTSIDE RECORDS SUMMARY | 2025-06-03 16:10 | XMS_ITS | Clinical Summary ---
Author Organization [employer] Address [address] [place] [address] Care Team Providers Care Assembly Technician Name Role Phone Name, Chan TOLLIVER Primary Care Provider [phone] Naya Malone PharmD Unavailable [phone] Allergies Active Allergy Reactions Criticality Noted Date Comments Penicillin G 03/12/2024 Other Reaction(s): Unknown Penicillin V Unknown 10/13/2010 Penicillins Low 12/01/2022 Other reaction(s): DIZZY/DIAPHORESIS, N/V Medications buPROPion SR (Wellbutrin SR) 150 MG 12 hr tablet Take 1 tablet by mouth every 12 (twelve) hours. Active clonazePAM (KlonoPIN) 0.5 MG tablet Take 1 tablet by mouth in the morning. 08/02/20 16 Active FLUoxetine (PROzac) 20 MG capsule Take 2 capsules by mouth 1 (one) time each day. Active traMADol-acetamin ophen (UltraCET) 37.5-325 MG tablet Take 1 tablet by mouth if needed in the morning, at noon, and at bedtime. Active cimetidine (Tagamet) 300 MG tablet Take 2 tablets by mouth at bedtime. 08/30/19 23 Active Linzess 145 MCG capsule TOME 1 C PSULA POR V A ORAL CADA MA YAIMA 02/08/20 23 Active metoclopramide (Reglan) 5 MG tablet Take 1 tablet by mouth 4 times daily. Before meals & bedtime 02/14/20 23 Active omeprazole (PriLOSEC) [address] capsule Take 40 mg by mouth before breakfast and before evening meal. 07/17/20 23 Active TRUEplus Lancets 33G miscIndications:T ype 2 diabetes mellitus with diabetic 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 ([facility]) Use to test blood sugar up to 3 times daily as directed 100 each 02/28/20 24 Active donepezil (Aricept) 10 MG tablet Take 10 mg by mouth at bedtime. 05/24/20 24 Active Synjardy 12.5-500 MGIndications:Typ e 2 diabetes mellitus with hyperglycemia, with long-term current use of insulin ([facility]) TAKE 1 TABLET BY MOUTH TWICE DAILY IN THE MORNING AND IN THE EVENING WITH MEALS 60 tablet 08/15/19 Active magnesium oxide 500 MG tablet Take 1 tablet by mouth at bedtime. 09/16/19 25 Active insulin glargine (Lantus SoloStar) 100 UNIT/ML penIndications:Ty pe 2 diabetes mellitus with hyperglycemia, with long-term current use of insulin ([facility]) Inject 28 Units under the skin at bedtime. 15 mL 10/01/19 25 Active albuterol 108 (90 Base) MCG/ACT inhalerIndication s:Type 2 diabetes mellitus with diabetic 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, with long-term current use of insulin ([facility]) Inhale 2 puffs every 4 (four) hours. 18 g 10/23/19 25 Active Alcohol Swabs (Alcohol Prep) 70 % padsIndications:T ype 2 diabetes mellitus with hyperglycemia, with long-term current use of insulin ([facility]) USE UP TO FOUR TIMES DAILY DIRECTED 100 each 12/04/19 25 Active econazole nitrate 1 % cream APPLY TO AFFECTED AREA(S) AND SURROUNDING AREA(S) TWICE DAILY IN THE MORNING AND EVENING 85 g 12/07/19 25 Active gabapentin (Neurontin) 300 MG capsule Take 300 mg by mouth 2 times daily. 12/14/19 25 Active Continuous Glucose Accredited Legal Secretary (FreeStyle Mata 3 Poulan) deviceIndications :Type 2 diabetes mellitus with hyperglycemia, with long-term current use of insulin ([facility]) 1 each Once per day. Use as directed for CGM 1 each 01/01/20 25 Active Continuous Glucose Sensor (FreeStyle Mata 3 Plus Sensor) miscIndications:T ype 2 diabetes mellitus with hyperglycemia, with long-term current use of insulin ([facility]) Apply 1 every 15 days as directed for CGM 2 each 01/01/20 25 Active glucose blood (FreeStyle Precision Anthony Test) test stripIndications: Type 2 diabetes mellitus with hyperglycemia, with long-term current use of insulin ([facility]) Use to test blood sugar up to 3 times daily, as directed 100 each 01/01/20 25 Active glucose 4 g chewable tabletIndications :Type 2 diabetes mellitus with hyperglycemia, with long-term current use of insulin ([facility]) Chew 4 tablets (16 g) if needed for low blood sugar. 40 tablet 01/01/20 25 026 Active glucagon (Baqsimi Two Pack) 3 MG/DOSE nasal powderIndications :Type 2 diabetes mellitus with hyperglycemia, with long-term current use of insulin ([facility]) Administer 3 mg via 1 device into the nostril for hypoglycemia with loss of consciousness. If no response after 15 minutes administer an additional dose via 2nd device into other nostril. 2 each 01/01/20 25 Active pravastatin (Pravachol) 80 MG tabletIndications :Type 2 diabetes mellitus with hyperglycemia, with long-term current use of insulin ([facility]) TAKE 1 TABLET BY MOUTH EVERY MORNING 90 tablet 01/08/20 25 Active lisinopril-hydroC HLOROthiazide 10-12.5 MG tabletIndications :Essential hypertension TAKE 1 TABLET BY MOUTH EVERY MORNING 90 tablet 01/08/20 25 Active Aspirin Low Dose 81 MG EC tabletIndications :Diabetic 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 associated with type 2 diabetes mellitus ([facility]) TAKE 1 TABLET BY MOUTH EVERY MORNING 90 tablet 1 02/04/20 25 Active Fluticasone-Salme terol 250-50 MCG/ACT aerosol powderIndications :Asthma, unspecified asthma severity, unspecified whether complicated, unspecified whether persistent INHALE 1 PUFF BY MOUTH TWICE DAILY IN THE MORNING AND IN THE EVENING RINSE MOUTH AFTER USING. 60 each 02/29/20 25 Active amitriptyline (Elavil) 50 MG tabletIndications :Diabetic 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 associated with type 2 diabetes mellitus ([facility]) TAKE 1 TABLET BY MOUTH AT BEDTIME 30 tablet 02/29/20 25 Active BD Pen Needle Carmen Ultrafine 32G X 4 MM miscIndications:T ype 2 diabetes mellitus with hyperglycemia, with long-term current use of insulin ([facility]) USE DIRECTED EVERY DAY FOR INSULIN INJECT 100 each 04/08/20 25 Active terazosin (Hytrin) 5 MG capsule TOME 1 C PSULA POR V A ORAL AL ACOSTARSE 03/20/20 25 Active cyclobenzaprine (Flexeril) 10 MG tablet Take 10 mg by mouth if needed at bedtime for muscle spasms. 12/12/19 25 025 Discontinu ed(Therapy completed) Tirzepatide (Mounjaro) 7.5 MG/0.5ML solution auto-injectorIndi cations:Type 2 diabetes mellitus with hyperglycemia, with long-term current use of insulin ([facility]) Inject 7.5 mg under the skin 1 (one) time per week for 28 days. 2 mL 2 04/11/20 025 Active Problems Problem Noted Date Diagnosed Date [...] GERD (gastroesophageal reflux disease) High cholesterol 05/11/2023 skilled nursing (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 of insulin ([facility]) Uncontrolled type 2 diabetes mellitus 05/11/2023 Diabetic [...] 05/11/2023 Iron deficiency anemia 11/21/201605/11 Schizoaffective disorder (CMS/HCC) 08/01/2016 07/12/2023 Obesity 03/19/2012 05/11/2023 Type 2 diabetes mellitus 02/16/2012 Hypertension 02/16/2012 05/11/2023 Encounters Date Type Department Care Team Description 06/02/2025 11:00 AM EDT Office Visit [facility] [address] [place] [phone] Name, MD Chan Type 2 diabetes mellitus with hyperglycemia, with long-term current use of insulin ([facility]) (Primary Dx); Hypoglycemia; ZEV on CPAP 06/02/2025 Travel 05/30/2025 Telephone [facility] [address] [place] [address], [place] [address] Chan Holley MD CHART PREP 05/26/2025 Travel 05/06/2025 Telephone [facility] [address] [place] [address] Chan Holley MD 05/05/2025 Travel 04/11/2025 9:00 AM EDT Office Visit [facility] [address] [place] [address] Nina Cardozo NP Type 2 diabetes mellitus with hyperglycemia, with long-term current use of insulin (CMS/HCC) (Primary Dx) 04/11/2025 Travel 04/10/2025 Telephone [facility] [address] [place] [address] Jean Carlos Harrington MA CHARTPREP 04/10/[address] [address] Chan Holley MD Nurse Triage 04/09/[address] [address] Chan Holley MD 04/07/2025 Travel 04/07/2025 Refill [facility] [address] [place] [phone] Naya Malone PharmD Type 2 diabetes mellitus with hyperglycemia, with long-term current use of insulin (CMS/HCC) 04/02/2025 10:00 AM EDT Office Visit [facility] [address] [place] [address] Anival, Mary, OD 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 diabetes mellitus (CMS/HCC) (Primary Dx); Asteroid hyalosis of left eye; Meibomian gland dysfunction (MGD) of upper and lower lids of both eyes; Pseudophakia of both eyes; Presbyopia of both eyes 04/02/2025 Travel 04/01/2025 Travel 03/21/2025 Telephone [facility] [address] [place] [address] Jarad Burt MA october recalls 03/05/2025 Refill [facility] [address] [place] [address] Naya Malone, PharmD Type 2 diabetes mellitus with hyperglycemia, with long-term current use of insulin ([facility]) from Last 3 Months Immunizations Immunization Administration [...] Mass Index 31.85 06/02/2025 10:51 AM EDT Plan of Treatment Upcoming Encounters Date Type Department Care Team (Late st Contact Info) Description 06/16/2025 10:00 AM EST Medication Management [facility] [address] [place] [phone] Naya Malone, PharmD [address] [place], [place] [phone] 09/03/2025 9:30 AM EST Office Visit [facility] [address] [place], [place] [phone] Name, MD Chan Osmar [place], [place] [phone] Health Maintenance Due Date Last Done Comments [...] 05/07/2019, Additional history exists Diabetes: Hemoglobin A1C 09/02/2025 025, 04/11/2025, 12/31/2024, Additional history exists Lipid Panel 11/06/2025 11/06/2024, 06/15, 01/18/2022, Additional history exists Depression Monitoring 12/01/2025 06/02/2025, 025 DTaP/Tdap/Td Vaccines (3 - Td or Tdap) [...] hyperglycemia, with long-term current use of insulin ([facility]) POCT GLYCATED HEMOGLOBIN, TOTAL Routine 04/11/2025 9:04 AM EDT Type 2 diabetes mellitus with hyperglycemia, with long-term current use of insulin (CMS/[facility]) POCT GLUCOSE Routine 04/11/2025 9:04 AM EDT Type 2 diabetes mellitus with hyperglycemia, with long-term current use of insulin (CMS/[facility]) LIPID PANEL, STANDARD Routine 11/06/2024 8:30 AM EDT Type 2 diabetes mellitus with diabetic 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, with long-term current use of insulin (CMS/[facility]) INTRAORAL - COMPLETE SERIES OF RADIOGRAPHIC IMAGES [...] to Health Maintenance Results * (ABNORMAL) POCT Hgb A1c (06/02/2025 10:59 AM EDT) Only the most recent of2 resultswithin the time period is included. Hemoglobin A1C 7.5(A) 4.0 - 5.7 % QC Media Lot # [id number] Lot# Expiration Date 51 Blood 06/02/2025 10:5 9 AM EDT us Chan Holley MD POINT OF CARE TEST ENTER/EDIT OR DERABLES Final Result * POCT Glucose (06/02/2025 10:56 AM EDT) Only the most recent of2 resultswithin the time period is included. Glucose Blood, POC 173 60 - 200 mg/dL QC Media Lot # [id number] Lot# Expiration Date 72 Blood Capillary blood specimen / Unknown 06/02/2025 10:56 AM EDT us Chan Holley MD POINT OF CARE TEST ENTER/EDIT OR DERABLES Final Result * (ABNORMAL) Lipid Panel, Standard (11/06/2024 8:30 AM EDT) Triglycerides 189(H) <150 mg/dL [facility] Comment:Desirable Triglyceri de: less than 150 mg/dLBorderline High Triglyceride 150-199 mg/dLHigh Triglyceride: 200-499 mg/dLVery High Triglyceride: greater than or equal to 5OO mg/dL Cholesterol 174 <200 mg/dL [facility] Comment:Desirable Cholestero l: less than 200 mg/dLBorderline High Cholesterol: 200-239 mg/dLHigh Cholesterol: greater than 239 mg/dL LDL Cholesterol Calculated 90 <100 mg/dL [facility] Comment:Desirable LDL: less than 100 mg/dLNear Optimal/Above Optimal LDL: 110- 129 mg/dLBorderline High LDL: 130-159 mg/dLHigh LDL: 160-189 mg/dLVery High LDL: greater than or equal to 190 mg/dL HDL Cholesterol 47 >40 mg/dL [facility] Comment:Desirable HDL: great er than 40 mg/dL Note: This HDL assay may give artificially low results in patients with liver disease. Blood Venous blood specimen / Unknown 11/06/2024 8:30 AM EDT 11/06/2024 11:05 AM EDT us Chan Holley MD LAB BLOOD ORDERABLES Final Resul t [facility] [address] [place] [address] [phone] * (ABNORMAL) Colonoscopy (12/12/2022) Colonoscopy Abnormal( A) Normal Comment:Repeat in 3 yrs Historical Provider MD HEALTH MAINTENANCE Final Result * HEPATITIS C AB W/REFL TO HCV RNA, QN, PCR (04/05/2022 10:35 AM EDT) HEPATITIS C ANTIBODY NON-REACT ELEONORA NON-REACT ELEONORA [facility] INDEX 0.04 <1.00 [facility] Comment: HCV antibody was non-reactive. There is no laboratory evidence of HCV infection. In most cases, no further action is required. However, if recent HCV exposure is suspected, a test for HCV RNA (test code 29376) is suggested. For additional information please refer to http://education.Enplug/faq/TTC99d4 (This link is being provided for informational/ educational purposes only.) 04/05/2022 10:3 5 AM EDT Vaishali Nieves [employer] HISTORICAL/NON ORDERABLE LABS Final Result [facility] [address] from Last 3 Months or Most Recently Relevant to Health Maintenance Insurance [facility] [employer] (HMO D-SNP) [facility] Care Teams Assembly Technician Relationship Specialty Start Date End Date Name, MD Chan [address] [place] [phone] PCP - General Family Medicine 08/01/16 Naya Malone, Gabriela [address] [place] [address] [phone] Pharmacist Internal Medicine 02/17/23 [facility] 11/08/24
--- OUTSIDE RECORDS SUMMARY | 2025-06-03 16:10 | XMS_ITS | Encounter Summary ---
Author Organization [facility] Address [address] [place] [address] Care Team Providers Care Philosophy Professor Name Role Phone Name, Chan TOLLIVER Primary Care Provider [phone] Naya Malone PharmD Unavailable Encounter Details Date Type Department Care Team (Latest Contact Info) Description 03/05/2019 Abstract [facility] CONVERSIONS Dental, Provider, DDS Social [...] Description 06/16/2025 10:00 AM EST Medication Management [address] [address] Naya Malone, PharmD [address] [place] [address] 09/03/2025 9:30 AM EST Office Visit [facility] [address] [place] [address] [phone] Name, MD Chan [address] [place] [address] documented as of this encounter Visit Diagnoses Not on filedocumented in this encounter Care Teams Philosophy Professor Relationship Specialty Start Date End Date Name, MD Chan [address] [place] [address] PCP - General Family Medicine 08/01/16 Naya Malone PharmD [address] [place] [address] Pharmacist Internal Medicine 02/17/23 [facility] 11/08/24 documented as of this encounter
--- OUTSIDE RECORDS SUMMARY | 2025-06-03 16:10 | XMS_ITS | Encounter Summary ---
Author Organization [employer] Address [address] [place] [address] Care Team Providers Care Photo Cartographer Name Role Phone Name, Chan TOLLIVER Primary Care Provider [phone] Naya Malone PharmD Unavailable Reason for Visit * Reason Onset Date Comments CHART PREP 05/30/2025 Encounter Details Date Type Department Care Team ([facility] st Contact Info) Description 05/30/2025 Telephone [facility] [address] [place], [place] [phone] Name, MD Chan [address] [place], [place] [phone] CHART PREP Social History Tobacco Use Types Packs/Day Years [...] encounter Miscellaneous Notes * Telephone Encounter - Melani Mendes [place] - 05/30/2025 1:59 PM EDT .Chart Prep Labs: done Images: not applicable Referrals: appointment with Pharmacy 06/16/25 Vaccines due: Covid, Flu, RSV, and Zoster Screenings: foot exam Overdue care gaps: Glucose and PHQ-9 documented in this encounter Plan of Treatment Upcoming Encounters Date Type Department Care Team (Late st Contact Info) Description 06/16/2025 10:00 AM EST Medication Management [facility] [address] [place] [address] Naya Malone, PharmD [address] [place] [phone] 09/03/2025 9:30 AM EST Office Visit [facility] [address] [place] [phone] Name, MD Chan [address] [place] [address] documented as of this encounter Goals Goal Patient Goal Type Associated Problems Recent Progress Patient-Stated? Author Work on dietary modification. Diet No Naya Malone, PharmD Note: - Drink less soda, juice, and other sugary beverages Patient will adhere to medication regimen General On track( 023 11:22 AM EST) No Naya Malone, PharmD Hemoglobin A1c < 7 Result Component 7.5( 5 10:59 AM EDT) No Naya Malone, PharmD [...] Noted Time PHQ-9 Depression Total Score: 23 01/16/ 025 1:39 PM EDT documented as of this encounter Care Teams Photo Cartographer Relationship Specialty Start Date End Date Name, MD Chan [address] [place] [phone] PCP - General Family Medicine 08/01/16 Naya Malone, PharmD [address] [place] [address] Pharmacist Internal Medicine 02/17/23 [facility] 11/08/24 documented as of this encounter
--- OUTSIDE RECORDS SUMMARY | 2025-06-03 16:10 | XMS_ITS | Encounter Summary ---
Author Organization [employer] Address [address] [place] [address] Care Team Providers Care Basin Operator Name Role Phone Name, Chan TOLLIVER Primary Care Provider [phone] Naya Malone PharmD Unavailable [phone] Reason for Visit * Reason Comments Med Refill Encounter Details Date Type Department Care Team (Late st Contact Info) Description 08/22/2022 Refill [facility] [address] [place], [place] [phone] Name, MD Chan [address] [place], [place] [phone] Diabetic 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 associated with type 2 diabetes [...] Description 06/16/2025 10:00 AM EST Medication Management [facility] [address] [place] [address] Naya Malone PharmD [address] [place] [address] 09/03/2025 9:30 AM EST Office Visit [facility] [address] [place] [phone] Name, MD Chan [address] [place] [address] documented as of this encounter Visit Diagnoses Diagnosis Diabetic 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 associated with type 2 diabetes mellitus (HCC)- Primary documented in this encounter Additional Health Concerns Assessment Noted Time PHQ-9 Depression Total Score: 24 12/2 022 10:06 AM EST documented as of this encounter Care Teams Basin Operator Relationship Specialty Start Date End Date NameChan MD [address] [place] [address] PCP - General Family Medicine 08/01/16 Naya Malone PharmD [address] [place] [phone] Pharmacist Internal Medicine 02/17/23 [facility] 11/08/24 documented as of this encounter
--- OUTSIDE RECORDS SUMMARY | 2025-06-03 16:10 | XMS_ITS | Patient Health Record ---
Author Organization [facility] Address [address] [place] [address] Support Name Relationship Address Phone ALONSO LATHAM Emergency Contact [address] [place] [phone] TARI HARDWICK Guarantor Unknown Care Team Providers Care Commercial Property Manager Name Role Phone Leny Diallo Primary Care [...] 25 MG 1 suppository Rectal Once a day; Duration: 14 day(s) 06/20/2013 08/14/2024 Active Cyclobenzaprine HCl 10mg Active Colyte with Flavor Packs 240 GM As directed Orally Over the specified time.; Duration: 1 day(s) 06/20/2013 08/14/2024 Active traMADol HCl 50mg Ac tive FLUoxetine HCl 20mg Active Ziprasidone HCl 60mg Active diphenhydrAMINE HCl 50mg Active Perphenazine 4mg Act rosa clonazePAM 0.5mg Act rosa buPROPion HCl 150mg Active Problems Problem Type SNOMED Code ICD Code Onset Dates Problem Status W/U Status Risk Notes Problem Esophageal reflux (221603721) Esophageal reflux (530.81) Active confirmed Problem Rectal bleeding (99913322) Rectal bleeding (569.3) Active confirmed Plan Of Treatment Future Test Test Name Order Date UPPER GI ENDOSCOPY 06/20/2013 COLONOSCOPY 06/20/2013 Insurance Providers Payer Name Payer Address Payer Phone Subscriber Number Group Number Insured Name Patient Relationship to Insured Coverage Start Date Coverage End Date MEDICARE OF [place] [address] [place] [address] [phone] [id number] TARI HERNANDEZ Self - patient is the insured MEDICAID OF [facility] [address] [place] [address] [id number] TARI HERNANDEZ Self - patient is the insured Medical (General) History Medical History History ICD Code type II diabetes asthma hypertension schizophrenia/depression elevated cholesterol esophageal reflux
--- OUTSIDE RECORDS SUMMARY | 2025-06-03 16:10 | XMS_ITS | Encounter Summary ---
Author Organization [facility] [facility] Address [address] [place] [address] Care Team Providers Care Welding Machine Operator Plasma Arc Name Role Phone Name, Chan TOLLIVER Primary Care Provider [phone] Naya Malone PharmD Unavailable Encounter Details Date Type Department Care Team (Latest Contact Info) Description 03/24/2021 Abstract [facility] CON[facility] Dental, Provider, DDS Social History Tobacco [...] Description 06/16/2025 10:00 AM EST Medication Management [facility] [address] [place] [phone] Naya Malone, PharmD [address] [place] [address] 09/03/2025 9:30 AM EST Office Visit [facility] [address] [place] [address] [phone] Name, MD Chan [address] [place] [phone] documented as of this encounter Visit Diagnoses Not on filedocumented in this encounter Care Teams Welding Machine Operator Plasma Arc Relationship Specialty Start Date End Date Name, MD Chan [address] [place] [address] PCP - General Family Medicine 08/01/16 Naya Malone PharmD [address] [place] [address] Pharmacist Internal Medicine 02/17/23 [facility] 11/08/24 documented as of this encounter
--- OUTSIDE RECORDS SUMMARY | 2025-06-03 16:10 | XMS_ITS | Encounter Summary ---
Author Organization [employer] Address [address] 7t [place] [address] Care Team Providers Care Pl Sql Developer Name Role Phone Name, Chan TOLLIVER Primary Care Provider [phone] Naya Malone PharmD Unavailable Reason for Visit * Reason Comments Med Refill Encounter Details Date Type Department Care Team (Late st Contact Info) Description 02/17/2023 Refill [facility] MEDICINE [address] [place], [place] [phone] Name, MD Chan [address] [place], [place] [phone] Type 2 diabetes mellitus with hyperglycemia, with long-term current use of insulin ([facility]) Social History Tobacco Use Types Packs/Day Years [...] Description 06/16/2025 10:00 AM EST Medication Management [facility] [place], [place] [phone] Naya Malone PharmD [address] [place] [address] [phone] 09/03/2025 9:30 AM EST Office Visit [facility] MEDICINE [place], [place] [phone] Name, MD Chan [place], [place] [phone] documented as of this encounter Goals Goal Patient Goal Type Associated Problems Recent Progress Patient-Stated? Author Hemoglobin A1c < 7 Result Component 7.5( 10:59 AM EDT) No Naya Malone PharmD Record [...] of insulin (HCC) documented in this encounter Additional Health Concerns Assessment Noted Time PHQ-9 Depression Total Score: 24 022 10:06 AM EST documented as of this encounter Care Teams Pl Sql Developer Relationship Specialty Start Date End Date Name, MD Chan [place], [place] [phone] PCP - General Family Medicine 08/01/16 Naya [place] [address] Pharmacist Internal Medicine 02/17/23 [facility] 11/08/24 documented as of this encounter
--- OUTSIDE RECORDS SUMMARY | 2025-06-03 16:10 | XMS_ITS | Encounter Summary ---
Author Organization [employer] Address [address] 7t [place] [address] Care Team Providers Care Director Payment Name Role Phone Name, Chan TOLLIVER Primary Care Provider [phone] Naya Malone PharmD Unavailable [phone] Encounter Details Date Type Department Care Team (Latest Contact Info) Description 06/02/2025 Travel Social History Tobacco Use Types Packs/Day [...] is your housing situation today? I have sabinetamiko ko 03/13/[address] you [...] AM EDT documented as of this encounter Functional Status * Over the [...] BLANCAT Jean Carlos Harrington MA * Feeling down, depressed, or hopeless Answer Date of Assessment Author Nearly every day 06/02/2025 10:52 AM BLANCAT Jean Carlos Harrington MA * Trouble falling or staying asleep, or sleeping too much Answer Date of Assessment Author Nearly every day 06/02/2025 10:52 AM BLANCAT Jean Carlos Harrington MA * Feeling tired [...] Author Nearly every day 06/02/2025 10:52 AM JeanC arlos Reilly MA * Thoughts that you would be better off or hurting yourself in some way Answer Date of Assessment Author Not at all 06/02/2025 10:52 AM Jean Carlos Reilly MA * Patient Health Questionnaire-9 Score Answer Date of Assessment Author 19 06/02/2025 10:52 AM Jean Carlos Reilly MA * How difficult have these problems made it for you to do your work, take care of things at home, or get along with other people? Answer Date of Assessment Author Extremely difficult 06/02/2025 10:52 AM Jean Carlos Doyle MA documented as of this encounter Plan of Treatment Upcoming Encounters Date Type Department Care Team (Late st Contact Info) Description 06/16/2025 10:00 AM EST Medication Management [facility] MEDICINE [address] [place] [address] Naya Malone, PharmD [address] [place] [address] 09/03/2025 9:30 AM EST Office Visit [address] [address] Name, MD Chan [address] [place] [address] documented as of this encounter Goals Goal Patient Goal Type Associated Problems Recent Progress Patient-Stated? Author Work on dietary modification. Diet No Naya Malone, PharmD Note: - Drink less soda, juice, and other sugary beverages Patient will adhere to medication regimen General On track(12/21/2 023 11:22 AM EST) No Naya Malone PharmD Hemoglobin A1c < 7 Result Component 7.5( 5 10:59 AM EDT) No Naya Malone PharmD [...] documented as of this encounter Care Teams Director Payment Relationship Specialty Start Date End Date Name, MD Chan 230 [place] [address] PCP - General Family Medicine 08/01/16 Naya Malone PharmD 230 [place] [address] Pharmacist Internal Medicine 02/17/23 [facility] 11/08/24 documented as of this encounter
--- OUTSIDE RECORDS SUMMARY | 2025-06-03 16:10 | XMS_ITS | Encounter Summary ---
Author Organization [employer] Address [address] 7t [place] [address] Care Team Providers Care Pipe Bender Name Role Phone Name, Chan TOLLIVER Primary Care Provider [phone] Naya Malone PharmD Unavailable Encounter Details Date Type Department Care Team (Late st Contact Info) Description 01/12/2023 Abstract [facility] MEDICINE 230 [place], [place] [phone] Name, MD Chan 230 [place] [address] Social History Tobacco Use Types Packs/Day Years [...] Description 06/16/2025 10:00 AM EST Medication Management [facility] [place] [address] Naya Malone PharmD [place], [place] 09/03/2025 9:30 AM EST Office Visit [facility] [place] [address] Name, [place] [address] documented as of this encounter Visit Diagnoses Not on filedocumented in this encounter Additional Health Concerns Assessment Noted Time PHQ-9 Depression Total Score: 24 022 10:06 AM EST documented as of this encounter Care Teams Pipe Bender Relationship Specialty Start Date End Date Name, MD Chan [address] [place] [address] PCP - General Family Medicine 08/01/16 Naya Malone PharmD [address] [place] [address] [phone] Pharmacist Internal Medicine 02/17/23 [facility] 11/08/24 documented as of this encounter
--- OUTSIDE RECORDS SUMMARY | 2025-06-03 16:11 | XMS_ITS | Encounter Summary ---
Author Organization [employer] Address [address] 7[address] [place] [address] Care Team Providers Care Engineering Associate Name Role Phone Name, Chan TOLLIVER Primary Care Provider [phone] Naya Malone PharmD Unavailable [phone] Encounter Details Date Type Department Care Team (Late st Contact Info) Description 01/12/2024 Telephone [facility] ADULT DENTAL 230 [place] [address] Priya Felix, BRANT Social History Tobacco Use [...] Description 06/16/2025 10:00 AM EST Medication Management [address] [address] Naya Malone PharmD [address] [place] [address] 09/03/2025 9:30 AM EST Office Visit [facility] MEDICINE [address] [place] [address] Name, MD Chan [address] [place] [address] documented as of this encounter Goals Goal Patient Goal Type Associated Problems Recent Progress Patient-Stated? Author Work on dietary modification. Diet No Naya Malone, ElverD Note: - Drink less soda, juice, and other sugary beverages Patient will adhere to medication regimen General On track( 023 11:22 AM EST) No Naya Malone, PharmD Hemoglobin A1c < 7 Result Component 7.5(10/20/202 5 10:59 AM EDT) No Naya Malone [...] documented as of this encounter Care Teams Engineering Associate Relationship Specialty Start Date End Date Name, MD Chan 230 [place] [address] PCP - General Family Medicine 08/01/16 Naya Malone PharmD 230 [place] [address] Pharmacist Internal Medicine 02/17/23 [facility] 11/08/24 documented as of this encounter
--- OUTSIDE RECORDS SUMMARY | 2025-06-03 16:11 | XMS_ITS | Encounter Summary ---
Author Organization [employer] Address [address] 7t [place] [address] Care Team Providers Care Jewelry Polisher Name Role Phone Name, Chan TOLLIVER Primary Care Provider [phone] Naya Malone PharmD Unavailable Reason for Visit * Reason Comments Med Refill Encounter Details Date Type Department Care Team ([facility] st Contact Info) Description 09/02/2023 Refill [facility] MEDICINE 230 [place], [place] [phone] Name, MD Chan [address] [place], [place] [phone] Asthma, unspecified asthma severity, unspecified whether complicated, [...] housing situation today? I have sabinetamiko ko 05/29/[address] you [...] Description 06/16/2025 10:00 AM EST Medication Management [facility] MEDICINE [address] [place] [address] PuiaGriffinNaya, PharmD [address] [place] [address] 09/03/2025 9:30 AM EST Office Visit [facility] MEDICINE [address] [place] [address] Name, MD Chan [address] [place] [address] documented as of this encounter Goals Goal Patient Goal Type Associated Problems Recent Progress Patient-Stated? Author Patient will adhere to medication regimen General On track( 023 11:22 AM EST) No Puia, Naya, PharmD Hemoglobin A1c < 7 Result Component 7.5( 10:59 AM EDT) No Puia, Naya, PharmD Record [...] documented as of this encounter Care Teams Jewelry Polisher Relationship Specialty Start Date End Date Name, MD Chan 230 [place] [address] PCP - General Family Medicine 08/01/16 Naya Malone PharmD [address] [place] [address] Pharmacist Internal Medicine 02/17/23 [facility] 11/08/24 documented as of this encounter
== END 2025-06-03 13:47 | disposition home or self-care (01) ==
LOC: HO.HOS 12:40
PROVIDERS: PCP Internal Medicine Geriatric Medicine; Visit Provider Orthopaedic Surgery
DX: M65.332 Trigger finger, left middle finger (principal); E11.42 Type 2 diabetes mellitus with diabetic 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
CPT/HCPCS: 99024

== ENCOUNTER → 2025-06-03 12:40 | Outpatient (BNVA) | payer OTHER, SELFPAY | PROVIDERS: PCP Internal Medicine Geriatric Medicine; Visit Provider Orthopaedic Surgery | DX: Z98.890 Other specified postprocedural states (principal); M65.332 Trigger finger, left middle finger; E11.42 Type 2 diabetes mellitus with diabetic 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 | CPT/HCPCS: 99212 ==

== ENCOUNTER 2025-06-11 09:48 | Outpatient (AMB) | payer OTHER, SELFPAY ==
--- NOTE | 2025-06-11 10:30 | A.OFFVIS_ITS ---
Intake Visit Reasons: 6M [facility] Mid Level Business Analyst Required: Yes Mid Level Business Analyst Name: #[id number] Accompanied by: Family/Other Allergies Penicillins Allergy (Mild, Verified 06/11/25 10:34) DIZZY/DIAPHORESIS, N/V penicillin V Allergy (Unknown, Verified 06/11/25 10:34) Unknown Medication List - Last Reconciled 06/11/25 by Cori Bello, DENIA albuterol sulfate mg inhalation albuterol sulfate 90 mcg/actuation 2 inhalations inhalation Q6-8H PRN alcohol swabs 1 pad topical QID 30 days amitriptyline 50 mg PO BEDTIME aspirin 81 mg PO DAILY bupropion HCl SR 150 mg PO BID cimetidine 600 mg (2 x 300 mg) PO BEDTIME clonazepam 0.5 mg PO DAILY PRN donepezil 10 mg PO DAILY econazole nitrate 1% appl topical BID empagliflozin-metformin 12.5-500 mg (Synjardy) 1 tab PO DAILY fluoxetine 60 mg PO QAM fluticasone propion-salmeterol 250-50 mcg/dose 1 ea inhalation BID FreeStyle Lite Strips (blood sugar diagnostic) 1 strip miscellaneous .3 times a day 30 days NS gabapentin 300 mg PO DAILY hydrocodone-acetaminophen 5-325 mg 1 tab PO Q4-6H PRN insulin glargine (Lantus Solostar U-100 Insulin) 28 units subcut QPM lancets 4 times a day lancets (TRUEplus Lancets) As directed four times a day linaclotide (Linzess) 145 mcg PO QAM 90 days lisinopril-hydrochlorothiazide 10-12.5 mg 1 tab PO DAILY magnesium oxide 500 mg PO QPM metoclopramide HCl 5 mg PO QID omeprazole 40 mg PO BID pen needle, diabetic 5 times a day pravastatin 80 mg PO BEDTIME 90 days tadalafil 5 mg PO DAILY 90 days terazosin 5 mg PO BEDTIME 30 days tirzepatide (Mounjaro) 5 mg subcut QWEEK tramadol-acetaminophen 37.5-325 mg 1 - 2 tabs PO TID ziprasidone HCl 40 mg PO BID HPI Comments Details: 70-year-old man with diabetes, depression, and schizophrenia began to have short-term memory problems around 2022 and was noted to repeat himself. He does not drive. There are no safety issues. He was okay. He was more forgetful and had trouble focusing. Sleep was so-so. Mood was okay. He was walking with walker, no falls. He watched TV during the day. 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 GERD (gastroesophageal reflux disease) Cervical spine pain HTN (hypertension) High cholesterol Asthma Surgical History Hx of hand surgery History of back surgery Hx of esophagogastroduodenoscopy Hx of colonoscopy Family History Father Heart disease Mother Arthritis Diabetes Social History Household Members: Spouse Alcohol intake: never Comment: Counts correct Patient Tobacco Use Status: Former Tobacco user Current occupational status: retired and disabled Review of Systems Const Denies chills, Denies daytime sleepiness, Reports difficulty sleeping, Reports fatigue, Denies fever(s), Denies frequent falls, Reports headache(s), Denies increased appetite, Denies poor appetite, Denies snoring, Denies weakness, Den ies weight gain and Denies weight loss Eyes Denies loss of vision ENT Denies vertigo, Reports dizziness, Reports headache(s) and Denies neck pain Card Denies chest pain at rest, Denies chest pain with activity, Denies syncope, Denies leg edema, Denies palpitations, Denies dyspnea and Denies dyspnea on exertion Resp Denies cough, Denies dyspnea, Denies dyspnea on exertion and Denies snoring GI Denies abdominal pain, Denies constipation, Denies heartburn, Denies diarrhea a nd Denies nausea Denies urinary frequency, Denies urinary incontinence and Denies urinary urgency Musc Denies abnormal gait, Denies back pain, Denies myalgias, Denies arthralgias, Denies neck pain, Reports numbness and Reports tingling Neuro Denies abnormal gait, Denies vertigo, Reports dizziness, Denies syncope, Denies frequent falls, Reports headache(s), Denies lack of coordination, Denies loss of vision, Reports memory loss, Reports numbness, Denies Other visual disturbances, Denies restless legs, Denies seizure-like activity, Reports tingling, Denies paresthesias, Denies tremor(s) and Denies weakness Psych Denies anxiety, Denies depression, Denies auditory hallucinations, Reports james ry loss and Denies visual hallucinations Endo Reports fatigue and Denies palpitations Physical Exam Const Other: General Appearance:? normal, in no acute distress. Heart:? S1, S2 normal, no murmurs. Lungs:? clear anteriorly and posteriorly. Musculoskeletal:? normal. Extremities:? no edema. Psych:? alert, as below. Neuro Other: Abnormal Neurological Findings:?MMSE 25/30. Walking with walker. Mental Status: alert, as below. Cranial Nerves: Pupils are equal, round, and reactive to light. External ocular muscles are intact. Visual doe are full, no ptosis. Face is symmetrical, no facial weakness or droop. Facial sensations are normal. Tongue protrudes in midline. Palate elevates symmetrically. Shoulder shrugging is normal Motor Examination: Normal muscle tone, bulk and strength. No atrophy or fasciculations. No drift of the extended upper extremities. DTR 2+. Plantars are flexor. Sensory Exam: Normal light touch, temperature, pinprick, vibration, and joint- position sensations. Rhomberg sign is absent. Coordination: No ataxia. No titubation. Gait Exam: With walker. Cerebellar Signs: [id number] is okay. Extrapyramidal System: No tremor, rigidity with normal facial expressions. No bradykinesia. No bradyphrenia. Normal arm swing and posture. No propulsion or retropulsion. Speech: Normal. MMSE Level of Consciousness: Alert. Orientation: Knows correct year, month, date, day and season. Knows correct city, county and state. Knows correct location and floor. Registration: Able to register 3 objects. Attention: Serial 7's performed accurately to 93. Recall: Able to recall 2 out of 3 objects. Language: Normal spontaneous speech, fluency, repetition, naming, comprehension, reading, and writing. Total Score: 25/30. Results Reviewed Results Reviewed: 10/20/23 EEG- WNL 09/2023 Labs: Vit D low (26.7), otherwise ok Assessment & Plan Assessment & Plan (1) MCI (mild cognitive impairment): Code(s): G31.84 - Mild cognitive impairment of uncertain or unknown etiology Category: Medical Plan: Continue donepezil 10mg 1 tablet at bedtime. Start memantine 5mg 1 tablet twice a day, use/side effects reviewed. Stay physically and socially active, use walker. Medications: New memantine (Namenda) 5 mg PO BID 180 tabs 0RF 90 days Changed From donepezil 10 mg PO DAILY To donepezil 10 mg PO BEDTIME 90 tabs 1RF 90 days Coding Level of Care Code Est Pt Level 4 (21146) Diagnoses MCI (mild cognitive impairment) G31.84
--- OUTSIDE RECORDS SUMMARY | 2025-06-11 11:50 | XMS_ITS | Encounter Summary ---
Author Organization [employer] Address [address] 7t [place] [address] Care Team Providers Care Cloth Framer Name Role Phone Name, Chan TOLLIVER Primary Care Provider [phone] Naya Malone PharmD Unavailable Reason for Visit * Reason Comments Med Refill Encounter Details Date Type Department Care Team (Late st Contact Info) Description 02/17/2023 Refill [facility] MEDICINE 230 [place], [place] [phone] Name, MD Chan 230 [place], [place] [phone] Type 2 diabetes mellitus with hyperglycemia, with long-term current use of insulin ([facility]) Social History Tobacco Use Types [...] Description 06/16/2025 10:00 AM EST Medication Management [facility] [place]smar [place], [place] [phone] Naya Malone PharmD [address] [place] [address] [phone] 09/03/2025 9:30 AM EST Office Visit [facility] MEDICINE [place], [place] [phone] Name, MD Chan [place], [place] [phone] documented as of this encounter Goals Goal [...] documented as of this encounter Care Teams Cloth Framer Relationship Specialty Start Date End Date Name, MD Chan [place], [place] [phone] PCP - General Family Medicine 08/01/16 [place]aya [place] [address] Pharmacist Internal Medicine 02/17/23 [facility] 11/08/24 documented as of this encounter
--- OUTSIDE RECORDS SUMMARY | 2025-06-11 11:50 | XMS_ITS | Encounter Summary ---
Author Organization [facility] Address [address] 7t [place] [address] Care Team Providers Care Mathematical Physicist Name Role Phone Name, Chan TOLLIVER Primary Care Provider [phone] Naya Malone PharmD Unavailable Encounter Details Date [...] Description 06/16/2025 10:00 AM EST Medication Management [address] [address] Naya Malone, PharmD [address] [place] [address] 09/03/2025 9:30 AM EST Office Visit [facility] MEDICINE [address] [place] [address] [phone] Name, MD Chan [address] [place] [address] documented as of this encounter Visit Diagnoses Not on filedocumented in this encounter Care Teams Mathematical Physicist Relationship Specialty Start Date End Date Name, MD Chan [address] [place] [address] PCP - General Family Medicine 08/01/16 Naya Malone PharmD [address] [place] [address] Pharmacist Internal Medicine 02/17/23 [facility] 11/08/24 documented as of this encounter
--- OUTSIDE RECORDS SUMMARY | 2025-06-11 11:50 | XMS_ITS | Encounter Summary ---
Author Organization [employer] Address [address]t [place] [address] Care Team Providers Care Nurse Unit Manager Name Role Phone Name, Chan TOLLIVER Primary Care Provider [phone] Naya Malone PharmD Unavailable Reason for Visit * Reason Comments Med Refill Encounter Details Date Type Department Care Team (Late st Contact Info) Description 08/22/2022 Refill [facility] MEDICINE 230 [place], [place] [phone] Name, MD hCan 230 [place], [place] [phone] Diabetic 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 associated with type 2 diabetes [...] Description 06/16/2025 10:00 AM EST Medication Management [facility] MEDICINE [address] [place] [address] Naya Malone PharmD [address] [place] [address] 09/03/2025 9:30 AM EST Office Visit [facility] MEDICINE [address] [place] [address] Name, MD Chan [address] [place] [address] documented as of this encounter Visit Diagnoses Diagnosis Diabetic 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 associated with type 2 diabetes mellitus (HCC)- Primary documented in this encounter Additional Health Concerns Assessment Noted Time PHQ-9 Depression Total Score: 24 12/2 022 10:06 AM EST documented as of this encounter Care Teams Nurse Unit Manager Relationship Specialty Start Date End Date NameChan MD [address] [place] [address] PCP - General Family Medicine 08/01/16 Naya Malone PharmD [address] [place] [address] Pharmacist Internal Medicine 02/17/23 [facility] 11/08/24 documented as of this encounter
--- OUTSIDE RECORDS SUMMARY | 2025-06-11 11:50 | XMS_ITS | Encounter Summary ---
Author Organization [facility] Address [address]t [place] [address] Care Team Providers Care Child'S Nurse Name Role Phone Name, Chan TOLLIVER Primary Care Provider [phone] Naya Malone PharmD Unavailable Encounter Details Date Type Department Care Team (Latest Contact Info) Description 03/24/2021 Abstract [facility] CONVERSIONS Dental, Provider, DDS Social [...] EST Medication Management [facility] MEDICINE [address] [place] [address] Naya Malone, PharmD 230 [place] [address] 09/03/2025 9:30 AM EST Office Visit [facility] MEDICINE [address] [place] [address] [phone] Name, MD Chan [address] [place] [address] documented as of this encounter Visit Diagnoses Not on filedocumented in this encounter Care Teams Child'S Nurse Relationship Specialty Start Date End Date Name, MD Chan 230 [place] [address] PCP - General Family Medicine 08/01/16 Naya Malone PharmD 230 [place] [address] Pharmacist Internal Medicine 02/17/23 [facility] 11/08/24 documented as of this encounter
--- OUTSIDE RECORDS SUMMARY | 2025-06-11 11:50 | XMS_ITS | Encounter Summary ---
Author Organization [employer] Address [address] 7t [place] [address] Care Team Providers Care Shipping And Receiving Specialist Name Role Phone Name, Chan TOLLIVER Primary Care Provider [phone] Naya Malone PharmD Unavailable Reason for Visit * Reason Comments Med Refill Encounter Details Date Type Department Care Team ([facility] st Contact Info) Description 09/02/2023 Refill [facility] MEDICINE 230 [place], [place] [phone] Name, MD Chan 230 [place], [place] [phone] Asthma, unspecified asthma severity, unspecified whether complicated, [...] Description 06/16/2025 10:00 AM EST Medication Management [facility] MEDICINE [address] [place] [address] PuiaGriffinNaya, PharmD [address] [place] [address] 09/03/2025 9:30 AM EST Office Visit [facility] MEDICINE [address] [place] [address] Name, MD Chan [address] [place] [address] documented as of this encounter Goals Goal Patient Goal Type Associated Problems Recent Progress Patient-Stated? Author Patient will adhere to medication regimen General On track( 023 11:22 AM EST) No Puia, Naay, PharmD Hemoglobin A1c < 7 Result Component [...] documented as of this encounter Care Teams Shipping And Receiving Specialist Relationship Specialty Start Date End Date Name, MD Chan [address] [place] [address] PCP - General Family Medicine 08/01/16 Naya Malone PharmD [address] [place] [address] Pharmacist Internal Medicine 02/17/23 [facility] 11/08/24 documented as of this encounter
--- OUTSIDE RECORDS SUMMARY | 2025-06-11 11:50 | XMS_ITS | Patient Health Record ---
Author Organization [facility] Address [address] [place] [address] Support Name Relationship Address Phone ALONSO LATHAM Emergency Contact [address] [place] [id number] TARI HARDWICK Guarantor Unknown Care Team Providers Care Neurobiologist Name Role Phone Leny Diallo Primary Care Provider UnavailAlvin Elmore Jr Unavailable [phone] Allergies Allergen (clinical drug ingredient) Drug/Non [...] W/U Status Risk Notes Problem Esophageal reflux (071365516) Esophageal reflux (530.81) Active confirmed Problem Rectal bleeding (15530668) Rectal bleeding (569.3) Active confirmed Plan Of Treatment Future Test Test Name Order Date UPPER GI ENDOSCOPY 06/20/2013 COLONOSCOPY 06/20/2013 Insurance Providers Payer Name Payer Address Payer Phone Subscriber Number Group Number Insured Name Patient Relationship to Insured Coverage Start Date Coverage End Date MEDICARE OF [place] [address] [place]ARC[place] [id number] [phone] [id number] TARI HERNANDEZ Self - patient is the insured MEDICAID OF [facility] [address] [place] [address] [id number] TARI HERNANDEZ Self - patient is the insured Medical (General) History Medical History History ICD Code type II diabetes asthma hypertension schizophrenia/depression elevated cholesterol esophageal reflux
--- OUTSIDE RECORDS SUMMARY | 2025-06-11 11:50 | XMS_ITS | Encounter Summary ---
Author Organization [employer] Address [address] 7[address] [place] [address] Care Team Providers Care Injection Molding Operator Name Role Phone Name, Chan TOLLIVER Primary Care Provider [phone] Naya Malone PharmD Unavailable [phone] Encounter Details Date Type Department Care Team (Late st Contact Info) Description 01/12/2023 Abstract [facility] [address] [place], [place] [phone] Name, MD Chan [address] [place] [address] Social History Tobacco Use Types Packs/Day Years [...] Description 06/16/2025 10:00 AM EST Medication Management [facility] [place] [address] Naya Malone PharmD [place], [place] 09/03/2025 9:30 AM EST Office Visit [facility] [place] [address] Name, [place] [address] documented as of this encounter Visit Diagnoses Not on filedocumented in this encounter Additional Health Concerns Assessment Noted Time PHQ-9 Depression Total Score: 24 022 10:06 AM EST documented as of this encounter Care Teams Injection Molding Operator Relationship Specialty Start Date End Date Name, MD Chan [address] [place] [address] PCP - General Family Medicine 08/01/16 Naya Malone PharmD [address] [place] [address] [phone] Pharmacist Internal Medicine 02/17/23 [facility] 11/08/24 documented as of this encounter
--- OUTSIDE RECORDS SUMMARY | 2025-06-11 11:50 | XMS_ITS | Clinical Summary ---
Author Organization [employer] Address [address] 7[address] [place] [address] Care Team Providers Care Relationship Executive Name Role Phone Name, Chan TOLLIVER Primary Care Provider [phone] Naya Malone PharmD Unavailable Allergies Active Allergy Reactions Criticality Noted Date [...] mouth 1 (one) time each day. Active traMADol-acetamino phen (UltraCET) 37.5-325 MG tablet Take 1 tablet by mouth if needed in the morning, at noon, and at bedtime. Active cimetidine (Tagamet) 300 MG tablet Take 2 tablets by mouth at bedtime. 08/30/19 23 Active Linzess 145 MCG capsule TOME 1 C PSULA POR V A ORAL CADA MA YIAMA 02/08/20 23 Active metoclopramide (Reglan) 5 MG tablet Take 1 tablet by mouth 4 times daily. Before meals & bedtime 02/14/20 23 Active omeprazole (PriLOSEC) [address] capsule Take 40 mg by mouth before breakfast and before evening meal. 12/04/20 23 Active TRUEplus Lancets 33G miscIndications:Ty pe 2 diabetes mellitus with diabetic 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 ([facility]) Use to test blood sugar up to 3 times daily as directed 100 each 02/28/20 24 Active donepezil (Aricept) 10 MG tablet Take 10 mg by mouth at bedtime. 05/24/20 24 Active Synjardy 12.5-500 MGIndications:Type 2 diabetes mellitus with hyperglycemia, with long-term current use of insulin ([facility]) TAKE 1 TABLET BY MOUTH TWICE DAILY IN THE MORNING AND IN THE EVENING WITH MEALS 60 tablet 08/15/19 Active magnesium oxide 500 MG tablet Take 1 tablet by mouth at bedtime. 09/16/19 25 Active insulin glargine (Lantus SoloStar) 100 UNIT/ML penIndications:Typ e 2 diabetes mellitus with hyperglycemia, with long-term current use of insulin ([facility]) Inject 28 Units under the skin at bedtime. 15 mL 10/01/19 25 Active albuterol 108 (90 Base) MCG/ACT inhalerIndications :Type 2 diabetes mellitus with diabetic 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, with long-term current use of insulin ([facility]) Inhale 2 puffs every 4 (four) hours. 18 g 10/23/19 25 Active Alcohol Swabs (Alcohol Prep) 70 % padsIndications:Ty pe 2 diabetes mellitus with hyperglycemia, with long-term current use of insulin ([facility]) USE UP TO FOUR TIMES DAILY DIRECTED 100 each 12/04/19 25 Active econazole nitrate 1 % cream APPLY TO AFFECTED AREA(S) AND SURROUNDING AREA(S) TWICE DAILY IN THE MORNING AND EVENING 85 g 12/07/19 25 Active gabapentin (Neurontin) 300 MG capsule Take 300 mg by mouth 2 times daily. 12/14/19 25 Active Continuous Glucose Gas Pumping Station Operator (FreeStyle Mata 3 [place]) deviceIndications: Type 2 diabetes mellitus with hyperglycemia, with long-term current use of insulin ([facility]) 1 each Once per day. Use as directed for CGM 1 each 01/01/20 25 Active Continuous Glucose Sensor (FreeStyle Mata 3 Plus Sensor) miscIndications:Ty pe 2 diabetes mellitus with hyperglycemia, with long-term current use of insulin ([facility]) Apply 1 every 15 days as directed for CGM 2 each 01/01/20 25 Active glucose blood (FreeStyle Precision Anthony Test) test stripIndications:T ype 2 diabetes mellitus with hyperglycemia, with long-term current use of insulin ([facility]) Use to test blood sugar up to 3 times daily, as directed 100 each 01/01/20 25 Active glucose 4 g chewable tabletIndications: Type 2 diabetes mellitus with hyperglycemia, with long-term current use of insulin ([facility]) Chew 4 tablets (16 g) if needed for low blood sugar. 40 tablet 01/01/20 25 026 Active glucagon (Baqsimi Two Pack) 3 MG/DOSE nasal powderIndications: Type 2 diabetes mellitus with hyperglycemia, with long-term current use of insulin ([facility]) Administer 3 mg via 1 device into the nostril for hypoglycemia with loss of consciousness. If no response after 15 minutes administer an additional dose via 2nd device into other nostril. 2 each 01/01/20 25 Active pravastatin (Pravachol) 80 MG tabletIndications: Type 2 diabetes mellitus with hyperglycemia, with long-term current use of insulin ([facility]) TAKE 1 TABLET BY MOUTH EVERY MORNING 90 tablet 01/08/20 25 Active lisinopril-hydroCH LOROthiazide 10-12.5 MG tabletIndications: Essential hypertension TAKE 1 TABLET BY MOUTH EVERY MORNING 90 tablet 01/08/20 25 Active Aspirin Low Dose 81 MG EC tabletIndications: Diabetic 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 associated with type 2 diabetes mellitus ([facility]) TAKE 1 TABLET BY MOUTH EVERY MORNING 90 tablet 1 02/04/20 25 Active Fluticasone-Salmet dora 250-50 MCG/ACT aerosol powderIndications: Asthma, unspecified asthma severity, unspecified whether complicated, unspecified whether persistent INHALE 1 PUFF BY MOUTH TWICE DAILY IN THE MORNING AND IN THE EVENING RINSE MOUTH AFTER USING. 60 each 02/29/20 25 Active amitriptyline (Elavil) 50 MG tabletIndications: Diabetic 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 associated with type 2 diabetes mellitus ([facility]) TAKE 1 TABLET BY MOUTH AT BEDTIME 30 tablet 02/29/20 25 Active BD Pen Needle Carmen Ultrafine 32G X 4 MM miscIndications:Ty pe 2 diabetes mellitus with hyperglycemia, with long-term current use of insulin ([facility]) USE DIRECTED EVERY DAY FOR INSULIN INJECT 100 each 04/08/20 25 Active terazosin (Hytrin) 5 MG capsule TOME 1 C PSULA POR V A ORAL AL ACOSTARSE 03/20/20 25 Active cyclobenzaprine (Flexeril) 10 MG tablet Take 10 mg by mouth if needed at bedtime for muscle spasms. 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 insulin ([facility]) Uncontrolled type 2 diabetes mellitus 05/11/2023 Diabetic [...] 11:00 AM EDT Office Visit [facility] [address] [place] [address] Chan Holley MD Type 2 diabetes mellitus with hyperglycemia, with long-term current use of insulin ([facility]) (Primary Dx); Hypoglycemia; ZEV on CPAP 06/02/2025 Travel 05/30/[address] [address] Chan Holley MD CHART PREP 05/26/2025 Travel 05/06/[address] [address] Chan Holley MD 05/05/2025 Travel 04/11/2025 9:00 AM EDT Office Visit [facility] [address] [place] [address] Nina Cardozo, MARY Type 2 diabetes mellitus with hyperglycemia, with long-term current use of insulin ([facility]) (Primary Dx) 04/11/2025 Travel 04/10/2025 Telephone [facility] [address] [place] [address] Jean Carlos Harrington [place] CHARTPREP 04/10/2025 Telephone [facility] [address] [place] [address] Chan Holley MD Nurse Triage 04/09/2025 Telephone [facility] [address] [place] [address] Chan Holley MD 04/07/2025 Travel 04/07/2025 Refill [facility] [address] [place] [address] Naya Malone PharmD Type 2 diabetes mellitus with hyperglycemia, with long-term current use of insulin ([facility]) 04/02/2025 10:00 AM EDT Office Visit [facility] [address] [place] [address] Anival, Mary, OD 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 diabetes mellitus ([facility]) (Primary Dx); Asteroid hyalosis of left eye; Meibomian gland dysfunction (MGD) of upper and lower lids of both eyes; Pseudophakia of both eyes; Presbyopia of both eyes 04/02/2025 Travel 04/01/2025 Travel 03/21/2025 Telephone [facility] [address] [place] [address] Jarad Burt MA may recalls from Last 3 Months Immunizations Immunization Administration [...] Description 06/16/2025 10:00 AM EST Medication Management [facility] [address] [place] [address] Naya Malone, PharmD [address] [place] [phone] 09/03/2025 9:30 AM EST Office Visit [facility] [address] [place] [phone] Name, MD Chan [address] [place] [address] Health Maintenance Due Date Last Done Comments [...] on dietary modification. Diet No Naya Malone, Gabriela Note: - Drink less soda, juice, and other sugary beverages Patient will adhere to medication regimen General On track( 023 11:22 AM EST) No Naya Malone, PharmSophie Hemoglobin A1c < 7 Result Component 7.5( 10:59 AM EDT) No Naya Malone, Gabriela Record your blood sugar as directed Result Component On track( 023 11:22 AM EST) No Naya Malone PharmD Note: Use CGM, ensuring sensor is scanned at least once every 8 hours to capture 24H data. Check BG manually, as directed. Procedures Procedure Name Priority Date/Time Associated Diagnosis Comments AMB REFERRAL TO SLEEP MEDICINE Routine 06/04/2025 ZEV on CPAP POCT GLYCATED HEMOGLOBIN, TOTAL Routine 06/02/2025 10:59 AM EDT Type 2 diabetes mellitus with hyperglycemia, with long-term current use of insulin (HCC) POCT GLUCOSE Routine 06/02/2025 10:56 AM EDT Type 2 diabetes mellitus with hyperglycemia, with long-term current use of insulin ([facility]CC) POCT GLYCATED HEMOGLOBIN, TOTAL Routine 04/11/2025 9:04 AM EDT Type 2 diabetes mellitus with hyperglycemia, with long-term current use of insulin ([facility]) POCT GLUCOSE Routine 04/11/2025 9:04 AM EDT Type 2 diabetes mellitus with hyperglycemia, with long-term current use of insulin ([facility]) LIPID PANEL, STANDARD Routine 11/06/2024 8:30 AM EDT Type 2 diabetes mellitus with diabetic 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, with long-term current use of insulin ([facility]) INTRAORAL - COMPLETE SERIES OF RADIOGRAPHIC IMAGES [...] Recently Relevant to Health Maintenance Results * Referral to Sleep Medicine (06/04/2025) us Chan Holley MD OUTPATIENT REFERRAL ORDERABLES F inal Result * (ABNORMAL) POCT Hgb A1c (06/02/2025 10:59 AM EDT) Only the most recent of2 resultswithin the time period is included. Hemoglobin A1C 7.5(A) 4.0 - 5.7 % QC Media Lot # [id number] Lot# Expiration Date Blood 06/02/2025 10:5 9 AM EDT us Chan Holley MD POINT OF CARE TEST ENTER/EDIT OR DERABLES Final Result * POCT Glucose (06/02/2025 10:56 AM EDT) Only the most recent of2 resultswithin the time period is included. Glucose Blood, POC 173 60 - 200 mg/dL QC Media Lot # [id number] Lot# Expiration Date Blood Capillary blood specimen / Unknown 06/02/2025 10:56 AM EDT us Chan Holley MD POINT OF CARE TEST ENTER/EDIT OR DERABLES Final Result * (ABNORMAL) Lipid Panel, Standard (11/06/2024 8:30 AM EDT) Triglycerides 189(H) <150 mg/dL [facility] Comment:Desirable Triglyceri de: less than 150 mg/dLBorderline High Triglyceride 150-199 mg/dLHigh Triglyceride: 200-499 mg/dLVery High Triglyceride: greater than or equal to 5OO mg/dL Cholesterol 174 <200 mg/dL [facility] Comment:Desirable Cholestero l: less than 200 mg/dLBorderline High Cholesterol: 200-239 mg/dLHigh Cholesterol: greater than 239 mg/dL LDL Cholesterol Calculated 90 <100 mg/dL [facility] Comment:Desirable LDL: less than 100 mg/dLNear Optimal/Above Optimal LDL: 110- 129 mg/dLBorderline High LDL: 130-159 mg/dLHigh LDL: 160-189 mg/dLVery High LDL: greater than or equal to 190 mg/dL HDL Cholesterol 47 >40 mg/dL [facility] Comment:Desirable HDL: great er than 40 mg/dL Note: This HDL assay may give artificially low results in patients with liver disease. Blood Venous blood specimen / Unknown 11/06/2024 8:30 AM EDT 11/06/2024 11:05 AM EDT us Chan Holley MD LAB BLOOD ORDERABLES Final Resul t [facility] [address] [place], [place] [phone] * (ABNORMAL) Hm Colonoscopy (12/12/2022) Colonoscopy Abnormal( A) Normal Comment:Repeat in 3 yrs us Historical Provider MD HEALTH MAINTENANCE Final Result * HEPATITIS C AB W/REFL TO HCV RNA, QN, PCR (04/05/2022 10:35 AM EDT) HEPATITIS C ANTIBODY NON-REACT [facility] NON-REACT [facility] INDEX 0.04 <1.00 [facility] Comment: HCV antibody was non-reactive. There is no laboratory evidence of HCV infection. In most cases, no further action is required. However, if recent HCV exposure is suspected, a test for HCV RNA (test code 86773) is suggested. For additional information please refer to http://education.[employer]/faq/BHI70u7 (This link is being provided for informational/ educational purposes only.) 04/05/2022 10:3 5 AM EDT Vaishali LANGLEY HISTORICAL/NON ORDERABLE LABS Final Result [facility] [address] from Last 3 Months or Most Recently Relevant to Health Maintenance [place] [address] [place] [id number] STANDARD [facility] ALF OPTIONS (O D-SNP) DENTAL - [facility] Care Teams Relationship Executive Relationship Specialty Start Date End Date Name, MD Chan [address] [place], [place] [phone] PCP - General Family Medicine 08/01/16 Naya Malone PharmD [address] [place] [address] Pharmacist Internal Medicine 02/17/23 [facility] 11/08/24
--- OUTSIDE RECORDS SUMMARY | 2025-06-11 11:50 | XMS_ITS | Encounter Summary ---
Author Organization [employer] Address [address] [place] [address] Care Team Providers Care Hardwood Floor Refinisher Name Role Phone Name, Chan TOLLIVER Primary Care Provider [phone] Naya Malone PharmD Unavailable [phone] Encounter Details Date Type Department Care Team (Late st Contact Info) Description 01/12/2024 Telephone [facility] [address] [place] [address] Priya Felix, BRANT Social History Tobacco Use [...] Description 06/16/2025 10:00 AM EST Medication Management [address] [address] Naya Malone PharmD [address] [place] [address] 09/03/2025 9:30 AM EST Office Visit [facility] [address] [place] [phone] Name, MD Chan [address] [place] [phone] documented as of this encounter Goals Goal [...] documented as of this encounter Care Teams Hardwood Floor Refinisher Relationship Specialty Start Date End Date Name, MD Chan [address] [place] [address] PCP - General Family Medicine 08/01/16 Naya Malone PharmD [address] [place] [address] Pharmacist Internal Medicine 02/17/23 [facility] 11/08/24 documented as of this encounter
--- OUTSIDE RECORDS SUMMARY | 2025-06-11 11:50 | XMS_ITS | Clinical Summary ---
Author Organization [address] [facility] Address [address] [place] [address] Phone Care Team Providers Care Rn Military Name Role Phone Name, Chan TOLLIVER Primary Care Provider Allergies No known active allergies Medications traMADol-acetam [...] 10:30 AM EDT Office Visit Orthopedic Surgery [facility] [address] [facility] [address] [place] [address] Gene Blankenship DPM Controlled type 2 diabetes with neuropathy ([facility] V24, [facility] V28) (Primary Dx); Pain in [...] AM EST Office Visit Orthopedic Surgery - [address] [phone] Gene Blankenship DPM [address] [place] [phone] Health Maintenance Due Date Last Done Comments Colorectal Cancer Screening: Colonoscopy 1956 Diabetes: Annual Foot Exam 1966 Diabetes: Annual Retina Eye Exam 1966 RSV Immunization Adult Patients (1 - Risk 50-74 years 1-dose series) 2006 Zoster Vaccines (1 of 2) 2006 Abdominal Aortic Aneurysm (AAA) Screen 03/12/2024 Falls Risk Assessment 03/12/2024 Medicare Annual [...] * Urine Albumin Creatinine Ratio (11/09/2023) Pathologist [facility] Urine Albumin Creatinine Ratio abstracted Result [facility] Provider HEALTH MAINTENANCE Final Result * Annual BMP Blood Test (11/09/2023) [facility] Annual BMP Blood Test abstracted Result [facility] Provider HEALTH MAINTENANCE Final Result * Lipid panel (07/05/2023) [facility] LDL/HDL Ratio 0 Comment:no interpretation, a bstracted Triglycerides 0 mg/dL Comment:no interpretation, a bstracted Cholesterol 0 mg/dL Comment:no interpretation, a bstracted HDL 0 mg/dL Comment:no interpretation, a bstracted LDL Cholesterol 0 mg/dL Comment:no interpretation, a bstracted Blood Venous blood specimen / Unknown Result [facility] Provider LAB BLOOD ORDERABLES Sue l Result * Hepatitis C Screening (04/05/2022) [facility] Hepatitis C Screening abstracted Result [facility] Provider HEALTH [facility] Final Result * Hemoglobin A1c (07/22/2020) [facility] Hemoglobin A1C 0.0 % Comment:no interpretation, a bstracted Blood Venous blood specimen / Unknown Result [facility] Provider LAB BLOOD ORDERABLES Sue l Result from Last 3 Months or Most Recently Relevant to Health Maintenance Insurance [employer] MEDICARE Member Subscriber Plan / Payer (Ef fective 2024-Present) Name:ALONZO DOTSON Relation to Subscriber:Self Name:Alonzo Dotson Payer ID:[id number] Group ID:[id number] Type:Not on file Address: [place] [address] [address] [phone] Care Teams Rn Military Relationship Specialty Start Date End Date Name, MD Chan [address] [place], [place] PCP - General Internal Medicine 06/25/19
== END 2025-06-11 10:49 | disposition home or self-care (01) ==
LOC: HO.HSM 09:49
PROVIDERS: PCP Internal Medicine Geriatric Medicine; Visit Provider Registered Nurse
DX: G31.84 Mild cognitive impairment of uncertain or unknown etiology (principal)
CPT/HCPCS: 99214

== ENCOUNTER → 2025-06-11 09:48 | Outpatient (BNVA) | payer OTHER, SELFPAY | PROVIDERS: PCP Internal Medicine Geriatric Medicine; Visit Provider Registered Nurse | DX: G31.84 Mild cognitive impairment of uncertain or unknown etiology (principal) | CPT/HCPCS: 99212 ==

== ENCOUNTER 2025-06-17 10:22 | Outpatient (AMB) | payer OTHER, SELFPAY ==
--- NOTE | 2025-06-17 11:17 | A.OFFVIS_ITS ---
Intake Visit Reasons: Uroflow Intake Note: Patient is present for Urofllow Urology Medication: Amitriptyline , Terazosin Antibiotic Allergy:PENICILLINS Blood Thinner:ASPIRIN TODAY'S PVR:81 MLS Water Maintenance Supervisor Required: Yes Water Maintenance Supervisor Language: English Accompanied by: Spouse Allergies Penicillins Allergy (Mild, Verified 06/11/25 10:34) DIZZY/DIAPHORESIS, N/V penicillin V Allergy (Unknown, Verified 06/11/25 10:34) Unknown HPI Comments Details: Alonzo is a pleasant male. He is seen for the following urologic conditions - lower urinary tract symptoms - erectile dysfunction English translation provided by qualified medical records auditor Continue difficulty with bladder emptying Uroflow performed Q max 10 Recommend cystoscopy Trial bethanechol to help with bladder emptying Lower urinary tract symptoms Persistent urgency and frequency Weakness of stream Nocturia x2 Consistent with diabetic cystopathy - diabetic nephropathy Concurrent sleep apnea with diabetes Prior medication - alpha-alicia with overactive bladder medication - tamsulosin and low-dose tolterodine Erectile dysfunction secondary to diabetes Minimal activity Good biochemical response to 10 mg daily tadalafil T 258 F 40 Concurrent diagnosis includes sleep apnea, insulin-dependent diabetes, dyslipidemia Medications include amitriptyline, clonazepam, Trulicity, Jardiance, metformin, pravastatin PFSH Medical History (Updated 06/11/25 @ 10:34 by Cori Bello CNP) Diabetes Upper abdominal pain Pre-op examination Weight loss, abnormal Nausea and vomiting Constipation Obesity (BMI 30-39.9) Diabetes type 2, uncontrolled Diabetic nephropathy associated with type 2 diabetes mellitus Diabetic 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 associated with type 2 diabetes mellitus 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 GERD (gastroesophageal reflux disease) Cervical spine pain HTN (hypertension) High cholesterol Asthma Surgical History Hx of hand surgery History of back surgery Hx of esophagogastroduodenoscopy Hx of colonoscopy Family History Father Heart disease Mother Arthritis Diabetes Social History Household Members: Spouse Alcohol intake: never Comment: Counts correct Patient Tobacco Use Status: Former Tobacco user Current occupational status: retired and disabled Review of Systems Const Denies chills and Denies fever(s) Card Reports no additional complaints and Denies syncope Resp Denies cough GI Denies abdominal pain and Denies heartburn Reports as per HPI and Denies change in libido Neuro Denies syncope Psych Denies change in libido Endo Denies change in libido Physical Exam Const General: cooperative, healthy appearing, comfortable and no acute distress Orientation/consciousness: patient oriented x3 HEENT Face and sinus: Yes normal facial exam Mouth: moist mucous membranes Neck Neck: Yes normal visual inspection, Yes full ROM and Yes trachea midline Chest Chest palpation & inspection: normal inspection of the chest Resp Effort & Inspection: normal respiratory effort, able to speak in complete sentences and no respiratory distress GI Inspection: Yes normal to inspection Back/Spine/Pelvis Cervical Spine: normal cervical lordosis Thoracic/Lumbar Spine: thoracic and lumbar spine normal to inspection Skin General skin exam: no rashes or lesions noted Neuro General: patient oriented x3, gait normal, tone normal and moves all extremities Extrem General: Yes normal to inspection and Yes capillary refill normal Office Procedures AMB Uroflow Complex uroflow performed by: Francisco J Ham Maximum urinary flow rate (mL/second): 11 Voiding time (seconds): 41 Voided volume (mL): 290 Comments: Below 5% in [place] nomogram 51516-[id number] Procedure code (CPT) selection complete Post Void Residual Post Residual Void Post Void Residual (PVR): 81 28599-Wgly Void Residual by ultrasound Assessment & Plan Assessment & Plan (1) Diabetic nephropathy associated with type 2 diabetes mellitus: Code(s): E11.21 - Type 2 diabetes mellitus with diabetic nephropathy Category: Medical (2) Weak urinary stream: Code(s): R39.12 - Poor urinary stream Category: Medical Plan Trial bethanechol Office cystoscopy Orders: Orders AMB Uroflow Today R39.12 - Poor urinary stream Medications: New bethanechol chloride 50 mg PO BID 60 tabs 2RF 30 days E11.42 - Type 2 diabetes mellitus with diabetic 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, N39.0 - Urinary tract infection, site not specified Patient Instructions: This note is constructed using voice recognition software. While every effort has been made to ensure accuracy dye maker errors may have been included. Imaging studies, laboratory and physical exam results were discussed and reviewed in detail. No major barriers to patient understanding were identified. An opportunity to ask questions regarding the treatment plan was provided. All questions were answered. The patient expressed understanding and agreement with the above treatment plan. The patient is aware they should contact our office by phone for worsening of their current condition or the appearance of new urologic symptoms. Compliance is encouraged with any medications and followup testing that is ordered. It is a privilege to participate in the urologic care of your patient. If you have any questions or concerns regarding treatment for the above conditions, or other urologic issues, please do not hesitate to contact me. The office telephone contact is [phone]. Sincerely, Dr Francisco J Ham MD, PILO [facility] - Urology Compassionate Specialist Care for the Genitourinary System Coding Level of Care Code Est Pt Level 4 (72117) Complex EM visit Add On G2211 Diagnoses Diabetic nephropathy associated with type 2 diabetes mellitus E11.21 Weak urinary stream R39.12 CPT Codes Post Residual Void - PVR CPT Code: 18537-Tehi Void Residual by ultrasound ([id number])
--- OUTSIDE RECORDS SUMMARY | 2025-06-17 12:09 | XMS_ITS | Clinical Summary ---
Author Organization [employer] Address [address] [facility] [address] [facility] [address] [place] [address] Care Team Providers Care Audiovisual Librarian Name Role Phone Name, Chan TOLLIVER Primary Care Provider [phone] Naya Malone PharmD Unavailable [phone] Allergies Active Allergy Reactions Criticality Noted [...] ype 2 diabetes mellitus with diabetic 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 ([facility]) Use to test blood sugar up to 3 times daily as directed 100 each 024 Active donepezil (Aricept) 10 MG tablet Take 10 mg by mouth at bedtime. 024 Active magnesium oxide 500 MG tablet Take 1 tablet by mouth at bedtime. 025 Active albuterol 108 (90 Base) MCG/ACT inhalerIndication s:Type 2 diabetes mellitus with diabetic 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, with long-term current use of insulin ([facility]) Inhale 2 puffs every 4 (four) hours. 18 g 025 Active Alcohol Swabs (Alcohol Prep) 70 % padsIndications:T ype 2 diabetes mellitus with hyperglycemia, with long-term current use of insulin ([facility]) USE UP TO FOUR TIMES DAILY DIRECTED 100 each 025 Active econazole nitrate 1 % cream APPLY TO AFFECTED AREA(S) AND SURROUNDING AREA(S) TWICE DAILY IN THE MORNING AND EVENING 85 g 025 Active gabapentin (Neurontin) 300 MG capsule Take 300 mg by mouth 2 times daily. Active Continuous Glucose Clothes Drier Repairer (FreeStyle Mata 3 Pettibone) deviceIndications :Type 2 diabetes mellitus with hyperglycemia, with long-term current use of insulin ([facility]) 1 each Once per day. Use as directed for CGM 1 each 025 Active Continuous Glucose Sensor (FreeStyle Mata 3 Plus Sensor) miscIndications:T ype 2 diabetes mellitus with hyperglycemia, with long-term current use of insulin ([facility]) Apply 1 every 15 days as directed for CGM 2 each 025 Active glucose blood (FreeStyle Precision Anthony Test) test stripIndications: Type 2 diabetes mellitus with hyperglycemia, with long-term current use of insulin ([facility]) Use to test blood sugar up to 3 times daily, as directed 100 each 025 Active glucose 4 g chewable tabletIndications :Type 2 diabetes mellitus with hyperglycemia, with long-term current use of insulin ([facility]) Chew 4 tablets (16 g) if needed for low blood sugar. 40 tablet 5 025 2025 Active glucagon (Baqsimi Two Pack) 3 MG/DOSE nasal powderIndications :Type 2 diabetes mellitus with hyperglycemia, with long-term current use of insulin ([facility]) Administer 3 mg via 1 device into the nostril for hypoglycemia with loss of consciousness. If no response after 15 minutes administer an additional dose via 2nd device into other nostril. 2 each 1 Active pravastatin (Pravachol) 80 MG tabletIndications :Type 2 diabetes mellitus with hyperglycemia, with long-term current use of insulin ([facility]) TAKE 1 TABLET BY MOUTH EVERY MORNING 90 tablet 3 Active lisinopril-hydroC HLOROthiazide 10-12.5 MG tabletIndications :Essential hypertension TAKE 1 TABLET BY MOUTH EVERY MORNING 90 tablet 3 Active Aspirin Low Dose 81 MG EC tabletIndications :Diabetic 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 associated with type 2 diabetes mellitus ([facility]) TAKE 1 TABLET BY MOUTH EVERY MORNING 90 tablet 1 Active Fluticasone-Salme terol 250-50 MCG/ACT aerosol powderIndications :Asthma, unspecified asthma severity, unspecified whether complicated, unspecified whether persistent INHALE 1 PUFF BY MOUTH TWICE DAILY IN THE MORNING AND IN THE EVENING RINSE MOUTH AFTER USING. 60 each Active amitriptyline (Elavil) 50 MG tabletIndications :Diabetic 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 associated with type 2 diabetes mellitus ([facility]) TAKE 1 TABLET BY MOUTH AT BEDTIME 30 tablet 3 Active BD Pen Needle Carmen Ultrafine 32G X 4 MM miscIndications:T ype 2 diabetes mellitus with hyperglycemia, with long-term current use of insulin ([facility]) USE DIRECTED EVERY DAY FOR INSULIN INJECT 100 each 5 Active terazosin (Hytrin) 5 MG capsule TOME 1 C PSULA POR V A ORAL AL ACOSTARSE Active memantine (Namenda) 5 MG tablet Take 5 mg by mouth 2 times daily. Active cyclobenzaprine (Flexeril) 10 MG tablet Take 10 mg by mouth if needed at bedtime for muscle spasms. Active insulin glargine (Lantus SoloStar) 100 UNIT/ML penIndications:Ty pe 2 diabetes mellitus with hyperglycemia, with long-term current use of insulin ([facility]) Inject 30 Units under the skin at bedtime. 15 mL 5 Active empagliflozin-met FORMIN (Synjardy) 12.5-500 MGIndications:Typ e 2 diabetes mellitus with hyperglycemia, with long-term current use of insulin ([facility]) Take 1 tablet by mouth with breakfast and with evening meal. 60 tablet 11 Active Tirzepatide (Mounjaro) 7.5 MG/0.5ML solution auto-injector Inject 7.5 mg under the skin 1 (one) time per week. 2 mL 11 025 Active Synjardy 12.5-500 MGIndications:Typ e 2 diabetes mellitus with hyperglycemia, with long-term current use of insulin ([facility]) TAKE 1 TABLET BY MOUTH TWICE DAILY IN THE MORNING AND IN THE EVENING WITH MEALS 60 tablet 11 025 2024 Discontinued(R eorder (will not trigger notification to Pharmacy)) insulin glargine (Lantus SoloStar) 100 UNIT/ML penIndications:Ty pe 2 diabetes mellitus with hyperglycemia, with long-term current use of insulin ([facility]) Inject 28 Units under the skin at bedtime. 15 mL 5 025 2024 Discontinued(R eorder (will not trigger notification to Pharmacy)) cyclobenzaprine (Flexeril) 10 MG tablet Take 10 mg by mouth if needed at bedtime for muscle spasms. 025 2024 Discontinued(T herapy completed) Tirzepatide (Mounjaro) 7.5 MG/0.5ML solution auto-injectorIndi cations:Type 2 diabetes mellitus with hyperglycemia, with long-term current use of insulin ([facility]) Inject 7.5 mg under the skin 1 (one) time per week for 28 days. 2 mL 2 025 2024 Discontinued(M ed list cleanup (will not trigger notification to Pharmacy)) Tirzepatide (Mounjaro) 7.5 MG/0.5ML solution auto-injector Inject 7.5 mg under the skin 1 (one) time per week. 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 ([facility]) Uncontrolled type 2 diabetes mellitus 05/11/2023 Diabetic [...] Encounters Date Type Department Care Team Description 06/16/2025 Travel 06/02/2025 11:00 AM EDT Office Visit [facility] [address] [place] [phone] Chan Holley MD Type 2 diabetes mellitus with hyperglycemia, with long-term current use of insulin (HCC) (Primary Dx); Hypoglycemia; ZEV on CPAP 06/02/2025 Travel 05/30/[address] [address] Chan Holley MD CHART PREP 05/26/2025 Travel 05/06/2025 Telephone [facility] [address] [place] [address] Chan Holley MD 05/05/2025 Travel 04/11/2025 9:00 AM EDT Office Visit [address] [address] Nina Cardozo, MARY Type 2 diabetes mellitus with hyperglycemia, with long-term current use of insulin ([facility]/HCC) (Primary Dx) 04/11/2025 Travel 04/10/2025 Telephone [facility] [address] [place] [address] Jean Carlos Harrington MA CHARTPREP 04/10/[address] [address] Chan Holley MD Nurse Triage 04/09/2025 Telephone [facility] [address] [place] [address] Chan Holley MD 04/07/2025 Travel 04/07/2025 Refill [facility] [address] [place] [address] Naya Malone PharmD Type 2 diabetes mellitus with hyperglycemia, with long-term current use of insulin ([facility]) 04/02/2025 10:00 AM EDT Office Visit [facility] OPTOMETRY [address] [place] [address] Anival, Mary, OD 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 diabetes mellitus ([facility]) (Primary Dx); Asteroid hyalosis of left eye; Meibomian gland dysfunction (MGD) of upper and lower lids of both eyes; Pseudophakia of both eyes; Presbyopia of both eyes 04/02/2025 Travel 04/01/2025 Travel 03/21/2025 Telephone [facility] [address] [place] [address] Jarad Burt MA may recalls from Last [...] Sign Reading Time Taken Comments Blood Pressure 110/60 06/16/2025 10:14 AM EST Pulse 98 06/02/2025 10:51 AM EDT Temperature [...] Care Team (Late st Contact Info) Description 07/18/2025 10:30 AM EST Medication Management [address] [address] Naya Malone, PharmD [address] [place] [phone] 09/03/2025 9:30 AM EST Office Visit [address] [address] Name, MD Chan [address] [place] [phone] Health Maintenance Due Date Last Done Comments [...] hyperglycemia, with long-term current use of insulin ([facility]) POCT GLUCOSE Routine 06/02/2025 10:56 AM EDT Type 2 diabetes mellitus with hyperglycemia, with long-term current use of insulin ([facility]) POCT GLYCATED HEMOGLOBIN, TOTAL Routine 04/11/2025 9:04 AM EDT Type 2 diabetes mellitus with hyperglycemia, with long-term current use of insulin ([facility]) POCT GLUCOSE Routine 04/11/2025 9:04 AM EDT Type 2 diabetes mellitus with hyperglycemia, with long-term current use of insulin ([facility]) LIPID PANEL, STANDARD Routine 11/06/2024 8:30 AM EDT Type 2 diabetes mellitus with diabetic 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, with long-term current use of insulin ([facility]) INTRAORAL - COMPLETE SERIES OF [...] Media Lot # [id number] Lot# Expiration Date 22,726 Blood Capillary blood specimen / Unknown 06/02/2025 10:56 AM EDT Chan Holley MD POINT OF CARE TEST ENTER/EDIT OR DERABLES Final Result * (ABNORMAL) Lipid Panel, Standard (11/06/2024 8:30 AM EDT) Triglycerides 189(H) <150 mg/dL [facility] Comment:Desirable Triglyceri de: less than 150 mg/dLBorderline High Triglyceride 150-199 mg/dLHigh Triglyceride: 200-499 mg/dLVery High Triglyceride: greater than or equal to 5OO mg/dL Cholesterol 174 <200 mg/dL [facility] Comment:Desirable Cholestero l: less than 200 mg/dLBorderline High Cholesterol: 200-239 mg/dLHigh Cholesterol: greater than 239 mg/dL LDL Cholesterol Calculated 90 <100 mg/dL [facility] Comment:Desirable LDL: less than 100 mg/dLNear Optimal/Above Optimal LDL: 110- 129 mg/dLBorderline High LDL: 130-159 mg/dLHigh LDL: 160-189 mg/dLVery High LDL: greater than or equal to 190 mg/dL HDL Cholesterol 47 >40 mg/dL [facility] Comment:Desirable HDL: great er than 40 mg/dL Note: This HDL assay may give artificially low results in patients with liver disease. Blood Venous blood specimen / Unknown 11/06/2024 8:30 AM EDT 11/06/2024 11:05 AM EDT Chan Holley MD LAB BLOOD ORDERABLES Final Resul t [facility] [address] [place], [place] [phone] * (ABNORMAL) Hm Colonoscopy (12/12/2022) Colonoscopy Abnormal( A) Normal Comment:Repeat in 3 yrs Historical Provider HEALTH MAINTENANCE Final Result * HEPATITIS C AB W/REFL TO HCV RNA, QN, PCR (04/05/2022 10:35 AM EDT) HEPATITIS C ANTIBODY NON-REACT [facility] NON-REACT [facility] INDEX 0.04 <1.00 [facility] Comment: HCV antibody was non-reactive. There is no laboratory evidence of HCV infection. In most cases, no further action is required. However, if recent HCV exposure is suspected, a test for HCV RNA (test code 24648) is suggested. For additional information please refer to http://education.SonicLiving/faq/TPF17f5 (This link is being provided for informational/ educational purposes only.) 04/05/2022 10:3 5 AM EDT Vaishali LANGLEY HISTORICAL/NON ORDERABLE LABS Final Result [facility] [address] from Last 3 Months or Most Recently Relevant to Health Maintenance Insurance [facility] DETENTION OPTIONS (HMO D-SNP) DENTAL - [facility] Care Teams Audiovisual Librarian Relationship Specialty Start Date End Date Name, MD Chan [address] [place] [address] PCP - General Family Medicine 08/01/16 Naya Malone PharmD [address] [place] [address] Pharmacist Internal Medicine 02/17/23 [facility] 11/08/24
--- OUTSIDE RECORDS SUMMARY | 2025-06-17 12:09 | XMS_ITS | Encounter Summary ---
Author Organization [employer] Address [address] [place] [address] Care Team Providers Care Casino Floor Person Name Role Phone Name, Chan TOLLIVER Primary Care Provider Naya Malone PharmD Unavailable [phone] Reason for Visit * Reason Comments Med Refill Encounter Details Date Type Department Care Team (Late st Contact Info) Description 08/22/2022 Refill [facility] [address] [place], [place] [phone] Name, MD Chan [address] [place], [place] [phone] Diabetic 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 associated with type 2 diabetes [...] Description 07/18/2025 10:30 AM EST Medication Management [facility] [address] [place] [phone] Naya Malone PharmD [address] [place] [address] 09/03/2025 9:30 AM EST Office Visit [facility] [address] [place] [address] Name, MD Chan [address] [place] [address] documented as of this encounter Visit Diagnoses Diagnosis Diabetic 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 associated with type 2 diabetes mellitus (HCC)- Primary documented in this encounter Additional Health Concerns Assessment Noted Time PHQ-9 Depression Total Score: 24 12/ 022 10:06 AM EST documented as of this encounter Care Teams Casino Floor Person Relationship Specialty Start Date End Date NameChan MD [address] [place] [address] PCP - General Family Medicine 08/01/16 Naya Malone PharmD [address] [place] [address] Pharmacist Internal Medicine 02/17/23 [facility] 11/08/24 documented as of this encounter
--- OUTSIDE RECORDS SUMMARY | 2025-06-17 12:09 | XMS_ITS | Encounter Summary ---
Author Organization [employer] [facility] Address [address] [facility] [address] [address] [place] [address] Care Team Providers Care Tenoner Operator Name Role Phone Name, Chan TOLLIVER Primary Care Provider [phone] Naya Malone PharmD Unavailable [phone] Encounter Details Date Type Department Care Team (Latest Contact Info) Description 03/24/2021 Abstract [facility] CONVERSIONS Dental, Provider, DDS Social History Tobacco [...] Description 07/18/2025 10:30 AM EST Medication Management [facility] MEDICINE [address] [place] [phone] Naya Malone, PharmD [address] [place] [address] 09/03/2025 9:30 AM EST Office Visit [facility] MEDICINE [address] [place] [address] [phone] Name, MD Chan [address] [place] [phone] documented as of this encounter Visit Diagnoses Not on filedocumented in this encounter Care Teams Tenoner Operator Relationship Specialty Start Date End Date Name, MD Chan [address] [place] [address] PCP - General Family Medicine 08/01/16 Naya Malone PharmD [address] [place] [address] Pharmacist Internal Medicine 02/17/23 [facility] 11/08/24 documented as of this encounter
--- OUTSIDE RECORDS SUMMARY | 2025-06-17 12:09 | XMS_ITS | Encounter Summary ---
Author Organization [employer] [facility] Address [address] [facility] [address] [place] [address] Care Team Providers Care Health And Wellness Instructor Name Role Phone Name, Chan TOLLIVER Primary Care Provider [phone] Naya Malone PharmD Unavailable [phone] Encounter Details Date Type Department Care Team (Latest Contact Info) Description 03/05/2019 Abstract [facility] CONVERSIONS Dental, Provider, DDS Social History [...] Description 07/18/2025 10:30 AM EST Medication Management [address] [address] Naya Malone, PharmD [address] [place] [address] 09/03/2025 9:30 AM EST Office Visit [facility] [address] [place] [address] [phone] Name, MD Chan [address] [place] [address] documented as of this encounter Visit Diagnoses Not on filedocumented in this encounter Care Teams Health And Wellness Instructor Relationship Specialty Start Date End Date Name, MD Chan [address] [place] [address] PCP - General Family Medicine 08/01/16 Naya Malone PharmD [address] [place] [address] Pharmacist Internal Medicine 02/17/23 [facility] 11/08/24 documented as of this encounter
--- OUTSIDE RECORDS SUMMARY | 2025-06-17 12:09 | XMS_ITS | Patient Health Record ---
Author Organization [facility] Address [address] [place] [address] Support Name Relationship Address Phone ALONSO LATHAM Emergency Contact [address] [place] [phone] TARI HARDWICK Guarantor Unknown Care Team Providers Care Race Steward Name Role Phone Leny Diallo Primary Care Provider UnavailAlvin Elmore Jr Unavailable [phone] Allergies Allergen (clinical drug ingredient) Drug/Non [...] W/U Status Risk Notes Problem Esophageal reflux (902450589) Esophageal reflux (530.81) Active confirmed Problem Rectal bleeding (98137631) Rectal bleeding (569.3) Active confirmed Plan Of Treatment Future Test Test Name Order Date UPPER GI ENDOSCOPY 06/20/2013 COLONOSCOPY 06/20/2013 Insurance Providers Payer Name Payer Address Payer Phone Subscriber Number Group Number Insured Name Patient Relationship to Insured Coverage Start Date Coverage End Date MEDICARE OF [place] [address] [place]ARC[place] [address] [id number] TARI HERNANDEZ Self - patient is the insured MEDICAID OF [facility] [address] [place] [address] [id number] TARI HERNANDEZ Self - patient is the insured Medical (General) History Medical History History ICD Code type II diabetes asthma hypertension schizophrenia/depression elevated cholesterol esophageal reflux
--- OUTSIDE RECORDS SUMMARY | 2025-06-17 12:09 | XMS_ITS | Encounter Summary ---
Author Organization [employer] Address [address] 7t [place] [address] Care Team Providers Care Farm Operations Manager Name Role Phone Name, Chan TOLLIVER Primary Care Provider [phone] Naya Malone PharmD Unavailable Encounter Details Date Type Department Care Team (Late st Contact Info) Description 01/12/2023 Abstract [facility] MEDICINE [address] [place], [place] [phone] Name, MD Chan [address] [place] [address] Social History Tobacco Use Types Packs/Day Years [...] Description 07/18/2025 10:30 AM EST Medication Management [facility] [place] [address] [place] [address] 09/03/2025 9:30 AM EST Office Visit [facility] MEDICINE [address] [place] [address] Name, MD Chan [address] [place] [address] documented as of this encounter Visit Diagnoses Not on filedocumented in this encounter Additional Health Concerns Assessment Noted Time PHQ-9 Depression Total Score: 24 022 10:06 AM EST documented as of this encounter Care Teams Farm Operations Manager Relationship Specialty Start Date End Date Name, MD Chan [address] [place] [address] PCP - General Family Medicine 08/01/16 Naya Malone PharmD [address] [place] [address] [phone] Pharmacist Internal Medicine 02/17/23 [facility] 11/08/24 documented as of this encounter
--- OUTSIDE RECORDS SUMMARY | 2025-06-17 12:09 | XMS_ITS | Encounter Summary ---
Author Organization [employer] Address [address] 7t [place] [address] Care Team Providers Care Search Lead Name Role Phone Name, Chan TOLLIVER Primary Care Provider [phone] Naya Malone PharmD Unavailable [phone] Reason for Visit * Reason Comments Med Refill Encounter Details Date Type Department Care Team (Late st Contact Info) Description 02/17/2023 Refill [facility] MEDICINE [address] [place], [place] [phone] Name, MD Chan 230 [place], [place] [phone] Type 2 diabetes mellitus with hyperglycemia, with long-term current use of insulin ([facility]) Social History [...] Description 07/18/2025 10:30 AM EST Medication Management [facility] [place], [place] [phone] Naya Malone PharmD [address] [place] [address] [phone] 09/03/2025 9:30 AM EST Office Visit [facility] MEDICINE [place], [place] [phone] Name, MD Chan [place], [place] [phone] documented as of this encounter Goals Goal [...] documented as of this encounter Care Teams Search Lead Relationship Specialty Start Date End Date Name, MD Chan [place], [place] [phone] PCP - General Family Medicine 08/01/16 Naya [place] [address] Pharmacist Internal Medicine 02/17/23 [facility] 11/08/24 documented as of this encounter
--- OUTSIDE RECORDS SUMMARY | 2025-06-17 12:10 | XMS_ITS | Clinical Summary ---
Author Organization [facility] Address [address] [place] [address] Phone Care Team Providers Care Vegetable Worker Name Role Phone Name, Chan TOLLIVER Primary Care Provider [phone] Allergies No known active allergies Medications traMADol-acetam [...] 10:30 AM EDT Office Visit Orthopedic Surgery [facility] [address] [facility] [address] [place] [address] Gene Blankenship DPM Controlled type 2 diabetes with neuropathy ([facility] V24, [facility] V28) (Primary Dx); Pain in [...] AM EST Office Visit Orthopedic Surgery - [address] [phone] Gene Blankenship DPM [address] [place] [phone] Health Maintenance Due Date Last Done [...] * Urine Albumin Creatinine Ratio (11/09/2023) Pathologist [facility] Urine Albumin Creatinine Ratio abstracted Result [facility] Provider HEALTH MAINTENANCE Final Result * Annual BMP Blood Test (11/09/2023) [facility] Annual BMP Blood Test abstracted Result [facility] Provider HEALTH MAINTENANCE Final Result * Lipid panel (07/05/2023) [facility] LDL/HDL Ratio 0 Comment:no interpretation, a bstracted Triglycerides 0 mg/dL Comment:no interpretation, a bstracted Cholesterol 0 mg/dL Comment:no interpretation, a bstracted HDL 0 mg/dL Comment:no interpretation, a bstracted LDL Cholesterol 0 mg/dL Comment:no interpretation, a bstracted Blood Venous blood specimen / Unknown Result [facility] Provider LAB BLOOD ORDERABLES Sue l Result * Hepatitis C Screening (04/05/2022) [facility] Hepatitis C Screening abstracted Result [facility] Provider [facility] Final Result * Hemoglobin A1c (07/22/2020) [facility] Hemoglobin A1C 0.0 % Comment:no interpretation, a bstracted Blood Venous blood specimen / Unknown Result [facility] Provider LAB BLOOD ORDERABLES Sue l Result from Last 3 Months or Most Recently Relevant to Health Maintenance Insurance [employer] MEDICARE Member Subscriber Plan / Payer (Ef fective 2024-Present) Name:ALONZO DOTSON Relation to Subscriber:Self Name:Alonzo Dotson Payer ID:[id number] Group ID:[id number] Type:Not on file Address: [place] [address] [place] [place] [address] Care Teams Vegetable Worker Relationship Specialty Start Date End Date Name, MD Chan [address] [place], [place] PCP - General Internal Medicine 06/25/19
--- OUTSIDE RECORDS SUMMARY | 2025-06-17 12:10 | XMS_ITS | Encounter Summary ---
Author Organization [employer] Address [address] 7t [place] [address] Care Team Providers Care Test Desk Trouble Locator Name Role Phone Name, Chan TOLLIVER Primary Care Provider [phone] Naya Malone PharmD Unavailable [phone] Encounter Details Date Type Department Care Team (Late st Contact Info) Description 01/12/2024 Telephone [facility] ADULT DENTAL [address] [place] [address] Priya Felix, BRANT Social History Tobacco Use [...] Description 07/18/2025 10:30 AM EST Medication Management [address] [address] Naya Malone PharmD [address] [place] [address] 09/03/2025 9:30 AM EST Office Visit [facility] MEDICINE [address] [place] [address] Name, MD Chan [address] [place] [address] documented as of this encounter Goals Goal [...] documented as of this encounter Care Teams Test Desk Trouble Locator Relationship Specialty Start Date End Date Name, MD Chan 230 [place] [address] PCP - General Family Medicine 08/01/16 Naya Malone PharmD 230 [place] [address] Pharmacist Internal Medicine 02/17/23 [facility] 11/08/24 documented as of this encounter
--- OUTSIDE RECORDS SUMMARY | 2025-06-17 12:10 | XMS_ITS | Encounter Summary ---
Author Organization [email or web address] Address [address] 7t [place] [address] Care Team Providers Care Miniature Set Constructor Name Role Phone Name, Chan TOLLIVER Primary Care Provider [phone] Naya Malone PharmD Unavailable [phone] Reason for Visit * Reason Comments Med Refill Encounter Details Date Type Department Care Team ([facility] st Contact Info) Description 09/02/2023 Refill [facility] MEDICINE 230 [place], [place] [phone] Name, MD Chan 230 [place], [place] [phone] Asthma, unspecified asthma severity, unspecified whether complicated, [...] Description 07/18/2025 10:30 AM EST Medication Management [facility] MEDICINE [address] [place] [address] PuiaGriffinNaya, PharmD [address] [place] [address] 09/03/2025 9:30 AM EST Office Visit [facility] MEDICINE [address] [place] [address] Name, MD Chan [address] [place] [address] documented as of this encounter Goals Goal [...] documented as of this encounter Care Teams Miniature Set Constructor Relationship Specialty Start Date End Date Name, MD Chan 230 [place] [address] PCP - General Family Medicine 08/01/16 Naya Malone PharmD [address] [place] [address] Pharmacist Internal Medicine 02/17/23 [facility] 11/08/24 documented as of this encounter
--- OUTSIDE RECORDS SUMMARY | 2025-06-17 12:10 | XMS_ITS | Encounter Summary ---
Author Organization [employer] Address [address] 7t [place] [address] Care Team Providers Care Tourism Radio Presenter Name Role Phone Name, Chan TOLLIVER Primary Care Provider [phone] Naya Malone PharmD Unavailable [phone] Encounter Details Date Type Department Care Team (Latest Contact Info) Description 06/16/2025 Travel Social History Tobacco Use Types Packs/Day [...] Description 07/18/2025 10:30 AM EST Medication Management [facility] MEDICINE [address] [place] [address] Naya Malone, PharmD [address] [place] [address] 09/03/2025 9:30 AM EST Office Visit [address] [address] Name, MD Chan [address] [place] [address] documented as of this encounter Goals Goal Patient Goal Type Associated Problems Recent Progress Patient-Stated? Author Work on dietary modification. Diet No Enrikeia, Naya, PharmD Note: - Drink less soda, juice, and other sugary beverages Patient will adhere to medication regimen General On track( 023 11:22 AM EST) No Puia, Naya, PharmD Hemoglobin A1c < 7 Result Component 7.5( 10:59 AM EDT) No Puia Naya, PharmD Record [...] documented as of this encounter Care Teams Tourism Radio Presenter Relationship Specialty Start Date End Date Name, MD Chan 230 [place] [address] PCP - General Family Medicine 08/01/16 Naya Malone PharmD 230 [place] [address] Pharmacist Internal Medicine 02/17/23 [facility] 11/08/24 documented as of this encounter
== END 2025-06-17 11:59 | disposition home or self-care (01) ==
LOC: HO.HUSH 10:22
PROVIDERS: PCP Internal Medicine Geriatric Medicine; Visit Provider Urology
DX: E11.21 Type 2 diabetes mellitus with diabetic nephropathy (principal); R39.12 Poor urinary stream
CPT/HCPCS: 51741; 99214

== ENCOUNTER → 2025-06-17 10:22 | Outpatient (BNVA) | payer OTHER, SELFPAY | PROVIDERS: PCP Internal Medicine Geriatric Medicine; Visit Provider Urology | DX: E11.21 Type 2 diabetes mellitus with diabetic nephropathy (principal); R39.12 Poor urinary stream | CPT/HCPCS: 51741; 51798; 99212 ==

== ENCOUNTER 2025-06-19 10:36 | Outpatient (REF) | payer OTHER, SELFPAY ==
[2025-06-19 11:27] LABS: MANUAL DIFF FLAG NO
[2025-06-19 11:39] LABS: Hematocrit 38.8 % (42.0-52.0); Hemoglobin 11.8 g/dl (14.0-18.0); Imm Gran Abs Auto 0.02 X10*3/uL (0.00-0.03); Imm Gran Pct Auto 0.3 % (0.0-0.4); Lymphocytes Absolute Auto 2.0 X10*3/uL (1.2-4.9); Mean Corpuscular HGB Conc 30.4 g/dl (31.0-36.0); Mean Corpuscular Hemoglobin 23.1 pg (27.0-33.0); Mean Corpuscular Volume 75.9 fL (80.0-98.0); NRBC Abs Auto 0.000 X10*3/uL (0.0-0.012); NRBC Pct Auto 0.0 /100WBC (0.0-0.2); Platelet Count 390 X10*3/uL (160-400); Red Blood Count 5.11 X10*6/uL (4.60-5.80); White Blood Count 7.5 X10*3/uL (4.8-10.8)
[2025-06-19 12:34] LABS: Ferritin 11 ng/mL (20-250)
[2025-06-19 12:39] LABS: Vitamin B12 446 pg/mL (200-900)
== END 2025-06-19 10:37 | disposition home or self-care (01) ==
LOC: HO.HHCL 10:36
PROVIDERS: PCP Internal Medicine Geriatric Medicine; Visit Provider Internal Medicine Geriatric Medicine
DX: E11.65 Type 2 diabetes mellitus with hyperglycemia (principal); D64.9 Anemia, unspecified; Z79.4 Long term (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 of insulin
CPT/HCPCS: 36415; 82607; 82728; 85025

== ENCOUNTER 2025-06-27 09:58 | Outpatient (REF) | payer OTHER, SELFPAY ==
--- NOTE | ~2025-06-27 | XR_ITS ---
EXAMINATION: XR BILATERAL HIPS WITH AP PELVIS CLINICAL INFORMATION: PAIN COMPARISON: X-ray 07/23/2023 TECHNIQUE: AP view of the pelvis and single views of each hip were obtained. FINDINGS: No acute fracture, dislocation or suspicious bony lesion. Hip joint spaces are maintained. Alignment is anatomic. Partially visualized SI joints and pubic symphysis are normal. No abnormal soft tissue calcifications. Spondylosis of the lower lumbar spine. XR/XR hips KAUR min 3V IMPRESSION: No acute osseous findings. Spondylosis of the lower lumbar spine. Electronically signed by: Bobby Livingston MD 06/27/2025 10:40 AM KETAN
--- OUTSIDE RECORDS SUMMARY | 2025-06-27 11:43 | XMS_ITS | Patient Health Record ---
Author Organization [facility] Address [address] [place] [address] Support Name Relationship Address Phone ALONSO LATHAM Emergency Contact [address] [place] [phone] TARI HARDWICK Guarantor Unknown Care Team Providers Care Pipe Line Repairer Name Role Phone Leny Diallo Primary Care [...] W/U Status Risk Notes Problem Esophageal reflux (221136215) Esophageal reflux (530.81) Active confirmed Problem Rectal bleeding (71094463) Rectal bleeding (569.3) Active confirmed Plan Of Treatment Future Test Test Name Order Date UPPER GI ENDOSCOPY 06/20/2013 COLONOSCOPY 06/20/2013 Insurance Providers Payer Name Payer Address Payer Phone Subscriber Number Group Number Insured Name Patient Relationship to Insured Coverage Start Date Coverage End Date MEDICARE OF [place] [address] [place] [id number] TARI HERNANDEZ Self - patient is the insured MEDICAID OF [facility] [address] [place] [address] [id number] TARI HERNANDEZ Self - patient is the insured Medical (General) History Medical History History ICD Code type II diabetes asthma hypertension schizophrenia/depression elevated cholesterol esophageal reflux
--- OUTSIDE RECORDS SUMMARY | 2025-06-27 11:43 | XMS_ITS | Encounter Summary ---
Author Organization [employer] Address [address] 7t [place] [address] Care Team Providers Care Health Services Coordinator Name Role Phone Name, Chan TOLLIVER Primary Care Provider [phone] Naya Malone PharmD Unavailable Reason for Visit * Reason Comments Med Refill Encounter Details Date Type Department Care Team (Late st Contact Info) Description 08/22/2022 Refill [facility] MEDICINE 230 [place], [place] [phone] Name, MD Chan 230 [place], [place] [phone] Diabetic 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 associated with type 2 diabetes [...] Management [facility] MEDICINE [address] [place] [address] Naya Malone PharmD [address] [place] [address] 09/03/2025 9:30 AM EST Office Visit [facility] MEDICINE [address] [place] [address] Name, MD Chan [address] [place] [address] documented as of this encounter Visit Diagnoses Diagnosis Diabetic 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 associated with type 2 diabetes mellitus (HCC)- Primary documented in this encounter Additional Health Concerns Assessment Noted Time PHQ-9 Depression Total Score: 24 12/ 022 10:06 AM EST documented as of this encounter Care Teams Health Services Coordinator Relationship Specialty Start Date End Date NameChan MD [address] [place] [address] PCP - General Family Medicine 08/01/16 Naya Malone PharmD [address] [place] [address] Pharmacist Internal Medicine 02/17/23 [facility] 11/08/24 documented as of this encounter
--- OUTSIDE RECORDS SUMMARY | 2025-06-27 11:43 | XMS_ITS | Encounter Summary ---
Author Organization [employer] Address [address] [facility] 7t [place] [address] Care Team Providers Care Law Enforcement Instructor Name Role Phone Name, Chan TOLLIVER Primary Care Provider [phone] Naya Malone PharmD Unavailable Encounter Details Date Type Department Care Team (Late st Contact Info) Description 01/12/2023 Abstract [facility] MEDICINE [address] [place], [place] [phone] Name, MD Chan [address] [place] [address] Social History Tobacco Use Types Packs/Day Years [...] Description 07/18/2025 10:30 AM EST Medication Management [facility] [place] [address] [place] [address] 09/03/2025 9:30 AM EST Office Visit [facility] MEDICINE [address] [place] [address] Name, MD Chan [address] [place] [address] documented as of this encounter Visit Diagnoses Not on filedocumented in this encounter Additional Health Concerns Assessment Noted Time PHQ-9 Depression Total Score: 24 022 10:06 AM EST documented as of this encounter Care Teams Law Enforcement Instructor Relationship Specialty Start Date End Date Name, MD Chan [address] [place] [address] PCP - General Family Medicine 08/01/16 Naya Malone PharmD [address] [place] [address] [phone] Pharmacist Internal Medicine 02/17/23 [facility] 11/08/24 documented as of this encounter
--- OUTSIDE RECORDS SUMMARY | 2025-06-27 11:43 | XMS_ITS | Encounter Summary ---
Author Organization [employer] Address [address] 7[address] [place] [address] Care Team Providers Care Residential Director Name Role Phone Name, Chan TOLLIVER Primary Care Provider [phone] Naya Malone PharmD Unavailable Reason for Visit * Reason Comments Med Refill Encounter Details Date Type Department Care Team (Late st Contact Info) Description 02/17/2023 Refill [facility] MEDICINE 230 [place], [place] [phone] Name, MD Chan 230 [place], [place] [phone] Type 2 diabetes mellitus with hyperglycemia, with long-term current use of insulin ([facility]) Social History Tobacco Use Types Packs/Day [...] Description 07/18/2025 10:30 AM EST Medication Management [facility] sOmar [place], [place] [phone] Naya Malone PharmD [address] [place] [address] [phone] 09/03/2025 9:30 AM EST Office Visit [facility] MEDICINE [place] [place], [place] [phone] Name, MD Chan [place], [place] [phone] documented as of this encounter Goals Goal [...] documented as of this encounter Care Teams Residential Director Relationship Specialty Start Date End Date Name, MD Chan [place], [place] [phone] PCP - General Family Medicine 08/01/16 Naya [place] [address] Pharmacist Internal Medicine 02/17/23 [facility] 11/08/24 documented as of this encounter
--- OUTSIDE RECORDS SUMMARY | 2025-06-27 11:43 | XMS_ITS | Clinical Summary ---
Author Organization [employer] Address [address] [place] [address] Care Team Providers Care Shoe Turner Name Role Phone Name, Chan TOLLIVER Primary Care Provider [phone] Naya Malone PharmD Unavailable [phone] Allergies Active Allergy Reactions Criticality Noted [...] ype 2 diabetes mellitus with diabetic 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 ([facility]) Use to test blood sugar [...] 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, with long-term current use of insulin ([facility]) Inhale 2 puffs every 4 (four) hours. 18 g 025 Active Alcohol Swabs (Alcohol Prep) 70 % padsIndications:T ype 2 diabetes mellitus with hyperglycemia, with long-term current use of insulin ([facility]) USE UP TO FOUR TIMES DAILY DIRECTED 100 each 025 Active econazole nitrate 1 % cream APPLY TO AFFECTED AREA(S) AND SURROUNDING AREA(S) TWICE DAILY IN THE MORNING AND EVENING 85 g 025 Active gabapentin (Neurontin) 300 MG capsule Take 300 mg by mouth 2 times daily. Active Continuous Glucose Machine Operator (FreeStyle Mata 3 [place]) deviceIndications :Type 2 diabetes mellitus with hyperglycemia, with long-term current use of insulin ([facility]) 1 each Once per day. Use as directed for CGM 1 each 025 Active Continuous Glucose Sensor (FreeStyle Mata 3 Plus Sensor) miscIndications:T ype 2 diabetes mellitus with hyperglycemia, with long-term current use of insulin ([facility]) Apply 1 every 15 days as directed for CGM 2 each 025 Active glucose blood (FreeStyle Precision Anthony Test) test stripIndications: Type 2 diabetes mellitus with hyperglycemia, with long-term current use of insulin ([facility]) Use to test blood sugar up to 3 times daily, as directed 100 each 025 Active glucose 4 g chewable tabletIndications :Type 2 diabetes mellitus with hyperglycemia, with long-term current use of insulin ([facility]) Chew 4 tablets (16 g) if needed for low blood sugar. 40 tablet 5 025 2025 Active glucagon (Baqsimi Two Pack) 3 MG/DOSE nasal powderIndications :Type 2 diabetes mellitus with hyperglycemia, with long-term current use of insulin ([facility]) Administer 3 mg via 1 device into the nostril for hypoglycemia with loss of consciousness. If no response after 15 minutes administer an additional dose via 2nd device into other nostril. 2 each 1 Active pravastatin (Pravachol) 80 MG tabletIndications :Type 2 diabetes mellitus with hyperglycemia, with long-term current use of insulin ([facility]) TAKE 1 TABLET BY MOUTH EVERY MORNING 90 tablet 3 Active lisinopril-hydroC HLOROthiazide 10-12.5 MG tabletIndications :Essential hypertension TAKE 1 TABLET BY MOUTH EVERY MORNING 90 tablet 3 Active Fluticasone-Salme terol 250-50 MCG/ACT aerosol powderIndications :Asthma, unspecified asthma severity, unspecified whether complicated, unspecified whether persistent INHALE 1 PUFF BY MOUTH TWICE DAILY IN THE MORNING AND IN THE EVENING RINSE MOUTH AFTER USING. 60 each Active BD Pen Needle Carmen Ultrafine 32G X 4 MM miscIndications:T ype 2 diabetes mellitus with hyperglycemia, with long-term current use of insulin ([facility]) USE DIRECTED EVERY DAY FOR INSULIN INJECT 100 each Active terazosin (Hytrin) 5 MG capsule TOME [...] hyperglycemia, with long-term current use of insulin ([facility]) Inject 30 Units under the skin at bedtime. 15 mL 5 025 Active empagliflozin-met FORMIN (Synjardy) 12.5-500 MGIndications:Typ e 2 diabetes mellitus with hyperglycemia, with long-term current use of insulin ([facility]) Take 1 tablet by mouth with breakfast and with evening meal. 60 tablet 11 11/03/2 025 Active Tirzepatide (Mounjaro) 7.5 MG/0.5ML solution auto-injector Inject 7.5 mg under the skin 1 (one) time per week. 2 mL 11 Active ferrous sulfate (Fe Tabs) 325 (65 Fe) MG EC tabletIndications :Iron deficiency anemia, unspecified iron deficiency anemia type,Erosive gastritis Take 1 tablet (325 mg) by mouth every other day. Do not crush, chew, or split. 15 tablet 2 025 2025 Active amitriptyline (Elavil) 50 MG tabletIndications :Diabetic 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 associated with type 2 diabetes mellitus (HCC) TAKE 1 TABLET BY MOUTH AT BEDTIME 30 tablet 3 Active Synjardy 12.5-500 MGIndications:Typ e 2 diabetes mellitus with hyperglycemia, with long-term current use of insulin ([facility]) TAKE 1 TABLET BY MOUTH TWICE DAILY IN THE MORNING AND IN THE EVENING WITH MEALS 60 tablet 11 2024 Discontinued(R eorder (will not trigger notification to Pharmacy)) insulin glargine (Lantus SoloStar) 100 UNIT/ML penIndications:Ty pe 2 diabetes mellitus with hyperglycemia, with long-term current use of insulin ([facility]) Inject 28 Units under the skin at bedtime. 15 mL 5 2024 Discontinued(R eorder (will not trigger notification to Pharmacy)) cyclobenzaprine (Flexeril) 10 MG tablet Take 10 mg by mouth if needed at bedtime for muscle spasms. 2024 Discontinued(T herapy completed) Aspirin Low Dose 81 MG EC tabletIndications :Diabetic 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 associated with type 2 diabetes mellitus (HCC) TAKE 1 TABLET BY MOUTH EVERY MORNING 90 tablet 1 2024 Discontinued amitriptyline (Elavil) 50 MG tabletIndications :Diabetic 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 associated with type 2 diabetes mellitus (HCC) TAKE 1 TABLET BY MOUTH AT BEDTIME 30 tablet 3 025 2024 Discontinued Tirzepatide (Mounjaro) 7.5 MG/0.5ML solution auto-injectorIndi cations:Type 2 diabetes mellitus with hyperglycemia, with long-term current use of insulin ([facility]) Inject 7.5 mg under the [...] Active Problems Problem Noted Date Diagnosed Date Erosive gastritis 06/19/2025 Type 2 diabetes mellitus wit h hyperglycemia, [...] cholesterol 05/11/2023 long-term (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 of insulin ([facility]) Uncontrolled type 2 diabetes mellitus [...] Encounters Date Type Department Care Team Description 06/26/[address] [facility] MEDICINE [address] [place] [address] NameChan MD Diabetic 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 associated with type 2 diabetes mellitus (HCC) 06/19/2025 Results Follow-Up [facility] [address] [place] [address] Name, MD Chan CBC auto differential, Ferritin, Vitamin B12 06/19/2025 Orders Only [facility] [address] [facility] [place] [address] NameChan MD 06/16/2025 Travel 06/02/2025 11:00 AM EDT Office Visit [facility] [address] [facility] [place] [address] Chan Holley MD Type 2 diabetes mellitus with hyperglycemia, with long-term current use of insulin (HCC) (Primary Dx); Hypoglycemia; ZEV on CPAP 06/02/2025 Travel 05/30/[address] [facility] [address] [facility] [place] [address] Chan Holley MD CHART PREP 05/26/2025 Travel 05/06/[address] [facility] MEDICINE [address] [place] [address] Chan Holley MD 05/05/2025 Travel 04/11/2025 9:00 AM EDT Office Visit [facility] MEDICINE [address] [place] [address] Nina Cardozo NP Type 2 diabetes mellitus with hyperglycemia, with long-term current use of insulin (CMS/HCC) (Primary Dx) 04/11/2025 Travel 04/10/[address] [facility] MEDICINE [address] [place] [address] Jean Carlos Harrington MA CHARTPREP 04/10/[address] [facility] MEDICINE [address] [place] [address] Chan Holley MD Nurse Triage 04/09/[address] [facility] MEDICINE [address] [place] [address] Chan Holley MD 04/07/2025 Travel 04/07/[address] [facility] MED[facility]INE [address] [place] [address] Naya Malone PharmD Type 2 diabetes mellitus with hyperglycemia, with long-term current use of insulin (CMS/HCC) 04/02/2025 10:00 AM EDT Office Visit 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 MEDICINE [address] [place] [address] [phone] Naya Malone, PharmD [address] [place], [place] [phone] 09/03/2025 9:30 AM EST Office Visit [facility] MEDICINE [address] [place] [phone] Name, MD Chan [address] [place], [place] [phone] Health Maintenance Due Date Last Done Comments CT Colonography 1956 FIT DNA/Cologuard 1955 FIT 1955 FOBT 1955 Sigmoidoscopy 1955 RSV Patients and Patients Aged 60 years or older (1 - Risk 50-74 years 1-dose series) 2006 Zoster Vaccines (1 of 2) 2006 Dental Prophylaxis 05/24/2023 11/21/2022 Dental Oral Exam [...] 023 11:22 AM EST) No Naya Malone, Gabriela Note: Use CGM, ensuring sensor is scanned at least once every 8 hours to capture 24H data. Check BG manually, as directed. Procedures Procedure Name Priority Date/Time Associated Diagnosis Comments XR HIPS BILATERAL 3 OR 4 VIEWS WITH OR WITHOUT PELVIS Routine 06/27/2025 10:16 AM EST VITAMIN B12 Routine 06/19/2025 10:41 AM EST FERRITIN Routine 06/19/2025 10:41 AM EST CBC WITH AUTO DIFFERENTIAL Routine 06/19/2025 10:41 AM EST AMB REFERRAL TO SLEEP MEDICINE Routine 06/04/2025 ZEV on CPAP POCT GLYCATED HEMOGLOBIN, TOTAL Routine 06/02/2025 10:59 AM EDT Type 2 diabetes mellitus with hyperglycemia, with long-term current use of insulin (HCC) POCT GLUCOSE Routine 06/02/2025 10:56 AM EDT Type 2 diabetes mellitus with hyperglycemia, with long-term current use of insulin ([facility]) POCT GLYCATED HEMOGLOBIN, TOTAL Routine 04/11/2025 9:04 AM EDT Type 2 diabetes mellitus with hyperglycemia, with long-term current use of insulin (CMS/HCC) POCT GLUCOSE Routine 04/11/2025 9:04 AM EDT Type 2 diabetes mellitus with hyperglycemia, with long-term current use of insulin (CMS/HCC) LIPID PANEL, STANDARD Routine 11/06/2024 8:30 AM EDT Type 2 diabetes mellitus with diabetic 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, with long-term current use of insulin (CMS/HCC) INTRAORAL - COMPLETE SERIES OF RADIOGRAPHIC IMAGES [...] Recently Relevant to Health Maintenance Results * XR Hips Bilateral 3 or 4 Views with or without Pelvis (06/27/2025 10:16 AM EST) Anatomical Region Laterality Modality Lower Extremities, Hip Bilateral Radiograp hic Imaging 06/27/2025 10:1 6 AM EST Narrative 06/27/2025 10:43 AM EST [place] [address] XRay Report Signed Patient: Alonzo Dotson MR#: [id number] : 1955 Acct:[id number] Age/Sex: 70 / M ADM Date: 06/27/25 Loc: HO.MARGI Attending Dr: Chan Holley MD Ordering Physician: Chan Holley MD Date of Service: 06/27/25 Procedure(s): XR hips KAUR min 3V Accession Number(s): [id number] cc: Chan Holley MD Reason for Exam: PAIN EXAMINATION: XR BILATERAL HIPS WITH AP PELVIS CLINICAL INFORMATION: PAIN COMPARISON: X-ray 07/23/2023 TECHNIQUE: AP view of the pelvis and single views of each hip were obtained. FINDINGS: No acute fracture, dislocation or suspicious bony lesion. Hip joint spaces are maintained. Alignment is anatomic. Partially visualized SI joints and pubic symphysis are normal. No abnormal soft tissue calcifications. Spondylosis of the lower lumbar spine. XR/XR hips KAUR min 3V IMPRESSION: No acute osseous findings. Spondylosis of the lower lumbar spine. Electronically signed by: Bobby Livingston MD 06/27/2025 10:40 AM EST Dictated By: Bobby Livingston MD Signed By: <Electronically signed by Bobby Livingston MD in OV> 06/27/25 1040 DD/ 1016 TD/TT: 06/27/25 1026 Systems Programmer Analyst: YANNI Procedure Note Donotuseinterpreter, Image - 06/27/[address] [address] XRay Report Signed Patient: Jessenia DotsonR#: [id number] : 6Acct:[id number] Age/Sex: 70 / MADM Date: 06/27/25 Loc: HO.XRAY Attending Dr: Chan Holley MD Ordering Physician: Chan Holley MD Date of Service: 06/27/25 Procedure(s): XR hips KAUR min 3V Accession Number(s): [id number] cc: Chan Holley MD Reason for Exam: PAIN EXAMINATION: XR BILATERAL HIPS WITH AP PELVIS CLINICAL INFORMATION: PAIN COMPARISON: X-ray 07/23/2023 TECHNIQUE: AP view of the pelvis and single views of each hip were obtained. FINDINGS: No acute fracture, dislocation or suspicious bony lesion. Hip joint spaces are maintained. Alignment is anatomic. Partially visualized SI joints and pubic symphysis are normal. No abnormal soft tissue calcifications. Spondylosis of the lower lumbar spine. XR/XR hips KAUR min 3V IMPRESSION: No acute osseous findings. Spondylosis of the lower lumbar spine. Electronically signed by: Bobby Livingston MD 06/27/2025 10:40 AM EST Dictated By: Bobby Livingston MD Signed By: <Electronically signed by Bobby Livingston MD in OV> 06/27/25 1040 DD/ 1016 TD/TT: 06/27/25 1026 Systems Programmer Analyst: YANNI Chan Holley MD IM XR PROCEDURES Final Result * (ABNORMAL) CBC auto differential (06/19/2025 10:41 AM EST) White Blood Count 7.5 4.8 - 10.8 X10*3/uL [facility] Red Blood Count 5.11 4.60 - 5.80 X10*6/uL [facility] Hemoglobin 11.8(L) 14.0 - 18.0 g/dl [facility] Hematocrit 38.8(L) 42.0 - 52.0 % [facility] Mean Corpuscular Volume 75.9(L) 80.0 - 98.0 fL [facility] Mean Corpuscular Hemoglobin 23.1(L) 27.0 - 33.0 pg [facility] Mean Corpuscular HGB Conc 30.4(L) 31.0 - 36.0 g/dl [facility] Red Cell Distribution Width 15.9 11.0 - 16.0 % [facility] Platelet Count 390 160 - 400 X10*3/uL [facility] Mean Platelet Volume 9.5 9.4 - 12.4 fL [facility] Neutrophils Percent Auto 54.2 45 - 73 % [facility] Imm Gran Pct Auto 0.3 0.0 - 0.4 % [facility] Lymphocytes Percent Auto 27.2 20 - 40 % [facility] Monocytes Percent Auto 9.9 2 - 11 % [facility] Eosinophils Percent Auto 7.3(H) 0 - 4 % [facility] Basophils Percent Auto 1.1 0 - 2 % [facility] NRBC Pct Auto 0.0 0.0 - 0.2 /100WBC [facility] Neutrophils Absolute Auto 4.1 2.0 - 8.3 x10*3/uL [facility] Imm Gran Abs Auto 0.02 0.00 - 0.03 X10*3/uL [facility] Lymphocytes Absolute Auto 2.0 1.2 - 4.9 X10*3/uL [facility] Monocytes Absolute Auto 0.7 0.1 - 1.2 X10*3/uL [facility] Eosinophils Absolute Auto 0.6(H) 0.0 - 0.4 X10*3/uL [facility] Basophils Absolute Auto 0.1 0.0 - 0.2 X10*3/uL [facility] NRBC Abs Auto 0.000 0.0 - 0.012 X10*3/uL [facility] 06/19/2025 10:4 1 AM EST 06/19/2025 11:16 AM EST us Chan Holley MD LAB BLOOD ORDERABLES Final Resul t Performing Organization Address [facility] Co de Phone Number [facility] [address] [place] [phone] * (ABNORMAL) Ferritin (06/19/2025 10:41 AM EST) Ferritin 11(L) 20 - 250 ng/mL [facility] 06/19/2025 10:4 1 AM EST 06/19/2025 11:16 AM EST us Chan Holley MD LAB BLOOD ORDERABLES Final Resul t Performing Organization Address [facility] Phone Number [facility] [address] [place] [phone] * Vitamin B12 (06/19/2025 10:41 AM EST) Vitamin B12 446 200 - 900 pg/mL [facility] Comment:NORMAL 200-900 PG/ML INDETERMINATE 160-199 PG/ML DEFICIENT < 160 PG/ML 06/19/2025 10:4 1 AM EST 06/19/2025 11:16 AM EST us Chan Holley MD LAB BLOOD ORDERABLES Final Resul t Performing Organization Address [facility] [[email or web address]] de Phone Number [facility] [address] [place] [phone] * Referral to Sleep Medicine (06/04/2025) Result Ashvin Holley MD OUTPATIENT REFERRAL ORDERABLES F inal Result * (ABNORMAL) POCT Hgb A1c (06/02/2025 10:59 AM EDT) Only the most recent of2 resultswithin the time period is included. Hemoglobin A1C 7.5(A) 4.0 - 5.7 % QC Media Lot # [id number] Lot# Expiration Date 51 Blood 06/02/2025 10:5 9 AM EDT Chan Name POINT OF CARE [...] 8:30 AM EDT) Triglycerides 189(H) <150 mg/dL [facility] Comment:Desirable Triglyceri de: less than 150 mg/dLBorderline High Triglyceride 150-199 mg/dLHigh Triglyceride: 200-499 mg/dLVery High Triglyceride: greater than or equal to 5OO mg/dL Cholesterol 174 <200 mg/dL [facility] Comment:Desirable Cholestero l: less than 200 mg/dLBorderline High Cholesterol: 200-239 mg/dLHigh Cholesterol: greater than 239 mg/dL LDL Cholesterol Calculated 90 <100 mg/dL [facility] Comment:Desirable LDL: less than 100 mg/dLNear Optimal/Above Optimal LDL: 110- 129 mg/dLBorderline High LDL: 130-159 mg/dLHigh LDL: 160-189 mg/dLVery High LDL: greater than or equal to 190 mg/dL HDL Cholesterol 47 >40 mg/dL [facility] Comment:Desirable HDL: great er than 40 mg/dL Note: This HDL assay may give artificially low results in patients with liver disease. Blood Venous blood specimen / Unknown 11/06/2024 8:30 AM EDT 11/06/2024 11:05 AM EDT us Chan Holley MD LAB BLOOD ORDERABLES Final Resul t [facility] [address] [place] [address] [phone] * (ABNORMAL) Hm Colonoscopy (12/12/2022) Colonoscopy Abnormal( A) Normal Comment:Repeat in 3 yrs us Historical Provider MD HEALTH MAINTENANCE Final Result * HEPATITIS C AB W/REFL TO HCV RNA, QN, PCR (04/05/2022 10:35 AM EDT) HEPATITIS C ANTIBODY NON-REACT ELEONORA NON-REACT ELEONORA [facility] INDEX 0.04 <1.00 [facility] Comment: HCV antibody was non-reactive. There is no laboratory evidence of HCV infection. In most cases, no further action is required. However, if recent HCV exposure is suspected, a test for HCV RNA (test code 11022) is suggested. For additional information please refer to http://education.Doujiao/faq/PLX21b3 (This link is being provided for informational/ educational purposes only.) 04/05/2022 10:3 5 AM EDT Vaishali Nieves ARCHITECTURAL ADMINISTRATIVE ASSISTANT HISTORICAL/NON ORDERABLE LABS Final Result [facility] [address] from Last 3 Months or Most Recently Relevant to Health Maintenance [facility] STANDARD [facility] CARE HOME OPTIONS (HMO D-SNP) [facility] Care Teams Shoe Turner Relationship Specialty Start Date End Date Name, MD Chan [address] [place] [address] PCP - General Family Medicine 08/01/16 Naya Malone, Gabriela [address] [place] [address] Pharmacist Internal Medicine 02/17/23 [facility] 11/08/24
--- OUTSIDE RECORDS SUMMARY | 2025-06-27 11:44 | XMS_ITS | Encounter Summary ---
Author Organization [facility] Address [address] [place] [address] Care Team Providers Care Fly Tier Name Role Phone Name, Chan TOLLIVER Primary Care Provider [phone] Naya Malone PharmD Unavailable [phone] Encounter Details Date Type Department Care Team (Latest Contact Info) Description 03/24/2021 Abstract [facility] CONVERSIONS Dental, Provider, DDS Social History Tobacco [...] Description 07/18/2025 10:30 AM EST Medication Management [facility] MEDICINE [address] [place] [phone] Naya Malone, PharmD [address] [place] [address] 09/03/2025 9:30 AM EST Office Visit [facility] MEDICINE [address] [place] [address] [phone] Name, MD Chan [address] [place] [phone] documented as of this encounter Visit Diagnoses Not on filedocumented in this encounter Care Teams Fly Tier Relationship Specialty Start Date End Date Name, MD Chan [address] [place] [address] PCP - General Family Medicine 08/01/16 Naya Malone PharmD [address] [place] [address] Pharmacist Internal Medicine 02/17/23 [facility] 11/08/24 documented as of this encounter
--- OUTSIDE RECORDS SUMMARY | 2025-06-27 11:44 | XMS_ITS | Encounter Summary ---
Author Organization [employer] Address [address] [place] [address] Care Team Providers Care Art Conservator Name Role Phone Name, Chan TOLLIVER Primary Care Provider [phone] Naya Malone PharmD Unavailable [phone] Reason for Visit * Reason Comments Med Refill Encounter Details Date Type Department Care Team (Late st Contact Info) Description 06/26/2025 Refill [facility] [address] [place], [place] [phone] Name, MD Chan [address] [place], [place] [phone] Diabetic 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 associated with type 2 diabetes mellitus (HCC) Social History Tobacco Use Types Packs/Day Years [...] Description 07/18/2025 10:30 AM EST Medication Management [facility] [address] [place] [phone] Naya Malone, PharmD [address] [place] [phone] 09/03/2025 9:30 AM EST Office Visit [facility] [address] [place] [phone] Name, MD Chan [address] [place] [phone] documented as of this encounter Goals Goal [...] associated with type 2 diabetes mellitus (HCC) documented in this encounter Additional Health Concerns Assessment Noted Time PHQ-9 Depression Total Score: 19 025 10:52 AM EDT documented as of this encounter Care Teams Art Conservator Relationship Specialty Start Date End Date Name, MD Chan [address] [place] [address] PCP - General Family Medicine 08/01/16 Naya Malone PharmD [address] [place] [address] Pharmacist Internal Medicine 02/17/23 [facility] 11/08/24 documented as of this encounter
--- OUTSIDE RECORDS SUMMARY | 2025-06-27 11:44 | XMS_ITS | Encounter Summary ---
Author Organization [employer] Address [address] [place] [address] Care Team Providers Care Mandarin Teacher Name Role Phone Name, Chan TOLLIVER Primary Care Provider [phone] Naya Malone PharmD Unavailable [phone] Encounter Details Date Type Department Care Team (Late st Contact Info) Description 01/12/2024 Telephone [facility] ADULT DENTAL [address] [place] [address] Priya Felix, BRANT Social History Tobacco Use [...] Description 07/18/2025 10:30 AM EST Medication Management [address] [address] Naya Malone PharmD [address] [place] [phone] 09/03/2025 9:30 AM EST Office Visit [facility] MEDICINE [address] [place] [phone] Name, MD Chan [address] [place] [phone] documented as of this encounter Goals Goal [...] documented as of this encounter Care Teams Mandarin Teacher Relationship Specialty Start Date End Date Name, MD Chan [address] [place] [address] PCP - General Family Medicine 08/01/16 Naya Malone PharmD [address] [place] [address] Pharmacist Internal Medicine 02/17/23 [facility] 11/08/24 documented as of this encounter
--- OUTSIDE RECORDS SUMMARY | 2025-06-27 11:44 | XMS_ITS | Encounter Summary ---
Author Organization [facility] Address [address] [place] [address] Care Team Providers Care Independent Sales Representative Name Role Phone Name, Chan TOLLIVER Primary Care Provider [phone] Naya Malone PharmD Unavailable Encounter Details Date Type Department Care Team (Latest Contact Info) Description 03/05/2019 Abstract [facility] CONVERSIONS Dental, Provider, DDS Social History [...] 07/18/2025 10:30 AM EST Medication Management [address] [address] Naya Malone, PharmD [address] [place] [address] 09/03/2025 9:30 AM EST Office Visit [facility]IC[facility] [address] [place] [address] [phone] Name, MD Chan [address] [place] [phone] documented as of this encounter Visit Diagnoses Not on filedocumented in this encounter Care Teams Independent Sales Representative Relationship Specialty Start Date End Date Name, MD Chan [address] [place] [address] PCP - General Family Medicine 08/01/16 Naya Malone PharmD [address] [place] [address] Pharmacist Internal Medicine 02/17/23 [facility] 11/08/24 documented as of this encounter
--- OUTSIDE RECORDS SUMMARY | 2025-06-27 11:44 | XMS_ITS | Clinical Summary ---
Author Organization [facility] Address [address] [place] [address] Phone Care Team Providers Care Senior Technical Manager Name Role Phone Unavailable Primary Care Provider Unavailabl e Allergies No known active allergies Medications traMADol-acetam [...] Encounters Date Type Department Care Team Description 06/19/2025 9:45 AM EST Office Visit Orthopedic Surgery [facility] [address] [facility] [address] [place] [address] Gene Blankenship DPM Controlled type 2 diabetes with neuropathy ([facility] V24, [facility] V28) (Primary Dx); Pain in toes of [...] Care Team (Late st Contact Info) Description 09/18/2025 9:45 AM EST Office Visit Orthopedic Surgery - [place] [address] [address] Gene Blankenship, DPYenni [address] [address] Health Maintenance Due Date Last Done Comments [...] Ratio (uACR) 11/08/2024 11/09/2023 COVID-19 Vaccine ( - season) 2025 Influenza Vaccine (#1) 2025 , 04/29/2020, 05/07/2019, Additional history exists Diabetes: Annual GFR (Glomerular Filtration Rate) 11/06/2025 11/06/2024, 11/09/2023 Hypertension/CHF/CAD Annual BMP Blood Test 11/06/2025 11/06/2024, 11/09/2023 Diabetes: Blood Sugar Control Test (HGBA1C) 12/01/2025 06/02/2025, 04/11/2025, 12/31/2024, Additional history exists DTaP,Tdap,and Td Vaccines (4 [...] * Urine Albumin Creatinine Ratio (11/09/2023) [facility]ologist [facility] Urine Albumin Creatinine Ratio abstracted [facility] Provider HEALTH MAINTENANCE Final Result * Annual BMP Blood Test (11/09/2023) [facility] Annual BMP Blood Test abstracted [facility] Provider HEALTH MAINTENANCE Final Result * Lipid panel (07/05/2023) [facility] [address] LDL/HDL Ratio 0 Comment:no interpretation, a bstracted Triglycerides 0 mg/dL Comment:no interpretation, a bstracted Cholesterol 0 mg/dL Comment:no interpretation, a bstracted HDL 0 mg/dL Comment:no interpretation, a bstracted LDL Cholesterol 0 mg/dL Comment:no interpretation, a bstracted Blood Venous blood specimen / Unknown Result [facility] Provider LAB BLOOD ORDERABLES Sue l Result * Hepatitis C Screening (04/05/2022) [facility] Hepatitis C Screening abstracted Result [facility] Provider HEALTH MAINTENANCE Final Result * Hemoglobin A1c (07/22/2020) [facility] [address] Hemoglobin A1C 0.0 % Comment:no interpretation, a bstracted Blood Venous blood specimen / Unknown Result [facility] Provider LAB BLOOD ORDERABLES Sue l Result from Last 3 Months or Most Recently Relevant to Health Maintenance Insurance [facility] MEDIC[facility] Member Subscriber Plan / Payer (Ef fective 2022-Present) Name:Alonzo Dotson Relation to Subscriber:Self Name:Yuanmj BatistaRoyalAlonzo Payer ID:[id number] Group ID:[id number] Type:Not on file Address: [place] [address] [id number]
--- OUTSIDE RECORDS SUMMARY | 2025-06-27 11:45 | XMS_ITS | Encounter Summary ---
Author Organization [employer] Address [address] [place] [address] Care Team Providers Care Sanitation Tank Washer Name Role Phone Name, Chan TOLLIVER Primary Care Provider [phone] Naya Malone PharmD Unavailable [phone] Reason for Visit * Reason Comments Med Refill Encounter Details Date Type Department Care Team ([facility] st Contact Info) Description 09/02/2023 Refill [facility] [address] [place], [place] [phone] Name, MD Chan [address] [place], [place] [phone] Asthma, unspecified asthma severity, unspecified whether complicated, [...] Description 07/18/2025 10:30 AM EST Medication Management [facility] [address] [place] [phone] PuiaGriffinNaya, PharmD [address] [place] [address] 09/03/2025 9:30 AM EST Office Visit [facility] [address] [place] [phone] Name, MD Chan [address] [place] [phone] documented as of this encounter Goals Goal [...] documented as of this encounter Care Teams Sanitation Tank Washer Relationship Specialty Start Date End Date Name, MD Chan [address] [place] [address] PCP - General Family Medicine 08/01/16 Naya Malone PharmD [address] [place] [address] Pharmacist Internal Medicine 02/17/23 [facility] 11/08/24 documented as of this encounter
== END 2025-06-27 09:59 | disposition home or self-care (01) ==
LOC: HO.XRAY 09:58
PROVIDERS: Absent Provider Nurse Practitioner Family; PCP Internal Medicine Geriatric Medicine; Visit Provider Internal Medicine Geriatric Medicine
DX: M25.552 Pain in left hip (principal); M25.551 Pain in right hip
CPT/HCPCS: 73522

== ENCOUNTER → 2025-06-27 10:16 | Outpatient (BNV) | payer OTHER, SELFPAY | PROVIDERS: Absent Provider Nurse Practitioner Family; PCP Internal Medicine Geriatric Medicine; Visit Provider Radiology Diagnostic Ultrasound | DX: M47.816 Spondylosis without myelopathy or radiculopathy, lumbar region (principal) | CPT/HCPCS: 73522 ==